=== PATIENT | female | born 1940 | race Caucasian/White ===

== ENCOUNTER → 2017-12-03 12:16 | Outpatient (CLI) | payer MEDICARE, SELFPAY ==
[2017-12-03 13:21] VITALS: PULSE 56; PULSE 62; PULSE 69; PULSE 72; PULSE 75; PULSE 79; O2SAT 94; O2SAT 95; O2SAT 96; O2SAT 97; O2SAT 98
--- NOTE | 2017-12-03 13:25 | CPS ---
Patient states she wears 4 lpm at home at night. Patient was 96% on room air to start the test. Patient took a very quick break during the 2nd minute of walking, she then stopped again at 3 minutes and 30 seconds until 5 minutes. When I told the patient she only had a minute left, she told me that she had more than that since she had been sitting. I reminded the patient that she should do the best she can in 6 minutes and start again from breaks as soon as she can because her time keeps running. She then insisted on walking more after her 6 minutes was over so she could get a good test she said. We walked an additional 100 ft after the 6 minutes which would total 395ft, patient's SpO2 still remained >95%.
--- NOTE | 2017-12-03 14:06 | PCM.PSN.6M ---
PSN 6 Minute Walk Test - 6 Minute Walk Test 6 Minute Walk Test: 6 Minute Walk Test PSN:6-Minute Walk Test Start: 12/03/17 13:21 Freq: Status: Active Protocol: RESP.6MINW Document 12/03/17 13:21 ELLIOT (Rec: 12/03/17 13:32 ELLIOT [id number]) 6 Minute Walk Test Date Performed 12/03/17 Time Performed 12:25 Height 4 ft 8 in Weight: 65.771 kg Weight in Pounds 145.[address]: Mumtaz Ravi Assistive device used: None Pre-test Oxygen Delivery Method Room Air Pulse Ox (%) 96 Pulse Rate (60-100 beats/min) 56 L Dyspnea Jose Scale (0-10) 3 Exertion Jose Scale (6-20) 6 1st minute Oxygen Delivery Method Room Air Pulse Ox (%) 94 Pulse Rate (60-100 beats/min) 75 2nd minute Oxygen Delivery Method Room Air Pulse Ox (%) 96 Pulse Rate (60-100 beats/min) 79 Number of Rests Taken 1 3rd minute Oxygen Delivery Method Room Air Pulse Ox (%) 95 Pulse Rate (60-100 beats/min) 79 Number of Rests Taken 1 4th minute Oxygen Delivery Method Room Air Pulse Ox (%) 97 Pulse Rate (60-100 beats/min) 72 Number of Rests Taken 1 5th minute Oxygen Delivery Method Room Air Pulse Ox (%) 98 Pulse Rate (60-100 beats/min) 69 Number of Rests Taken 1 6th minute Oxygen Delivery Method Room Air Pulse Ox (%) 95 Pulse Rate (60-100 beats/min) 72 Dyspnea Jose Scale (0-10) 6 Exertion Jose Scale (6-20) 16 Post-test Oxygen Delivery Method Room Air Pulse Ox (%) 98 Pulse Rate (60-100 beats/min) 62 Full Laps Walked 5 Partial Lap, Number of Tiles Walked 0 Total Distance Walked (ft) 295 12/03/17 13:25 Cardiopulmonary Services by Sanna Ramires Patient states she wears 4 lpm at home at night. Patient was 96% on room air to start the test. Patient took a very quick break during the 2nd minute of walking, she then stopped again at 3 minutes and 30 seconds until 5 minutes. When I told the patient she only had a minute left, she told me that she had more than that since she had been sitting. I reminded the patient that she should do the best she can in 6 minutes and start again from breaks as soon as she can because her time keeps running. She then insisted on walking more after her 6 minutes was over so she could get a good test she said. We walked an additional 100 ft after the 6 minutes which would total 395ft, patient's SpO2 still remained >95%. Initialized on 12/03/17 13:25 - END OF NOTE - Interpretation Interpretation: The patient was able to ambulate only 295 feet over the course of 6 minutes on room air with no assistive devices. Patient took a rest from the third minutes of the fifth minute, limiting distance traveled. No significant desaturation or tachycardia was noted during testing. These findings are consistent with a musculoskeletal limitation exercise tolerance. - Recommendations Recommendations: No supplemental oxygen is indicated at this time. However, sensitivity for hypoxemia is severely reduced given minimal distance traveled.
--- NOTE | 2017-12-03 14:24 | WT_ITS ---
PSN 6 Minute Walk Test - 6 Minute Walk Test 6 Minute Walk Test: 6 Minute Walk Test PSN:6-Minute Walk Test Start: 12/03/17 13: 21 Freq: Status: Active Protocol: RESP.6MINW Document 12/03/17 13:21 ELLIOT (Rec: 12/03/17 13:32 ELLIOT [id number]) 6 Minute Walk Test Date Performed 12/03/17 Time Performed 12:25 Height 4 ft 8 in Weight: 65.771 kg Weight in Pounds 145.[address]: Mumtaz Ravi Assistive device used: None Pre-test Oxygen Delivery Method Room Air Pulse Ox (%) 96 Pulse Rate (60-100 beats/min) 56 L Dyspnea Jose Scale (0-10) 3 Exertion Jose Scale (6-20) 6 1st minute Oxygen Delivery Method Room Air Pulse Ox (%) 94 Pulse Rate (60-100 beats/min) 75 2nd minute Oxygen Delivery Method Room Air Pulse Ox (%) 96 Pulse Rate (60-100 beats/min) 79 Number of Rests Taken 1 3rd minute Oxygen Delivery Method Room Air Pulse Ox (%) 95 Pulse Rate (60-100 beats/min) 79 Number of Rests Taken 1 4th minute Oxygen Delivery Method Room Air Pulse Ox (%) 97 Pulse Rate (60-100 beats/min) 72 Number of Rests Taken 1 5th minute Oxygen Delivery Method Room Air Pulse Ox (%) 98 Pulse Rate (60-100 beats/min) 69 Number of Rests Taken 1 6th minute Oxygen Delivery Method Room Air Pulse Ox (%) 95 Pulse Rate (60-100 beats/min) 72 Dyspnea Jose Scale (0-10) 6 Exertion Jose Scale (6-20) 16 Post-test Oxygen Delivery Method Room Air Pulse Ox (%) 98 Pulse Rate (60-100 beats/min) 62 Full Laps Walked 5 Partial Lap, Number of Tiles Walked 0 Total Distance Walked (ft) 295 12/03/17 13:25 Cardiopulmonary Services by Sanna Ramires Patient states she wears 4 lpm at home at night. Patient was 96% on room air to start the test. Patient took a very quick break during the 2nd minute of walking , she then stopped again at 3 minutes and 30 seconds until 5 minutes. When I told the patient she only had a minute left, she told me that she had more than that since she had been sitting. I reminded the patient that she should do the best she can in 6 minutes and start again from breaks as soon as she can because her time keeps running. She then insisted on walking more after her 6 minutes was over so she could get a good test she said. We walked an additional 100 ft after the 6 minutes which would total 395ft, patient's SpO2 still remained >95%. Initialized on 12/03/17 13:25 - END OF NOTE - Interpretation Interpretation: The patient was able to ambulate only 295 feet over the course of 6 minutes on room air with no assistive devices. Patient took a rest from the third minutes of the fifth minute, limiting distance traveled. No significant desaturation or tachycardia was noted during testing. These findings are consistent with a musculoskeletal limitation exercise tolerance. - Recommendations Recommendations: No supplemental oxygen is indicated at this time. However, sensitivity for hypoxemia is severely reduced given minimal distance traveled.
== END ==
PROVIDERS: Family Provider Family Medicine; PCP Family Medicine; Visit Provider Internal Medicine Critical Care Medicine
DX: J44.9 Chronic obstructive pulmonary disease, unspecified (principal)
CPT/HCPCS: 94618

== ENCOUNTER → 2018-05-24 15:26 | Outpatient (CLI) | payer MEDICARE, SELFPAY ==
--- NOTE | 2018-05-24 15:55 | RAD_ITS ---
STUDY: X-RAY CHEST REASON FOR EXAM: Female, 78 years old. Long-term use of Amiodarone TECHNIQUE: Frontal and lateral views of the chest. COMPARISON: 03/17/2017. FINDINGS: There is hyperinflation of the lungs consistent with chronic obstructive lung disease (COPD). No infiltrates or effusions. No definite pulmonary fibrosis but there are stable streaks of probable scarring across the midlung ayala bilaterally. There is no demonstrated pleural abnormality. There is moderate cardiac enlargement. Normal mediastinum and lydia. Normal visualized pulmonary arteries. There is atherosclerotic calcification of the aortic arch with tortuosity. There are diffuse degenerative changes of the visualized thoracic spine. There is degenerative osteoarthritis of the bilateral shoulders. There is no demonstrated abnormality of the visualized soft tissue structures of the upper abdomen. RAD/Chest PA and Lateral IMPRESSION: COPD, without definite acute chest disease or evidence for generalized fibrosis. Cardiomegaly. Electronically Signed: Honorio Santacruz MD at 16:43 EDT , Service support ,
[2018-05-24 18:17] LABS: AST(SGOT) 12 U/L (15-37); Alanine Aminotransfer ALT/SGPT 14 U/L (13-56); Albumin, Serum 3.6 g/dL (3.2-5.0); Alkaline Phosphatase 52 U/L (45-117); Bilirubin, Direct 0.08 mg/dL (0.00-0.30); Protein, Total 6.6 g/dL (6.4-8.2); Thyroid Stim Hormone (TSH) 0.02 uIU/mL (0.358-3.74)
== END ==
PROVIDERS: Family Provider Family Medicine; PCP Family Medicine; Referring Provider Internal Medicine Cardiovascular Disease; Visit Provider Internal Medicine Cardiovascular Disease
DX: E78.00 Pure hypercholesterolemia, unspecified (principal); Z79.01 Long term (current) use of anticoagulants
CPT/HCPCS: 36415; 71046; 80076; 84443

== ENCOUNTER → 2018-11-16 16:43 | Outpatient (CLI) | payer MEDICARE, SELFPAY ==
[2018-11-16 15:53] VITALS: BMI 28.2
[2018-11-16 17:21] LABS: Absolute Lymphocyte Count 1.17 X10^3/ul (0.83-4.51); Absolute Neutrophil Count 3.6 X10^3/uL (2.0-7.7); Basophil# 0.18 X10^3/uL; Basophil% 3.2 % (0-1); Eosinophil# 0.12 X10^3/uL; Eosinophils% 2.2 % (0-5); Hematocrit 28.3 % (37-47); Hemoglobin 7.6 g/dl (12.0-15.0); Lymphocyte # 1.17 X10^3/ul (4.0); Mean Corp Hgb Conc 26.9 g/gl (32-36); Mean Corpuscular Hgb 22.8 pg (27.0-32.0); Mean Corpuscular Volume 84.7 fL (81-99); Mean Platelet Vol. 9.9 fl (6.2-12.0); Monocyte# 0.55 X10^3/uL; Monocyte% 9.9 % (0-10); Neutrophil # 3.55 X10^3/uL (2.7-7.7); Neutrophil % 63.5 % (47-70); Platelet Count 394 K/mm3 (150-450); RBC Distribution Width CV 19.5 % (11.6-14.6); RBC Distribution Width SD 58.3 fl (35.1-43.9); Red Blood Count 3.34 M/mm3 (4.2-5.4); White Blood Count 5.6 K/mm3 (4.4-11.0)
[2018-11-16 17:22] LABS: Differential Indicated SCAN CRITERIA MET; POSITIVE COUNT NO; POSITIVE DIFFERENTIAL NO; POSITIVE MORPHOLOGY YES
[2018-11-16 17:50] LABS: Anion Gap 7 (5-15); BUN 24 mg/dL (7-18); BUN/Creat Ratio 15.4 RATIO (10-20); Calcium,Total 8.7 mg/dL (8.5-10.1); Chloride 106 mmol/L (98-107); Creatinine, Serum 1.56 mg/dL (0.55-1.02); EST Glomerular Filtration Rate 34 mL/min (>60); Est Glom Filt Rate - Afr Amer 41 mL/min (>60); Glucose 97 mg/dL (74-106); Potassium 3.7 mmol/L (3.5-5.1); Sodium Level 138 mmol/L (136-145)
[2018-11-16 17:56] LABS: BNP,B-Type NATRIURETIC PEPTIDE 1105.1 pg/mL (0-100)
[2018-11-16 19:54] LABS: Anisocytosis 2+; Differential Comment SCANNED; Hypochromasia 2+; Platelet Estimate ADEQUATE (ADEQ); Polychromasia RARE; Target Cells RARE
== END ==
PROVIDERS: Family Provider Family Medicine; PCP Family Medicine; Referring Provider Nurse Practitioner Family; Visit Provider Nurse Practitioner Family
DX: I48.0 Paroxysmal atrial fibrillation (principal); I10 Essential (primary) hypertension; R06.09 Other forms of dyspnea; E78.00 Pure hypercholesterolemia, unspecified
CPT/HCPCS: 36415; 80048; 83880; 85025

== ENCOUNTER 2018-11-17 11:16 | Inpatient (IN) | payer MEDICARE, SELFPAY ==
[2018-11-16 15:53] VITALS: BMI 28.2
[2018-11-17] VITALS (17 sets, daily range): BP systolic 120–201; BP diastolic 54–101; PULSE 44–99; RESP 16–20; TEMP 36.3–36.6; O2SAT 91–97; BMI 28.2; BMI 27.9; BMI 28.0
--- NOTE | 2018-11-17 11:24 | EKG12_ITS ---
Test Reason : ABN LABS Blood Pressure : / mmHG Vent. Rate : 054 BPM Atrial Rate : 054 BPM P-R Int : 200 ms QRS Dur : 080 ms QT Int : 474 ms P-R-T Axes : -03 029 044 degrees QTc Int : 449 ms Sinus bradycardia with sinus arrhythmia Otherwise normal ECG Confirmed by BELINDA XIE, PRIETO ([id number]), acquisition editor DENISE LEON ([id number]) on 11/21/2018 11:44:04 AM Referred By: Adiel Reyes Confirmed By:PRIETO TREVINO MD
--- NOTE | 2018-11-17 11:26 | ED.VIS.GEN ---
History of Present Illness Chief Complaint: Abn Labs Detail of Chief Complaint: Patient does not know specifically why sent to ER Informant: Patient Context: - - Probably gradual Quality: Review of yesterday's labs reveal hemoglobin 7.6. BUN/creatinine ratio is Location: Not applicable Current Severity: Mild Maximum Severity: Mild Worsened by: Patient has no symptoms other than her chronic back pain Relieved by: Nothing Associated Symptoms: No orthostatic symptoms, chest pain, dyspnea or SAMANO Narrative: Patient is an elderly woman who is not a good informant. She was instructed to come to the emergency room because of apparent abnormal labs and possibly low heart rate. She states she is on Soma, gabapentin and small dose of opiate analgesia for her chronic back pain. She states the medicine does not work. She stated I am on a crap load of medicine and do not know the name of them . Patient denies black or maroon stool. Patient denies vomiting. Patient denies dysuria, frequency, urgency or hematuria. Patient denies chest pain, dyspnea or dyspnea on exertion. 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 (7) Nonrheumatic aortic (valve) insufficiency Status: Chronic Past Medical History - Allergies and Home Meds Allergies/Adverse Reactions: Allergies ferrous sulfate Adverse Reaction (Severe, Verified 11/17/18 11:19) Diarrhea codeine Adverse Reaction (Verified 11/17/18 11:19) Other pregabalin [From Lyrica] Adverse Reaction (Verified 11/17/18 11:19) Other makes me deathly ill tramadol Adverse Reaction (Verified 11/17/18 11:19) Nausea Primary Care Physician: Shila Mckinnon DO [Primary Care Provider] - Prior records reviewed: Yes Surgical History: noncontributory, - - back surgery Lives: Alone Smoking Status: Former smoker Alcohol: None - Family History Maternal Family History: Family History (Last Reviewed 06/29/18 @ 12:35 by Jailyn Ramsay) Mother CVA (cerebral vascular accident) Atrial fibrillation Brother Atrial fibrillation History of PTCA Family History: Reports: No pertinent history Paternal Family History: Family History (Last Reviewed 06/29/18 @ 12:35 by Jailyn Ramsay) Mother CVA (cerebral vascular accident) Atrial fibrillation Brother Atrial fibrillation History of PTCA Family History: Reports: No pertinent history Review of Systems General: Denies: Chills, Fever, Sweats Eyes: Denies: Visual changes - bilaterally, Diplopia ENT: Denies: Bilateral ear pain, Rhinorrhea, Sore throat Cardiovascular: Denies: Chest pain, Palpitations, Heart racing Respiratory: Denies: Dyspnea, Cough, Dyspnea on exertion, Orthopnea Gastrointestinal: Denies: Abdominal pain, Nausea, Vomiting, Diarrhea, Melena, Hematochezia Genitourinary: Denies: Dysuria, Hematuria, Frequency Musculoskeletal: Reports: Back pain. Denies: Myalgias, Arthralgias, Extremity Pain Skin: Denies: Rash, Wounds Neurological: Denies: Headache, Weakness, Numbness Hematologic: Reports: Easy bruising Allergy: Denies: Uticaria Physical Exam Vital Signs/Narrative: Vital Signs Temp Pulse Resp BP Pulse Ox 11/17/18 11:16 98 F 52 L 16 127/80 H 93 Inital Vital Signs reviewed: Yes General: Well nourished, Well developed, No Acute Distress Head: Normocephalic, Atraumatic Eyes: Perrl, EOMI, Pale conjunctiva. Negative for: Scleral icterus ENT: Moist mucous membranes, No rhinorrhea Neck: Supple, Nontender Cardiovascular: No murmurs, Irregular Respiratory: No distress, CTA bilaterally, Chest nontender Abdomen: Soft, Nontender, Nondistended, Normal bowel sounds Back: Nontender, Normal Inspection Extremities: Nontender, No edema Skin: Normal color, No rash Neurological: Alert, Oriented x3, Cranial nerves II-XII grossly intact, Normal Strength, Normal Sensation Psychological: Normal affect, Normal Mood Diagnostic/Tx/Re-eval Laboratory Results 11/17/18 11/17/18 11:45 11:45 WBC 5.0 RBC 3.36 L Hgb 7.7 L Hct 28.3 L MCV 84.2 MCH 22.9 L MCHC 27.2 L RDW 19.3 H RDW Differential 57.9 H Plt Count 375 MPV 10.3 Sodium 140 Potassium 3.6 Chloride 107 Carbon Dioxide 25.0 Anion Gap 8 BUN 20 H Creatinine 1.47 H Estim Creat Clear Calc 29.38 Est GFR (MDRD) Af Amer 44 L Est GFR (MDRD) Non-Af 37 L BUN/Creatinine Ratio 13.6 Glucose 99 Calcium 8.7 There is no change in H&H or BUN/creatinine compared to yesterday. - EKG Initial EKG Interpretation: Sinus Bradycardia - Ventricular rate is 54. NH interval, Q voodoo, QT interval and axis are normal. There is evidence of sinus arrhythmia. - Medical Decision Making Will obtain EKG since patient is bradycardic apparently reason for visit to ER. Will repeat BMP and CBC to determine if there is a drop in hemoglobin as well as increase in BUN to creatinine ratio, which would indicate acute GI blood loss. Since patient is not orthostatic not dyspneic if stool was only occultly positive and she is asymptomatic outpatient follow-up would be appropriate as well as outpatient transfusion. Patient has microcytic anemia. Stool was brown. Hemoccult test is pending. Since patient is asymptomatic and there is no interval change in 24 hours she is safe to go home since she is asymptomatic to follow-up with her PCP. Patient was informed that her stool is positive for occult blood and reason for her anemia. She was informed that she would need a colonoscopy. She was asked if she had a preference what surgeon she would want to follow-up with. She informed me that she does not want a colonoscopy and she does not want to follow-up with a surgeon. In my professional medical opinion patient has the capacity to refuse and understands risks of not having a colonoscopy and reason why she needs a colonoscopy. ED Disposition - Plan for ED Patient: Disposition: Home or Assisted Living Diagnosis: Iron deficiency anemia due to chronic blood loss, Paroxysmal atrial flutter, COPD (chronic obstructive pulmonary disease), Chronic renal insufficiency, Hypertension, Hyperlipidemia Instructions: ED Anemia Iron Deficiency, Fecal Occult Blood Test Referrals: Shila Mckinnon DO [Primary Care Provider] - 3-5 Days Additional Instructions: You understand you need follow-up for the blood found in your stool. You understand that you need to have a colonoscopy. It is your choice not to have a colonoscopy.
[2018-11-17 11:56] LABS: Hematocrit 28.3 % (37-47); Hemoglobin 7.7 g/dl (12.0-15.0); Mean Corp Hgb Conc 27.2 g/gl (32-36); Mean Corpuscular Hgb 22.9 pg (27.0-32.0); Mean Corpuscular Volume 84.2 fL (81-99); Mean Platelet Vol. 10.3 fl (6.2-12.0); Platelet Count 375 K/mm3 (150-450); RBC Distribution Width CV 19.3 % (11.6-14.6); RBC Distribution Width SD 57.9 fl (35.1-43.9); Red Blood Count 3.36 M/mm3 (4.2-5.4); Scan Indicated on CBC? Y/N NO
[2018-11-17 12:09] LABS: Anion Gap 8 (5-15); BUN 20 mg/dL (7-18); BUN/Creat Ratio 13.6 RATIO (10-20); Calcium,Total 8.7 mg/dL (8.5-10.1); Chloride 107 mmol/L (98-107); Creatinine, Serum 1.47 mg/dL (0.55-1.02); EST Glomerular Filtration Rate 37 mL/min (>60); Est Glom Filt Rate - Afr Amer 44 mL/min (>60); Estimated Creatinine Clearance 29.38 ml/min; Glucose 99 mg/dL (74-106); Potassium 3.6 mmol/L (3.5-5.1); Sodium Level 140 mmol/L (136-145)
--- NOTE | 2018-11-17 13:48 | ED.RN ---
PT AWARE HEMOGLOBIN LOW. PT STRONGLY ENCOURAGED TO RETURN IF S/S INCREASE OR GET WORSE
--- NOTE | 2018-11-17 14:06 | ED.RN ---
PT UP TO BR. PT WITH INCREASED DIZZINESS AND LIGHTHEADED AFTER
--- NOTE | 2018-11-17 14:22 | ED.RN ---
PT STATES HAVING INTERMITTENT CP
--- NOTE | 2018-11-17 14:28 | ED.RN ---
dr rojas made aware of pt dizziness. also of pt bnp from yesterday at 1105.1. pt tearful in room. states i feel lousy. pt took home meds of amparo and soma with dr permission. montrell and water given
--- NOTE | 2018-11-17 15:03 | ED.DCSUM_ITS ---
- ER Visit Summary Date of Service: 11/17/18 Chief Complaint: [] History of Present Illness: The patient is a 78 F [] Physical Examination: [] Test Results: [] Emergency Department Course and Treatment: [] Treatment Plan: [] Disposition: [] Impression: [] This note was generated with [employer] dictation software. It may contain incorrect words, spelling, and punctuation that were not noted in review of the chart prior to signing ED Disposition - Plan for ED Patient: Disposition: Home or Assisted Living Diagnosis: Iron deficiency anemia due to chronic blood loss, Paroxysmal atrial flutter, COPD (chronic obstructive pulmonary disease), Chronic renal insufficiency, Hypertension, Hyperlipidemia Instructions: Fecal Occult Blood Test, ED Anemia Iron Deficiency Referrals: Shila Mckinnon DO [Primary Care Provider] - 3-5 Days Camacho Gipson MD [STAFF PHYSICIAN] - 3-5 Days Additional Instructions: You understand you need follow-up for the blood found in your stool. You understand that you need to have a colonoscopy. It is your choice not to have a colonoscopy.
--- NOTE | 2018-11-17 15:15 | ED.RN ---
PT REPORTED THAT SHE WAS NOT COMPLETELY HONEST WITH DR. GOLDSTEIN. PT REPORTED SHE IS VERY SCARED AT HOME THAT SHE WILL FALL WHEN AMBULATING DUE TO DIZZINESS. PT WAS TEARFUL AND CRYING AND REPORTED SHE HAS NOT EVEN TOLD HER DAUGHTER ABOUT HOW SHE FEELS AT HOME ALONE.
--- NOTE | 2018-11-17 15:24 | ED.RN ---
toribio from older adult social work specialist aware of pt concerns
--- NOTE | 2018-11-17 15:55 | CM.ED ---
Social Work Assessment Referral Date: 11/17/18 Date of Assessment: 11/17/18 Informant: NURSEFOREIGN Reason for Consult: D/C PLANNING, EMOTIONAL SUPPORT Information obtained from: PATIENT AND PATIENT'S GRANDSEAN HANNA Living Arrangements: PATIENT LIVES HOME ALONE IN A CONDO WITH RAMP. Employment/Financial: RETIRED. PATIENT DOES NOT REPORT ANY FINANCIAL CONCERNS. Supports: PATIENT HAS GOOD SUPPORT FROM FAMILY. Social/Family Stressors: PATIENT STATES HAS NOT WANTED TO TELL FAMILY HOW BAD SHE HAS BEEN FEELING. PATIENT REPORTS GETS DIZZY A LOT AND HAS NOT BEEN HONEST ABOUT IT. PATIENT CONCERNED WITH RETURNING HOME ALONE. Mental Health History: PATIENT ADMITS TO HX OF DEPRESSION D/T NOT FEELING WELL. Substance Abuse History: PATIENT DENIES ANY HX OF SUBSTANCE ABUSE. PATIENT REPORTS ONLY TAKES WHAT SHE IS PRESCRIBED. Interventions: SOCIAL SERVICE ASSESSMENT Assessment: PATIENT IS A 78 Y/O FEMALE WHO PRESENTS TO THE ED PER PCP D/T ABNORMAL LABS. PATIENT STATES LIVES HOME ALONE IN A CONDO WITH 1 STEP TO ENTER FROM FRONT AND RAMP IN THE GARAGE. PATIENT STATES DME IN THE HOME CONSISTS OF O2 (4L @ NIGHT) CANE, WALKER, AND WHEELCHAIR. PATIENT STATES FAMILY ASSISTS WITH TRANSPORTATION. DAUGHTER, JERONIMO BETTENCOURT IS HPOA. PATIENT REPORTS HAS HAD HOME HEALTH IN THE PAST THROUGH THE HOSPITAL. PATIENT STATES HAS NOT BEEN HONEST WITH THE WAY SHE HAS BEEN FEELING. PATIENT REPORTS IS DIZZY A LOT AND SOMETIMES HAS TO HANG ON TO FURNITURE OR WALL IN THE HOME WHEN WALKING. PATIENT FEARFUL OF RETURNING HOME ALONE D/T DIZZINESS. PATIENT ADMITS TO HX OF DEPRESSION D/T HEALTH. EMOTIONAL SUPPORT PROVIDED THROUGHOUT ASSESSMENT PT TEARFUL AT TIMES. DISCUSSED CASE WITH NURSING AND DR. GOLDSTEIN. ANTICIPATE ADMISSION. D/C PLAN UNKNOWN AT THIS TIME. PATIENT WISHES TO RETURN HOME WITH HOME HEALTH IF ABLE. PLAN: ADMIT
--- NOTE | 2018-11-17 16:01 | ED.RN ---
attempted to ambulate pt. pt becomes very dizz and lightheaded. pt starts to go down--grabs this rn by the clothes
--- NOTE | 2018-11-17 16:48 | PCM.HP.STD ---
<Rahul Peterson - Last Filed: 11/17/18 16:48> Problem List (1) GI bleed Status: Acute (2) Hyperthyroidism Status: Chronic (3) Paroxysmal atrial fibrillation Status: Chronic (4) Hyperlipidemia Status: Chronic Qualifiers: Hyperlipidemia type: pure hypercholesterolemia Qualified Code(s): E78.00 - Pure hypercholesterolemia, unspecified (5) COPD (chronic obstructive pulmonary disease) Status: Chronic Qualifiers: COPD type: unspecified COPD Qualified Code(s): J44.9 - Chronic obstructive pulmonary disease, unspecified (6) Hypertension Status: Chronic Qualifiers: Hypertension type: essential hypertension Qualified Code(s): I10 - Essential (primary) hypertension (7) Anemia Status: Chronic History of Present Illness Date of Admission: 11/17/18 Chief Complaint: dizziness The patient is a 78 year old F with a history of paroxysmal atrial fibrillation, bleeding stomach ulcers, hemorrhoids, CKD stage III, who presents to the emergency room from Dr. Campoverde's office. She was sent after routine blood lab work demonstrated hemoglobin of 7.6. She came to the emergency room was found to have a hemoglobin of 7.7, normal platelets, and initially stated that she did not have symptoms and was going to go home and have an outpatient endoscopy. However later she was dizzy and weak with ambulation and later admitted that she has been having dizziness for months and it has worsened over the past month. A Hemoccult stool was done and was positive for blood. General surgery was called who is agreed to see the patient. The patient admitted that occasionally her hemorrhoids do bleed. She has not noticed any black, tarry or dark stools recently. Her last colonoscopy was 30 years ago. [] Past Medical History Past Medical History (Chronic Problems): Chronic Problems (Last Reviewed 06/29/18 @ 12:35 by Jailyn Ramsay) Iron deficiency anemia due to chronic blood loss (Chronic) Hyperthyroidism (Chronic) Dyspnea on exertion (Chronic) Paroxysmal atrial fibrillation (Chronic) Nocturnal hypoxia (Chronic) [employer] current use of anticoagulant therapy (Chronic) Nonrheumatic tricuspid (valve) insufficiency (Chronic) Nonrheumatic aortic (valve) insufficiency (Chronic) Hyperlipidemia (Chronic) Chronic back pain (Chronic) COPD (chronic obstructive pulmonary disease) (Chronic) Hypertension (Chronic) Chest pain (Chronic) Anemia (Chronic) Chronic renal insufficiency (Chronic) Medical History: Medical History (Last Reviewed 06/29/18 @ 12:35 by Jailyn Ramsay) Paroxysmal atrial flutter (Acute) I48.92 Paroxysmal atrial fibrillation (Chronic) I48.0 Nocturnal hypoxia (Chronic) G47.34 [employer] current use of anticoagulant therapy (Chronic) Z79.01 Nonrheumatic tricuspid (valve) insufficiency (Chronic) I36.1 Nonrheumatic aortic (valve) insufficiency (Chronic) I35.1 Hyperlipidemia (Chronic) E78.5 COPD (chronic obstructive pulmonary disease) (Chronic) J44.9 Hypertension (Chronic) I10 Body mass index 34.0-34.9, adult Z68.34 CVA (cerebral vascular accident) I63.9 Dyspnea on exertion R06.09 Long-term use of high-risk medication Z79.899 Lung nodule R91.1 Nocturnal hypoxia G47.34 Paroxysmal atrial fibrillation I48.0 Stage 1 mild COPD by GOLD classification J44.9 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.201 Atrial fibrillation (Inactive) I48.91 Allergies ferrous sulfate Adverse Reaction (Severe, Verified 11/17/18 11:19) Diarrhea codeine Adverse Reaction (Verified 11/17/18 11:19) Other pregabalin [From Lyrica] Adverse Reaction (Verified 11/17/18 11:19) Other makes me deathly ill tramadol Adverse Reaction (Verified 11/17/18 11:19) Nausea Home Medications: Ambulatory Orders Medication Instructions Recorded Carisoprodol [Soma] 350 mg PO TID 03/17/17 Cholecalciferol (Vitamin D3) 5,000 unit PO DAILY 03/17/17 [Vitamin D3] Gabapentin [Neurontin] 600 mg PO TIDCM 03/17/17 Hydrocodone Bitart/Apap 5-325 1 - 2 tab PO Q4H PRN PRN 03/17/17 [[place] 5MG-325MG] Meclizine HCl 25 mg PO TID PRN PRN 03/17/17 Melatonin 5 mg PO QHS PRN PRN 03/17/17 Omeprazole [Prilosec] 20 mg PO DAILY 03/17/17 ipratropium-albuterol 0.5 mg-3 3 ml INHALATION Q8H 05/20/18 mg(2.5 mg base)/3 mL nebulization soln amlodipine 5 mg tablet 5 mg PO DAILY #30 tab 12/26/18 Albuterol IH (ProAir) [Proair Hfa] 2 puff INHALATION Q4H PRN PRN 11/17/18 Amiodarone HCl [Cordarone] 200 mg PO QHS 11/17/18 Aspirin E.C. [Ecotrin] 81 mg PO DAILY@0800 11/17/18 Pravastatin [Pravachol] 80 mg PO QHS 11/17/18 Promethazine HCl 25 mg PO PRN PRN 11/17/18 Rivaroxaban [Xarelto] 15 mg PO DAILY 11/17/18 Umeclidinium Brm/Vilanterol Tr 1 inh INHALATION Q24H 11/17/18 [Anoro Ellipta] Surgical History: Surgical History (Last Reviewed 06/29/18 @ 12:35 by Jailyn Ramsay) History of back surgery Z98.890 Surgical History: noncontributory, - - back surgery Lives: Alone Smoking Status: Former smoker Alcohol: None - *Family History Maternal Family History: Family History (Last Reviewed 06/29/18 @ 12:35 by Jailyn Ramsay) Mother CVA (cerebral vascular accident) Atrial fibrillation Brother Atrial fibrillation History of PTCA History Items: No pertinent history Paternal Family History: Family History (Last Reviewed 06/29/18 @ 12:35 by Jailyn Ramsay) Mother CVA (cerebral vascular accident) Atrial fibrillation Brother Atrial fibrillation History of PTCA History Items: Cancer - lung Review of Systems Constitutional: Reports: Weakness, Fatigue. Denies: Chills, Fever HEENT: Denies: Head Aches, Sinus Congestion, Sinus Drainage Cardiovascular: Reports: Light Headedness. Denies: Chest Pain, Edema, Palpitations Respiratory: Denies: Cough, Shortness of breath at rest, Sputum production Gastrointestinal: Denies: Abdominal Pain, Nausea, Vomiting Genitourinary: Denies: Dysuria Musculoskeletal: Denies: Joint Pain, Joint Tenderness Skin: Denies: Rash, Wounds Neurological: Denies: Numbness, Tingling, Focal weakness Psychiatric: Denies: Anxiety, Depression, Homicidal Ideations, Suicidal Ideations Hematologic/ Lymphatic: Denies: Easy Bruising, Easy Bleeding VTE Information - Inpt Only VTE Present on Admission: No VTE Mechan Device Prophylaxis: None VTE Pharm Prophylaxis ordered?: No Reason prophylaxis not ordered:: Medical Contraindication Patient Problems: Active and Suspected Problems (Last Reviewed 06/29/18 @ 12:35 by Jailyn Ramsay) GI bleed (Acute) Paroxysmal atrial flutter (Acute) - Physical Exam General: Alert, Oriented x3, Cooperative HEENT: Atraumatic, PERRLA, EOMI, Normocephalic Neck: Supple, No JVD, Negative Carotid Bruits Lungs: Clear to auscultation, Normal air movement Cardiovascular: Regular rate, No murmurs Abdomen: Bowel Sounds Present, Soft, Non Tender Extremities: No edema, Capillary Refill Less than 3 Seconds Skin: No rashes, No breakdown, - - pallor Musculoskeletal: No Tenderness to Palpation of Joints or Extremities Neurological: Cranial nerves II-XII grossly intact Psych/Mental Status: Normal Affect, Appropriate Vital Signs Temp Pulse Resp BP Pulse Ox 98 F 53 L 20 H 157/70 H 93 11/17/18 11:16 11/17/18 16:23 11/17/18 16:00 11/17/18 16:23 11/17/18 16:00 Oxygen Flow Rate (L/min) 2 Oxygen Delivery Method Nasal Cannula Weight: 126 lb Body Mass Index (BMI) 28.2 Microbiology Past 72 Hours 11/17/18 12:10 Stool Occult Blood (MAU) - Final Stool Occult Blood Positive Laboratory Tests Past 24 Hrs 11/17/18 11/17/18 11:45 11:45 WBC 5.0 RBC 3.36 L Hgb 7.7 L Hct 28.3 L MCV 84.2 MCH 22.9 L MCHC 27.2 L RDW 19.3 H RDW Differential 57.9 H Plt Count 375 MPV 10.3 Sodium 140 Potassium 3.6 Chloride 107 Carbon Dioxide 25.0 Anion Gap 8 BUN 20 H Creatinine 1.47 H Estim Creat Clear Calc 29.38 Est GFR (MDRD) Af Amer 44 L Est GFR (MDRD) Non-Af 37 L BUN/Creatinine Ratio 13.6 Glucose 99 Calcium 8.7 Assessment/Plan All Active Problems (Last Reviewed 06/29/18 @ 12:35 by Jailyn Ramsay) GI bleed (Acute) Paroxysmal atrial flutter (Acute) Renal failure (ARF), acute on chronic (Acute) Hypokalemia (Acute) 1. Blood loss anemia 2/2 GI bleed, chronic - hold xarelto, aspirin. + hemoccult. + Orthostatic vitals. T/C x 1 unit PRBC. Hx Bleeding ulcer. No bloody or black stools. Hx hemorrhoids that occasionally bleed. C/s Gen surgery. Add IV protonix. 2. Afib - rate controlled. hold anticoagulation 3. CVA - continue statin 4. Hx Ulcer - on PPI 5. COPD - no acute exacerbation - prn aerosols. 6. HTN - stable DVT ppx: SCDs DC planning: PTOT. lives alone. significant weakness This patient was seen by Rahul Peterson PA-C under the supervision of Doctor Brayden. <Dylan Owen F - Last Filed: 11/17/18 18:36> History of Present Illness The patient is a 78 year old F [] Past Medical History Medical History: Medical History (Last Reviewed 06/29/18 @ 12:35 by Jailyn Ramsay) Paroxysmal atrial flutter (Acute) I48.92 Paroxysmal atrial fibrillation (Chronic) I48.0 Nocturnal hypoxia (Chronic) G47.34 intermediate current use of anticoagulant therapy (Chronic) Z79.01 Nonrheumatic tricuspid (valve) insufficiency (Chronic) I36.1 Nonrheumatic aortic (valve) insufficiency (Chronic) I35.1 Hyperlipidemia (Chronic) E78.5 COPD (chronic obstructive pulmonary disease) (Chronic) J44.9 Hypertension (Chronic) I10 Body mass index 34.0-34.9, adult Z68.34 CVA (cerebral vascular accident) I63.9 Dyspnea on exertion R06.09 Long-term use of high-risk medication Z79.899 Lung nodule R91.1 Nocturnal hypoxia G47.34 Paroxysmal atrial fibrillation I48.0 Stage 1 mild COPD by GOLD classification J44.9 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.201 Atrial fibrillation (Inactive) I48.91 Allergies ferrous sulfate Adverse Reaction (Severe, Verified 11/17/18 11:19) Diarrhea codeine Adverse Reaction (Verified 11/17/18 11:19) Other pregabalin [From Lyrica] Adverse Reaction (Verified 11/17/18 11:19) Other makes me deathly ill tramadol Adverse Reaction (Verified 11/17/18 11:19) Nausea Surgical History: Surgical History (Last Reviewed 06/29/18 @ 12:35 by Jailyn Ramsay) History of back surgery Z98.890 - *Family History Maternal Family History: Family History (Last Reviewed 06/29/18 @ 12:35 by Jailyn Ramsay) Mother CVA (cerebral vascular accident) Atrial fibrillation Brother Atrial fibrillation History of PTCA Paternal Family History: Family History (Last Reviewed 06/29/18 @ 12:35 by Jailyn Ramsay) Mother CVA (cerebral vascular accident) Atrial fibrillation Brother Atrial fibrillation History of PTCA - Physical Exam Vital Signs Temp Pulse Resp BP Pulse Ox 98 F 53 L 20 H 157/70 H 93 11/17/18 11:16 11/17/18 16:23 11/17/18 16:00 11/17/18 16:23 11/17/18 16:00 Oxygen Flow Rate (L/min) 2 Oxygen Delivery Method Nasal Cannula Weight: 124 lb 5.451 oz Body Mass Index (BMI) 27.9 Microbiology Past 72 Hours 11/17/18 12:10 Stool Occult Blood (MAU) - Final Stool Occult Blood Positive Laboratory Tests Past 24 Hrs 11/17/18 11/17/18 11/17/18 11:45 11:45 17:25 WBC 5.0 RBC 3.36 L Hgb 7.7 L Hct 28.3 L MCV 84.2 MCH 22.9 L MCHC 27.2 L RDW 19.3 H RDW Differential 57.9 H Plt Count 375 MPV 10.3 Sodium 140 Potassium 3.6 Chloride 107 Carbon Dioxide 25.0 Anion Gap 8 BUN 20 H Creatinine 1.47 H Estim Creat Clear Calc 29.38 Est GFR (MDRD) Af Amer 44 L Est GFR (MDRD) Non-Af 37 L BUN/Creatinine Ratio 13.6 Glucose 99 Calcium 8.7 Blood Type Pending Antibody Screen Pending Crossmatch See Detail Code Visit Addendum: Dr. Owen I personally examined the patient and reviewed the chart. I agree with the above. 78-year-old female presenting with anemia. It appears that this is been going on for several months because she states that she did not tell her family about it. She was dizzy in the ER and unable to walk unassisted. She was sent in from her data entry coordinator's office where they had obtained labs demonstrating a hemoglobin of 7.7. She is on aspirin and Xarelto for her A. fib and a history of a CVA. Will hold both medications and will plan for an EGD and a colonoscopy tomorrow for evaluation of her bleeding. In the meantime we will place on Protonix twice daily and give her a 1 unit of PRBCs. Inpatient E&M: 28489 Init Hosp L3
--- NOTE | 2018-11-17 17:18 | PCM.CONS.GEN ---
Problem List (1) Iron deficiency anemia due to chronic blood loss Status: Chronic Reason for Consult Date of Consultation: 11/17/18 Reason for Consultation: Anemia and positive fecal occult blood test History of Present Illness: The patient is a 78 year old F who presented to the emergency room after being told by her PCP she was anemic. Patient does admit that she has been getting dizzy and was unable to ambulate in the emergency room per pain or gross blood in her stool. She denies black stools. She says she has a history of bleeding ulcers. She says her last colonoscopy was 30-40 years ago. She does take aspirin regularly. 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) Nonrheumatic tricuspid (valve) insufficiency (Chronic) Nonrheumatic aortic (valve) insufficiency (Chronic) Hyperlipidemia (Chronic) Chronic back pain (Chronic) COPD (chronic obstructive pulmonary disease) (Chronic) Hypertension (Chronic) Chest pain (Chronic) Anemia (Chronic) Chronic renal insufficiency (Chronic) Medical History: Medical History (Last Reviewed 06/29/18 @ 12:35 by Jailyn Ramsay) Paroxysmal atrial flutter (Acute) I48.92 Paroxysmal atrial fibrillation (Chronic) I48.0 Nocturnal hypoxia (Chronic) G47.34 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 (Chronic) Z79.01 Nonrheumatic tricuspid (valve) insufficiency (Chronic) I36.1 Nonrheumatic aortic (valve) insufficiency (Chronic) I35.1 Hyperlipidemia (Chronic) E78.5 COPD (chronic obstructive pulmonary disease) (Chronic) J44.9 Hypertension (Chronic) I10 Body mass index 34.0-34.9, adult Z68.34 CVA (cerebral vascular accident) I63.9 Dyspnea on exertion R06.09 Long-term use of high-risk medication Z79.899 Lung nodule R91.1 Nocturnal hypoxia G47.34 Paroxysmal atrial fibrillation I48.0 Stage 1 mild COPD by GOLD classification J44.9 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.201 Atrial fibrillation (Inactive) I48.91 Allergies ferrous sulfate Adverse Reaction (Severe, Verified 11/17/18 11:19) Diarrhea codeine Adverse Reaction (Verified 11/17/18 11:19) Other pregabalin [From Lyrica] Adverse Reaction (Verified 11/17/18 11:19) Other makes me deathly ill tramadol Adverse Reaction (Verified 11/17/18 11:19) Nausea Home Medications: Ambulatory Orders Medication Instructions Recorded Carisoprodol [Soma] 350 mg PO TID 03/17/17 Cholecalciferol (Vitamin D3) 5,000 unit PO DAILY 03/17/17 [Vitamin D3] Gabapentin [Neurontin] 600 mg PO TIDCM 03/17/17 Hydrocodone Bitart/Apap 5-325 1 - 2 tab PO Q4H PRN PRN 03/17/17 [[place] 5MG-325MG] Meclizine HCl 25 mg PO TID PRN PRN 03/17/17 Melatonin 5 mg PO QHS PRN PRN 03/17/17 Omeprazole [Prilosec] 20 mg PO DAILY 03/17/17 ipratropium-albuterol 0.5 mg-3 3 ml INHALATION Q8H 05/20/18 mg(2.5 mg base)/3 mL nebulization soln amlodipine 5 mg tablet 5 mg PO DAILY #30 tab 08/24/18 Albuterol IH (ProAir) [Proair Hfa] 2 puff INHALATION Q4H PRN PRN 11/17/18 Amiodarone HCl [Cordarone] 200 mg PO QHS 11/17/18 Aspirin E.C. [Ecotrin] 81 mg PO DAILY@0800 11/17/18 Pravastatin [Pravachol] 80 mg PO QHS 11/17/18 Promethazine HCl 25 mg PO PRN PRN 11/17/18 Rivaroxaban [Xarelto] 15 mg PO DAILY 11/17/18 Umeclidinium Brm/Vilanterol Tr 1 inh INHALATION Q24H 11/17/18 [Anoro Ellipta] Surgical History: Surgical History (Last Reviewed 06/29/18 @ 12:35 by Jailyn Ramsay) History of back surgery Z98.890 Surgical History: noncontributory, - - back surgery Lives: Alone Smoking Status: Former smoker Alcohol: None - *Family History Maternal Family History: Family History (Last Reviewed 06/29/18 @ 12:35 by Jailyn Ramsay) Mother CVA (cerebral vascular accident) Atrial fibrillation Brother Atrial fibrillation History of PTCA History Items: No pertinent history Paternal Family History: Family History (Last Reviewed 06/29/18 @ 12:35 by Jailyn Ramsay) Mother CVA (cerebral vascular accident) Atrial fibrillation Brother Atrial fibrillation History of PTCA History Items: Cancer - lung Review of Systems Constitutional: Reports: Weakness, Fatigue. Denies: Anorexia, Fever Cardiovascular: Denies: Chest Pain Respiratory: Denies: Cough, Shortness of Breath Gastrointestinal: Reports: Constipation. Denies: Abdominal Pain, Hematemesis, Hematochezia, Nausea, Melena, Vomiting Genitourinary: Denies: Dysuria Musculoskeletal: Denies: Joint Tenderness Skin: Denies: Jaundice Neurological: Reports: Balance problems Hematologic/ Lymphatic: Reports: Anemia Patient Problems: Active and Suspected Problems (Last Reviewed 06/29/18 @ 12:35 by Jailyn Ramsay) GI bleed (Acute) Paroxysmal atrial flutter (Acute) - Physical Exam General: Alert, Oriented x3, Cooperative, No apparent distress HEENT: Atraumatic, PERRLA, EOMI Oral: Moist Mucosa Neck: Supple Lungs: Normal air movement Cardiovascular: Regular rate, Regular Rhythm Abdomen: Soft, Non Tender, Non-Distended Extremities: No clubbing Musculoskeletal: No Muscle Wasting Neurological: Cranial nerves II-XII grossly intact Psych/Mental Status: Normal Affect, Appropriate Vital Signs Temp Pulse Resp BP Pulse Ox 98 F 53 L 20 H 157/70 H 93 11/17/18 11:16 11/17/18 16:23 11/17/18 16:00 11/17/18 16:23 11/17/18 16:00 Oxygen Flow Rate (L/min) 2 Oxygen Delivery Method Nasal Cannula Weight: 126 lb Body Mass Index (BMI) 28.2 Microbiology Past 72 Hours 11/17/18 12:10 Stool Occult Blood (MAU) - Final Stool Occult Blood Positive Laboratory Tests Past 24 Hrs 11/17/18 11/17/18 11:45 11:45 WBC 5.0 RBC 3.36 L Hgb 7.7 L Hct 28.3 L MCV 84.2 MCH 22.9 L MCHC 27.2 L RDW 19.3 H RDW Differential 57.9 H Plt Count 375 MPV 10.3 Sodium 140 Potassium 3.6 Chloride 107 Carbon Dioxide 25.0 Anion Gap 8 BUN 20 H Creatinine 1.47 H Estim Creat Clear Calc 29.38 Est GFR (MDRD) Af Amer 44 L Est GFR (MDRD) Non-Af 37 L BUN/Creatinine Ratio 13.6 Glucose 99 Calcium 8.7 Assessment/Plan All Active Problems (Last Reviewed 06/29/18 @ 12:35 by Jailyn Ramsay) GI bleed (Acute) Paroxysmal atrial flutter (Acute) Renal failure (ARF), acute on chronic (Acute) Hypokalemia (Acute) 78-year-old female with anemia and positive FOBT 1. Patient reports that she has a history of bleeding ulcers and she is on aspirin. Patient is on Prilosec at home. She is also on Xarelto. Xarelto is being held. She does not admit to any melena or hematochezia. She is also not had a scope in 30 years. I recommend EGD and colonoscopy. I will bowel prep the patient tonight and allow her to have clear liquids. N.p.o. after midnight. EGD and colonoscopy in the morning. 2. I explained endoscopy in detail to the patient. I explained the risks including but not limited to stroke or heart attack with anesthesia, perforation of the GI tract, bleeding, infection. I explained that any of these could necessitate further emergency surgery. The patient understands and all questions were answered sufficiently. The patient wishes to proceed with procedure. Camacho Gipson MD Pager: [facility] [address] [place] [address], [address] [place] [address] Office:
--- NOTE | 2018-11-17 17:23 | CON.PCM_ITS ---
Problem List (1) Iron deficiency anemia due to chronic blood loss Status: Chronic Reason for Consult Date of Consultation: 11/17/18 Reason for Consultation: Anemia and positive fecal occult blood test History of Present Illness: The patient is a 78 year old F who presented to the emergency room after being told by her PCP she was anemic. Patient does admit that she has been getting dizzy and was unable to ambulate in the emergency room per pain or gross blood in her stool. She denies black stools. She says she has a history of bleeding ulcers. She says her last colonoscopy was 30-40 years ago. She does take aspirin regularly. 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) Nonrheumatic tricuspid (valve) insufficiency (Chronic) Nonrheumatic aortic (valve) insufficiency (Chronic) Hyperlipidemia (Chronic) Chronic back pain (Chronic) COPD (chronic obstructive pulmonary disease) (Chronic) Hypertension (Chronic) Chest pain (Chronic) Anemia (Chronic) Chronic renal insufficiency (Chronic) Medical History: Medical History (Last Reviewed 06/29/18 @ 12:35 by Jailyn Ramsay) Paroxysmal atrial flutter (Acute) I48.92 Paroxysmal atrial fibrillation (Chronic) I48.0 Nocturnal hypoxia (Chronic) G47.34 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 current use of anticoagulant therapy (Chronic) Z79.01 Nonrheumatic tricuspid (valve) insufficiency (Chronic) I36.1 Nonrheumatic aortic (valve) insufficiency (Chronic) I35.1 Hyperlipidemia (Chronic) E78.5 COPD (chronic obstructive pulmonary disease) (Chronic) J44.9 Hypertension (Chronic) I10 Body mass index 34.0-34.9, adult Z68.34 CVA (cerebral vascular accident) I63.9 Dyspnea on exertion R06.09 Long-term use of high-risk medication Z79.899 Lung nodule R91.1 Nocturnal hypoxia G47.34 Paroxysmal atrial fibrillation I48.0 Stage 1 mild COPD by GOLD classification J44.9 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.201 Atrial fibrillation (Inactive) I48.91 Allergies ferrous sulfate Adverse Reaction (Severe, Verified 11/17/18 11:19) Diarrhea codeine Adverse Reaction (Verified 11/17/18 11:19) Other pregabalin [From Lyrica] Adverse Reaction (Verified 11/17/18 11:19) Other makes me deathly ill tramadol Adverse Reaction (Verified 11/17/18 11:19) Nausea Home Medications: Ambulatory Orders Medication Instructions Recorded Carisoprodol [Soma] 350 mg PO TID 03/17/17 Cholecalciferol (Vitamin D3) 5,000 unit PO DAILY 03/17/17 [Vitamin D3] Gabapentin [Neurontin] 600 mg PO TIDCM 03/17/17 Hydrocodone Bitart/Apap 5-325 1 - 2 tab PO Q4H PRN PRN 03/17/17 [[place] 5MG-325MG] Meclizine HCl 25 mg PO TID PRN PRN 03/17/17 Melatonin 5 mg PO QHS PRN PRN 03/17/17 Omeprazole [Prilosec] 20 mg PO DAILY 03/17/17 ipratropium-albuterol 0.5 mg-3 3 ml INHALATION Q8H 05/20/18 mg(2.5 mg base)/3 mL nebulization soln amlodipine 5 mg tablet 5 mg PO DAILY #30 tab 08/24/18 Albuterol IH (ProAir) [Proair Hfa] 2 puff INHALATION Q4H PRN PRN 11/17/18 Amiodarone HCl [Cordarone] 200 mg PO QHS 11/17/18 Aspirin E.C. [Ecotrin] 81 mg PO DAILY@0800 11/17/18 Pravastatin [Pravachol] 80 mg PO QHS 11/17/18 Promethazine HCl 25 mg PO PRN PRN 11/17/18 Rivaroxaban [Xarelto] 15 mg PO DAILY 11/17/18 Umeclidinium Brm/Vilanterol Tr 1 inh INHALATION Q24H 11/17/18 [Anoro Ellipta] Surgical History: Surgical History (Last Reviewed 06/29/18 @ 12:35 by Jailyn Ramsay) History of back surgery Z98.890 Surgical History: noncontributory, - - back surgery Lives: Alone Smoking Status: Former smoker Alcohol: None - *Family History Maternal Family History: Family History (Last Reviewed 06/29/18 @ 12:35 by Jailyn Ramsay) Mother CVA (cerebral vascular accident) Atrial fibrillation Brother Atrial fibrillation History of PTCA History Items: No pertinent history Paternal Family History: Family History (Last Reviewed 06/29/18 @ 12:35 by Jailyn Ramsay) Mother CVA (cerebral vascular accident) Atrial fibrillation Brother Atrial fibrillation History of PTCA History Items: Cancer - lung Review of Systems Constitutional: Reports: Weakness, Fatigue. Denies: Anorexia, Fever Cardiovascular: Denies: Chest Pain Respiratory: Denies: Cough, Shortness of Breath Gastrointestinal: Reports: Constipation. Denies: Abdominal Pain, Hematemesis, Hematochezia, Nausea, Melena, Vomiting Genitourinary: Denies: Dysuria Musculoskeletal: Denies: Joint Tenderness Skin: Denies: Jaundice Neurological: Reports: Balance problems Hematologic/ Lymphatic: Reports: Anemia Patient Problems: Active and Suspected Problems (Last Reviewed 06/29/18 @ 12:35 by Jailyn Ramsay) GI bleed (Acute) Paroxysmal atrial flutter (Acute) - Physical Exam General: Alert, Oriented x3, Cooperative, No apparent distress HEENT: Atraumatic, PERRLA, EOMI Oral: Moist Mucosa Neck: Supple Lungs: Normal air movement Cardiovascular: Regular rate, Regular Rhythm Abdomen: Soft, Non Tender, Non-Distended Extremities: No clubbing Musculoskeletal: No Muscle Wasting Neurological: Cranial nerves II-XII grossly intact Psych/Mental Status: Normal Affect, Appropriate Vital Signs Temp Pulse Resp BP Pulse Ox 98 F 53 L 20 H 157/70 H 93 11/17/18 11:16 11/17/18 16:23 11/17/18 16:00 11/17/18 16:23 11/17/18 16:00 Oxygen Flow Rate (L/min) 2 Oxygen Delivery Method Nasal Cannula Weight: 126 lb Body Mass Index (BMI) 28.2 Microbiology Past 72 Hours 11/17/18 12:10 Stool Occult Blood (MAU) - Final Stool Occult Blood Positive Laboratory Tests Past 24 Hrs 11/17/18 11/17/18 11:45 11:45 WBC 5.0 RBC 3.36 L Hgb 7.7 L Hct 28.3 L MCV 84.2 MCH 22.9 L MCHC 27.2 L RDW 19.3 H RDW Differential 57.9 H Plt Count 375 MPV 10.3 Sodium 140 Potassium 3.6 Chloride 107 Carbon Dioxide 25.0 Anion Gap 8 BUN 20 H Creatinine 1.47 H Estim Creat Clear Calc 29.38 Est GFR (MDRD) Af Amer 44 L Est GFR (MDRD) Non-Af 37 L BUN/Creatinine Ratio 13.6 Glucose 99 Calcium 8.7 Assessment/Plan All Active Problems (Last Reviewed 06/29/18 @ 12:35 by Jailyn Ramsay) GI bleed (Acute) Paroxysmal atrial flutter (Acute) Renal failure (ARF), acute on chronic (Acute) Hypokalemia (Acute) 78-year-old female with anemia and positive FOBT 1. Patient reports that she has a history of bleeding ulcers and she is on aspirin. Patient is on Prilosec at home. She is also on Xarelto. Xarelto is being held. She does not admit to any melena or hematochezia. She is also not had a scope in 30 years. I recommend EGD and colonoscopy. I will bowel prep the patient tonight and allow her to have clear liquids. N.p.o. after midnight. EGD and colonoscopy in the morning. 2. I explained endoscopy in detail to the patient. I explained the risks including but not limited to stroke or heart attack with anesthesia, perforation of the GI tract, bleeding, infection. I explained that any of these could necessitate further emergency surgery. The patient understands and all questions were answered sufficiently. The patient wishes to proceed with procedure. Camacho Gipson MD Pager: [facility] [address] [place] [address], [address] [place] [address] Office:
[2018-11-17] MEDS: Electrolyte Solution/Peg's 4000 ML PO (18:40)
[2018-11-17] MEDS: HYDROcodone Bitartrate/Apap 5/325 Tablet PO (21:07)
[2018-11-17] MEDS: Amiodarone 200 MG Tablet PO (21:14)
[2018-11-17] MEDS: Pantoprazole Sodium 40 MG Tablet PO (21:14)
[2018-11-17] MEDS: Pravastatin 80 MG Tablet PO (21:14)
[2018-11-18] VITALS (12 sets, daily range): BP systolic 146–191; BP diastolic 53–96; PULSE 50–67; RESP 16–18; TEMP 36.2–37.1; O2SAT 93–96; BMI 27.9
[2018-11-18] MEDS: HYDROcodone Bitartrate/Apap 5/325 Tablet PO ×3 (02:00→14:30)
[2018-11-18 06:33] LABS: Anion Gap 9 (5-15); BUN 14 mg/dL (7-18); BUN/Creat Ratio 12.7 RATIO (10-20); Calcium,Total 8.4 mg/dL (8.5-10.1); Chloride 107 mmol/L (98-107); EST Glomerular Filtration Rate 51 mL/min (>60); Est Glom Filt Rate - Afr Amer 62 mL/min (>60); Estimated Creatinine Clearance 38.74 ml/min; Glucose 80 mg/dL (74-106); Potassium 3.6 mmol/L (3.5-5.1); Sodium Level 141 mmol/L (136-145)
[2018-11-18 06:37] LABS: International Normalized Ratio 1.1; Prothrombin Time (Protime)PT. 13.5 SECONDS (11.7-14.9)
[2018-11-18 06:38] LABS: Absolute Lymphocyte Count 0.83 X10^3/ul (0.83-4.51); Absolute Neutrophil Count 6.4 X10^3/uL (2.0-7.7); Basophil# 0.14 X10^3/uL; Basophil% 1.7 % (0-1); Eosinophil# 0.09 X10^3/uL; Eosinophils% 1.1 % (0-5); Hematocrit 31.9 % (37-47); Hemoglobin 9.5 g/dl (12.0-15.0); Lymphocyte # 0.83 X10^3/ul (4.0); Mean Corp Hgb Conc 29.8 g/gl (32-36); Mean Corpuscular Volume 80.6 fL (81-99); Mean Platelet Vol. 10.1 fl (6.2-12.0); Monocyte# 0.87 X10^3/uL; Monocyte% 10.5 % (0-10); Neutrophil # 6.37 X10^3/uL (2.7-7.7); Neutrophil % 76.5 % (47-70); Platelet Count 352 K/mm3 (150-450); RBC Distribution Width CV 18.8 % (11.6-14.6); RBC Distribution Width SD 54.3 fl (35.1-43.9); Red Blood Count 3.96 M/mm3 (4.2-5.4); White Blood Count 8.3 K/mm3 (4.4-11.0)
[2018-11-18 06:39] LABS: POSITIVE COUNT NO; POSITIVE DIFFERENTIAL NO; POSITIVE MORPHOLOGY NO
[2018-11-18] MEDS: amLODIPine 5 MG Tablet PO (07:44)
--- NOTE | 2018-11-18 08:07 | NURSING ---
Called report to Shaye BARKER in [facility]
--- NOTE | 2018-11-18 08:55 | OP.ENDO_ITS ---
11/18/2018 Shila Hopper Do Re : Upper GI endoscopy procedure for Tiffany Castillo Dear Ward This procedure was performed on Sunday, November 18, 2018. My impressions and recommendations are as follows: Impressions : - Gastritis. Biopsied. - The examination was otherwise normal. Recommendations : - [facility]. - Resume previous diet. - Continue present medications. My findings are described in the full procedure note, which is enclosed. If I can be of further assistance, please feel free to contact me at Doctor phone number(s): , Work: . Sincerely, Camacho Gipson MD 11/18/2018 8:54:58 AM This report has been signed electronically.
--- NOTE | 2018-11-18 08:57 | OP.ENDO_ITS ---
11/18/2018 Shila Hopper Do Re : Colonoscopy procedure for Tiffany Castillo Dear Ward This procedure was performed on Sunday, November 18, 2018. My impressions and recommendations are as follows: Impressions : - Diverticulosis in the sigmoid colon and in the descending colon. - The examination was otherwise normal on direct and retroflexion views. - No specimens collected. Recommendations : - Discharge patient to home. - Resume previous diet. - Continue present medications. - Repeat colonoscopy is not recommended due to current age (66 years or older) for screening purposes. My findings are described in the full procedure note, which is enclosed. If I can be of further assistance, please feel free to contact me at Doctor phone number(s): , Work: . Sincerely, Camacho Gipson MD 11/18/2018 8:57:15 AM This report has been signed electronically.
--- NOTE | 2018-11-18 08:58 | PN_ITS ---
Progress Note Patient had mild gastritis of the stomach. No lesions or active or stigmata of bleeding. On colonoscopy patient did have some small diverticulosis. She had no active bleeding or lesions. No polyps. No stigmata of bleeding. Unable to find a GI cause of anemia. Patient can resume blood thinners tomorrow as I did biopsy her stomach. Okay to have normal diet. Camacho Gipson MD Pager: [facility] [address] [place] [address] [address] [place] [address] Office:
--- NOTE | 2018-11-18 09:30 | IMM_PTH ---
PATIENT: IMELDA LEWIS LOC: PCU U#:[id number] AGE/SX: 78/F ROOM: [facility] RE11/17/[address]: Dr. Pascale Bentley MD : 1940 BED: 1 DIS: 11/18/2018 SPEC #: [id number] RECD: 11/18/18 14:10 STATUS: ANTONIA REQ #: [id number] SAE: 11/18/18 09:[address]: Camacho Gipson DEPT: IMMUNOHISTOCHEMISTRY RECD BY: Marva Esparza ENTERED: 11/18/18 14:11 SP TYPE: IMMUNO OTHR DR: MD Dr. Shila Goldstein DO Dr. Nicholas F Kotsonis, MD Tissues: Stomach, NOS Procedures: H Pylori (initial) PHYSICIAN & INSTITUTION [place] [address] SPECIMEN INFORMATION: Tissue Source: Antral biopsy Clinical Info: Anemia, positive fecal occult blood Specimen Number: [id number] CPT code: 97007 METHODOLOGY: Deparaffinized sections of prefer/formalin-fixed tissue or PAP/DQ stained slides are incubated with monoclonal/polyclonal antibodies/oligonucleotide probes. Localization is made via biotin free immunoperoxidase method. Appropriate controls are performed and reacted as expected. Results on target cell population are indicated in the following table: RESULTS: ANTIBODY / CLONE RESULT H Pylori (polyclonal) negative These tests were developed and their performance characteristics determined by [facility]. They may not have been cleared or approved by the U.S. Food and Drug Administration. The FDA has determined that such clearance or approval is not necessary. INTERPRETATION: Antral biopsy: Negative for Helicobacter pylori organisms. SJ:anais 11/21/18
--- NOTE | 2018-11-18 09:30 | EGD_PTH ---
PATIENT: IMELDA LEWIS LOC: PCU U#:[id number] AGE/SX: 78/F ROOM: [facility] RE11/17/[address]: Dr. Pascale Bentley MD : 1940 BED: 1 DIS: 11/18/2018 SPEC #: [id number] RECD: 11/18/18 09:44 STATUS: ANTONIA REYajaira #: [id number] SAE: 11/18/18 09:[address]: Camacho Gipson DEPT: SURGICAL PATHOLOGY RECD BY: Miguel Santacruz ENTERED: 11/18/18 12:35 SP TYPE: EGD BIOPSY OTHR DR: MD Dr. Shila Goldstein DO Dr. Nicholas F Kotsonis, MD Tissues: Gastric mucous membrane Procedures: Surgery Specimen Level IV HEADER OPERATION: Colonoscopy, EGD ([facility] [place]) PRE-OP DIAGNOSIS: Anemia, positive fecal occult blood TISSUE SUBMITTED: Antral biopsy for H. pylori MICROSCOPIC DIAGNOSIS Antral biopsy: Mild gastritis. See microscopic description and comment. SJ:anais 11/21/18 COMMENT The results of immunohistochemistry for Helicobacter pylori will be reported separately ([id number]). MICROSCOPIC DESCRIPTION Slides are reviewed. The specimen shows fragments of gastric mucosa with chronic inflammatory cell infiltrates in the lamina propria consisting of lymphocytes and plasma cells, consistent with mild chronic gastritis. GROSS DESCRIPTION Received in fixative is one container labeled with the patient's name and designated antral biopsy. The specimen consists of two irregular fragments of light mcgill soft tissue that in aggregate measure 0.5 x 0.4 x 0.1 cm. The specimen is totally submitted in one cassette. / AM:anais 11/18/18 TC:5 CPT: 53951
[2018-11-18] MEDS: Pantoprazole Sodium 40 MG Tablet PO (09:56)
[2018-11-18] MEDS: Gabapentin 600 MG Tablet PO (11:11)
--- NOTE | 2018-11-18 11:58 | PCM.DC ---
- Discharge Diagnoses Current Active Problems: Current Active and Chronic Problems (Last Reviewed 06/29/18 @ 12:35 by Jailyn Ramsay) Iron deficiency anemia due to chronic blood loss (Chronic) Hyperthyroidism (Chronic) GI bleed (Acute) Paroxysmal atrial flutter (Acute) Hyperlipidemia (Chronic) COPD (chronic obstructive pulmonary disease) (Chronic) Hypertension (Chronic) Chronic renal insufficiency (Chronic) You will use the following diet at home:: Cardiac Your food should be the consistency of: Regular Your liquids should be the consistency of: Regular/Thin Discharge Activity: Return to Normal Activity Instructions: Fecal Occult Blood Test, ED Anemia Iron Deficiency Allergies/Adverse Reactions: Allergies ferrous sulfate Adverse Reaction (Severe, Verified 11/17/18 11:19) Diarrhea codeine Adverse Reaction (Verified 11/17/18 11:19) Other pregabalin [From Lyrica] Adverse Reaction (Verified 11/17/18 11:19) Other makes me deathly ill tramadol Adverse Reaction (Verified 11/17/18 11:19) Nausea Medications to take at Discharge Carisoprodol [Soma] 350 mg PO TID 03/17/17 Cholecalciferol (Vitamin D3) [Vitamin D3] 5,000 unit PO DAILY 03/17/17 Gabapentin [Neurontin] 600 mg PO TIDCM 03/17/17 Hydrocodone Bitart/Apap 5-325 [[place] 5/325] 1 - 2 tab PO Q4H PRN PRN 03/17/17 Meclizine HCl 25 mg PO TID PRN PRN 03/17/17 Melatonin 5 mg PO QHS PRN PRN 03/17/17 ipratropium-albuterol 0.5 mg-3 mg(2.5 mg base)/3 mL nebulization soln 3 ml INHALATION Q8H 05/20/18 amlodipine 5 mg tablet 5 mg PO DAILY #30 tab 08/24/18 Albuterol IH (ProAir) [Proair Hfa] 2 puff INHALATION Q4H PRN PRN 11/17/18 Amiodarone HCl [Cordarone] 200 mg PO QHS 11/17/18 Pravastatin [Pravachol] 80 mg PO QHS 11/17/18 Promethazine HCl 25 mg PO PRN PRN 11/17/18 Umeclidinium Brm/Vilanterol Tr [Anoro Ellipta 62.5-25 Mcg INH] 1 inh INHALATION Q24H 11/17/18 Pantoprazole Sodium [Protonix] 40 mg PO BID #60 tablet 11/18/18 The following prescriptions were given: Pantoprazole Sodium [Protonix] 40 mg PO BID #60 tablet Primary Care Physician: Camacho Gipson MD [STAFF PHYSICIAN] - 3-5 Days Shila Mckinnon DO [Primary Care Provider] - 3-5 Days Test Results: Test results from this visit will be discussed in further detail at your follow-up appointment, if applicable. Please Follow Up With: Adiel Reyes NP-C - Concerning Xarelto When: Wednesday or Wednesday of this coming week. Proposed Discharge Date: 11/18/18
--- NOTE | 2018-11-18 13:43 | CASEMGMT ---
Per therapy, pt is very unsteady/dizzy and requires assist with ambulating. Pt is aware of this and refuses all resources at this time(SNF, HHC, OP therapy). Pt states that her condo is small and she has chairs set up for when she gets dizzy with walking and she also uses them for assistance with walking. Pt states that she has 'had all those therapies and none of them work.' Pt insists on going home at this time. She does state that granddaughter(who is present in room for all) will stay with her tonight but she will not allow someone to stay with her all the time. Pt does state hx of vertigo and states that she is out of the meclizine and 'that usually helps.' Mariella GASPAR aware and states will order for pt at this time. Pt states is normally on 4 liters of oxygen at bedtime thru [facility]. Advised pt that she will need oxygen with ambulation once home, voices understanding and states that she also has a pulse ox at home to check her oxygen levels. Pt states that she does not have portable tanks at home and she believes that her order is for bedtime only. Call to [facility] and they state that pt's order is for 4liters continuous and pt should have etanks at home for portability. Pt/granddaughter updated on all at this time, voice understanding. Krista BARKER CM
--- NOTE | 2018-11-18 13:52 | PCM.DC.SUM ---
<Rahul Peterson - Last Filed: 11/18/18 13:52> Discharge Date and Diagnosis Date of Admission: 11/17/18 Date of Discharge: 11/18/18 - Primary Discharge Diagnosis Active and Suspected Problems (Last Reviewed 06/29/18 @ 12:35 by Jailyn Ramsay) Blood loss anemia 2/2 chronic GI bleed, suspect 2/2 gastritis dehydration PAfib HTN HLD COPD HTN - Secondary Discharge Diagnosis Chronic Problems (Last Reviewed 06/29/18 @ 12:35 by Jailyn Ramsay) Iron deficiency anemia due to chronic blood loss (Chronic) Hyperthyroidism (Chronic) Dyspnea on exertion (Chronic) Paroxysmal atrial fibrillation (Chronic) Nocturnal hypoxia (Chronic) [employer] current use of anticoagulant therapy (Chronic) Nonrheumatic tricuspid (valve) insufficiency (Chronic) Nonrheumatic aortic (valve) insufficiency (Chronic) Hyperlipidemia (Chronic) Chronic back pain (Chronic) COPD (chronic obstructive pulmonary disease) (Chronic) Hypertension (Chronic) Chest pain (Chronic) Anemia (Chronic) Chronic renal insufficiency (Chronic) Hospital Course and Treatment Consults: [facility] Surgery Operations: None Procedures: Colonoscopy, EGD Summary of Care Provided: Hospital course: The patient is a 78 year old F past medical history of paroxysmal atrial fibrillation, bleeding stomach ulcers, hemorrhage, CKD stage III, who presented to the ER from Dr. Campoverde's office as she complained of being dizzy and routine blood work revealed she had a hemoglobin of 7.6. In the emergency room she continued to be dizzy and a Hemoccult blood sample was taken and was positive. She had not noticed any recent dark or black stools, or blood in her stool. She was taking aspirin and Xarelto for atrial fibrillation and CAD. These were discontinued, general surgery was consulted for anemia secondary to GI bleeding, and she was admitted to the PCU. She was given IV Protonix, and was taken for an EGD and colonoscopy the following day. These demonstrated no active bleeding but did show diverticulosis and gastritis. She remained stable following the procedures. Her diet was advanced. She was transitioned to p.o. Protonix 40 twice daily. She is advised to hold her aspirin and Xarelto until she follows up with cardiology on Wednesday or Wednesday. I called Adiel Caba from the cardiology office who agreed to work her into the schedule, and advised holding these medications until follow-up as well. He noted that in the office she was in sinus rhythm, and she has been in sinus rhythm here. The patient did work with PT and OT and did have some ongoing dizziness, she does have a history of chronic vertigo and takes meclizine at home for this. She requested a refill on her meclizine which we are agreeable to. She did poorly however she refused any further ongoing PT and OT after discharge. She was discharged home in stable condition. Please follow-up with cardiology on Wednesday or Wednesday as above, follow-up with general surgery as directed, and follow-up with your PCP in 1-2 weeks. This patient was seen by Rahul Peterson PA-C under the supervision of Doctor Bentley. [] - Physical Exam General: Alert, Oriented x3, Cooperative HEENT: Atraumatic, PERRLA, EOMI, Normocephalic Neck: Supple, No JVD, Negative Carotid Bruits Lungs: Clear to auscultation, Normal air movement Cardiovascular: Regular rate, No murmurs Abdomen: Bowel Sounds Present, Soft, Non Tender Extremities: No edema, Capillary Refill Less than 3 Seconds Skin: No rashes, No breakdown Musculoskeletal: No Tenderness to Palpation of Joints or Extremities Neurological: Cranial nerves II-XII grossly intact Psych/Mental Status: Normal Affect, Appropriate, Alert and oriented to time, place, person, mood and affect Vital Signs Temp Pulse Resp BP Pulse Ox 98.6 F 66 18 162/71 H 93 11/18/18 09:41 11/18/18 10:57 11/18/18 09:41 11/18/18 10:00 11/18/18 09:41 Oxygen Flow Rate (L/min) 2 Oxygen Delivery Method Nasal Cannula Weight: 124 lb 5.451 oz Body Mass Index (BMI) 27.9 Intake and Output for Last 24 Hours 11/16/18 11/17/18 11/18/18 23:59 23:59 23:59 Intake Total 3765 / 3765 1320 / 1320 Balance 3765 / 3765 1320 / 1320 Microbiology Past 72 Hours 11/17/18 12:10 Stool Occult Blood (MAU) - Final Stool Occult Blood Positive Laboratory Tests Past 24 Hrs 11/17/18 11/18/18 11/18/18 17:25 05:40 05:40 WBC 8.3 RBC 3.96 L Hgb 9.5 L Hct 31.9 L MCV 80.6 L MCH 24.0 L MCHC 29.8 L RDW 18.8 H RDW Differential 54.3 H Plt Count 352 MPV 10.1 Immature Gran % (Auto) 0.200 Neut % (Auto) 76.5 H Lymph % (Auto) 10.0 L Cherry % (Auto) 10.5 H Eos % (Auto) 1.1 Baso % (Auto) 1.7 H Absolute Neuts (auto) 6.4 Absolute Lymphs (auto) 0.83 Total Counted Not Reportable PT INR Sodium 141 Potassium 3.6 Chloride 107 Carbon Dioxide 25.0 Anion Gap 9 BUN 14 Creatinine 1.10 H Estim Creat Clear Calc 38.74 Est GFR (MDRD) Af Amer 62 Est GFR (MDRD) Non-Af 51 L BUN/Creatinine Ratio 12.7 Glucose 80 Calcium 8.4 L Blood Type A POSITIVE Antibody Screen NEGATIVE Crossmatch See Detail 11/18/18 05:40 WBC RBC Hgb Hct MCV MCH MCHC RDW RDW Differential Plt Count MPV Immature Gran % (Auto) Neut % (Auto) Lymph % (Auto) Cherry % (Auto) Eos % (Auto) Baso % (Auto) Absolute Neuts (auto) Absolute Lymphs (auto) Total Counted PT 13.5 INR 1.1 Sodium Potassium Chloride Carbon Dioxide Anion Gap BUN Creatinine Estim Creat Clear Calc Est GFR (MDRD) Af Amer Est GFR (MDRD) Non-Af BUN/Creatinine Ratio Glucose Calcium Blood Type Antibody Screen Crossmatch Discharge Diet: Low fat/ Low Cholesterol, 2000 mg Sodium Diet Discharge Activity: Return to Normal Activity Home Medications: Medications to take at Discharge Carisoprodol [Soma] 350 mg PO TID 03/17/17 Cholecalciferol (Vitamin D3) [Vitamin D3] 5,000 unit PO DAILY 03/17/17 Gabapentin [Neurontin] 600 mg PO TIDCM 03/17/17 Hydrocodone Bitart/Apap 5-325 [[place] 5/325] 1 - 2 tab PO Q4H PRN PRN 03/17/17 Melatonin 5 mg PO QHS PRN PRN 03/17/17 ipratropium-albuterol 0.5 mg-3 mg(2.5 mg base)/3 mL nebulization soln 3 ml INHALATION Q8H 05/20/18 amlodipine 5 mg tablet 5 mg PO DAILY #30 tab 08/24/18 Albuterol IH (ProAir) [Proair Hfa] 2 puff INHALATION Q4H PRN PRN 11/17/18 Amiodarone HCl [Cordarone] 200 mg PO QHS 11/17/18 Pravastatin [Pravachol] 80 mg PO QHS 11/17/18 Promethazine HCl 25 mg PO PRN PRN 11/17/18 Umeclidinium Brm/Vilanterol Tr [Anoro Ellipta 62.5-25 Mcg INH] 1 inh INHALATION Q24H 11/17/18 Meclizine HCl 25 mg PO TID PRN PRN #21 tablet 11/18/18 Pantoprazole Sodium [Protonix] 40 mg PO BID #60 tablet 11/18/18 Following Prescrptions Were Given to Patient: Meclizine HCl 25 mg PO TID PRN PRN #21 tablet PRN Reason: Dizziness Pantoprazole Sodium [Protonix] 40 mg PO BID #60 tablet Primary Care Physician: Camacho Gipson MD [STAFF PHYSICIAN] - 3-5 Days Shila Mckinnon DO [Primary Care Provider] - 3-5 Days Please Follow Up With: Adiel Reyes, PAPERHANGER AND PAINTER-C When: Wednesday or Wednesday of this coming week. Patient Instructions: Fecal Occult Blood Test, ED Anemia Iron Deficiency Disposition: Home Minutes spent on discharge:: 35 Patient Condition:: Stable Medical Necessity - Tobacco Use Smoking Status: Former smoker Tobacco Use: Cigarettes Meaningful Use Info Meaningful Use Diagnoses (Choose all that apply): None applicable <[place] - Last Filed: 11/18/18 16:22> Discharge Date and Diagnosis - Secondary Discharge Diagnosis Chronic Problems (Last Reviewed 06/29/18 @ 12:35 by Jailyn Ramsay) Iron deficiency anemia due to chronic blood loss (Chronic) Hyperthyroidism (Chronic) Dyspnea on exertion (Chronic) Paroxysmal atrial fibrillation (Chronic) Nocturnal hypoxia (Chronic) long-term current use of anticoagulant therapy (Chronic) Nonrheumatic tricuspid (valve) insufficiency (Chronic) Nonrheumatic aortic (valve) insufficiency (Chronic) Hyperlipidemia (Chronic) Chronic back pain (Chronic) COPD (chronic obstructive pulmonary disease) (Chronic) Hypertension (Chronic) Chest pain (Chronic) Anemia (Chronic) Chronic renal insufficiency (Chronic) Hospital Course and Treatment Summary of Care Provided: This patient was seen in conjunction with WALTER Quinn. I have independently interviewed and examined the patient and reviewed pertinent historical, laboratory, and other data. Please refer to WALTER Quinn note for his patient's presentation, findings, and recommendations. I have reviewed and his note and concur with his documentation 81-year-old female with past medical history of paroxysmal atrial fibrillation, history of gastric ulcers, CKD stage III admitted with complaints of dizziness. Admitting hemoglobin 7.6. Patient stool for occult blood was positive. She was on aspirin and Xarelto for chronic atrial fibrillation and CAD. This was discontinued. Patient was managed on telemetry. She was given IV Protonix. She underwent EGD and colonoscopy that showed no active bleeding but diverticulosis and gastritis. Discussed the patient about stopping both aspirin and Xarelto. She expressed concern because of strong family history of stroke. She was asked to discuss with a primary care doctor about continuing Xarelto. Physical Exam: Gen: comfortable, on 2L oxygen, not pale, not jaundiced CVS:HS I +II, regular, no murmurs RESP: Diminished at lung bases GI: Full, soft, nontender, no ballotable organs EXT:No edema ASSESSMENT: 1. Acute GI bleed 2. Acute blood loss anemia 3. Chronic atrial fibrillation 4. CVA 5. History of gastric ulcers 6. COPD, not in acute exacerbation 7. Hypertension - Physical Exam Vital Signs Temp Pulse Resp BP Pulse Ox 97.8 F 67 18 151/68 H 94 11/18/18 14:30 11/18/18 14:30 11/18/18 14:30 11/18/18 14:30 11/18/18 14:30 Oxygen Flow Rate (L/min) 2 Oxygen Delivery Method Nasal Cannula Weight: 56.4 kg Body Mass Index (BMI) 27.9 Intake and Output for Last 24 Hours 11/16/18 11/17/18 11/18/18 23:59 23:59 23:59 Intake Total 3765 / 3765 1320 / 1320 Balance 3765 / 3765 1320 / 1320 Microbiology Past 72 Hours 11/17/18 12:10 Stool Occult Blood (MAU) - Final Stool Occult Blood Positive Laboratory Tests Past 24 Hrs 11/17/18 11/18/18 11/18/18 17:25 05:40 05:40 WBC 8.3 RBC 3.96 L Hgb 9.5 L Hct 31.9 L MCV 80.6 L MCH 24.0 L MCHC 29.8 L RDW 18.8 H RDW Differential 54.3 H Plt Count 352 MPV 10.1 Immature Gran % (Auto) 0.200 Neut % (Auto) 76.5 H Lymph % (Auto) 10.0 L Cherry % (Auto) 10.5 H Eos % (Auto) 1.1 Baso % (Auto) 1.7 H Absolute Neuts (auto) 6.4 Absolute Lymphs (auto) 0.83 Total Counted Not Reportable PT INR Sodium 141 Potassium 3.6 Chloride 107 Carbon Dioxide 25.0 Anion Gap 9 BUN 14 Creatinine 1.10 H Estim Creat Clear Calc 38.74 Est GFR (MDRD) Af Amer 62 Est GFR (MDRD) Non-Af 51 L BUN/Creatinine Ratio 12.7 Glucose 80 Calcium 8.4 L Blood Type A POSITIVE Antibody Screen NEGATIVE Crossmatch See Detail 11/18/18 05:40 WBC RBC Hgb Hct MCV MCH MCHC RDW RDW Differential Plt Count MPV Immature Gran % (Auto) Neut % (Auto) Lymph % (Auto) Cherry % (Auto) Eos % (Auto) Baso % (Auto) Absolute Neuts (auto) Absolute Lymphs (auto) Total Counted PT 13.5 INR 1.1 Sodium Potassium Chloride Carbon Dioxide Anion Gap BUN Creatinine Estim Creat Clear Calc Est GFR (MDRD) Af Amer Est GFR (MDRD) Non-Af BUN/Creatinine Ratio Glucose Calcium Blood Type Antibody Screen Crossmatch Code Visit Inpatient E&M: [id number] Disch Hosp
--- NOTE | 2018-11-21 14:56 | CASEMGMT ---
RN CM Discharge F/U Phone Call LACE: 9 Strata: 3 Discharge date: 11/18/18 Call date: 11/21/18 Call time: 1456 Attempted to reach pt without success at this time, message left with pt to call this RN CM back, if/when able. SStaten RN CM Admission dx: GI Bleed
== END 2018-11-18 14:43 | disposition home or self-care (01) | DRG 379 ==
LOC: ED 13:00 → PCU 17:26
PROVIDERS: Anesthesiology; Surgery; Admitting Provider Family Medicine; Emergency Provider Emergency Medicine; Family Provider Family Medicine; PCP Family Medicine; Visit Provider Internal Medicine
PROC: 0DJD8ZZ Inspection of Lower Intestinal Tract, Via Natural or Artificial Opening Endoscopic (ICD-10-PCS; CPT 45378; principal; 2018-11-18 09:25)
DX: K29.71 Gastritis, unspecified, with bleeding (principal); D50.0 Iron deficiency anemia secondary to blood loss (chronic); J44.9 Chronic obstructive pulmonary disease, unspecified; K57.30 Diverticulosis of large intestine without perforation or abscess without bleeding; E86.0 Dehydration; E78.5 Hyperlipidemia, unspecified; I48.0 Paroxysmal atrial fibrillation; G89.29 Other chronic pain; M54.9 Dorsalgia, unspecified; I12.9 Hypertensive chronic kidney disease with stage 1 through stage 4 chronic kidney disease, or unspecified chronic kidney disease; N18.3 Chronic kidney disease, stage 3 (moderate); I25.10 Atherosclerotic heart disease of native coronary artery without angina pectoris; K64.9 Unspecified hemorrhoids; Z87.891 Personal history of nicotine dependence; Z79.82 Long term (current) use of aspirin; Z86.73 Personal history of transient ischemic attack (TIA), and cerebral infarction without residual deficits; Z79.01 Long term (current) use of anticoagulants; Z87.11 Personal history of peptic ulcer disease
CPT/HCPCS: 36415; 80048; 82274; 83880; 85025; 85027; 85610; 86850; 86900; 86920; 86922; 88305; 88342; 93005; 97162; 97165; 97802; 99284; J7040; P9016; A4216

== ENCOUNTER → 2019-01-30 | Outpatient (CLI) | payer MEDICARE, SELFPAY ==
[2018-12-21 13:48] VITALS: BMI 27.9
[2019-01-30 13:06] LABS: AST(SGOT) 12 U/L (15-37); Alanine Aminotransfer ALT/SGPT 13 U/L (13-56); Albumin, Serum 3.3 g/dL (3.2-5.0); Alkaline Phosphatase 85 U/L (45-117); Bilirubin, Direct 0.09 mg/dL (0.00-0.30); Cholesterol 153 mg/dL (200); Globulin 3.1 g/dL (2.2-4.2); High Density Lipoprotein 66 mg/dL; Protein, Total 6.4 g/dL (6.4-8.2); Triglycerides 91 mg/dL; Very Low Density Lipoprotein 18 mg/dL (5-40)
[2019-01-30 13:11] LABS: Free T3 2.2 pg/mL (2.18-3.98); T4 Free Direct 1.24 ng/dL (0.76-1.46); Thyroid Stim Hormone (TSH) 0.02 uIU/mL (0.358-3.74)
== END | disposition home or self-care (01) ==
LOC: LAB 11:00
PROVIDERS: Nurse Practitioner Family; Family Provider Family Medicine; PCP Family Medicine; Referring Provider Internal Medicine Endocrinology, Diabetes & Metabolism; Visit Provider Internal Medicine Endocrinology, Diabetes & Metabolism
DX: E05.90 Thyrotoxicosis, unspecified without thyrotoxic crisis or storm (principal); E78.00 Pure hypercholesterolemia, unspecified; Z79.899 Other long term (current) drug therapy
CPT/HCPCS: 36415; 80061; 80076; 84439; 84443; 84481

== ENCOUNTER → 2019-02-20 11:57 | Outpatient (CLI) | payer MEDICARE, SELFPAY ==
[2018-12-21 13:48] VITALS: BMI 27.9
[2019-02-20 12:39] VITALS: PULSE 45; PULSE 54; PULSE 60; PULSE 66; PULSE 69; PULSE 71; O2SAT 95; O2SAT 96; O2SAT 97
--- NOTE | 2019-02-20 12:44 | CPS ---
Patient walked for 6 minutes with one short break during the 4th minute on room air. Patient walked without any devices because she did not know she could bring her walker, so she walked holding on to her granddaughter's arm. She stated she felt very unstable walking and she felt her equilibrium was off especially if someone walked passed her.
--- NOTE | 2019-02-20 16:13 | PCM.PSN.6M ---
PSN 6 Minute Walk Test - 6 Minute Walk Test 6 Minute Walk Test: 6 Minute Walk Test PSN:6-Minute Walk Test Start: 02/20/19 12:39 Freq: Status: Active Protocol: [id number] Document 02/20/19 12:39 ELLIOT (Rec: 02/20/19 12:47 ELLIOT [id number]) 6 Minute Walk Test Date Performed 02/20/19 Time Performed 12:30 Height 4 ft 8 in Weight: 58.06 kg Weight in Pounds 128.[address]: Emy Cabrera Assistive device used: None Pre-test Oxygen Delivery Method Room Air Pulse Ox (%) 96 Pulse Rate (60-100 beats/min) 45 L Dyspnea Jose Scale (0-10) 0.5 Exertion Jose Scale (6-20) 6 1st minute Oxygen Delivery Method Room Air Pulse Ox (%) 95 Pulse Rate (60-100 beats/min) 60 2nd minute Oxygen Delivery Method Room Air Pulse Ox (%) 97 Pulse Rate (60-100 beats/min) 71 3rd minute Oxygen Delivery Method Room Air Pulse Ox (%) 96 Pulse Rate (60-100 beats/min) 71 4th minute Oxygen Delivery Method Room Air Pulse Ox (%) 95 Pulse Rate (60-100 beats/min) 71 Number of Rests Taken 1 5th minute Oxygen Delivery Method Room Air Pulse Ox (%) 95 Pulse Rate (60-100 beats/min) 66 6th minute Oxygen Delivery Method Room Air Pulse Ox (%) 96 Pulse Rate (60-100 beats/min) 69 Dyspnea Jose Scale (0-10) 5 Exertion Jose Scale (6-20) 14 Post-test Oxygen Delivery Method Room Air Pulse Ox (%) 97 Pulse Rate (60-100 beats/min) 54 L Full Laps Walked 7 Partial Lap, Number of Tiles Walked 20 Total Distance Walked (ft) 433 02/20/19 12:44 Cardiopulmonary Services by Sanna Ramires Patient walked for 6 minutes with one short break during the 4th minute on room air. Patient walked without any devices because she did not know she could bring her walker, so she walked holding on to her granddaughter's arm. She stated she felt very unstable walking and she felt her equilibrium was off especially if someone walked passed her. Initialized on 02/20/19 12:44 - END OF NOTE - Interpretation Interpretation: The patient was able to ambulate only 433 feet over the course of 6 minutes on room air with the assistance of her granddaughters arm and one break. Patient reportedly had significant difficulty with her equilibrium. No significant desaturation or tachycardia was appreciated. These findings are consistent with a musculoskeletal limitation exercise tolerance. - Recommendations Recommendations: No supplemental oxygen is indicated by this testing, but sensitivity is reduced given minimal distance traveled.
== END ==
PROVIDERS: Family Provider Family Medicine; PCP Family Medicine; Referring Provider Nurse Practitioner Acute Care; Visit Provider Nurse Practitioner Acute Care
DX: J44.9 Chronic obstructive pulmonary disease, unspecified (principal)
CPT/HCPCS: 94618

== ENCOUNTER → 2019-03-09 15:20 | Outpatient (CLI) | payer MEDICARE, SELFPAY ==
[2019-03-09 13:59] VITALS: BMI 29.1
[2019-03-09 16:34] LABS: Hematocrit 31.9 % (37-47); Hemoglobin 9.4 g/dl (12.0-15.0); Mean Corp Hgb Conc 29.5 g/gl (32-36); Mean Corpuscular Hgb 27.3 pg (27.0-32.0); Mean Corpuscular Volume 92.7 fL (81-99); Mean Platelet Vol. 11.2 fl (6.2-12.0); Platelet Count 374 K/mm3 (150-450); RBC Distribution Width CV 17.1 % (11.6-14.6); RBC Distribution Width SD 57.8 fl (35.1-43.9); Red Blood Count 3.44 M/mm3 (4.2-5.4); White Blood Count 5.2 K/mm3 (4.4-11.0)
[2019-03-09 16:45] LABS: Scan Indicated on CBC? Y/N NO
== END ==
PROVIDERS: Family Provider Family Medicine; PCP Family Medicine; Referring Provider Internal Medicine Critical Care Medicine; Visit Provider Internal Medicine Critical Care Medicine
DX: J44.9 Chronic obstructive pulmonary disease, unspecified (principal)
CPT/HCPCS: 36415; 85027

== ENCOUNTER 2019-03-09 16:55 | Inpatient (IN) | payer MEDICARE, SELFPAY ==
[2019-03-09] VITALS (9 sets, daily range): BP systolic 124–191; BP diastolic 57–72; PULSE 42–59; RESP 14–22; TEMP 36.5–36.9; O2SAT 94–98; BMI 29.1; BMI 30.7
--- NOTE | 2019-03-09 17:12 | RAD_ITS ---
HISTORY:DYSPNEA, BRADYCARDIA DYSPNEA, BRADYCARDIA EXAM: XR Chest 1 View: COMPARISON: May 24, 2018 FINDINGS: # of images incl. paperwork: 1 LINES/DEVICES: None. LUNGS: Atelectasis/scarring seen within the midlung similar to prior study.. No consolidation, edema or effusion. Emphysematous changes are again noted predominantly in the upper lobes. No pneumothorax. MEDIASTINUM AND CARDIOVASCULAR STRUCTURES: Cardiomegaly similar to prior study the thoracic aorta is tortuous similar to prior study BONES AND SOFT TISSUES: Left convexity scoliosis of the thoracic spine similar to prior study RAD/Chest 1 View (Portable) IMPRESSION: Stable chest at 1737 Reported and signed by: Elma Garcia DO Electronically Signed: Elma Garcia DO at 17:35 EDT Tel , Service support ,
--- NOTE | 2019-03-09 17:13 | EKG12_ITS ---
Test Reason : GEN ILLNESS Blood Pressure : / mmHG Vent. Rate : 039 BPM Atrial Rate : 031 BPM P-R Int : 000 ms QRS Dur : 080 ms QT Int : 520 ms P-R-T Axes : 000 047 071 degrees QTc Int : 418 ms Sinus Tyron with junctional rhythm Nonspecific ST and T wave abnormality Abnormal ECG Confirmed by BELINDA XIE, PRIETO ([id number]), acquisition editor DANAY LYN ([id number]) on 03/10/2019 12:19:05 PM Referred By: Shaq Fitzpatrick Confirmed By:PRIETO TREVINO MD
[2019-03-09] MEDS: 0.9% Normal Saline 1,000 ML 150 ML IV (17:26)
[2019-03-09 17:51] LABS: Anion Gap 6 (5-15); BUN 26 mg/dL (7-18); BUN/Creat Ratio 13.2 RATIO (10-20); Calcium,Total 8.9 mg/dL (8.5-10.1); Chloride 106 mmol/L (98-107); Creatinine, Serum 1.97 mg/dL (0.55-1.02); EST Glomerular Filtration Rate 26 mL/min (>60); Est Glom Filt Rate - Afr Amer 32 mL/min (>60); Estimated Creatinine Clearance 22.62 ml/min; Glucose 91 mg/dL (74-106); Magnesium 2.4 mg/dL (1.6-2.6); Potassium 4.6 mmol/L (3.5-5.1); Sodium Level 139 mmol/L (136-145)
[2019-03-09 17:52] LABS: Absolute Lymphocyte Count 1.64 X10^3/ul (0.83-4.51); Absolute Neutrophil Count 3.9 X10^3/uL (2.0-7.7); Basophil# 0.24 X10^3/uL; Basophil% 3.7 % (0-1); Eosinophil# 0.07 X10^3/uL; Eosinophils% 1.1 % (0-5); Hematocrit 31.4 % (37-47); Hemoglobin 9.3 g/dl (12.0-15.0); Lymphocyte # 1.64 X10^3/ul (4.0); Lymphocyte % 25.3 % (19-41); Mean Corp Hgb Conc 29.6 g/gl (32-36); Mean Corpuscular Hgb 27.2 pg (27.0-32.0); Mean Corpuscular Volume 91.8 fL (81-99); Mean Platelet Vol. 10.9 fl (6.2-12.0); Monocyte# 0.67 X10^3/uL; Monocyte% 10.3 % (0-10); Neutrophil # 3.85 X10^3/uL (2.7-7.7); Neutrophil % 59.4 % (47-70); Platelet Count 378 K/mm3 (150-450); RBC Distribution Width CV 17.1 % (11.6-14.6); RBC Distribution Width SD 57.2 fl (35.1-43.9); Red Blood Count 3.42 M/mm3 (4.2-5.4); White Blood Count 6.5 K/mm3 (4.4-11.0)
--- NOTE | 2019-03-09 18:00 | ED.DCSUM_ITS ---
- ER Visit Summary Date of Service: 03/09/19 Chief Complaint: [Bradycardia] History of Present Illness: The patient is a 78 F [ presents the emergency department Dr. Blade Campoverde's office with concern for bradycardia. Patient has a history of paroxysmal atrial fibrillation and is currently on amiodarone and rivaroxaban. Patient denies any chest pain. She does describe some exertional dyspnea at times. Patient has history of hypertension, high cholesterol, COPD, history of GI bleed, hyper thyroidism, and hypokalemia. She denies recent travel or surgery. In the stereoptic projection topographer's office today patient was noted to have intermittent episodes of junctional bradycardia.] Physical Examination: [HEENT-PERRLA, EOMI. Cranial nerves II through XII grossly intact. TMs clear. Mucous membranes moist. No adenopathy. Cardiovascular-irregularly irregular and bradycardic Lungs-clear to auscultation, chest wall stable without crepitus or subcu emphysema Abdomen-normoactive bowel sounds, soft, nontender, no rebound or rigidity, no peritoneal signs. Extremities-intact ?4, normal range of motion, normal pulses, atraumatic] Test Results: [EKG obtained showed atrial fibrillation with a ventricular rate of 39 bpm patient was noted to have nonspecific ST changes. CBC with it is pending. Chemistries were unremarkable. Troponin is less than 0.15. Chest x- ray showed nothing acute.] Emergency Department Course and Treatment: [Patient has no Established was given normal saline.] Case was discussed with stereoptic projection topographer who wanted to hold patient's amiodarone and admit for further evaluation including for necessity of pacemaker potentially. Treatment Plan: [Admit] Disposition: [Admit] Impression: [Symptomatic bradycardia] This note was generated with [employer] dictation software. It may contain incorrect words, spelling, and punctuation that were not noted in review of the chart prior to signing ED Disposition - Plan for ED Patient: Referrals: Shila Mckinnon DO [Primary Care Provider] -
[2019-03-09 18:01] LABS: POSITIVE COUNT NO; POSITIVE DIFFERENTIAL NO; POSITIVE MORPHOLOGY NO
--- NOTE | 2019-03-09 18:46 | PCM.HP.STD ---
Problem List (1) Stage III chronic kidney disease Status: Chronic (2) Iron deficiency anemia due to chronic blood loss Status: Chronic (3) Hyperthyroidism Status: Chronic (4) Chronic respiratory failure with hypoxia Status: Chronic (5) Paroxysmal atrial fibrillation Status: Chronic (6) Hyperlipidemia Status: Chronic Qualifiers: Hyperlipidemia type: pure hypercholesterolemia Qualified Code(s): E78.00 - Pure hypercholesterolemia, unspecified (7) COPD (chronic obstructive pulmonary disease) Status: Chronic Qualifiers: COPD type: unspecified COPD Qualified Code(s): J44.9 - Chronic obstructive pulmonary disease, unspecified (8) Hypertension Status: Chronic Qualifiers: Hypertension type: essential hypertension Qualified Code(s): I10 - Essential (primary) hypertension History of Present Illness Date of Admission: 03/09/19 Chief Complaint: Bradycardia. The patient is a 78 year old F with past medical history as mentioned above was sent to the emergency department by Dr. Campoverde from his office because of symptomatic bradycardia. The patient went to see Dr. Ravi, the family life educator, for follow-up visit, found to be bradycardic with heart rate being in the 30s to 40s and she was sent to her regulator inspector, Dr. Campoverde. Dr. Campoverde saw the patient and recommended to go to the ER for admission for evaluation for possible pacemaker implantation. The patient is a poor informant but she was able to provide some information. She initially has been having intermittent episodes of dizziness and lightheadedness that lasts for few minutes and resolve spontaneously, associated with mild exertional dyspnea on times and without aggravating or relieving factors. At the cardiology office, she noted to be having intermittent episodes of junctional bradycardia with heart rate down to 30s. She has a history of atrial fibrillation, has been on amiodarone for rate control and on Xarelto for anticoagulation. She has history of hypertension and according to the patient, her blood pressure usually high and she has been on Norvasc and Lasix. She has a history of COPD with chronic hypoxic respiratory failure, has been on oxygen at 4 L at home mainly at night. In the emergency department, patient was bradycardic, heart rate has been in the 40s, blood pressure was elevated, pulse ox was 98% on 4 L. Routine blood work revealed hemoglobin of 9.3 g/dL, BUN of 26 and creatinine of 1.97. Her EKG revealed atrial fibrillation with slow ventricular response, heart rate was in the 40s. Troponin is negative. Chest x-ray showed no acute findings, revealed emphysematous changes which are chronic. She is being admitted for symptomatic bradycardia for evaluation for implantation of permanent pacemaker. 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) Nonrheumatic tricuspid (valve) insufficiency (Chronic) Nonrheumatic aortic (valve) insufficiency (Chronic) Hyperlipidemia (Chronic) COPD (chronic obstructive pulmonary disease) (Chronic) Hypertension (Chronic) Medical History: Medical History (Last Updated 03/09/19 @ 18:44 by Shaq Fitzpatrick MD) Paroxysmal atrial fibrillation (Chronic) I48.0 [facility] current use of anticoagulant therapy (Chronic) Z79.01 Nonrheumatic tricuspid (valve) insufficiency (Chronic) I36.1 Nonrheumatic aortic (valve) insufficiency (Chronic) I35.1 Hyperlipidemia (Chronic) E78.5 Hypertension (Chronic) I10 Body mass index 34.0-34.9, adult Z68.34 CVA (cerebral vascular accident) I63.9 Long-term use of high-risk medication Z79.899 Lung nodule R91.1 Stage 1 mild COPD by GOLD classification J44.9 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.201 Allergies ferrous sulfate Adverse Reaction (Severe, Verified 03/09/19 16:57) Diarrhea codeine Adverse Reaction (Verified 03/09/19 16:57) Other pregabalin [From Lyrica] Adverse Reaction (Verified 03/09/19 16:57) Other makes me deathly ill tramadol Adverse Reaction (Verified 03/09/19 16:57) Nausea Home Medications: Ambulatory Orders Medication Instructions Recorded Carisoprodol [Soma] 350 mg PO TID 03/17/17 Cholecalciferol (Vitamin D3) 5,000 unit PO DAILY 03/17/17 [Vitamin D3] Gabapentin [Neurontin] 600 mg PO TIDCM 03/17/17 Hydrocodone Bitart/Apap 5-325 1 - 2 tab PO Q4H PRN PRN 03/17/17 [[place] 5/325] Melatonin 10 - 15 mg PO QHS PRN PRN 03/17/17 amlodipine 5 mg tablet 5 mg PO DAILY #30 tab 08/24/18 Albuterol IH (ProAir) [Proair Hfa] 2 puff INHALATION Q4H PRN PRN 11/17/18 Pravastatin [Pravachol] 80 mg PO QHS 11/17/18 Promethazine HCl 25 mg PO PRN PRN 11/17/18 Meclizine HCl 25 mg PO TID PRN PRN #21 tab 11/18/18 Pantoprazole Sodium [Protonix] 40 mg PO BID #60 tab 11/18/18 furosemide 40 mg tablet 40 mg PO DAILY PRN #30 tab 11/23/18 rivaroxaban 15 mg tablet 15 mg PO QPM #90 tab 11/23/18 amiodarone 200 mg tablet 200 mg PO QHS tab 12/07/18 ipratropium-albuterol 0.5 mg-3 3 ml INHALATION Q8H #180 ml 12/21/18 mg(2.5 mg base)/3 mL nebulization soln Aspirin [Low Dose Aspirin EC] 81 mg PO DAILY 03/09/19 Tiotropium [place] [Spiriva] 18 mcg IH DAILY 03/09/19 methimazole 5 mg tablet 5 mg PO DAILY #30 tab 03/09/19 potassium chloride ER 20 mEq 20 meq PO DAILY #30 tab 03/09/19 tablet,extended release Surgical History: Surgical History (Last Reviewed 03/09/19 @ 14:04 by Patito Encinas) History of back surgery Z98.890 Surgical History: - - back surgery Psychiatric History: No pertinent psych hx 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 Lives: With Family Smoking Status: Former smoker Alcohol: None Drugs: None - *Family History Maternal Family History: Family History (Last Reviewed 03/09/19 @ 14:04 by Patito Encinas) Mother CVA (cerebral vascular accident) Atrial fibrillation Brother Atrial fibrillation History of PTCA Paternal Family History: Family History (Last Reviewed 03/09/19 @ 14:04 by Patito Encinas) Mother CVA (cerebral vascular accident) Atrial fibrillation Brother Atrial fibrillation History of PTCA History Items: Cancer - lung Review of Systems Constitutional: Denies: Anorexia, Chills, Fever, Weakness Eyes: Denies: Blurred vision, Double vision, Drainage, Redness HEENT: Denies: Difficulty Hearing, Ear Pain, Eye Pain, Nasal Congestion, Sore Throat Cardiovascular: Reports: Light Headedness. Denies: Chest Pain, Chest Pressure, Edema, Heaviness, Palpitations, Syncope Respiratory: Reports: Shortness of Breath, Shortness of breath upon exertion. Denies: Cough, Pleuritic Pain, Sputum production, Wheezing Gastrointestinal: Denies: Abdominal Pain, Constipation, Diarrhea, Nausea, Vomiting Genitourinary: Denies: Dysuria, Frequency, Hematuria Musculoskeletal: Denies: Arm Pain, Back Pain, Foot Pain Skin: Denies: Dryness, Rash Neurological: Denies: Balance problems, Double vision, Change in Speech, Slurred speech, Confusion, Focal weakness, Headaches, Incoordination Psychiatric: Denies: Anxiety, Depression Endocrine: Denies: Change in Body Habitus, Polydipsia, Polyuria VTE Information - Inpt Only VTE Present on Admission: No VTE Mechan Device Prophylaxis: None VTE Pharm Prophylaxis ordered?: No - Physical Exam General: Alert, Oriented x3, Cooperative, - - Mildly short of breath. HEENT: Atraumatic, PERRLA, EOMI, Normocephalic Oral: Moist Mucosa, No Gingival or Mucosal Lesions/ Ulcerations Neck: Supple, No JVD, Negative Carotid Bruits, Trachea Midline, Thyroid Normal Size and Texture Lungs: Clear to auscultation, Normal air movement, No rhonchi, No wheeze, No rales, Diminished Cardiovascular: Normal S1, Normal S2, PMI Normal, Bradycardic, Irregular Rate Abdomen: Bowel Sounds Present, Soft, Non Tender, Non-Distended, No Hepato-splenomegaly Extremities: No clubbing, No cyanosis, No edema Skin: No rashes, No breakdown Lymphatic: No Cervical, Supraclavicular, or Inguinal Adenopathy Neurological: Cranial nerves II-XII grossly intact, Motor Exam 5/5 strength throughout Psych/Mental Status: Normal Affect, Appropriate, Alert and oriented to time, place, person, mood and affect Vital Signs Temp Pulse Resp BP Pulse Ox 97.7 F L 59 L 14 191/57 H 97 03/09/19 16:58 03/09/19 18:23 03/09/19 18:23 03/09/19 18:23 03/09/19 18:23 Oxygen Flow Rate (L/min) 4 Oxygen Delivery Method Nasal Cannula Weight: 130 lb Body Mass Index (BMI) 29.1 Laboratory Tests Past 24 Hrs 03/09/19 03/09/19 17:24 17:24 WBC 6.5 RBC 3.42 L Hgb 9.3 L Hct 31.4 L MCV 91.8 MCH 27.2 MCHC 29.6 L RDW 17.1 H RDW Differential 57.2 H Plt Count 378 MPV 10.9 Immature Gran % (Auto) 0.200 Neut % (Auto) 59.4 Lymph % (Auto) 25.3 Esmeralda % (Auto) 10.3 H Eos % (Auto) 1.1 Baso % (Auto) 3.7 H Absolute Neuts (auto) 3.9 Absolute Lymphs (auto) 1.64 Total Counted Not Reportable Sodium 139 Potassium 4.6 Chloride 106 Carbon Dioxide 27.0 Anion Gap 6 BUN 26 H Creatinine 1.97 H Estim Creat Clear Calc 22.62 Est GFR (MDRD) Af Amer 32 L Est GFR (MDRD) Non-Af 26 L BUN/Creatinine Ratio 13.2 Glucose 91 Calcium 8.9 Magnesium 2.4 Troponin I < 0.015 Clinical Impression(s) from Imaging Studies Chest X-Ray 03/09/19 17:12 IMPRESSION: Stable chest at 1737 Reported and signed by: Elma Garcia DO Electronically Signed: Elma Garcia DO at 17:35 EDT Tel , Service support , Assessment/Plan This is a 78 years old female patient presented to the emergency room from Dr. Campoverde's office for symptomatic bradycardia and she is being admitted for evaluation. #1 symptomatic bradycardia: Junctional bradycardia, heart rate has been down to 30s with symptoms of dizziness and lightheadedness. At this time, heart rate has been around 50s, blood pressure elevated. EKG revealed A. fib with slow ventricular response, no acute ischemic changes. Troponin is negative. Serum potassium and magnesium were normal. She has a history of hyperthyroidism, has been on methimazole and TSH was 0.02 on January 30, 2019. Plan: Admit to PCU, complete bedrest, cardiac monitoring, gentle IV fluids for hydration, discontinue amiodarone, cardiology consult, repeat CBC and BMP tomorrow morning, PT OT evaluation and treatment. #2 chronic atrial fibrillation: Now, she is an A. fib with slow ventricular response. Plan as above, discontinue amiodarone, hold Xarelto for now because patient may go for pacemaker implantation. #3 COPD/chronic respiratory failure: On home oxygen at 4 L mainly at night. Chest x-ray reviewed, no acute findings. Plan for DuoNeb every 6 hours, albuterol as needed, oxygen by nasal cannula to keep O2 saturation more than 92%. #4 stage III chronic kidney disease: Baseline creatinine has been around 1.4 to 1.7 mg/dL. Admission creatinine is 1.97, minimally above baseline. Plan for gentle IV fluids for hydration, input output chart, repeat BMP tomorrow morning. #5 chronic anemia: Iron deficiency anemia, baseline level has been around 8 to 11 g/dL. Admission hemoglobin is 9.3, stable at baseline. #6 hyperthyroidism: Continue methimazole. TSH was 0.02 on January 30, 2019. #7 hypertension: Blood pressure elevated. Continue Norvasc, start IV hydralazine PRN. #8 hyperlipidemia: Continue statins. #9 DVT prophylaxis: SCDs, hold Xarelto as patient may go for pacemaker implantation. This note was generated with [employer] dictation software. It may contain incorrect words, spelling, and punctuation that were not noted in checking the note before signing. Code Visit Inpatient E&M: 46733 Init Hosp L3
--- NOTE | 2019-03-09 19:15 | CON.PCM_ITS ---
Problem List (1) Bradycardia Status: Acute (2) Paroxysmal atrial fibrillation Status: Chronic (3) Valvular heart disease Status: Chronic (4) Hyperlipidemia Status: Chronic Qualifiers: Hyperlipidemia type: pure hypercholesterolemia Qualified Code(s): E78.00 - Pure hypercholesterolemia, unspecified (5) Hypertension Status: Chronic Qualifiers: Hypertension type: essential hypertension Qualified Code(s): I10 - Essential (primary) hypertension (6) Hyperthyroidism Status: Chronic (7) COPD (chronic obstructive pulmonary disease) Status: Chronic Qualifiers: COPD type: unspecified COPD Qualified Code(s): J44.9 - Chronic obstructive pulmonary disease, unspecified (8) Stage III chronic kidney disease Status: Chronic Reason for Consult Date of Consultation: 03/09/19 History of Present Illness: The patient is a 78 year old white female with a past medical history of paroxysmal atrial fibrillation, hyperlipidemia, hypertension, hyperthyroidism, COPD, and chronic renal insufficiency who presented to the outpatient setting today based on concerns of dizziness/lightheadedness and progressive shortness of breath/dyspnea with concerns of underlying bradycardia. She stated she had been monitoring her heart rate at home via her home O2 saturation monitor. She noted that her heart rate was between 30 and 40 bpm. She was evaluated by her pulmonology team today. They noted concerns of underlying bradycardia. She was referred to the office for further evaluation with ECG. Based on ECG she had marked sinus bradycardia with episodes of junctional bradycardia with nonconducted PACs. She had denied ongoing chest discomfort. She complained of worsening shortness of breath and dyspnea. She has denied any obvious palpitations or rapid rates. She has been dizzy and lightheaded but has denied near syncope and syncope. Based upon her underlying symptoms and her cardiovascular concerns it was recommended patient be evaluated in the emergency department for further acute changes and considered for further inpatient evaluation and care. In the interim is recommended she place her amiodarone therapy on hold. On further evaluation. This included laboratory studies with a troponin I level which was negative. Her office-based ECG did not appear to demonstrate any other acute changes. Her radiologic studies/chest x-ray did not appear to demonstrate any acute changes. [] Past Medical History Allergies/Adverse Reactions: Allergies ferrous sulfate Adverse Reaction (Severe, Verified 03/09/19 16:57) Diarrhea codeine Adverse Reaction (Verified 03/09/19 16:57) Other pregabalin [From Lyrica] Adverse Reaction (Verified 03/09/19 16:57) Other makes me deathly ill tramadol Adverse Reaction (Verified 03/09/19 16:57) Nausea Home Medications: Ambulatory Orders Medication Instructions Recorded Carisoprodol [Soma] 350 mg PO TID 03/17/17 Cholecalciferol (Vitamin D3) 5,000 unit PO DAILY 03/17/17 [Vitamin D3] Gabapentin [Neurontin] 600 mg PO TIDCM 03/17/17 Hydrocodone Bitart/Apap 5-325 1 - 2 tab PO Q4H PRN PRN 03/17/17 [[place] 5/325] Melatonin 10 - 15 mg PO QHS PRN PRN 03/17/17 amlodipine 5 mg tablet 5 mg PO DAILY #30 tab 08/24/18 Albuterol IH (ProAir) [Proair Hfa] 2 puff INHALATION Q4H PRN PRN 11/17/18 Pravastatin [Pravachol] 80 mg PO QHS 11/17/18 Promethazine HCl 25 mg PO PRN PRN 11/17/18 Meclizine HCl 25 mg PO TID PRN PRN #21 tab 11/18/18 Pantoprazole Sodium [Protonix] 40 mg PO BID #60 tab 11/18/18 furosemide 40 mg tablet 40 mg PO DAILY PRN #30 tab 11/23/18 rivaroxaban 15 mg tablet 15 mg PO QPM #90 tab 11/23/18 amiodarone 200 mg tablet 200 mg PO QHS tab 12/07/18 ipratropium-albuterol 0.5 mg-3 3 ml INHALATION Q8H #180 ml 12/21/18 mg(2.5 mg base)/3 mL nebulization soln Aspirin [Low Dose Aspirin EC] 81 mg PO DAILY 03/09/19 Tiotropium [place] [Spiriva] 18 mcg IH DAILY 03/09/19 methimazole 5 mg tablet 5 mg PO DAILY #30 tab 03/09/19 potassium chloride ER 20 mEq 20 meq PO DAILY #30 tab 03/09/19 tablet,extended release Past Medical History (Chronic Problems): Chronic Problems (Last Updated 03/09/19 @ 18:44 by Shaq Fitzpatrick MD) Valvular heart disease (Chronic) Stage III chronic kidney disease (Chronic) Chronic back pain (Chronic) Anemia (Chronic) Iron deficiency anemia due to chronic blood loss (Chronic) Hyperthyroidism (Chronic) Chronic respiratory failure with hypoxia (Chronic) Paroxysmal atrial fibrillation (Chronic) 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 (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) Nonrheumatic tricuspid (valve) insufficiency (Chronic) Nonrheumatic aortic (valve) insufficiency (Chronic) Hyperlipidemia (Chronic) COPD (chronic obstructive pulmonary disease) (Chronic) Hypertension (Chronic) Surgical History: - - back surgery Psychiatric History: No pertinent psych hx 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 - *Family History Maternal Family History: Family History (Last Reviewed 03/09/19 @ 14:04 by Patito Encinas) Mother CVA (cerebral vascular accident) Atrial fibrillation Brother Atrial fibrillation History of PTCA History Items: No pertinent history Paternal Family History: Family History (Last Reviewed 03/09/19 @ 14:04 by Patito Encinas) Mother CVA (cerebral vascular accident) Atrial fibrillation Brother Atrial fibrillation History of PTCA History Items: Cancer - lung Lives: With Family Smoking Status: Former smoker Alcohol: None Drugs: None Review of Systems - Review of Systems General: Denies: Fever, Night Sweats, Fatigue Cardiovascular: Reports: Shortness of Breath, Lightheadedness, Dizziness. Denies: Chest Discomfort, Orthopnea, PND, Peripheral Edema, Palpitations, Near Syncope, Syncope Respiratory: Reports: Shortness of Breath. Denies: Cough, Sputum Production, Hemoptysis Gastrointestinal: Denies: Hematemesis, Hematochezia, Melena Genitourinary: Denies: Dysuria, Hematuria Skin: Denies: Rash Subjectve: Is a 78-year-old white female who appears to be resting comfortably at the moment no acute distress. Objective: Vital Signs Temp Pulse Resp BP Pulse Ox 97.8 F 56 L 22 H 163/72 H 94 03/09/19 19:03 03/09/19 19:03 03/09/19 19:03 03/09/19 19:03 03/09/19 19:03 Oxygen Flow Rate (L/min) 4 Oxygen Delivery Method Nasal Cannula Weight: 130 lb Body Mass Index (BMI) 29.1 General: Awake, Alert, Oriented x 3, Cooperative, No Acute Distress HEENT: Atraumatic, Normocephalic, PERRL, EOMI, Sclera Non Icteric Oral: Moist Mucosa Neck: Supple, Good ROM, No JVD Lungs: - - Diminished breath sounds Cardiovascular: Regular Rhythm, Normal S1, Normal S2 Vascular: No Carotid Bruits Abdomen: Bowel Sounds Present, Soft, Non Tender Extremities: No Cyanosis, No Clubbing, Trace RLE Edema, Trace LLE Edema Neurological: No Focal Motor or Sensory Deficit Psych/Mental Status: Appropriate 03/09/19 17:24: WBC 6.5, RBC 3.42 L, Hgb 9.3 L, Hct 31.4 L, MCV 91.8, MCH 27.2, MCHC 29.6 L, RDW 17.1 H, RDW Differential 57.2 H, Plt Count 378, MPV 10.9, Immature Gran % (Auto) 0.200, Neut % (Auto) 59.4, Lymph % (Auto) 25.3, [place] % (Auto) 10.3 H, Eos % (Auto) 1.1, Baso % (Auto) 3.7 H, Absolute Neuts (auto) 3.9, Total Counted Not Reportable 03/09/19 17:24: Sodium 139, Potassium 4.6, Chloride 106, Carbon Dioxide 27.0, Anion Gap 6, BUN 26 H, Creatinine 1.97 H, Est GFR (MDRD) Af Amer 32 L, Est GFR (MDRD) Non-Af 26 L, BUN/Creatinine Ratio 13.2, Glucose 91, Calcium 8.9, Magnesium 2.4, Troponin I < 0.015 Rhythm: As noted above EKG: As noted above ECHO: 12-20-15 Left ventricle reported as normal with LVEF 60% Mild to moderate TR Mild AI Estimated RV systolic pressure reported at 44 mmHg Cardiac Cath: 01-03-16 Final impression: 1. Mild elevation of the left ventricular end-diastolic pressure compatible decreased diastolic compliance 2. Secondary pulmonary hypertension-mild 3. Oxygen saturations: No obvious evidence of intracardiac shunting phenomena 4. Left ventricle: A. Normal left ventricular size, wall motion, and systolic function B. Estimated LVEF is 60% 5. Left main coronary artery: A. Angiographically normal 6. Left anterior descending coronary artery: A. Proximal mild calcification B. Proximal minimal luminal irregularities C. Mid 25% tubular stenosis 7. Left circumflex coronary artery: A. Proximal minimal luminal irregularities 8. Right coronary artery: A. Large dominant vessel B. Proximal mild calcification and minimal luminal irregularities Assessment/Plan 1. Bradycardia The patient has demonstrated evidence of marked sinus bradycardia and the appearance of an underlying junctional rhythm. There is concerned that this is associated with her symptoms of dizziness/lightheadedness as well as potentially exacerbating her underlying pulmonary disease process with shortness of breat h/dyspnea. At the moment she does not appear to have evidence of acute coronary syndrome. She will continue to be monitored with cardiac enzymes and ECG follow-up. It would not be unreasonable to reassess her left ventricular wall motion systolic function as well as her valvular heart disease with a follow-up transthoracic echocardiogram. Her rate limiting therapy/antiarrhythmic therapy will be placed on hold. Her anticoagulant therapy will be placed on hold. She will be considered depending upon her clinical course and subsequent findings for further evaluation with permanent pacemaker implant. 2. Paroxysmal atrial fibrillation She has had a history of paroxysmal afibrillation. She has been on rate limiting therapy/antiarrhythmic therapy and anticoagulant therapy. At the moment her medications are being placed on hold based upon the concern of her underlying bradycardia dysrhythmias and the small need for upcoming permanent pacemaker placement. 3. Valvular heart disease She does have an element of underlying valvular heart disease as previously noted. This can be reassessed with echo cardiographic studies as deemed appropriate. 4. Hyperlipidemia She will continue medical management as deemed appropriate. 5. Hypertension Her blood pressure will be followed. Her medicines can be adjusted as deemed appropriate. 6. Hyperthyroidism She has been undergoing evaluation care for hyperthyroidism. There is concern as to whether or not her amiodarone is contributing to this. If her amiodarone is placed on indefinite hold her thyroid functions will have to be followed and her medications may need to be adjusted. If she returns to amiodarone therapy at some point in time to help manage her atrial dysrhythmia then again her thyroid functions will have to be followed and her medications adjusted appropriately. 7. COPD She does have a history of underlying COPD. She will continue be followed by internal medicine and pulmonology. 8. Renal insufficiency Her creatinine level somewhat elevated. Is unclear as to whether this is related to diminished intake and decreased intravascular volume versus any type of association with her bradycardia dysrhythmia and diminished perfusion, etc. At the present time she is receiving IV fluids. Her renal function will be followed.
--- NOTE | 2019-03-09 19:29 | ECHOD_ITS ---
Reason For Study: ARRHYTHMIA Procedure This was a 2D Doppler, Color Flow transthoracic echocardiogram. Exam performed portable in patient room. Left Ventricle Normal LV size. Left ventricular systolic function is normal. The estimated ejection fraction is 65 %. No regional wall motion abnormalities noted. Right Ventricle Normal RV size. Normal systolic function. Atria The left atrium is moderately enlarged. The right atrium is moderately enlarged. No doppler evidence for ASD. Mitral Valve There is mild to moderate mitral annular calcification. Normal mitral valve. Mild (1+) mitral valve insufficiency. Tricuspid Valve Normal tricuspid valve. Mild to moderate (1-2+) tricuspid valve insufficiency. Right ventricular systolic pressure estimated to be 54 mmHg. Aortic Valve Trisinus/trileaflet aortic valve. Mild focal aortic valve calcification. Trivial aortic valve insufficiency. Pulmonic Valve The pulmonic valve is not well visualized. Trivial pulmonic valve insufficiency. Great Vessels Normal sized aortic root. Calcified aortic root. Pericardium/Pleural No pericardial effusion. MMode/2D Measurements & Calculations LVIDd: 4.9 cm IVSd: 1.0 cm Ao root diam: 3.5 cm LVIDs: 2.9 cm LVPWd: 1.2 cm RVDd: 4.0 cm FS: 40.4 % LAV(MOD-bp): 79.9 ml LVAd ap4: 30.0 cm2 SV(MOD-sp4): 62.0 ml LAV(MOD-bp) Indexed: 52.9 ml/m2 EDV(MOD-sp4): 92.6 ml LAV(MOD-sp2): 87.4 ml EDV(sp4-el): 94.1 ml LAV(MOD-sp4): 76.1 ml LVAs ap4: 14.8 cm2 ESV(MOD-sp4): 30.5 ml ESV(sp4-el): 29.8 ml EF(MOD-sp4): 67.0 % EF(sp4-el): 68.3 % SV(sp4-el): 64.3 ml LA A4 area: 23.5 cm2 LA dimension(2D): 3.8 cm RA A4 area: 29.0 cm2 Time Measurements MV dec time: 0.17 sec Doppler Measurements & Calculations MV E max huey: 113.3 cm/sec Lat Peak E' Huey: 8.5 cm/sec Med Peak E' Huey: 7.3 cm/sec MV A max huey: 65.9 cm/sec E/E' lat: 13.4 E/E' med: 15.5 MV E/A: 1.7 Ao V2 max: 165.1 cm/sec AI max huey: 472.2 cm/sec LV V1 max: 145.3 cm/sec Ao max P.9 mmHg AI max P.2 mmHg LV V1 max P.4 mmHg AI dec slope: 255.3 cm/sec2 AI P1/2t: 541.8 msec TR max huey: 357.4 cm/sec TR max P.2 mmHg Interpretation Summary Left ventricular systolic function is normal. The estimated ejection fraction is 65 %. The left atrium is moderately enlarged. The right atrium is moderately enlarged. There is mild to moderate mitral annular calcification. Mild (1+) mitral valve insufficiency. Mild to moderate (1-2+) tricuspid valve insufficiency. Mild focal aortic valve calcification. Trivial aortic valve insufficiency. Trivial pulmonic valve insufficiency. Calcified aortic root. Right ventricular systolic pressure estimated to be 54 mmHg. Transmitral diastolic flow velocities suggest diastolic dysfunction (pseudonormal pattern). Ordering Physician: Blade Campoverde Referring Physician: MIMI ESTRELLA Performed By: Myra Charles, RDCS, RVT
[2019-03-09 20:14] LABS: Magnesium 2.4 mg/dL (1.6-2.6)
[2019-03-09] MEDS: HYDROcodone Bitartrate/Apap 5/325 Tablet PO (20:54)
[2019-03-09] MEDS: 0.9% Normal Saline 1,000 ML 75 ML IV (20:55)
[2019-03-09] MEDS: 0.9% NaCl Peripheral Flush Adult/Peds IV (20:55)
[2019-03-09] MEDS: Pantoprazole Sodium 40 MG Tablet PO (22:19)
[2019-03-09] MEDS: Pravastatin 80 MG Tablet PO (22:19)
[2019-03-10] VITALS (15 sets, daily range): BP systolic 113–168; BP diastolic 51–63; PULSE 36–64; RESP 15–21; TEMP 36.7–36.9; O2SAT 91–97
[2019-03-10] MEDS: Ipratropium/Albuterol Sulfate 3 ML AMPUL.NEB INHALATION ×4 (01:17→19:13)
[2019-03-10] MEDS: HYDROcodone Bitartrate/Apap 5/325 Tablet PO ×4 (01:19→19:55)
--- NOTE | 2019-03-10 05:55 | EKG12_ITS ---
Test Reason : AM EKG Blood Pressure : / mmHG Vent. Rate : 043 BPM Atrial Rate : 044 BPM P-R Int : 000 ms QRS Dur : 082 ms QT Int : 532 ms P-R-T Axes : 000 044 075 degrees QTc Int : 449 ms Junctional bradycardia with retrograde conduction Nonspecific T wave abnormality Abnormal ECG Confirmed by ALYSSIA XIE, STORM ([id number]), technical writer and editor DANAY LYN ([id number]) on 03/16/2019 10:26:48 AM Referred By: Shaq Fitzpatrick Confirmed By:STORM CADE MD
[2019-03-10 07:56] LABS: Absolute Lymphocyte Count 1.61 X10^3/ul (0.83-4.51); Basophil# 0.21 X10^3/uL; Basophil% 3.2 % (0-1); Eosinophil# 0.14 X10^3/uL; Eosinophils% 2.1 % (0-5); Hematocrit 27.7 % (37-47); Hemoglobin 8.2 g/dl (12.0-15.0); Lymphocyte # 1.61 X10^3/ul (4.0); Lymphocyte % 24.7 % (19-41); Mean Corp Hgb Conc 29.6 g/gl (32-36); Mean Corpuscular Hgb 27.3 pg (27.0-32.0); Mean Corpuscular Volume 92.3 fL (81-99); Mean Platelet Vol. 11.4 fl (6.2-12.0); Monocyte# 0.59 X10^3/uL; Neutrophil # 3.98 X10^3/uL (2.7-7.7); Platelet Count 318 K/mm3 (150-450); RBC Distribution Width CV 17.1 % (11.6-14.6); White Blood Count 6.5 K/mm3 (4.4-11.0)
[2019-03-10 07:57] LABS: POSITIVE COUNT NO; POSITIVE DIFFERENTIAL NO; POSITIVE MORPHOLOGY NO
[2019-03-10 08:02] LABS: Anion Gap 7 (5-15); BUN 24 mg/dL (7-18); Calcium,Total 8.3 mg/dL (8.5-10.1); Chloride 112 mmol/L (98-107); EST Glomerular Filtration Rate 36 mL/min (>60); Est Glom Filt Rate - Afr Amer 43 mL/min (>60); Estimated Creatinine Clearance 31.33 ml/min; Glucose 81 mg/dL (74-106); Potassium 4.2 mmol/L (3.5-5.1); Sodium Level 145 mmol/L (136-145)
--- NOTE | 2019-03-10 08:26 | PCM.PN.CARD ---
Subjectve: The patient is awake and alert. She denies ongoing chest discomfort. She has chronic shortness of breath and dyspnea. She states that since she has been here she is still felt intermittent episodes where she becomes more dizzy and/or lightheaded feeling and feels as if something is taking my breath away . These episodes of been transient. She has been wearing her O2 nasal cannula. Objective: Vital Signs Temp Pulse Resp BP Pulse Ox 98.5 F 61 21 H 127/62 H 94 03/10/19 05:00 03/10/19 07:37 03/10/19 07:10 03/10/19 05:00 03/10/19 05:00 Oxygen Flow Rate (L/min) 5 Oxygen Delivery Method Nasal Cannula Weight: 137 lb 2.04 oz Body Mass Index (BMI) 30.7 Intake and Output for Last 24 Hours 03/08/19 03/09/19 03/10/19 23:59 23:59 23:59 Intake Total 551 / 551 380 / 380 Balance 551 / 551 380 / 380 General: Awake, Alert, Oriented x 3, Cooperative, No Acute Distress HEENT: Atraumatic, Normocephalic, PERRL, EOMI, Sclera Non Icteric Oral: Moist Mucosa Neck: Supple, Good ROM, No JVD Lungs: - - Diminished breath sounds; no obvious rales or rhonchi Cardiovascular: Regular Rhythm, Normal S1, Normal S2 Abdomen: Bowel Sounds Present, Soft, Non Tender Extremities: Trace RLE Edema, Trace LLE Edema Neurological: No Focal Motor or Sensory Deficit Psych/Mental Status: Appropriate 03/09/19 17:24: WBC 6.5, RBC 3.42 L, Hgb 9.3 L, Hct 31.4 L, MCV 91.8, MCH 27.2, MCHC 29.6 L, RDW 17.1 H, RDW Differential 57.2 H, Plt Count 378, MPV 10.9, Immature Gran % (Auto) 0.200, Neut % (Auto) 59.4, Lymph % (Auto) 25.3, [place] % (Auto) 10.3 H, Eos % (Auto) 1.1, Baso % (Auto) 3.7 H, Absolute Neuts (auto) 3.9, Total Counted Not Reportable 03/09/19 17:24: Sodium 139, Potassium 4.6, Chloride 106, Carbon Dioxide 27.0, Anion Gap 6, BUN 26 H, Creatinine 1.97 H, Est GFR (MDRD) Af Amer 32 L, Est GFR (MDRD) Non-Af 26 L, BUN/Creatinine Ratio 13.2, Glucose 91, Calcium 8.9, Magnesium 2.4, Troponin I < 0.015 03/09/19 17:30: Magnesium 2.4 03/10/19 06:00: WBC 6.5, RBC 3.00 L, Hgb 8.2 L, Hct 27.7 L, MCV 92.3, MCH 27.3, MCHC 29.6 L, RDW 17.1 H, RDW Differential 57.0 H, Plt Count 318, MPV 11.4, Immature Gran % (Auto) 0.000, Neut % (Auto) 61.0, Lymph % (Auto) 24.7, [place] % (Auto) 9.0, Eos % (Auto) 2.1, Baso % (Auto) 3.2 H, Absolute Neuts (auto) 4.0, Total Counted Not Reportable 03/10/19 06:00: Sodium 145, Potassium 4.2, Chloride 112 H, Carbon Dioxide 26.0, Anion Gap 7, BUN 24 H, Creatinine 1.50 H, Est GFR (MDRD) Af Amer 43 L, Est GFR (MDRD) Non-Af 36 L, BUN/Creatinine Ratio 16.0, Glucose 81, Calcium 8.3 L Rhythm: Sinus bradycardia/marked sinus bradycardia/transient junctional rhythm/sinus pauses greater than 3 seconds in duration Medical Necessity - Tobacco Use Smoking Status: Former smoker Assessment/Plan 1. Bradycardia The patient has demonstrated evidence of marked sinus bradycardia and the appearance of an underlying junctional rhythm. There is concerned that this is associated with her symptoms of dizziness/lightheadedness as well as potentially exacerbating her underlying pulmonary disease process with shortness of breath/dyspnea. At the moment she does not appear to have evidence of acute coronary syndrome. Her rate limiting therapy/antiarrhythmic therapy will be placed on hold. Her anticoagulant therapy will be placed on hold. States her last dose of anticoagulant was on 03-08-19. She will be considered depending upon her clinical course and subsequent findings for further evaluation with permanent pacemaker implant. 2. Paroxysmal atrial fibrillation She has had a history of paroxysmal afibrillation. She has been on rate limiting therapy/antiarrhythmic therapy and anticoagulant therapy. At the moment her medications are being placed on hold based upon the concern of her underlying bradycardia dysrhythmias and the small need for upcoming permanent pacemaker placement. 3. Valvular heart disease She does have an element of underlying valvular heart disease as previously noted. This can be reassessed with echo cardiographic studies as deemed appropriate. 4. Hyperlipidemia She will continue medical management as deemed appropriate. 5. Hypertension Her blood pressure will be followed. Her medicines can be adjusted as deemed appropriate. 6. Hyperthyroidism She has been undergoing evaluation care for hyperthyroidism. There is concern as to whether or not her amiodarone is contributing to this. If her amiodarone is placed on indefinite hold her thyroid functions will have to be followed and her medications may need to be adjusted. If she returns to amiodarone therapy at some point in time to help manage her atrial dysrhythmia then again her thyroid functions will have to be followed and her medications adjusted appropriately. 7. COPD She does have a history of underlying COPD. She will continue be followed by internal medicine and pulmonology. 8. Renal insufficiency Her creatinine level somewhat elevated. She has received IV fluids. Her creatinine level has improved. This note was generated using a voice recognition system and there may be incorrect words, spelling or punctuation that were not noted when reviewing the office note prior to saving.
[2019-03-10] MEDS: 0.9% Normal Saline 1,000 ML 75 ML IV ×2 (09:21→21:25)
[2019-03-10] MEDS: Aspirin E.C. 81 MG Tablet PO (09:22)
[2019-03-10] MEDS: Gabapentin 600 MG Tablet PO ×3 (09:23→18:37)
[2019-03-10] MEDS: amLODIPine 5 MG Tablet PO (09:23)
[2019-03-10] MEDS: METHIMAZOLE 5 MG TABLET PO (09:23)
[2019-03-10] MEDS: Pantoprazole Sodium 40 MG Tablet PO ×2 (09:23→21:32)
--- NOTE | 2019-03-10 10:32 | CASEMGMT ---
MJ CEVALLOS assessment: Face to Face with patient for initial transition planning/care coordination assessment. MJ CEVALLOS introduced self and role at [facility], pt voices understanding and consents to assessment at this time. Pt is sitting up in bed in no distress at this time. Pt is A/Ox4 at this time and answers all questions appropriately at this time. Pt's granddaughters at bedside during assessment. Care providers, pharmacy, and demographics verified/updated at this time. PCP: Pratibha Specialists: Nirali, cardio; ramya Ravi; caitlin Do Preferred Pharmacy: [facility] Insurance: [employer] Prescription Benefit: [employer] Living Will/HPOA: Pt has LW/HPOA and they are on file at [facility] at this time. Pt's daughter, Myra Rios, is HPOA. LNOK: Myra Rios, daughter; Ophelia Rios, granddaughter Living Arrangements: Pt lives alone in [address] [place] [address] with no stairs and states no concerns at home at this time. Pt states that family is in and out all the time and granddaughter assists her with showering. Pt's granddaughter states that she will be staying with pt until she is not needed. Transportation: Pt states family drives and states no transportation concerns at this time. DME/HHC: Pt has the following DME: cane, walker, w/c, grab bars, shower chair, and home oxygen 4 liters at bedtime thru [employer]. Pt/family state no need for any further DME at this time. Pt has had HHC set up in the past but family is unsure of which company and states that it was about 1 yr ago or more. Family states no hx of SNF in the past. Pt/family state no concerns with going home at time of discharge. Pt is retired. Pt states quit smoking 4 years ago and does not drink ETOH. Pt/family state no further questions/concerns/needs at this time. CM to follow for any further discharge planning/needs. Advised pt/family to ask for CM if any further questions/concerns/needs arise, voices understanding. Pt Goal: Home Plan: Home w/ family support s/p pacer placement 03/13 S[place] MJ CEVALLOS
--- NOTE | 2019-03-10 11:52 | CHAPLAIN ---
Type of Pastoral Visit _x__ Initial Visit ___ Follow-up Visit ___ On-call Visit ___ General Patient Visit ___ Spiritual Assessment ___ Family Conference ___ Bereavement ___ Rapid Response ___ Code Blue ___ Other (describe below) Pastoral Care Referral From _x__ Patient ___ Family ___ Nurse ___ Physician ___ Home Care Aide ___ Preliminary School Psychologist ___ Other (describe below) Sacrament/Intervention _x__ Active listening ___ Anointing ___ Denominational ___ Bereavement ___ Communion _x__ Gerri exploration ___ _x__ Life review _x__ Prayer ___ Reconciliation ___ Sacrament of Sick _x__ Supportive presence ___ Wedding ___ Other (describe below) Pastoral Comments very talkative; some anxieties about being in hospital and procedures to be done; requests spiritual support and prayer
--- NOTE | 2019-03-10 12:48 | PN_ITS ---
<Rahul Peterson - Last Filed: 03/10/19 12:48> Patient Problems: Active and Suspected Problems (Last Updated 03/09/19 @ 18:44 by Shaq Fitzpatrick MD) Bradycardia (Acute) Subjective: Agreeable to PM Wednesday. No dizziness/LH. No CP/SOB. No Palp. - Physical Exam General: Alert, Oriented x3, Cooperative HEENT: Atraumatic, PERRLA, EOMI, Normocephalic Neck: Supple, No JVD, Negative Carotid Bruits Lungs: Clear to auscultation, Normal air movement Cardiovascular: Regular rate, No murmurs Abdomen: Bowel Sounds Present, Soft, Non Tender Extremities: No edema, Capillary Refill Less than 3 Seconds Skin: No rashes, No breakdown Musculoskeletal: No Tenderness to Palpation of Joints or Extremities Neurological: Cranial nerves II-XII grossly intact Psych/Mental Status: Normal Affect, Appropriate, Alert and oriented to time, place, person, mood and affect Vital Signs Temp Pulse Resp BP Pulse Ox 98.5 F 52 L 18 163/61 H 97 03/10/19 09:03 03/10/19 11:35 03/10/19 09:03 03/10/19 09:03 03/10/19 09:03 Oxygen Flow Rate (L/min) 3 Oxygen Delivery Method Nasal Cannula Weight: 137 lb 2.04 oz Body Mass Index (BMI) 30.7 Intake and Output for Last 24 Hours 03/08/19 03/09/19 03/10/19 23:59 23:59 23:59 Intake Total 551 / 551 380 / 380 Balance 551 / 551 380 / 380 Laboratory Tests Past 24 Hrs 03/09/19 03/09/19 03/09/19 17:24 17:24 17:30 WBC 6.5 RBC 3.42 L Hgb 9.3 L Hct 31.4 L MCV 91.8 MCH 27.2 MCHC 29.6 L RDW 17.1 H RDW Differential 57.2 H Plt Count 378 MPV 10.9 Immature Gran % (Auto) 0.200 Neut % (Auto) 59.4 Lymph % (Auto) 25.3 [place] % (Auto) 10.3 H Eos % (Auto) 1.1 Baso % (Auto) 3.7 H Absolute Neuts (auto) 3.9 Absolute Lymphs (auto) 1.64 Total Counted Not Reportable Sodium 139 Potassium 4.6 Chloride 106 Carbon Dioxide 27.0 Anion Gap 6 BUN 26 H Creatinine 1.97 H Estim Creat Clear Calc 22.62 Est GFR (MDRD) Af Amer 32 L Est GFR (MDRD) Non-Af 26 L BUN/Creatinine Ratio 13.2 Glucose 91 Calcium 8.9 Magnesium 2.4 2.4 Troponin I < 0.015 03/10/19 03/10/19 06:00 06:00 WBC 6.5 RBC 3.00 L Hgb 8.2 L Hct 27.7 L MCV 92.3 MCH 27.3 MCHC 29.6 L RDW 17.1 H RDW Differential 57.0 H Plt Count 318 MPV 11.4 Immature Gran % (Auto) 0.000 Neut % (Auto) 61.0 Lymph % (Auto) 24.7 [place] % (Auto) 9.0 Eos % (Auto) 2.1 Baso % (Auto) 3.2 H Absolute Neuts (auto) 4.0 Absolute Lymphs (auto) 1.61 Total Counted Not Reportable Sodium 145 Potassium 4.2 Chloride 112 H Carbon Dioxide 26.0 Anion Gap 7 BUN 24 H Creatinine 1.50 H Estim Creat Clear Calc 31.33 Est GFR (MDRD) Af Amer 43 L Est GFR (MDRD) Non-Af 36 L BUN/Creatinine Ratio 16.0 Glucose 81 Calcium 8.3 L Magnesium Troponin I Medical Necessity - Tobacco Use Smoking Status: Former smoker Assessment/Plan All Active Problems (Last Updated 03/09/19 @ 18:44 by Shaq Fitzpatrick MD) Bradycardia (Acute) 1. Symptomatic Bradycardia 2/2 prescribed medications - held amio. Now normal rate. asympomatic now. PM placement on Wednesday per Dr. Campoverde. 2. Chronic Afib - xarelto held. Note - xarelto previously held for GI bleed. 3. CKDIII - improved. 4. COPD with chronic hypoxic resp failure-on 4lpm O2 at home qhs. No acute exacerbation. continue prn albuterol, duoneb scheduled. 5. Hyperthyroidism - methimazole 6. Iron def anemia - prior GI bleed. Appears to be near baseline. Continue protonix. 7. Htn - stable 8. HLD - statin DVT ppx: SCDs This patient was seen by Rahul Peterson PA-C under the supervision of Dr. Chopra. <Usman Chopra - Last Filed: 03/10/19 13:27> - Physical Exam General: Alert, Cooperative HEENT: Atraumatic, Normocephalic Lungs: Clear to auscultation, Normal air movement, No rhonchi, No wheeze Cardiovascular: Regular rate, Regular Rhythm, Normal S1, Normal S2, No murmurs Abdomen: Bowel Sounds Present, Soft, Non Tender, Non-Distended Extremities: No edema, No Calf Tenderness Skin: No rashes, No breakdown Psych/Mental Status: Normal Affect, Appropriate Vital Signs Temp Pulse Resp BP Pulse Ox 36.9 C 52 L 18 163/61 H 97 03/10/19 09:03 03/10/19 11:35 03/10/19 09:03 03/10/19 09:03 03/10/19 09:03 Oxygen Flow Rate (L/min) 3 Oxygen Delivery Method Nasal Cannula Weight: 62.2 kg Body Mass Index (BMI) 30.7 Intake and Output for Last 24 Hours 03/08/19 03/09/19 03/10/19 23:59 23:59 23:59 Intake Total 551 / 551 380 / 380 Balance 551 / 551 380 / 380 Laboratory Tests Past 24 Hrs 03/09/19 03/09/19 03/09/19 17:24 17:24 17:30 WBC 6.5 RBC 3.42 L Hgb 9.3 L Hct 31.4 L MCV 91.8 MCH 27.2 MCHC 29.6 L RDW 17.1 H RDW Differential 57.2 H Plt Count 378 MPV 10.9 Immature Gran % (Auto) 0.200 Neut % (Auto) 59.4 Lymph % (Auto) 25.3 [place] % (Auto) 10.3 H Eos % (Auto) 1.1 Baso % (Auto) 3.7 H Absolute Neuts (auto) 3.9 Absolute Lymphs (auto) 1.64 Total Counted Not Reportable Sodium 139 Potassium 4.6 Chloride 106 Carbon Dioxide 27.0 Anion Gap 6 BUN 26 H Creatinine 1.97 H Estim Creat Clear Calc 22.62 Est GFR (MDRD) Af Amer 32 L Est GFR (MDRD) Non-Af 26 L BUN/Creatinine Ratio 13.2 Glucose 91 Calcium 8.9 Magnesium 2.4 2.4 Troponin I < 0.015 03/10/19 03/10/19 06:00 06:00 WBC 6.5 RBC 3.00 L Hgb 8.2 L Hct 27.7 L MCV 92.3 MCH 27.3 MCHC 29.6 L RDW 17.1 H RDW Differential 57.0 H Plt Count 318 MPV 11.4 Immature Gran % (Auto) 0.000 Neut % (Auto) 61.0 Lymph % (Auto) 24.7 [place] % (Auto) 9.0 Eos % (Auto) 2.1 Baso % (Auto) 3.2 H Absolute Neuts (auto) 4.0 Absolute Lymphs (auto) 1.61 Total Counted Not Reportable Sodium 145 Potassium 4.2 Chloride 112 H Carbon Dioxide 26.0 Anion Gap 7 BUN 24 H Creatinine 1.50 H Estim Creat Clear Calc 31.33 Est GFR (MDRD) Af Amer 43 L Est GFR (MDRD) Non-Af 36 L BUN/Creatinine Ratio 16.0 Glucose 81 Calcium 8.3 L Magnesium Troponin I Assessment/Plan Patient seen and examined independently. Data reviewed. I agree with the above note by the physician senior assistant manager. 1. Bradycardia, symptomatic. * Improved after amiodarone held * Plan for permanent pacemaker on 715 Code Visit Inpatient E&M: 50309 Subs Hosp L2
[2019-03-10] MEDS: CARISOPRODOL 350 MG TABLET PO ×2 (13:46→21:33)
[2019-03-10] MEDS: Pravastatin 80 MG Tablet PO (21:32)
[2019-03-11] VITALS (15 sets, daily range): BP systolic 137–187; BP diastolic 52–76; PULSE 50–62; RESP 16–18; TEMP 36.5–36.9; O2SAT 91–94
[2019-03-11] MEDS: Ipratropium/Albuterol Sulfate 3 ML AMPUL.NEB INHALATION ×4 (00:33→18:55)
[2019-03-11] MEDS: HYDROcodone Bitartrate/Apap 5/325 Tablet PO ×4 (03:17→20:11)
[2019-03-11] MEDS: CARISOPRODOL 350 MG TABLET PO ×3 (05:05→22:31)
[2019-03-11] MEDS: Gabapentin 600 MG Tablet PO ×3 (07:41→17:21)
[2019-03-11] MEDS: Aspirin E.C. 81 MG Tablet PO (07:41)
--- NOTE | 2019-03-11 09:03 | PCM.PN.CARD ---
Subjectve: Patient seen and evaluated. Appears to be stable this morning. Objective: Vital Signs Temp Pulse Resp BP Pulse Ox 97.9 F 60 16 170/52 H 92 03/11/19 03:00 03/11/19 06:54 03/11/19 06:48 03/11/19 03:00 03/11/19 06:48 Oxygen Flow Rate (L/min) 3 Oxygen Delivery Method Nasal Cannula Weight: 137 lb 2.04 oz Body Mass Index (BMI) 30.7 Intake and Output for Last 24 Hours 03/09/19 03/10/19 03/11/19 23:59 23:59 23:59 Intake Total 551 / 551 2083 / 2674 955 / 955 Balance 551 / 551 3 / 2674 955 / 955 General: Awake, Alert, Oriented x 3 HEENT: PERRL, EOMI, Sclera Non Icteric Neck: Supple, Good ROM, No Lymph Node Enlargement Lungs: Clear to auscultation Cardiovascular: Regular Rhythm, Normal S1, Normal S2, No Murmurs, No Rubs, No Gallops Vascular: No Carotid Bruits, Normal Femoral Pulses, Normal Radial Pulses, Normal Dorsalis Pedal Pulse, Normal Posterior Tibial Pulses Abdomen: Bowel Sounds Present, Soft, Non Tender, No HSM, No Organomegaly Extremities: No Cyanosis, No Clubbing, No edema Musculoskeletal: No Erythema Skin: No Rashes Neurological: No Focal Motor or Sensory Deficit Psych/Mental Status: Appropriate Rhythm: EKG: ECHO: Stress Test: Cardiac Cath: PCI: CT Surgery: Holter monitor: EPS: PPM: CXR: Chest CT Scan: Medical Necessity - Tobacco Use Smoking Status: Former smoker Assessment/Plan 1. Bradycardia The patient has demonstrated evidence of marked sinus bradycardia and the appearance of an underlying junctional rhythm. There is concerned that this is associated with her symptoms of dizziness/lightheadedness as well as potentially exacerbating her underlying pulmonary disease process with shortness of breath/dyspnea. She will be considered depending upon her clinical course and subsequent findings for further evaluation with permanent pacemaker implant. The above will be planned for Wednesday. Risk benefits alternatives have been explained to her she understands and agrees to proceed. 2. Paroxysmal atrial fibrillation She has had a history of paroxysmal afibrillation.She has been on rate limiting therapy/antiarrhythmic therapy and anticoagulant therapy. At the moment her medications are being placed on hold based upon the concern of her underlying bradycardia dysrhythmias and the small need for upcoming permanent pacemaker placement. 3. Valvular heart disease She does have an element of underlying valvular heart disease as previously noted. This can be reassessed with echo cardiographic studies as deemed appropriate. 4. Hyperlipidemia She will continue medical management as deemed appropriate. 5. Hypertension Her blood pressure will be followed. Her medicines can be adjusted as deemed appropriate. 6. Hyperthyroidism She has been undergoing evaluation care for hyperthyroidism. There is concern as to whether or not her amiodarone is contributing to this. If her amiodarone is placed on indefinite hold her thyroid functions will have to be followed and her medications may need to be adjusted. If she returns to amiodarone therapy at some point in time to help manage her atrial dysrhythmia then again her thyroid functions will have to be followed and her medications adjusted appropriately. 7. COPD She does have a history of underlying COPD. She will continue be followed by internal medicine and pulmonology. 8. Renal insufficiency Her creatinine level somewhat elevated. She has received IV fluids. Her creatinine level has improved. This note was generated using a voice recognition system and there may be incorrect words, spelling or punctuation that were not noted when reviewing the office note prior to saving.
[2019-03-11] MEDS: Acetaminophen 325 MG Tablet 650 MG PO (09:11)
[2019-03-11] MEDS: amLODIPine 5 MG Tablet PO (09:12)
[2019-03-11] MEDS: Pantoprazole Sodium 40 MG Tablet PO ×2 (09:12→22:31)
[2019-03-11] MEDS: 0.9% Normal Saline 1,000 ML 75 ML IV ×2 (10:16→22:33)
[2019-03-11] MEDS: METHIMAZOLE 5 MG TABLET PO (10:16)
--- NOTE | 2019-03-11 12:33 | PCM.PROGNOTE ---
<Rahul Peterson - Last Filed: 03/11/19 12:33> Patient Problems: Active and Suspected Problems (Last Updated 03/09/19 @ 18:44 by Shaq Fitzpatrick MD) Bradycardia (Acute) Subjective: No acute issues overnight. Resting comfortably in bed no acute distress. No chest pain, shortness of breath, dizziness, lightheadedness, palpitations. Patient is agreeable to pacemaker placement on Wednesday. - Physical Exam General: Alert, Oriented x3, Cooperative HEENT: Atraumatic, PERRLA, EOMI, Normocephalic Neck: Supple, No JVD, Negative Carotid Bruits Lungs: Clear to auscultation, Normal air movement Cardiovascular: No murmurs, Irregular Rate Abdomen: Bowel Sounds Present, Soft, Non Tender Extremities: No edema, Capillary Refill Less than 3 Seconds Skin: No rashes, No breakdown Musculoskeletal: No Tenderness to Palpation of Joints or Extremities Neurological: Cranial nerves II-XII grossly intact Psych/Mental Status: Normal Affect, Appropriate, Alert and oriented to time, place, person, mood and affect Vital Signs Temp Pulse Resp BP Pulse Ox 97.7 F L 50 L 16 156/57 H 93 03/11/19 09:00 03/11/19 11:12 03/11/19 09:00 03/11/19 09:00 03/11/19 09:00 Oxygen Flow Rate (L/min) 3 Oxygen Delivery Method Nasal Cannula Weight: 137 lb 2.04 oz Body Mass Index (BMI) 30.7 Intake and Output for Last 24 Hours 03/09/19 03/10/19 03/11/19 23:59 23:59 23:59 Intake Total 551 / 551 2082 Balance 551 / 551 2082 Medical Necessity - Tobacco Use Smoking Status: Former smoker Assessment/Plan All Active Problems (Last Updated 03/09/19 @ 18:44 by Shaq Fitzpatrick MD) Bradycardia (Acute) 1. Symptomatic Bradycardia 2/2 prescribed medications - held amio. Now normal rate. asympomatic now. PM placement on Wednesday per cardiology 2. Chronic Afib - xarelto held. Note - xarelto previously held for GI bleed. 3. CKDIII - improved. 4. COPD with chronic hypoxic resp failure-on 4lpm O2 at home qhs. No acute exacerbation. continue prn albuterol, duoneb scheduled. 5. Hyperthyroidism - methimazole 6. Iron def anemia - prior GI bleed. Appears to be near baseline. Continue protonix. 7. Htn - stable 8. HLD - statin DVT ppx: SCDs This patient was seen by Rahul Peterson PA-C under the supervision of Dr. Chopra. <Usman Chopra - Last Filed: 03/11/19 14:04> Subjective: Feels well. Anxious about PPM for 03/13. - Physical Exam General: Alert, Cooperative HEENT: Atraumatic, Normocephalic Neck: No Nodes, Thyroid Normal Size and Texture Lungs: Clear to auscultation, Normal air movement, No rhonchi, No wheeze Cardiovascular: No murmurs, Irregular Rate Abdomen: Bowel Sounds Present, Soft, Non Tender, Non-Distended Extremities: No edema, No Calf Tenderness Skin: No rashes, No breakdown Psych/Mental Status: Normal Affect, Appropriate Vital Signs Temp Pulse Resp BP Pulse Ox 36.5 C L 59 L 16 156/57 H 93 03/11/19 09:00 03/11/19 13:12 03/11/19 13:12 03/11/19 09:00 03/11/19 09:00 Oxygen Flow Rate (L/min) 3 Oxygen Delivery Method Nasal Cannula Weight: 62.2 kg Body Mass Index (BMI) 30.7 Intake and Output for Last 24 Hours 03/09/19 03/10/19 03/11/19 23:59 23:59 23:59 Intake Total 551 / 551 2082 Balance 551 / 551 2082 Assessment/Plan Patient seen and examined independently. Data reviewed. I agree with the above note by the physician clinical laboratory assistant. 1. Symptom medic bradycardia Improved Continue to hold amiodarone Plan for permanent pacemaker on the Discussed with patient about the pacemaker and of the procedure did explain some the risks associated with it 2. A. fib, chronic: Stable Code Visit Inpatient E&M: 17772 Subs Hosp L2
[2019-03-11] MEDS: Pravastatin 80 MG Tablet PO (22:31)
[2019-03-12] VITALS (12 sets, daily range): BP systolic 148–175; BP diastolic 63–85; PULSE 51–66; RESP 16–20; TEMP 36.7–37.1; O2SAT 90–92
[2019-03-12] MEDS: HYDROcodone Bitartrate/Apap 5/325 Tablet PO ×5 (00:57→21:14)
[2019-03-12] MEDS: CARISOPRODOL 350 MG TABLET PO ×3 (05:15→21:14)
[2019-03-12] MEDS: Ipratropium/Albuterol Sulfate 3 ML AMPUL.NEB INHALATION ×3 (07:00→19:43)
--- NOTE | 2019-03-12 08:28 | PN.CARD_ITS ---
Subjectve: Patient seen and evaluated. Appears to be doing better. Heart rate improved. Objective: Vital Signs Temp Pulse Resp BP Pulse Ox 98.5 F 60 16 163/70 H 90 03/12/19 03:40 03/12/19 07:17 03/12/19 07:00 03/12/19 03:40 03/12/19 07:00 Oxygen Flow Rate (L/min) 3 Oxygen Delivery Method Nasal Cannula Weight: 137 lb 2.04 oz Body Mass Index (BMI) 30.7 Intake and Output for Last 24 Hours 03/10/19 03/11/19 03/12/19 23:59 23:59 23:59 Intake Total 2082 / 2673 3474 / 3474 565 / 565 Balance 2082 3474 / 3474 565 / 565 General: Awake, Alert, Oriented x 3 HEENT: PERRL, EOMI, Sclera Non Icteric Neck: Supple, Good ROM, No Lymph Node Enlargement Lungs: Clear to auscultation Cardiovascular: Regular Rhythm, Normal S1, Normal S2, No Murmurs, No Rubs, No Gallops Vascular: No Carotid Bruits, Normal Femoral Pulses, Normal Radial Pulses, Normal Dorsalis Pedal Pulse, Normal Posterior Tibial Pulses Abdomen: Bowel Sounds Present, Soft, Non Tender, No HSM, No Organomegaly Extremities: No Cyanosis, No Clubbing, No edema Musculoskeletal: No Erythema Lymphatic: No Lymph Node Enlargement Neurological: No Focal Motor or Sensory Deficit Psych/Mental Status: Appropriate Rhythm: EKG: ECHO: Stress Test: Cardiac Cath: PCI: CT Surgery: Holter monitor: EPS: PPM: CXR: Chest CT Scan: Medical Necessity - Tobacco Use Smoking Status: Former smoker Assessment/Plan 1. Bradycardia The patient has demonstrated evidence of marked sinus bradycardia and the appe arance of an underlying junctional rhythm. There is concerned that this is associated with her symptoms of dizziness/lightheadedness as well as potentially exacerbating her underlying pulmonary disease process with shortness of breath/dyspnea. She will be considered depending upon her clinical course and subsequent findings for further evaluation with permanent pacemaker implant. The above will be planned for Wednesday. Risk benefits alternatives have been explained to her she understands and agrees to proceed. 2. Paroxysmal atrial fibrillation She has had a history of paroxysmal afibrillation.She has been on rate limiting therapy/antiarrhythmic therapy and anticoagulant therapy. At the moment her medications are being placed on hold based upon the concern of her underlying bradycardia dysrhythmias and thel need for upcoming permanent pacemaker placement. 3. Valvular heart disease She does have an element of underlying valvular heart disease as previously noted. This can be reassessed with echo cardiographic studies as deemed appropriate. 4. Hyperlipidemia She will continue medical management as deemed appropriate. 5. Hypertension Her blood pressure will be followed. Her medicines can be adjusted as deemed appropriate. 6. Hyperthyroidism She has been undergoing evaluation care for hyperthyroidism. There is concern as to whether or not her amiodarone is contributing to this. If her amiodarone is placed on indefinite hold her thyroid functions will have to be followed and her medications may need to be adjusted. If she returns to amiodarone therapy at some point in time to help manage her atrial dysrhythmia then again her thyroid functions will have to be followed and her medications adjusted appropriately. 7. COPD She does have a history of underlying COPD. She will continue be followed by internal medicine and pulmonology. 8. Renal insufficiency Her creatinine level somewhat elevated. She has received IV fluids. Her creatinine level has improved. This note was generated using a voice recognition system and there may be incorrect words, spelling or punctuation that were not noted when reviewing the office note prior to saving.
[2019-03-12] MEDS: amLODIPine 5 MG Tablet PO (08:52)
[2019-03-12] MEDS: Gabapentin 600 MG Tablet PO ×3 (08:52→17:11)
[2019-03-12] MEDS: METHIMAZOLE 5 MG TABLET PO (08:52)
[2019-03-12] MEDS: Pantoprazole Sodium 40 MG Tablet PO ×2 (08:52→21:14)
[2019-03-12] MEDS: Aspirin E.C. 81 MG Tablet PO (08:52)
--- NOTE | 2019-03-12 11:53 | PN_ITS ---
<Rahul Peterson - Last Filed: 03/12/19 11:53> Patient Problems: Active and Suspected Problems (Last Updated 03/09/19 @ 18:44 by Shaq Ftizpatrick MD) Bradycardia (Acute) Subjective: Breathing improved. Still SOB with exertion. On home oxygen level, no increased demand. No CP. No Palp. No LH/Dizziness. Rate has been stable. Agreeable to cath tomorrow. Refused therapy yesterday however participated and did well today. Has walker. Plans to return to own home at [place]. - Physical Exam General: Alert, Oriented x3, Cooperative HEENT: Atraumatic, PERRLA, EOMI, Normocephalic Neck: Supple, No JVD, Negative Carotid Bruits Lungs: Clear to auscultation, Normal air movement Cardiovascular: No murmurs, Irregular Rate Abdomen: Bowel Sounds Present, Soft, Non Tender Extremities: No edema, Capillary Refill Less than 3 Seconds Skin: No rashes, No breakdown Musculoskeletal: No Tenderness to Palpation of Joints or Extremities Neurological: Cranial nerves II-XII grossly intact Psych/Mental Status: Normal Affect, Appropriate Vital Signs Temp Pulse Resp BP Pulse Ox 98.0 F 60 18 148/85 H 92 03/12/19 08:57 03/12/19 11:18 03/12/19 08:57 03/12/19 08:57 03/12/19 08:57 Oxygen Flow Rate (L/min) 3 Oxygen Delivery Method Nasal Cannula Weight: 137 lb 2.04 oz Body Mass Index (BMI) 30.7 Intake and Output for Last 24 Hours 03/10/19 03/11/19 03/12/19 23:59 23:59 23:59 Intake Total 3 / 2674 3474 / 3474 1405 / 1405 Balance 3 / 2674 3474 / 3474 1405 / 1405 Medical Necessity - Tobacco Use Smoking Status: Former smoker Assessment/Plan All Active Problems (Last Updated 03/09/19 @ 18:44 by Shaq Fitzpatrick MD) Bradycardia (Acute) 1. Symptomatic Bradycardia 2/2 prescribed medications - held amio. Now normal rate. asympomatic now. PM placement on Wednesday per cardiology 2. Chronic Afib - xarelto held. Note - xarelto previously held for GI bleed. Ch bebe H/H in AM 3. CKDIII - Check BMP in AM. 4. COPD with chronic hypoxic resp failure-on 4lpm O2 at home qhs. No acute exacerbation. continue prn albuterol, duoneb scheduled. 5. Hyperthyroidism - methimazole 6. Iron def anemia - prior GI bleed. Appears to be near baseline. Continue protonix. 7. Htn - stable 8. HLD - statin DVT ppx: SCDs DC planning: after pacemaker placement patient was informed by cardiology she would stay overnight for monitoring. Pt may need HHC at dc. This patient was seen by Rahul Peterson PA-C under the supervision of Dr. Chopra. <Usman Chopra - Last Filed: 03/12/19 12:12> Subjective: No new complaints. - Physical Exam General: Alert, Cooperative HEENT: Atraumatic, Normocephalic Neck: No Nodes, Thyroid Normal Size and Texture Lungs: Clear to auscultation, Normal air movement, No rhonchi, No wheeze Cardiovascular: No murmurs, Irregular Rate Abdomen: Bowel Sounds Present, Soft, Non Tender, Non-Distended Extremities: No edema, No Calf Tenderness Skin: No rashes, No breakdown Psych/Mental Status: Normal Affect, Appropriate Vital Signs Temp Pulse Resp BP Pulse Ox 36.7 C 60 18 148/85 H 92 03/12/19 08:57 03/12/19 11:18 03/12/19 08:57 03/12/19 08:57 03/12/19 08:57 Oxygen Flow Rate (L/min) 3 Oxygen Delivery Method Nasal Cannula Weight: 62.2 kg Body Mass Index (BMI) 30.7 Intake and Output for Last 24 Hours 03/10/19 03/11/19 03/12/19 23:59 23:59 23:59 Intake Total 3 / 2674 3474 / 3474 1405 / 1405 Balance 3 / 2674 3474 / 3474 1405 / 1405 Assessment/Plan Patient seen and examined independently. Data reviewed. I agree with the above note by the physician first assistant. 1. Symptom medic bradycardia * Improved * Continue to hold amiodarone * Plan for permanent pacemaker on the * Discussed with patient about the pacemaker and of the procedure did explain so me the risks associated with it 2. A. fib, chronic: * Stable * resume rivaroxaban after PPM placement. 3. Disposition: anticipate DC home 03/14, barring any setbacks. Code Visit Inpatient E&M: 66014 Subs Hosp L2
[2019-03-12 16:35] LABS: M R Staph aureus DNA By PCR Negative (Negative); Probe Check PASS; Specimen Processing Control PASS
[2019-03-12] MEDS: Pravastatin 80 MG Tablet PO (21:14)
[2019-03-13] VITALS (22 sets, daily range): BP systolic 135–171; BP diastolic 61–97; PULSE 60–70; RESP 16–20; TEMP 36.4–37; O2SAT 91–95
[2019-03-13] MEDS: HYDROcodone Bitartrate/Apap 5/325 Tablet PO ×4 (02:00→20:54)
[2019-03-13] MEDS: CARISOPRODOL 350 MG TABLET PO ×3 (05:32→20:58)
[2019-03-13 06:29] LABS: Hematocrit 28.5 % (37-47); Hemoglobin 8.4 g/dl (12.0-15.0)
[2019-03-13] MEDS: Ipratropium/Albuterol Sulfate 3 ML AMPUL.NEB INHALATION (06:36)
[2019-03-13 06:55] LABS: Anion Gap 8 (5-15); BUN 21 mg/dL (7-18); BUN/Creat Ratio 18.6 RATIO (10-20); Calcium,Total 8.8 mg/dL (8.5-10.1); Chloride 108 mmol/L (98-107); Creatinine, Serum 1.13 mg/dL (0.55-1.02); EST Glomerular Filtration Rate 50 mL/min (>60); Est Glom Filt Rate - Afr Amer 60 mL/min (>60); Estimated Creatinine Clearance 41.59 ml/min; Glucose 97 mg/dL (74-106); Potassium 3.6 mmol/L (3.5-5.1); Sodium Level 141 mmol/L (136-145)
--- NOTE | 2019-03-13 08:07 | PCM.PN.CARD ---
Subjectve: The patient is awake and alert. She denies any acute chest discomfort. She is chronically short of breath and dyspneic. She continues to wear O2 nasal cannula. She is pending permanent pacemaker placement this day. Objective: Vital Signs Temp Pulse Resp BP Pulse Ox 98.3 F 65 20 H 163/94 H 91 03/13/19 02:55 03/13/19 07:18 03/13/19 07:10 03/13/19 02:55 03/13/19 07:09 Oxygen Flow Rate (L/min) 3 Oxygen Delivery Method Nasal Cannula Weight: 137 lb 2.04 oz Body Mass Index (BMI) 30.7 Intake and Output for Last 24 Hours 03/11/19 03/12/19 03/13/19 23:59 23:59 23:59 Intake Total 3474 / 3474 2505 / 2505 600 / 600 Balance 3474 / 3474 2505 / 2505 600 / 600 General: Awake, Alert, Oriented x 3, Cooperative, No Acute Distress HEENT: Atraumatic, Normocephalic, PERRL, EOMI, Sclera Non Icteric Oral: Moist Mucosa Neck: Supple, Good ROM, No JVD Lungs: - - Diminished breath sounds without obvious rales or rhonchi Cardiovascular: Regular Rhythm, Normal S1, Normal S2 Abdomen: Bowel Sounds Present, Soft, Non Tender Extremities: No Cyanosis, No Clubbing, No edema Neurological: No Focal Motor or Sensory Deficit Psych/Mental Status: Appropriate 03/13/19 06:00: Hgb 8.4 L, Hct 28.5 L 03/13/19 06:00: Sodium 141, Potassium 3.6, Chloride 108 H, Carbon Dioxide 25.0, Anion Gap 8, BUN 21 H, Creatinine 1.13 H, Est GFR (MDRD) Af Amer 60, Est GFR (MDRD) Non-Af 50 L, BUN/Creatinine Ratio 18.6, Glucose 97, Calcium 8.8 Rhythm: Sinus rhythm Medical Necessity - Tobacco Use Smoking Status: Former smoker Assessment/Plan 1. Bradycardia She is pending permanent pacemaker placement today. 2. Paroxysmal atrial fibrillation She has had a history of paroxysmal afibrillation. She has been on rate limiting therapy/antiarrhythmic therapy and anticoagulant therapy. At the moment her medications are being placed on hold based upon the concern of her underlying bradycardia. She is pending permanent pacemaker today. 3. Valvular heart disease She does have an element of underlying valvular heart disease as previously noted. This can be reassessed with echo cardiographic studies as deemed appropriate. 4. Hyperlipidemia She will continue medical management as deemed appropriate. 5. Hypertension Her blood pressure will be followed. Her medicines can be adjusted as deemed appropriate. 6. Hyperthyroidism She has been undergoing evaluation care for hyperthyroidism. There is concern as to whether or not her amiodarone is contributing to this. If her amiodarone is placed on indefinite hold her thyroid functions will have to be followed and her medications may need to be adjusted. If she returns to amiodarone therapy at some point in time to help manage her atrial dysrhythmia then again her thyroid functions will have to be followed and her medications adjusted appropriately. 7. COPD She does have a history of underlying COPD. She will continue be followed by internal medicine and pulmonology. 8. Renal insufficiency Her creatinine level somewhat elevated. She has received IV fluids. Her creatinine level has improved. This note was generated using a voice recognition system and there may be incorrect words, spelling or punctuation that were not noted when reviewing the office note prior to saving.
[2019-03-13] MEDS: amLODIPine 10 MG Tablet PO (10:33)
[2019-03-13] MEDS: 0.9% Normal Saline 1,000 ML 15 ML IV (10:38)
[2019-03-13] MEDS: 0.9% NaCl Peripheral Flush Adult/Peds IV ×2 (10:38→13:13)
--- NOTE | 2019-03-13 12:51 | PCM.PROGNOTE ---
<Rahul Peterson - Last Filed: 03/13/19 12:51> Patient Problems: Active and Suspected Problems (Last Updated 03/09/19 @ 18:44 by Shaq Fitzpatrick MD) Bradycardia (Acute) Subjective: No issues this AM. No CP, SOB, palp. No dizziness/LH. Awaiting pacer. Planning for DC home tomorrow. - Physical Exam General: Alert, Oriented x3, Cooperative HEENT: Atraumatic, PERRLA, EOMI, Normocephalic Neck: Supple, No JVD, Negative Carotid Bruits Lungs: Clear to auscultation, Normal air movement Cardiovascular: Regular rate, No murmurs Abdomen: Bowel Sounds Present, Soft, Non Tender Extremities: No edema, Capillary Refill Less than 3 Seconds Skin: No rashes, No breakdown Musculoskeletal: No Tenderness to Palpation of Joints or Extremities Neurological: Cranial nerves II-XII grossly intact Psych/Mental Status: Normal Affect, Appropriate, Alert and oriented to time, place, person, mood and affect Vital Signs Temp Pulse Resp BP Pulse Ox 97.6 F L 67 18 171/85 H 92 03/13/19 10:24 03/13/19 11:38 03/13/19 10:24 03/13/19 10:24 03/13/19 10:38 Oxygen Flow Rate (L/min) 3 Oxygen Delivery Method Nasal Cannula Weight: 137 lb 2.04 oz Body Mass Index (BMI) 30.7 Intake and Output for Last 24 Hours 03/11/19 03/12/19 03/13/19 23:59 23:59 23:59 Intake Total 3474 / 3474 2505 / 2505 890 / 890 Balance 3474 / 3474 2505 / 2505 890 / 890 Laboratory Tests Past 24 Hrs 03/12/19 03/13/19 03/13/19 14:15 06:00 06:00 Hgb 8.4 L Hct 28.5 L Sodium 141 Potassium 3.6 Chloride 108 H Carbon Dioxide 25.0 Anion Gap 8 BUN 21 H Creatinine 1.13 H Estim Creat Clear Calc 41.59 Est GFR (MDRD) Af Amer 60 Est GFR (MDRD) Non-Af 50 L BUN/Creatinine Ratio 18.6 Glucose 97 Calcium 8.8 MRSA (PCR) Negative Medical Necessity - Tobacco Use Smoking Status: Former smoker Assessment/Plan All Active Problems (Last Updated 03/09/19 @ 18:44 by Shaq Fitzpatrick MD) Bradycardia (Acute) 1. Symptomatic Bradycardia 2/2 prescribed medications - held amio. Now normal rate. asympomatic now. PM placement Today per cardiology. 2. Chronic Afib - xarelto held. Note - xarelto previously held for GI bleed. Check H/H in AM 3. ROCIO on CKDIII - greatly improved. Based on renal numbers during stay she appears to have had ROCIO on admission which is now resolved. 4. COPD with chronic hypoxic resp failure-on 4lpm O2 at home qhs. No acute exacerbation. continue prn albuterol, duoneb scheduled. 5. Hyperthyroidism - methimazole 6. Iron def anemia - prior GI bleed. Appears to be near baseline. Continue protonix. This is stable. 7. Htn - stable 8. HLD - statin DVT ppx: SCDs DC planning: after pacemaker placement patient was informed by cardiology she would stay overnight for monitoring. Pt may need HHC at dc. This patient was seen by Rahul Peterson PA-C under the supervision of Dr. Owen <Dylan Owen - Last Filed: 03/13/19 15:22> - Physical Exam Vital Signs Temp Pulse Resp BP Pulse Ox 97.6 F L 67 18 158/97 H 92 03/13/19 10:24 03/13/19 11:38 03/13/19 10:24 03/13/19 13:27 03/13/19 10:38 Oxygen Flow Rate (L/min) 3 Oxygen Delivery Method Nasal Cannula Weight: 137 lb 2.04 oz Body Mass Index (BMI) 30.7 Intake and Output for Last 24 Hours 03/11/19 03/12/19 03/13/19 23:59 23:59 23:59 Intake Total 3474 / 3474 2505 / 2505 890 / 890 Balance 3474 / 3474 2505 / 2505 890 / 890 Laboratory Tests Past 24 Hrs 03/12/19 03/13/19 03/13/19 14:15 06:00 06:00 Hgb 8.4 L Hct 28.5 L Sodium 141 Potassium 3.6 Chloride 108 H Carbon Dioxide 25.0 Anion Gap 8 BUN 21 H Creatinine 1.13 H Estim Creat Clear Calc 41.59 Est GFR (MDRD) Af Amer 60 Est GFR (MDRD) Non-Af 50 L BUN/Creatinine Ratio 18.6 Glucose 97 Calcium 8.8 MRSA (PCR) Negative Code Visit Addendum: Dr. Owen I personally examined the patient and reviewed the chart. I agree with the above. 78-year-old female who presented with symptomatic bradycardia. She has a history of paroxysmal A. fib and was on medication to control her rate however this made her bradycardic and therefore these medications were held and a pacemaker is going to be placed today. If she tolerates this procedure well and has no issues overnight we will plan for discharge in the morning. She cardiology recommendations and input. Of note she does have hyperthyroidism and is on methimazole, she will need to follow-up with her motor vehicle emissions inspector as an outpatient. Inpatient E&M: 34494 Subs Hosp L2
--- NOTE | 2019-03-13 13:31 | NURSING ---
Report called to Patricia in [employer].
--- NOTE | 2019-03-13 15:17 | CL.IE_ITS ---
Patient: IMELDA LEWIS Study Date: 03/13/2019 Performing: Kareem Mota MD : 1940 Age: 78 Gender: female PROCEDURES PERFORMED [id number] PACER INSERT+DUAL LEADS INDICATIONS Atrial fibrillation and complete heart block PROCEDURE DETAILS The patient was brought to the Catheterization Lab in the postabsorptive nonsedated state. Infor med consent was obtained prior to the procedure. Local anesthetic was given subcutaneously to the le ft subclavian region with Lidocaine 2%. Incision was made to the left subclavicular area. Access was achieved and a guidewire was advanced into the left subclavian vein. PPM ventricular lead was inserte d / positioned to right ventricular septal wall. PPM atrial lead was inserted / positioned to the rig ht atrial appendage. The Atrial lead sutured in place with 2-0 Silk. The Ventricular PM lead sutured in place with 2-0 Silk. Device pocket was irrigated with antibiotic. PPM generator was attached to th e lead(s) and inserted into the pocket. Subcutaneous closure was completed with 3-0 Vicryl. Skin clos ure was completed with 4-0 Vicryl. Instrument, sponge, and needle counts were noted to be normal. The patient tolerated the procedure well. Estimated Blood Loss: < 10 mls IMPLANTED / EX-PLANTED DEVICES IMPLANTED DEVICE(S): PPM Atrial lead - Shake Loader: [employer], Model # Ingevity MRI 7740 , Serial # [id number] PPM Ventricular lead - Shake Loader: [employer], Model # Ingevity MRI 7741 , Serial # [id number] PPM Generator - Shake Loader: [employer], Model # Essentio MRI DR Pacemaker L111 , Serial # [id number] DEVICE PARAMETERS ATRIAL LEAD PARAMETERS: P wave- 2.6 (mV) Current- 1.3 (mA) threshold- 0.7 (V) impedence- 552 (OHMS) VENTRICULAR LEAD PARAMETERS: R wave- 25.0 (mV) Current- 1.3 (mA) threshold- 1.0 (V) impedence- 814 (OHMS) DEVICE PARAMETERS: Mode- DDDR Lower rate- 60 Upper rate- 130 CONCLUSIONS / RECOMMENDATIONS Device Conclusions: Successful implantation of a dual chamber pacemaker Device Recommendations: Follow up with Primary Care Physician PROCEDURE MEDICATIONS Versed 1 mg IV Fentanyl 25 mcg IV Fentanyl 25 mcg IV Versed 1 mg IV Fentanyl 25 mcg IV Oxygen: 2 L/min via nasal cannula Oxygen: 5 L/min via nasal cannula Antibiotic given in appropriate timeframe. Ancef 2 Gm IV @ 03/13/2019 14:04:21 Signed By Kareem Mota MD On 03/13/2019 15:16:45 Kareem Mota MD
[2019-03-13] MEDS: Pantoprazole Sodium 40 MG Tablet PO ×2 (16:55→20:54)
[2019-03-13] MEDS: Gabapentin 600 MG Tablet PO (16:58)
[2019-03-13] MEDS: METHIMAZOLE 5 MG TABLET PO (18:46)
[2019-03-13] MEDS: Pravastatin 80 MG Tablet PO (20:54)
[2019-03-14] VITALS (9 sets, daily range): BP systolic 149–163; BP diastolic 61–74; PULSE 60–64; RESP 17–20; TEMP 36.3–36.9; O2SAT 92–94
[2019-03-14] MEDS: HYDROcodone Bitartrate/Apap 5/325 Tablet PO ×4 (03:00→15:51)
[2019-03-14] MEDS: CARISOPRODOL 350 MG TABLET PO ×2 (05:40→15:51)
--- NOTE | 2019-03-14 05:55 | RAD_ITS ---
STUDY: X-RAY CHEST REASON FOR EXAM: Female, 78 years old. Status post pacemaker insertion. Rule out pneumothorax. TECHNIQUE: Single AP portable view of the chest. COMPARISON: 03/09/2019. FINDINGS: There is a left subclavian atrioventricular pacemaker. There is no demonstration of pneumothorax. There is mild atelectasis in the lower lung ayala. There are no confluent pulmonary tract. There is no demonstrated pleural abnormality. The heart is enlarged. Normal mediastinum and lydia. Normal visualized pulmonary arteries. There is atherosclerotic calcification of the aortic arch with tortuosity. There are diffuse degenerative changes of the visualized thoracic spine. There is degenerative osteoarthritis of the bilateral shoulders. There is no demonstrated abnormality of the visualized soft tissue structures of the upper abdomen. RAD/Chest PA and Lateral IMPRESSION: Status post AV pacemaker insertion. No associated pneumothorax. Cardiomegaly. No evidence for acute cardiopulmonary pathology. Electronically Signed: Kasi Gaona MD at 6:56 EDT , Service support ,
--- NOTE | 2019-03-14 08:37 | DCINST_ITS ---
Discharge Diet: No Restrictions Discharge Activity: May Not Drive Call your doctor if your incision/area has: Continuous Slow Oozing, Sudden Increased Bleeding, Increased Pain/ Swelling, Increased Redness, Foul Smelling Discharge, Swelling at the incision site Call your doctor if you observe: Fever of 101 or Higher, Shortness of breath, Dizziness, Fainting spells, Swelling in the ankles, Chest pain, Prolonged hiccoughing, Increased palpitations (irregular heartbeat) Suture Line Care: Avoid Pulling/Pushing, Avoid Pinching/Bending Cleanse incision/area with: Do not get Incision Wet, Keep Dressing Clean & Dry Additional Dressing/Incision Instructions:: When dressing is removed, wash and dry incision. Keep covered with a light bandage if it is rubbing against your clothing. Do not cover the incision with an airtight bandage. Change the bandage daily. Do not remove steri strips. The strips will fall off on their own. Additional Instructions: Signs and Symptoms to Report to Your Doctor at Once - call your doctor's office or Doctor's Registry ([phone]) Call 911 or go to the nearest Emergency Department if you feel you need urgent care. *Infection (fever, increased redness or swelling at the incision site, drainage from the incision increased pain at the pacemaker site) *Shortness of breath *Dizziness *Fainting spells *Swelling in the ankles *Chest pain *Prolonged hiccoughing *Increased palpitaitons (irregular heartbeat) Medications: Take your pain medication as directed. Refer to your discharge instruction sheet for a list of medications you are to take. Allergies/Adverse Reactions: Allergies ferrous sulfate Adverse Reaction (Severe, Verified 03/09/19 16:57) Diarrhea codeine Adverse Reaction (Verified 03/09/19 19:29) makes me sick pregabalin [From Lyrica] Adverse Reaction (Verified 03/09/19 19:29) makes me deathly ill makes me deathly ill tramadol Adverse Reaction (Verified 03/09/19 19:29) Nausea and dizziness Medications to take at Discharge Carisoprodol [Soma] 350 mg PO TID 03/17/17 Cholecalciferol (Vitamin D3) [Vitamin D3] 5,000 unit PO DAILY 03/17/17 Gabapentin [Neurontin] 600 mg PO TIDCM 03/17/17 Hydrocodone Bitart/Apap 5-325 [[place] 5/325] 1 - 2 tab PO Q4H PRN PRN 03/17/17 Melatonin 10 - 15 mg PO QHS PRN PRN 03/17/17 amlodipine 5 mg tablet 5 mg PO DAILY #30 tab 08/24/18 Albuterol IH (ProAir) [Proair Hfa] 2 puff INHALATION Q4H PRN PRN 11/17/18 Pravastatin [Pravachol] 80 mg PO QHS 11/17/18 Promethazine HCl 25 mg PO PRN PRN 11/17/18 Meclizine HCl 25 mg PO TID PRN PRN #21 tab 11/18/18 Pantoprazole Sodium [Protonix] 40 mg PO BID #60 tab 11/18/18 furosemide 40 mg tablet 40 mg PO DAILY PRN #30 tab 11/23/18 amiodarone 200 mg tablet 200 mg PO QHS tab 12/07/18 ipratropium-albuterol 0.5 mg-3 mg(2.5 mg base)/3 mL nebulization soln 3 ml INHALATION Q8H #180 ml 12/21/18 Aspirin [Low Dose Aspirin EC] 81 mg PO DAILY 03/09/19 Tiotropium [place] [Spiriva] 18 mcg IH DAILY 03/09/19 methimazole 5 mg tablet 5 mg PO DAILY #30 tab 03/09/19 potassium chloride ER 20 mEq tablet,extended release 20 meq PO DAILY #30 tab 03/09/19 Primary Care Physician: Shila Mckinnon DO [Primary Care Provider] - Test Results: Test results from this visit will be discussed in further detail at your follow- up appointment, if applicable. When: PACER CLINIC SEE CARD FOR APPT Proposed Discharge Date: 03/14/19
[2019-03-14] MEDS: Aspirin E.C. 81 MG Tablet PO (08:47)
[2019-03-14] MEDS: Gabapentin 600 MG Tablet PO ×2 (08:47→11:45)
[2019-03-14] MEDS: METHIMAZOLE 5 MG TABLET PO (08:48)
[2019-03-14] MEDS: Amiodarone 200 MG Tablet 100 MG PO (08:48)
[2019-03-14] MEDS: Pantoprazole Sodium 40 MG Tablet PO (08:48)
[2019-03-14] MEDS: amLODIPine 10 MG Tablet PO (08:48)
--- NOTE | 2019-03-14 09:31 | PCM.PN.CARD ---
Subjectve: The patient is awake and alert and without acute complaint. Objective: Vital Signs Temp Pulse Resp BP Pulse Ox 98.5 F 63 17 149/69 H 92 03/14/19 08:18 03/14/19 08:18 03/14/19 08:18 03/14/19 08:18 03/14/19 08:40 Oxygen Flow Rate (L/min) 3 Oxygen Delivery Method Nasal Cannula Weight: 137 lb 2.04 oz Body Mass Index (BMI) 30.7 Intake and Output for Last 24 Hours 03/12/19 03/13/19 03/14/19 23:59 23:59 23:59 Intake Total 2505 / 2505 2049.1 / 2049.1 185.1 / 185.1 Output Total 225 / 225 Balance 2505 / 2505 2049.1 / 2048.1 -39.9 / -39.9 General: Awake, Alert, Oriented x 3, Cooperative, No Acute Distress HEENT: Atraumatic, Normocephalic, PERRL, EOMI, Sclera Non Icteric Neck: Supple, No JVD Chest Wall: Left Pectoral Incision - Surgical dressing clean and dry Lungs: Clear to auscultation Cardiovascular: Regular Rhythm, Normal S1, Normal S2 Abdomen: Bowel Sounds Present, Soft, Non Tender Extremities: No edema Neurological: No Focal Motor or Sensory Deficit Psych/Mental Status: Appropriate Rhythm: sinus rhythm CXR: Please see official report Medical Necessity - Tobacco Use Smoking Status: Former smoker Assessment/Plan 1. Bradycardia The patient is s/p PPM placement without obvious adverse event. 2. Paroxysmal atrial fibrillation She has had a history of paroxysmal afibrillation. She has been on rate limiting therapy/antiarrhythmic therapy and anticoagulant therapy. She is going to restart amiodarone therapy at 100 mg po qday. She will hold on anticoagulant therapy pending PPM office follow up visit. 3. Valvular heart disease She does have an element of underlying valvular heart disease as previously noted. She will continue with outpatient follow up. 4. Hyperlipidemia She will continue medical management as deemed appropriate. 5. Hypertension Her blood pressure will be followed. Her amlodipine dose has been increased. 6. Hyperthyroidism She has been undergoing evaluation care for hyperthyroidism. She will need continue endocrinology follow up. 7. COPD She does have a history of underlying COPD. She will continue be followed by internal medicine and pulmonology. 8. Renal insufficiency Her creatinine level somewhat elevated. She has received IV fluids. Her creatinine level has improved. Overall, she appears stable at this time. The cardiovascular plan is for release home with continued outpatient follow up. This note was generated using a voice recognition system and there may be incorrect words, spelling or punctuation that were not noted when reviewing the office note prior to saving.
--- NOTE | 2019-03-14 11:46 | DCINST_ITS ---
- Discharge Diagnoses Current Active Problems: Current Active and Chronic Problems (Last Updated 03/14/19 @ 09:04 by Fabiola Neff) Sick sinus syndrome (Chronic) Presence of permanent cardiac pacemaker (Acute 03/13/19) Bradycardia (Acute) Valvular heart disease (Chronic) You will use the following diet at home:: Cardiac Your food should be the consistency of: Regular Your liquids should be the consistency of: Regular/Thin Discharge Activity: May Not Drive Call your doctor if your incision/area has: Continuous Slow Oozing, Sudden Increased Bleeding, Increased Pain/ Swelling, Increased Redness, Foul Smelling Discharge, Swelling at the incision site Call your doctor if you observe: Fever of 101 or Higher, Shortness of breath, Dizziness, Fainting spells, Swelling in the ankles, Chest pain, Prolonged hiccoughing, Increased palpitations (irregular heartbeat) Suture Line Care: Avoid Pulling/Pushing, Avoid Pinching/Bending Cleanse incision/area with: Do not get Incision Wet, Keep Dressing Clean & Dry Additional Dressing/Incision Instructions:: When dressing is removed, wash and dry incision. Keep covered with a light bandage if it is rubbing against your clothing. Do not cover the incision with an airtight bandage. Change the bandage daily. Do not remove steri strips. The strips will fall off on their own. Allergies/Adverse Reactions: Allergies ferrous sulfate Adverse Reaction (Severe, Verified 03/09/19 16:57) Diarrhea codeine Adverse Reaction (Verified 03/09/19 19:29) makes me sick pregabalin [From Lyrica] Adverse Reaction (Verified 03/09/19 19:29) makes me deathly ill makes me deathly ill tramadol Adverse Reaction (Verified 03/09/19 19:29) Nausea and dizziness Medications to take at Discharge Carisoprodol [Soma] 350 mg PO TID 03/17/17 Cholecalciferol (Vitamin D3) [Vitamin D3] 5,000 unit PO DAILY 03/17/17 Gabapentin [Neurontin] 600 mg PO TIDCM 03/17/17 Hydrocodone Bitart/Apap 5-325 [[place] 5/325] 1 - 2 tab PO Q4H PRN PRN 03/17/17 Melatonin 10 - 15 mg PO QHS PRN PRN 03/17/17 amlodipine 5 mg tablet 5 mg PO DAILY #30 tab 08/24/18 Albuterol IH (ProAir) [Proair Hfa] 2 puff INHALATION Q4H PRN PRN 11/17/18 Pravastatin [Pravachol] 80 mg PO QHS 11/17/18 Promethazine HCl 25 mg PO PRN PRN 11/17/18 Meclizine HCl 25 mg PO TID PRN PRN #21 tab 11/18/18 Pantoprazole Sodium [Protonix] 40 mg PO BID #60 tab 11/18/18 furosemide 40 mg tablet 40 mg PO DAILY PRN #30 tab 11/23/18 ipratropium-albuterol 0.5 mg-3 mg(2.5 mg base)/3 mL nebulization soln 3 ml INHALATION Q8H #180 ml 12/21/18 Aspirin [Low Dose Aspirin EC] 81 mg PO DAILY 03/09/19 Tiotropium [place] [Spiriva] 18 mcg IH DAILY 03/09/19 methimazole 5 mg tablet 5 mg PO DAILY #30 tab 03/09/19 potassium chloride ER 20 mEq tablet,extended release 20 meq PO DAILY #30 tab 03/09/19 Amiodarone HCl [Cordarone] 100 mg PO DAILY #15 tab 03/14/19 Hydrocodone Bitart/Apap 5-325 [[place] 5/325] 1 tab PO Q4H PRN PRN 2 Days #12 tab 03/14/19 The following prescriptions were given: Amiodarone HCl [Cordarone] 100 mg PO DAILY #15 tab Prescription Printed Hydrocodone Bitart/Apap 5-325 [[place] 5/325] 1 tab PO Q4H PRN PRN 2 Days #12 tab PRN Reason: Pain Prescription Printed Primary Care Physician: Shila Mckinnon DO [Primary Care Provider] - Please follow up with your Primary Care Physician in: 1-2 weeks Test Results: Test results from this visit will be discussed in further detail at your follow- up appointment, if applicable. Please Follow Up With: Blade Campoverde MD When: PACER CLINIC SEE CARD FOR APPT Proposed Discharge Date: 03/14/19
--- NOTE | 2019-03-14 12:49 | CASEMGMT ---
This RN CM to room to discuss discharge plan with pt/family at this time. Per granddaughters, they will be staying with/taking care of pt at discharge and state no further concerns/needs at this time. SStjennifer RN CM
--- NOTE | 2019-03-14 14:48 | PCM.DC.SUM ---
<Rahul Peterson - Last Filed: 03/14/19 14:48> Discharge Date and Diagnosis - Problem List Patient Problems: Active and Suspected Problems (Last Updated 03/14/19 @ 09:04 by Fabiola Neff) Presence of permanent cardiac pacemaker (Acute 03/13/19) Bradycardia (Acute) Date of Admission: 03/09/19 Date of Discharge: 03/14/19 - Primary Discharge Diagnosis Active and Suspected Problems (Last Updated 03/14/19 @ 09:04 by Fabiola Neff) Symptomatic bradycardia, now with pacemaker placed this admission Chronic atrial fibrillation Acute kidney injury on CKD stage III COPD with chronic hypoxic respiratory failure, no acute exacerbation Hyperthyroidism Iron deficiency anemia Hypertension, hyperlipidemia - Secondary Discharge Diagnosis Chronic Problems (Last Updated 03/14/19 @ 09:04 by Fabiola Neff) Sick sinus syndrome (Chronic) Valvular heart disease (Chronic) Stage III chronic kidney disease (Chronic) Chronic back pain (Chronic) Anemia (Chronic) Iron deficiency anemia due to chronic blood loss (Chronic) Hyperthyroidism (Chronic) Chronic respiratory failure with hypoxia (Chronic) Paroxysmal atrial fibrillation (Chronic) group home current use of anticoagulant therapy (Chronic) Nonrheumatic tricuspid (valve) insufficiency (Chronic) Nonrheumatic aortic (valve) insufficiency (Chronic) Hyperlipidemia (Chronic) COPD (chronic obstructive pulmonary disease) (Chronic) Hypertension (Chronic) Hospital Course and Treatment Imaging Results: 03/14/19 05:55 Chest PA and Lateral [RAD] AM (NON MEDS) [facility] Procedures: 2-D Echocardiogram, - - Pacemaker implantation Summary of Care Provided: Hospital course: The patient is a 78 year old F with past medical history as above who presented to the emergency room from the 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 She had been having intermittent episodes of dizziness and lightheadedness as well, and had junctional bradycardia on EKG in the cardiology office. She had been on amiodarone and Xarelto for underlying chronic atrial fibrillation. She is admitted to the PCU and placed on telemetry. Her amiodarone was discontinued and she was taken off Xarelto in preparation for pacemaker implantation. Off of amiodarone her heart rate normalized and remained stable throughout her stay here. Her other chronic medical issues remained stable. On [place] she was taken for a pacemaker implantation which was successful. She was kept on the monitor overnight and had no further issues. The patient was discharged in stable condition to home. She will follow-up with her roof bolting coal miner as directed, she will also need to follow-up with her PCP in 1 to 2 weeks. She was placed back on amiodarone. She will need to hold Xarelto until otherwise directed by her roof bolting coal miner to resume it. This patient was seen by Rahul Peterson PA-C under the supervision of Doctor Brayden. [] Patient Problems: Active and Suspected Problems (Last Updated 03/14/19 @ 09:04 by Fabiola Neff) Presence of permanent cardiac pacemaker (Acute 03/13/19) Bradycardia (Acute) - Physical Exam General: Alert, Oriented x3, Cooperative HEENT: Atraumatic, PERRLA, EOMI, Normocephalic Neck: Supple, No JVD, Negative Carotid Bruits Lungs: Clear to auscultation, Normal air movement Cardiovascular: Regular rate, No murmurs Abdomen: Bowel Sounds Present, Soft, Non Tender Extremities: No edema, Capillary Refill Less than 3 Seconds Skin: No rashes, No breakdown Musculoskeletal: No Tenderness to Palpation of Joints or Extremities Neurological: Cranial nerves II-XII grossly intact Psych/Mental Status: Normal Affect, Appropriate, Alert and oriented to time, place, person, mood and affect Vital Signs Temp Pulse Resp BP Pulse Ox 98.5 F 60 17 149/69 H 92 03/14/19 08:18 03/14/19 11:15 03/14/19 08:18 03/14/19 08:18 03/14/19 08:40 Oxygen Flow Rate (L/min) 3 Oxygen Delivery Method Nasal Cannula Weight: 137 lb 2.04 oz Body Mass Index (BMI) 30.7 Intake and Output for Last 24 Hours 03/12/19 03/13/19 03/14/19 23:59 23:59 23:59 Intake Total 2505 / 2505 2049.1 / 2049.1 746.9 / 746.9 Output Total 225 / 225 Balance 2505 / 2505 2049.1 / 2048.1 521.9 / 521.9 Discharge Diet: Low fat/ Low Cholesterol, 2000 mg Sodium Diet Discharge Activity: May Not Drive Call your doctor if your incision/area has: Continuous Slow Oozing, Sudden Increased Bleeding, Increased Pain/ Swelling, Increased Redness, Foul Smelling Discharge, Swelling at the incision site Call your doctor if you observe: Fever of 101 or Higher, Shortness of breath, Dizziness, Fainting spells, Swelling in the ankles, Chest pain, Prolonged hiccoughing, Increased palpitations (irregular heartbeat) Suture Line Care: Avoid Pulling/Pushing, Avoid Pinching/Bending Cleanse incision/area with: Do not get Incision Wet, Keep Dressing Clean & Dry Additional Dressing/Incision Instructions:: When dressing is removed, wash and dry incision. Keep covered with a light bandage if it is rubbing against your clothing. Do not cover the incision with an airtight bandage. Change the bandage daily. Do not remove steri strips. The strips will fall off on their own. Home Medications: Medications to take at Discharge Carisoprodol [Soma] 350 mg PO TID 03/17/17 Cholecalciferol (Vitamin D3) [Vitamin D3] 5,000 unit PO DAILY 03/17/17 Gabapentin [Neurontin] 600 mg PO TIDCM 03/17/17 Hydrocodone Bitart/Apap 5-325 [[place] 5/325] 1 - 2 tab PO Q4H PRN PRN 03/17/17 Melatonin 10 - 15 mg PO QHS PRN PRN 03/17/17 amlodipine 5 mg tablet 5 mg PO DAILY #30 tab 08/24/18 Albuterol IH (ProAir) [Proair Hfa] 2 puff INHALATION Q4H PRN PRN 11/17/18 Pravastatin [Pravachol] 80 mg PO QHS 11/17/18 Promethazine HCl 25 mg PO PRN PRN 11/17/18 Meclizine HCl 25 mg PO TID PRN PRN #21 tab 11/18/18 Pantoprazole Sodium [Protonix] 40 mg PO BID #60 tab 11/18/18 furosemide 40 mg tablet 40 mg PO DAILY PRN #30 tab 11/23/18 ipratropium-albuterol 0.5 mg-3 mg(2.5 mg base)/3 mL nebulization soln 3 ml INHALATION Q8H #180 ml 12/21/18 Aspirin [Low Dose Aspirin EC] 81 mg PO DAILY 03/09/19 Tiotropium [place] [Spiriva] 18 mcg IH DAILY 03/09/19 methimazole 5 mg tablet 5 mg PO DAILY #30 tab 03/09/19 potassium chloride ER 20 mEq tablet,extended release 20 meq PO DAILY #30 tab 03/09/19 Amiodarone HCl [Cordarone] 100 mg PO DAILY #15 tab 03/14/19 Hydrocodone Bitart/Apap 5-325 [[place] 5/325] 1 tab PO Q4H PRN PRN 2 Days #12 tab 03/14/19 Following Prescrptions Were Given to Patient: Amiodarone HCl [Cordarone] 100 mg PO DAILY #15 tab Prescription Printed Hydrocodone Bitart/Apap 5-325 [[place] 5/325] 1 tab PO Q4H PRN PRN 2 Days #12 tab PRN Reason: Pain Prescription Printed Primary Care Physician: Shila Mckinnon DO [Primary Care Provider] - Please follow up with your Primary Care Physician in: 1-2 weeks Please Follow Up With: Blade Campoverde MD When: PACER CLINIC SEE CARD FOR APPT Please Follow Up With: Shila Mckinnon DO Additional Instructions: Signs and Symptoms to Report to Your Doctor at Once - call your doctor's office or Doctor's Registry ([phone]) Call 911 or go to the nearest Emergency Department if you feel you need urgent care. *Infection (fever, increased redness or swelling at the incision site, drainage from the incision increased pain at the pacemaker site) *Shortness of breath *Dizziness *Fainting spells *Swelling in the ankles *Chest pain *Prolonged hiccoughing *Increased palpitaitons (irregular heartbeat) Medications: Take your pain medication as directed. Refer to your discharge instruction sheet for a list of medications you are to take. Disposition: Home Minutes spent on discharge:: 35 Patient Condition:: Stable Medical Necessity - Tobacco Use Smoking Status: Former smoker Meaningful Use Info Meaningful Use Diagnoses (Choose all that apply): None applicable <Dylan Owen - Last Filed: 03/14/19 15:52> Discharge Date and Diagnosis - Primary Discharge Diagnosis Active and Suspected Problems (Last Updated 03/14/19 @ 09:04 by Fabiola Neff) Presence of permanent cardiac pacemaker (Acute 03/13/19) Bradycardia (Acute) - Secondary Discharge Diagnosis Chronic Problems (Last Updated 03/14/19 @ 09:04 by Fabiola Neff) Sick sinus syndrome (Chronic) Valvular heart disease (Chronic) Stage III chronic kidney disease (Chronic) Chronic back pain (Chronic) Anemia (Chronic) Iron deficiency anemia due to chronic blood loss (Chronic) Hyperthyroidism (Chronic) Chronic respiratory failure with hypoxia (Chronic) Paroxysmal atrial fibrillation (Chronic) group home current use of anticoagulant therapy (Chronic) Nonrheumatic tricuspid (valve) insufficiency (Chronic) Nonrheumatic aortic (valve) insufficiency (Chronic) Hyperlipidemia (Chronic) COPD (chronic obstructive pulmonary disease) (Chronic) Hypertension (Chronic) Hospital Course and Treatment Summary of Care Provided: The patient is a 78 year old F [] - Physical Exam Vital Signs Temp Pulse Resp BP Pulse Ox 98.1 F 64 17 163/61 H 93 03/14/19 14:15 03/14/19 14:15 03/14/19 14:15 03/14/19 14:15 03/14/19 14:15 Oxygen Flow Rate (L/min) 3 Oxygen Delivery Method Nasal Cannula Weight: 137 lb 2.04 oz Body Mass Index (BMI) 30.7 Intake and Output for Last 24 Hours 03/12/19 03/13/19 03/14/19 23:59 23:59 23:59 Intake Total 2505 / 2505 2049.1 / 2049.1 746.9 / 746.9 Output Total 225 / 225 Balance 2505 / 2505 2049.1 / 2049.1 521.9 / 521.9 Code Visit Addendum: Dr. Owen I personally examined the patient and reviewed the chart. I agree with the above. 78-year-old female patient was symptomatically to cardia. She has a history of paroxysmal A. fib and was on medication to control her rate, however this made her bradycardic and therefore these medications were held and a pacemaker was placed. She was restarted by cardiology on her amiodarone at half the dose. She will need to follow-up in the cardiology office for removal of the dressing and at that point she can restart her anticoagulation per their direction. Inpatient E&M: [id number] [facility]
--- NOTE | 2019-03-14 15:52 | NURSING ---
Patient's home medication of Soma sent home with patient.
--- NOTE | 2019-03-14 18:19 | NURSING ---
RN called and spoke with Myra, patient's daughter. Informed her that patient's pacemaker information was left at the hospital and would need to be picked up. Per patient's daughter, family member will pick information up in the morning around 10am. Patient's daughter informed that information will be left at the nurses station on PCU for pickup. Daughter voiced understanding of same.
--- NOTE | 2019-03-15 16:03 | CASEMGMT ---
MJ CEVALLOS DC PHONE CALL DC DATE: 03/14/19 DC Disposition: Home Diagnosis on Discharge: Bradycardia with Pacemaker placement LACE/STRATA: 10/12 Intro role of CM to patient's daughter, Myra via phone. daughter states pt is doing well and has someone staying with her 22/03. Family assists with transportation and will make and help pt attend f/u appointments. Prescriptions were picked up, no questions at this time. No care improvement suggestions were given. Edgard SANDERSONN RN ACM
== END 2019-03-14 16:24 | disposition home or self-care (01) | DRG 243 ==
LOC: ED 17:38 → PCU 20:30
PROVIDERS: Internal Medicine Cardiovascular Disease; Physician Assistant; Admitting Provider Hospitalist; Emergency Provider Emergency Medicine; Family Provider Family Medicine; PCP Family Medicine; Referring Provider Hospitalist; Visit Provider Family Medicine
DX: R00.1 Bradycardia, unspecified (principal); J96.11 Chronic respiratory failure with hypoxia; N17.9 Acute kidney failure, unspecified; Z99.81 Dependence on supplemental oxygen; J44.9 Chronic obstructive pulmonary disease, unspecified; Z87.891 Personal history of nicotine dependence; N18.3 Chronic kidney disease, stage 3 (moderate); E05.90 Thyrotoxicosis, unspecified without thyrotoxic crisis or storm; E78.5 Hyperlipidemia, unspecified; I12.9 Hypertensive chronic kidney disease with stage 1 through stage 4 chronic kidney disease, or unspecified chronic kidney disease; Z79.01 Long term (current) use of anticoagulants; I48.2 Chronic atrial fibrillation; D50.9 Iron deficiency anemia, unspecified; G89.29 Other chronic pain; M54.9 Dorsalgia, unspecified
CPT/HCPCS: 33208; 36415; 71045; 71046; 80048; 83735; 84484; 85014; 85018; 85025; 85027; 87641; 93005; 93306; 94640; 97162; 97165; 97535; 99152; 99153; 99285; J7030; J7050; A4216; C1894

== ENCOUNTER → 2019-05-17 11:25 | Outpatient (CLI) | payer MEDICARE, SELFPAY ==
[2019-05-17 11:25] VITALS: BMI 29.5
[2019-05-17 12:39] LABS: Absolute Lymphocyte Count 0.92 X10^3/uL (0.83-4.51); Absolute Neutrophil Count 3.5 X10^3/uL (2.0-7.7); Basophil# 0.15 X10^3/uL; Basophil% 2.9 % (0-1); Eosinophil# 0.14 X10^3/uL; Eosinophils% 2.7 % (0-5); Hemoglobin 8.7 g/dL (12.0-15.0); Lymphocyte # 0.92 X10^3/ul (4.0); Lymphocyte % 17.8 % (19-41); Mean Corp Hgb Conc 28.1 g/dL (32-36); Mean Corpuscular Hgb 25.7 pg (27.0-32.0); Mean Corpuscular Volume 91.7 fL (81-99); Mean Platelet Vol. 10.7 fl (6.2-12.0); Monocyte# 0.43 X10^3/uL; Monocyte% 8.3 % (0-10); NRBC Flagged by Analyzer 0 % (0-5); Neutrophil % 67.9 % (47-70); Platelet Count 325 K/mm3 (150-450); RBC Distribution Width CV 16.9 % (11.6-14.6); RBC Distribution Width SD 56.6 fl (35.1-43.9); Red Blood Count 3.38 M/mm3 (4.2-5.4); White Blood Count 5.2 K/mm3 (4.4-11.0)
[2019-05-17 13:06] LABS: BUN 18 mg/dL (7-18); Creatinine, Serum 1.31 mg/dL (0.55-1.02); Glucose 84 mg/dL (74-106)
[2019-05-17 13:07] LABS: Anion Gap 7 (5-15); BUN/Creat Ratio 13.7 RATIO (10-20); Calcium,Total 8.4 mg/dL (8.5-10.1); Chloride 109 mmol/L (98-107); EST Glomerular Filtration Rate 42 mL/min (>60); Est Glom Filt Rate - Afr Amer 51 mL/min (>60); Potassium 4.3 mmol/L (3.5-5.1); Sodium Level 143 mmol/L (136-145)
[2019-05-17 13:11] LABS: BNP,B-Type NATRIURETIC PEPTIDE 909.1 pg/mL (0-100)
== END ==
PROVIDERS: Family Provider Family Medicine; PCP Family Medicine; Referring Provider Internal Medicine Cardiovascular Disease; Visit Provider Internal Medicine Cardiovascular Disease
DX: I48.0 Paroxysmal atrial fibrillation (principal); D50.0 Iron deficiency anemia secondary to blood loss (chronic); D64.9 Anemia, unspecified
CPT/HCPCS: 36415; 80048; 83880; 85025

== ENCOUNTER 2019-09-26 09:58 | Inpatient (IN) | payer MEDICARE, SELFPAY ==
[2019-07-10 13:01] VITALS: BMI 29.5
[2019-09-26] VITALS (22 sets, daily range): BP systolic 94–146; BP diastolic 54–75; PULSE 59–75; RESP 16–24; TEMP 36.6–38.1; O2SAT 91–98; BMI 34.2; BMI 32.2
--- NOTE | 2019-09-26 10:19 | RAD_ITS ---
STUDY: X-RAY CHEST REASON FOR EXAM: Female, 79 years old. DYSPNEA, SOB, H/O COPD TECHNIQUE: Single AP portable view of the chest. COMPARISON: Comparison is made with prior study dated March 14, 2019. FINDINGS: EKG electrodes are seen. There now is evidence of infiltration in the right lower lobe with a small right pleural effusion. Normal size heart. A left-sided dual-chamber pacemaker is seen. Normal mediastinum and lydia. Normal visualized pulmonary arteries. There is atherosclerotic calcification of the aortic arch with tortuosity. There are diffuse degenerative changes of the visualized thoracic spine. Levoscoliosis. There is degenerative osteoarthritis of the bilateral shoulders. There is no demonstrated abnormality of the visualized soft tissue structures of the upper abdomen. RAD/Chest 1 View (Portable) IMPRESSION: Right lower lobe infiltrate with a small right pleural effusion. Electronically Signed: Jessee Farmer, at 10:50 EST , Service support ,
--- NOTE | 2019-09-26 10:20 | EKG12_ITS ---
Test Reason : SOB Blood Pressure : / mmHG Vent. Rate : 061 BPM Atrial Rate : 061 BPM P-R Int : 170 ms QRS Dur : 084 ms QT Int : 436 ms P-R-T Axes : 033 039 047 degrees QTc Int : 438 ms Suspect unspecified pacemaker failure Normal sinus rhythm Nonspecific ST and T wave abnormality Abnormal ECG Confirmed by JORDAN CASTRO ([id number]), newspaper managing editor DANAY LYN ([id number]) on 09/28/2019 10:21:13 AM Referred By: Confirmed By:JORDAN CASTRO
--- NOTE | 2019-09-26 10:22 | ED.DCSUM_ITS ---
- ER Visit Summary Date of Service: 09/26/19 Chief Complaint: Shortness of breath and falls History of Present Illness: The patient is a 79 F who COPD on room who, also A. fib, renal insufficiency and hypertension. Patient states she is been more short of breath last couple days. Last 12 hours she has had 3 falls at home. Complaining of right shoulder pain. Also thinks she may have hit her head and she is on the blood thinner Xarelto for her A. fib. Denies any nausea or vomiting. No chest pain. Physical Examination: Elderly female no acute distress vital signs are stable afebrile. H EENT exam unremarkable atraumatic pupils round react light. No signs of trauma to her face or scalp. No hematoma. C-spine nontender. Trachea midline. Lungs coarse breath sounds. Prolonged expiratory phase. Decreased air movement. Expiratory wheezing throughout. Heart regular rhythm no murmur. Abdomen soft nontender normal bowel sounds no peritoneal signs. Extremities both lower extremities are nontender. Hips, ankle and knees are nontender. Dorsi plantarflexion intact. Left upper extremity nontender. Right upper extremity tenderness along the mid humerus and right shoulder. There is no gross bony deformity. Right elbow, forearm, wrist and hand are nontender neurov ascular intact. 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 Equal and symmetrical dorsi and plantar flexion. Back is nontender. Neurologically she is awake and alert with no focal motor deficits. She is hard of hearing. Test Results: Chest x-ray shows what appears to be right lower lobe pneumonia with effusion. 3 views. Right humerus x-ray 2 views no acute abnormality. No fracture. All read by myself and the radiologist. CT brain no acute injury read by the radiologist reviewed by me. EKG is normal sinus rhythm rate of 61 no acute signs of ischemia. CBC showed an elevated white count of 15.9. Hemoglobin is 7.2 previously about 8-1/2. No bands. Chemistry showed gap of 6. BUN of 13 creatinine 1.2. Troponin normal. Lactic acid pending. Blood cultures pending. Emergency Department Course and Treatment: Patient fell and complained of headache on a blood thinner. We will CAT scan her head. She is also complaini ng of right shoulder and arm pain will obtain x-rays. She also be worked up for shortness of breath. She will also be given aerosols both DuoNeb and albuterol and IV Solu-Medrol for COPD flare. Treatment Plan: Patient is improving with aerosols and steroids. Will be started on both IV Rocephin and IV Zithromax for community-acquired pneumonia. She will be admitted to the hospital. We tried to walk her she becomes hypoxic and very weak. I have already spoken to the hospitalist. Disposition: admission Impression: Acute falls x2 Acute right shoulder contusion Acute right lower lobe pneumonia with small effusion. Acute on chronic anemia Acute dyspnea secondary to exacerbation COPD History of A. fib flutter anticoagulated on Xarelto This note was generated with [employer] dictation software. It may contain incorrect words, spelling, and punctuation that were not noted in review of the chart prior to signing ED Disposition - Plan for ED Patient: Referrals: Shila Mckinnon DO [Primary Care Provider] -
--- NOTE | 2019-09-26 10:26 | RAD_ITS ---
STUDY: X-RAY - RIGHT SHOULDER REASON FOR EXAM: Female, 79 years old. Fall, right shoulder pain TECHNIQUE: 2 view(s) of the shoulder. COMPARISON: None. FINDINGS: There is severe degenerative arthrosis of the glenohumeral articulation. There is hypertrophic osteoarthrosis of the acromioclavicular joint with inferior osseous spur formation. Normal acromion. Normal humeral head and visualized proximal humerus. The soft tissue structures are unremarkable. Right lower lobe infiltrate with small right effusion. RAD/Shoulder min 2 Views IMPRESSION: Degenerative changes of the acromioclavicular joint as well as the glenohumeral joint. Electronically Signed: Jessee Farmer, at 11:58 EST , Service support ,
--- NOTE | 2019-09-26 10:26 | CT_ITS ---
STUDY: CT BRAIN WITHOUT CONTRAST REASON FOR EXAM: Female, 79 years old. FREQUENT FALLS, ON BLOOD THINNERS RADIATION DOSAGE (If Supplied By Facility): CTDIvol = ( 44.99 ) mGy, DLP = ( 728.62 ) mGycm TECHNIQUE: Transaxial CT imaging of the brain was performed without administration of intravenous contrast material. Individualized dose optimization techniques were used for this CT. COMPARISON: No relevant priors. FINDINGS: Normal soft tissue structures. Normal calvarium. There is mild cerebral atrophy with widening of the extra-axial spaces and ventricular dilatation. Normal white matter tracts of the cerebral hemispheres. Normal basal ganglia and thalami. Normal brainstem. Normal cerebellum. There is no intracranial hemorrhage. There are no findings of an acute ischemic infarction. Atherosclerotic calcification of the cavernous portions of the internal carotid arteries bilaterally. Normal visualized paranasal sinuses. CT/Brain/Head without Contrast IMPRESSION: Chronic involutional changes of the brain. Electronically Signed: Jessee Farmer, at 11:56 EST , Service support ,
[2019-09-26 10:38] LABS: Absolute Lymphocyte Count 0.59 X10^3/uL (0.83-4.51); Basophil# 0.14 X10^3/uL; Basophil% 0.9 % (0-1); Eosinophil# 0.03 X10^3/uL; Eosinophils% 0.2 % (0-5); Hematocrit 25.8 % (37-47); Hemoglobin 7.2 g/dL (12.0-15.0); Lymphocyte # 0.59 X10^3/ul (4.0); Lymphocyte % 3.7 % (19-41); Mean Corp Hgb Conc 27.9 g/dL (32-36); Mean Corpuscular Hgb 26.8 pg (27.0-32.0); Mean Corpuscular Volume 95.9 fL (81-99); Mean Platelet Vol. 10.5 fl (6.2-12.0); Monocyte# 1.07 X10^3/uL; Monocyte% 6.7 % (0-10); NRBC Flagged by Analyzer 0.3 % (0-5); Neutrophil # 13.95 X10^3/uL (2.7-7.7); Neutrophil % 87.9 % (47-70); POSITIVE DIFFERENTIAL YES; Platelet Count 502 K/mm3 (150-450); RBC Distribution Width CV 17.2 % (11.6-14.6); RBC Distribution Width SD 60.8 fl (35.1-43.9); Red Blood Count 2.69 M/mm3 (4.2-5.4); White Blood Count 15.9 K/mm3 (4.4-11.0)
[2019-09-26 10:39] LABS: Differential Indicated SCAN CRITERIA MET
[2019-09-26] MEDS: MethylPREDNISolone 125 MG/2 ML Vial IV (10:40)
[2019-09-26] MEDS: Ipratropium/Albuterol Sulfate 3 ML AMPUL.NEB INHALATION ×2 (10:40→19:23)
[2019-09-26] MEDS: HYDROcodone Bitartrate/Apap 5/325 Tablet PO ×3 (10:40→19:53)
[2019-09-26 10:56] LABS: Anion Gap 6 (5-15); BUN 13 mg/dL (7-18); BUN/Creat Ratio 10.8 RATIO (10-20); Chloride 108 mmol/L (98-107); EST Glomerular Filtration Rate 46 mL/min (>60); Est Glom Filt Rate - Afr Amer 56 mL/min (>60); Estimated Creatinine Clearance 43.01 ml/min; Glucose 141 mg/dL (74-106); Potassium 3.7 mmol/L (3.5-5.1); Sodium Level 141 mmol/L (136-145)
[2019-09-26 10:58] LABS: Anisocytosis RARE; Hypochromasia 3+; Platelet Estimate ADEQUATE (ADEQ); Polychromasia RARE; Red Cell Morphology N CYTIC NORMAL (NORM C&C); Stomatocyte 1+
[2019-09-26] MEDS: Albuterol 2.5 MG/3 ML VIAL.NEB. INHALATION ×3 (11:11→12:30)
--- NOTE | 2019-09-26 11:40 | RAD_ITS ---
STUDY: X-RAY - RIGHT HUMERUS REASON FOR EXAM: Female, 79 years old. Fall right shoulder pain TECHNIQUE: 2 view(s) of the humerus. COMPARISON: None. FINDINGS: Normal visualized humerus. There is no demonstrated fracture or osseous destructive process. Marked osteoarthritis of the glenohumeral joint. There is no demonstrated soft tissue abnormality. RAD/Humerus min 2 Views IMPRESSION: No fracture is seen. Marked degree of osteoarthritis of the glenohumeral joint. Electronically Signed: Jessee Farmer, at 11:57 EST , Service support ,
[2019-09-26 12:19] LABS: Mucous, Urine 0 SEEN /hpf (<or=2+); Red Blood Cells-Urine 0 SEEN /hpf (0-5)
[2019-09-26 12:22] LABS: Color, Urine Yellow (Yellow); Glucose, Dipstick Normal (Normal); Ketone-Dipstick 5 mg/dl (Negative); Leukocyte Esterase-Dipstick Negative /ul (Negative); Nitrite-Dipstick Negative (Negative); Occult Blood-Urine Negative /ul (Negative); Protein-Dipstick 30 mg/dl (Negative); Urine Bilirubin Dipstick Negative (Negative); Urine Clarity Clear (Clear); Urine Urobilinogen Normal (Normal)
--- NOTE | 2019-09-26 12:29 | HP.PCM_ITS ---
History of Present Illness Date of Admission: 09/26/19 Chief Complaint: shortness of breath The patient is a 79 year old F with an extensive past medical history as listed which includes chronic respiratory failure, on 4 L of oxygen at home. She was admitted through the ED on 09/26/2019 with a complaint of shortness of breath which have been going on about 3 days prior to admission. She had assisted wheezing and a cough which he states was nonproductive. She denied any fever chills nausea vomiting and denied any abdominal pain, palpitations or dizziness. Of note, patient states she has been getting weaker and fell twice the night before admission. States both times she just felt weak in her legs gave way and she fell and hit her head and her right arm and right leg. She did not lose consciousness and was able to crawl over to a stool and pull herself up. She says she has had similar fall like once every 6 months. Patient is on Eliquis. On admission the ED, vitals were essentially stable and chemistry was significant for creatinine of 1.2 but was otherwise unremarkable. Lactic acid was 2. Initial troponin was negative. Past in the ED, patient developed a temperature spike to 100.5 ?C. CBC showed white cell count of 15.9, and hemoglobin of 7.2 with platelets of 502. She was requiring up to 5 L of oxygen in the ED. Chest x-ray showed right lower lobe infiltrate with a small right pleural effusion. CT of the brain showed no acute intracranial process and no evidence of bleeding. Humerus x-ray series x-ray negative for any fracture. She has been admitted to be managed for debility and mechanical falls as well as acute on chronic hypoxic respiratory failure due to community-acquired pneumonia. 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) Nonrheumatic tricuspid (valve) insufficiency (Chronic) Nonrheumatic aortic (valve) insufficiency (Chronic) Hyperlipidemia (Chronic) COPD (chronic obstructive pulmonary disease) (Chronic) Hypertension (Chronic) Medical History: Medical History (Last Reviewed 07/10/19 @ 13:02 by Destiny Hsieh) Sick sinus syndrome (Chronic) I49.5 Paroxysmal atrial fibrillation (Chronic) I48.0 half-way current use of anticoagulant therapy (Chronic) Z79.01 Nonrheumatic tricuspid (valve) insufficiency (Chronic) I36.1 Nonrheumatic aortic (valve) insufficiency (Chronic) I35.1 Hyperlipidemia (Chronic) E78.5 Hypertension (Chronic) I10 Body mass index 34.0-34.9, adult Z68.34 CVA (cerebral vascular accident) I63.9 Long-term use of high-risk medication Z79.899 Lung nodule R91.1 Stage 1 mild COPD by GOLD classification J44.9 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.201 Allergies ferrous sulfate Adverse Reaction (Severe, Verified 09/26/19 10:20) Diarrhea codeine Adverse Reaction (Verified 09/26/19 10:20) makes me sick pregabalin [From Lyrica] Adverse Reaction (Verified 09/26/19 10:20) makes me deathly ill makes me deathly ill tramadol Adverse Reaction (Verified 09/26/19 10:20) Nausea and dizziness Home Medications: Ambulatory Orders Medication Instructions Recorded Carisoprodol [Soma] 350 mg PO TID 03/17/17 Cholecalciferol (Vitamin D3) 5,000 unit PO DAILY 03/17/17 [Vitamin D3] Gabapentin [Neurontin] 600 mg PO TIDCM 03/17/17 Hydrocodone Bitart/Apap 5-325 1 - 2 tab PO Q4H PRN PRN 03/17/17 [Paxton 5/325] Melatonin 10 - 15 mg PO QHS PRN PRN 03/17/17 Pravastatin [Pravachol] 80 mg PO QHS 11/17/18 ipratropium 0.5 mg-albuterol 3 mg 3 ml INHALATION Q8H #180 ml 12/21/18 (2.5 mg base)/3 mL nebulization soln Aspirin [Low Dose Aspirin EC] 81 mg PO DAILY 03/09/19 methimazole 5 mg tablet 5 mg PO DAILY #30 tab 03/09/19 furosemide 40 mg tablet 40 mg PO DAILY tab 05/29/19 albuterol sulfate 90 mcg/actuation 2 puff INHALATION Q4H PRN PRN #18 g 07/10/19 aerosol inhaler Amiodarone HCl 100 mg PO DAILY 09/26/19 Amlodipine Besylate 2.5 mg PO DAILY 09/26/19 Metoprolol Tartrate [Lopressor 100 mg PO BID 09/26/19 (beta manuel)] Pantoprazole Sodium [Protonix] 40 mg PO BID 09/26/19 Potassium Chloride [K-Tab ER] 20 meq PO DAILY 09/26/19 Rivaroxaban [Xarelto] 15 mg PO DAILY 09/26/19 Tiotropium Br/Olodaterol HCl 2 puff INHALATION DAILY 09/26/19 [Stiolto Respimat] Surgical History: Surgical History (Last Reviewed 07/10/19 @ 13:02 by Destiny Hsieh) Presence of permanent cardiac pacemaker (Chronic) Onset Date: 03/13/19 Z95.0 History of back surgery Z98.890 Surgical History: - - back surgery Psychiatric History: No pertinent psych hx 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 Denies: Chills, Fever, Night Sweats, Weight Change Eyes: Denies: Blurred vision HEENT: Reports: - - very hard of hearing. Denies: Eye Pain, Hard of Hearing, Head Aches, Sinus Congestion, Sinus Drainage Cardiovascular: Denies: Chest Pain, Chest Pressure, Chest Tightness, Palpitations Respiratory: Reports: Cough, Shortness of Breath, Shortness of breath at rest, Shortness of breath upon exertion, Wheezing. Denies: Sputum production Gastrointestinal: Denies: Abdominal Pain, Nausea, Vomiting Genitourinary: Denies: Dysuria Musculoskeletal: Denies: Joint Pain, Joint Tenderness Skin: Denies: Rash, Wounds Neurological: Denies: Numbness, Tingling, Focal weakness Psychiatric: Denies: Anxiety, Depression, Homicidal Ideations, Suicidal Ideation s Hematologic/ Lymphatic: Denies: Easy Bruising, Easy Bleeding VTE Information - Inpt Only VTE Present on Admission: No VTE Mechan Device Prophylaxis: SCD's - Physical Exam Vitals/I&O's: Vital Signs Temp Pulse Resp BP Pulse Ox 100.5 F H 68 22 H 94/75 94 09/26/19 12:02 09/26/19 12:02 09/26/19 12:02 09/26/19 12:02 09/26/19 12:02 Oxygen Flow Rate (L/min) 5 Oxygen Delivery Method Nasal Cannula Weight: 153 lb 0.013 oz Body Mass Index (BMI) 34.2 General: Alert, Oriented x3, Cooperative, No apparent distress HEENT: Atraumatic, PERRLA, EOMI, Normocephalic Oral: Dry Mucosa Neck: Supple, No JVD, Negative Carotid Bruits Lungs: - - decreased breath sounds in right posterior mid and lower lung field. NO crackles. on 5L of oxygen by nasal cannula Cardiovascular: Regular rate, Regular Rhythm, Normal S1, Normal S2, No murmurs Abdomen: Bowel Sounds Present, Soft, Non Tender, Non-Distended, No Hepato- splenomegaly Extremities: No clubbing, No cyanosis, No edema, Capillary Refill Less than 3 Seconds Skin: No rashes, No breakdown Musculoskeletal: No Tenderness to Palpation of Joints or Extremities Lymphatic: No Cervical, Supraclavicular, or Inguinal Adenopathy Neurological: Cranial nerves II-XII grossly intact, Neuro grossly intact, Motor Exam 5/5 strength throughout Psych/Mental Status: Normal Affect, Appropriate, Alert and oriented to time, place, person, mood and affect Laboratory Results 09/26/19 10:25: WBC 15.9 H, RBC 2.69 L, Hgb 7.2 L, Hct 25.8 L, MCV 95.9, MCH 26.8 L, MCHC 27.9 L, RDW Std Deviation 60.8 H, RDW Coeff of Valorie 17.2 H, Plt Count 502 H, MPV 10.5, Immature Gran % (Auto) 0.600, Neut % (Auto) 87.9 H, Lymph % (Auto) 3.7 L, [place] % (Auto) 6.7, Eos % (Auto) 0.2, Baso % (Auto) 0.9, Absolute Neuts (auto) 14.0 H, Absolute Lymphs (auto) 0.59 L, Nucleated RBC % 0.3, Platelet Estimate ADEQUATE, RBC Morphology N CYTIC, Polychromasia RARE, Hypochromasia 3+, Anisocytosis RARE, Stomatocytes 1+ 09/26/19 10:25: Sodium 141, Potassium 3.7, Chloride 108 H, Carbon Dioxide 27.0, Anion Gap 6, BUN 13, Creatinine 1.20 H, Estim Creat Clear Calc 43.01, Est GFR (MDRD) Af Amer 56 L, Est GFR (MDRD) Non-Af 46 L, BUN/Creatinine Ratio 10.8, Glucose 141 H, Calcium 9.0, Troponin I < 0.015 09/26/19 12:14: Urine Color Yellow, Urine Clarity Clear, Urine pH 5.0, Ur Specific [place] 1.020, Urine Protein 30 H, Urine Glucose (UA) Normal, Urine Ketones 5 H, Urine Occult Blood Negative, Urine Nitrite Negative, Urine Bilirubin Negative, Urine Urobilinogen Normal, Ur Leukocyte Esterase Negative, Urine RBC Pending, Urine WBC Pending, Ur Squamous Epith Cells Pending, Urine Bacteria Pending, Urine Mucus Pending Diagnostic Data Chest X-Ray 09/26/19 10:19 IMPRESSION: Right lower lobe infiltrate with a small right pleural effusion. Electronically Signed: Jessee Farmer, at 10:50 EST , Service support , Brain CT 09/26/19 10:26 IMPRESSION: Chronic involutional changes of the brain. Electronically Signed: Jessee Farmer, at 11:56 EST , Service support , Shoulder X-Ray 09/26/19 10:26 IMPRESSION: Degenerative changes of the acromioclavicular joint as well as the glenohumeral joint. Electronically Signed: Jessee Farmer, at 11:58 EST , Service support , Humerus X-Ray 09/26/19 11:40 IMPRESSION: No fracture is seen. Marked degree of osteoarthritis of the glenohumeral joint. Electronically Signed: Jessee Farmer, at 11:57 EST , Service support , Assessment/Plan All Active Problems (Last Reviewed 07/10/19 @ 13:02 by Destiny Hsieh) Bradycardia (Resolved) 79-year-old admitted with complaint of shortness of breath and also had a mechanical fall. 1. Sepsis due to community acquired pneumonia * SIRS criteria is 2/4 (fever and leucocytosis) * CXR showed right lower lobe infiltrate with a small right pleural effusion. * Lactic acid 2. * Will check urine for strep and Legionella. Check sputum culture and blood cultures * Start on IV ceftriaxone and azithromycin. * Hydrate gently with IV fluids. * 2. Acute on chronic hypoxic respiratory failure due to community acquired pneumonia * As under 1. Baseline home oxygen is 4 L. Currently on 5 L. * Titrate oxygen to maintain saturation above 90%. Try to wean down to baseline and below as tolerated. * Breathing treatments with bronchodilators. * 3. Acute on chronic anemia * Hemoglobin is 7.2. Baseline hemoglobin is around 8-9 with the lowest being 7.6 on 11/16/2018 per EMR * Patient is on Eliquis but reports no evidence of bleeding on no doc stools * Last colonoscopy was 11/18/2018 which showed diverticulosis in the sigmoid and ascending colon but examination was otherwise normal. * Also had EGD on 11/18/2018 which showed gastritis which was biopsied. * Will check iron panel. Will give IV pantoprazole. * Check stool for occult blood. * Hold aspirin and xarelto for now. Patient counseled extensively about different types of CODE STATUS including full code, DNR CCA and DNR CCA. Patient elects to be (). Total [id number] time () minutes. * 4. Afib: Currently rate and rhythm controlled. On amiodarone and metoprolol. xarelto currently on hold. 5. Hypertension: Controlled. On amlodipine and metoprolol 6. Hyperlipidemia: On statin 7. COPD: On breathing treatments with DuoNeb's. He is usually on 4 L of oxygen at home. 8. Hyperlipidemia: On statin DVT prophylaxis; SCDs. Xarelto on hold on account of acute on chronic anemia Code Status: Full code * Patient counseled extensively about different types of CODE STATUS including full code, DNR CCA and DNR CCA. Patient elects to be full code, though she said if she required resuscitation, she would want to have CPR and be intubated only once, because she didnt want to be a vegetable. Total [id number]-[id number] time 20 minutes. Code Visit Inpatient E&M: 32474 Init Hosp L3 Procedures: 28488 Advncd Care Plan 30 Min
[2019-09-26 12:33] LABS: Bacteria RARE /hpf (None Seen); Squamous Epithelial Cells - UA 0-5 SEEN /hpf (5-10); White Blood Cells 0-5 SEEN /hpf (0-5)
[2019-09-26] MEDS: Ceftriaxone 1 GM/50 ML BAG IV (13:18)
[2019-09-26 14:34] LABS: Ferritin 8 ng/mL (8-252); Iron 16 ug/dL (50-170); Iron Binding Capacity,Total 363 ug/dL (250-450); PERCENT IRON SATURATION 4.4 % (15.0-55.0)
[2019-09-26] MEDS: Amiodarone 200 MG Tablet 100 MG PO (15:54)
[2019-09-26] MEDS: amLODIPine 2.5 MG Tablet PO (15:58)
[2019-09-26] MEDS: Furosemide 40 MG Tablet PO (15:58)
[2019-09-26] MEDS: Aspirin E.C. 81 MG Tablet PO (15:58)
[2019-09-26 17:03] LABS: Reflex Lactate? Y
[2019-09-26] MEDS: Methimazole 5 MG Tablet PO (17:04)
[2019-09-26] MEDS: Gabapentin 600 MG Tablet PO (17:04)
[2019-09-26 18:15] LABS: Lactic Acid 1.8 mmol/L (0.4-1.9)
[2019-09-26] MEDS: Pravastatin 80 MG Tablet PO (21:18)
[2019-09-26] MEDS: MELATONIN 10 MG TABLET PO (21:18)
[2019-09-26] MEDS: Metoprolol Tartrate 100 MG Tablet PO (21:18)
[2019-09-27] VITALS (19 sets, daily range): BP systolic 129–157; BP diastolic 53–67; PULSE 63–95; RESP 18–20; TEMP 36.3–36.9; O2SAT 92–96
[2019-09-27] MEDS: HYDROcodone Bitartrate/Apap 5/325 Tablet PO ×4 (00:10→19:30)
[2019-09-27] MEDS: Ipratropium/Albuterol Sulfate 3 ML AMPUL.NEB INHALATION ×3 (01:46→19:59)
[2019-09-27 06:01] LABS: Absolute Lymphocyte Count 0.59 X10^3/uL (0.83-4.51); Absolute Neutrophil Count 13.5 X10^3/uL (2.0-7.7); Basophil# 0.02 X10^3/uL; Basophil% 0.1 % (0-1); Hematocrit 20.8 % (37-47); Lymphocyte # 0.59 X10^3/ul (4.0); Lymphocyte % 3.9 % (19-41); Mean Corp Hgb Conc 28.4 g/dL (32-36); Mean Corpuscular Hgb 26.6 pg (27.0-32.0); Mean Corpuscular Volume 93.7 fL (81-99); Mean Platelet Vol. 10.7 fl (6.2-12.0); Monocyte# 1.05 X10^3/uL; Monocyte% 6.9 % (0-10); NRBC Flagged by Analyzer 0.2 % (0-5); Neutrophil # 13.47 X10^3/uL (2.7-7.7); Neutrophil % 88.3 % (47-70); POSITIVE COUNT YES; POSITIVE DIFFERENTIAL YES; Platelet Count 459 K/mm3 (150-450); RBC Distribution Width SD 57.6 fl (35.1-43.9); Red Blood Count 2.22 M/mm3 (4.2-5.4); White Blood Count 15.3 K/mm3 (4.4-11.0)
[2019-09-27 06:13] LABS: Differential Indicated SCAN CRITERIA MET
[2019-09-27 06:14] LABS: Hemoglobin 5.9 g/dL (12.0-15.0)
[2019-09-27 06:28] LABS: Anion Gap 6 (5-15); BUN 18 mg/dL (7-18); Calcium,Total 8.5 mg/dL (8.5-10.1); Chloride 105 mmol/L (98-107); EST Glomerular Filtration Rate 46 mL/min (>60); Est Glom Filt Rate - Afr Amer 56 mL/min (>60); Estimated Creatinine Clearance 40.41 ml/min; Glucose 124 mg/dL (74-106); Potassium 3.6 mmol/L (3.5-5.1); Sodium Level 138 mmol/L (136-145)
[2019-09-27 06:52] LABS: Differential Comment SCANNED
[2019-09-27] MEDS: Gabapentin 600 MG Tablet PO ×3 (08:35→16:25)
[2019-09-27] MEDS: Amiodarone 200 MG Tablet 100 MG PO (08:36)
[2019-09-27] MEDS: amLODIPine 2.5 MG Tablet PO (08:37)
[2019-09-27] MEDS: Furosemide 40 MG Tablet PO (08:37)
[2019-09-27] MEDS: Methimazole 5 MG Tablet PO (08:37)
[2019-09-27] MEDS: Metoprolol Tartrate 100 MG Tablet PO ×2 (08:37→22:33)
--- NOTE | 2019-09-27 09:38 | CON.PCM_ITS ---
Problem List (1) Anemia Status: Acute Reason for Consult Date of Consultation: 09/27/19 Reason for Consultation: Acute on chronic anemia History of Present Illness: The patient is a 79 year old F who presented with dizziness, more shortness of breath and 3 falls at home. Patient was found to have a hemoglobin of 7.2 on admission. Her hgb today is 5.9. Patient denies melena, bright red blood per rectum, abdominal pain, nausea, vomiting, hematemesis. She denies family history of colon cancer. Patient states she had a colonoscopy and upper scope at her hospitalization in October. Dr. Gipson found gastritis and diverticulosis of the sigmoid and descending colon. Otherwise patient had an unremarkable exam. Pathology demonstrated mild gastritis. Patient has been taking 40 mg Protonix BID since that time. Patient is on Xarelto daily for A Fib. She noted she was on Eliquis at the October hospitalization. She states she has switched blood thinners multiple times. Patient notes she had a pacemaker placed in February [address] 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 She has COPD and is on oxygen at bedtime. She denies bloody noses, excessive bruising. Patient states she does not want to be scoped again. She noted she wanted to refuse last October but gave in. 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5 Hypertension (Chronic) I10 Body mass index 34.0-34.9, adult Z68.34 CVA (cerebral vascular accident) I63.9 Long-term use of high-risk medication Z79.899 Lung nodule R91.1 Stage 1 mild COPD by GOLD classification J44.9 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.201 Allergies ferrous sulfate Adverse Reaction (Severe, Verified 09/26/19 10:20) Diarrhea codeine Adverse Reaction (Verified 09/26/19 10:20) makes me sick pregabalin [From Lyrica] Adverse Reaction (Verified 09/26/19 10:20) makes me deathly ill makes me deathly ill tramadol Adverse Reaction (Verified 09/26/19 10:20) Nausea and dizziness Home Medications: Ambulatory Orders Medication Instructions Recorded Carisoprodol [Soma] 350 mg PO TID 03/17/17 Cholecalciferol (Vitamin D3) 5,000 unit PO DAILY 03/17/17 [Vitamin D3] Gabapentin [Neurontin] 600 mg PO TIDCM 03/17/17 Hydrocodone Bitart/Apap 5-325 1 - 2 tab PO Q4H PRN PRN 03/17/17 [Dannemora 5/325] Melatonin 10 - 15 mg PO QHS PRN PRN 03/17/17 Pravastatin [Pravachol] 80 mg PO QHS 11/17/18 ipratropium 0.5 mg-albuterol 3 mg 3 ml INHALATION Q8H #180 ml 12/21/18 (2.5 mg base)/3 mL nebulization soln Aspirin [Low Dose Aspirin EC] 81 mg PO DAILY 03/09/19 methimazole 5 mg tablet 5 mg PO DAILY #30 tab 03/09/19 furosemide 40 mg tablet 40 mg PO DAILY tab 05/29/19 albuterol sulfate 90 mcg/actuation 2 puff INHALATION Q4H PRN PRN #18 g 07/10/19 aerosol inhaler Amiodarone HCl 100 mg PO DAILY 09/26/19 Amlodipine Besylate 2.5 mg PO DAILY 09/26/19 Metoprolol Tartrate [Lopressor 100 mg PO BID 09/26/19 (beta geronimo)] Pantoprazole Sodium [Protonix] 40 mg PO BID 09/26/19 Potassium Chloride [K-Tab ER] 20 meq PO DAILY 09/26/19 Rivaroxaban [Xarelto] 15 mg PO DAILY 09/26/19 Tiotropium Br/Olodaterol HCl 2 puff INHALATION DAILY 09/26/19 [Stiolto Respimat] Surgical History: Surgical History (Last Reviewed 09/27/19 @ 09:56 by Malia Gutierrez PA-C) Presence of permanent cardiac pacemaker (Chronic) Onset Date: 03/13/19 Z95.0 History of back surgery Z98.890 Surgical History: - - back surgery Psychiatric History: No pertinent psych hx BPM ARCHITECT History: No pertinent BPM ARCHITECT history Lives: With Family Smoking Status: Former smoker - *Family History Maternal Family History: Family History (Last Reviewed 09/27/19 @ 09:56 by Malia Gutierrez PA-C) Mother CVA (cerebral vascular accident) Atrial fibrillation Brother Atrial fibrillation History of PTCA History Items: No pertinent history Paternal Family History: Family History (Last Reviewed 09/27/19 @ 09:56 by Malia Gutierrez PA-C) Mother CVA (cerebral vascular accident) Atrial fibrillation Brother Atrial fibrillation History of PTCA History Items: Cancer - lung Review of Systems Constitutional: Reports: Fever, Weakness, Fatigue HEENT: Reports: Hard of Hearing. Denies: Nasal bleeding Cardiovascular: Denies: Chest Pain, Palpitations Respiratory: Denies: Cough, Shortness of breath at rest, Sputum production Gastrointestinal: Reports: Constipation. Denies: Abdominal Pain, Diarrhea, Dyspepsia, Hematemesis, Hematochezia, Nausea, Melena, Vomiting Genitourinary: Denies: Dysuria Musculoskeletal: Denies: Joint Pain, Joint Tenderness Skin: Denies: Rash, Wounds Neurological: Reports: Balance problems Psychiatric: Denies: Anxiety, Depression, Homicidal Ideations, Suicidal Ideat ions Hematologic/ Lymphatic: Reports: Anemia, Easy Bruising, Easy Bleeding, Hx of blood transfusion - Physical Exam Vitals/I&O's: Vital Signs Temp Pulse Resp BP Pulse Ox 98.0 F 74 18 139/67 H 94 09/27/19 08:40 09/27/19 08:40 09/27/19 08:40 09/27/19 08:40 01/29/20 08:40 Oxygen Flow Rate (L/min) 4 Oxygen Delivery Method Nasal Cannula Weight: 143 lb 11.862 oz Body Mass Index (BMI) 32.2 Intake and Output for Last 24 Hours 09/25/19 09/26/19 09/27/19 23:59 23:59 23:59 Intake Total 1245.00 / 1245.00 320 / 320 Output Total 750 / 750 Balance 495.00 / 495.00 320 / 320 General: Alert, Oriented x3, Cooperative HEENT: Atraumatic, PERRLA, EOMI, Normocephalic Neck: Supple, No JVD, Negative Carotid Bruits Lungs: Diminished - bilateral bases Cardiovascular: Regular rate, No murmurs Abdomen: Bowel Sounds Present, Soft, Non Tender, Obese Extremities: No edema, Capillary Refill Less than 3 Seconds Skin: No rashes, No breakdown, - - multiple ecchymosis noted bilateral upper extremities Musculoskeletal: No Tenderness to Palpation of Joints or Extremities Neurological: Neuro grossly intact Psych/Mental Status: Normal Affect, Appropriate Microbiology Past 72 Hours 09/26/19 20:30 Urine, Clean Catch Legionella Antigen - Final 09/26/19 20:30 Urine, Clean Catch Streptococcus pneumoniae Antigen (M - Final Laboratory Results 09/26/19 10:25: WBC 15.9 H, RBC 2.69 L, Hgb 7.2 L, Hct 25.8 L, MCV 95.9, MCH 26.8 L, MCHC 27.9 L, RDW Std Deviation 60.8 H, RDW Coeff of Valorie 17.2 H, Plt Count 502 H, MPV 10.5, Immature Gran % (Auto) 0.600, Neut % (Auto) 87.9 H, Lymph % (Auto) 3.7 L, [place] % (Auto) 6.7, Eos % (Auto) 0.2, Baso % (Auto) 0.9, Absolute Neuts (auto) 14.0 H, Absolute Lymphs (auto) 0.59 L, Nucleated RBC % 0.3, Platelet Estimate ADEQUATE, RBC Morphology N CYTIC, Polychromasia RARE, Hypochromasia 3+, Anisocytosis RARE, Stomatocytes 1+ 09/26/19 10:25: Sodium 141, Potassium 3.7, Chloride 108 H, Carbon Dioxide 27.0, Anion Gap 6, BUN 13, Creatinine 1.20 H, Estim Creat Clear Calc 43.01, Est GFR (MDRD) Af Amer 56 L, Est GFR (MDRD) Non-Af 46 L, BUN/Creatinine Ratio 10.8, Glucose 141 H, Calcium 9.0, Troponin I < 0.015 09/26/19 10:25: Iron 16 L, TIBC 363, Iron Saturation 4.4 L, Ferritin 8 09/26/19 12:14: Urine Color Yellow, Urine Clarity Clear, Urine pH 5.0, Ur Specific [place] 1.020, Urine Protein 30 H, Urine Glucose (UA) Normal, Urine Ketones 5 H, Urine Occult Blood Negative, Urine Nitrite Negative, Urine Bilirubin Negative, Urine Urobilinogen Normal, Ur Leukocyte Esterase Negative, Urine RBC 0 SEEN, Urine WBC 0-5 SEEN, Ur Squamous Epith Cells 0-5 SEEN, Urine Bacteria RARE, Urine Mucus 0 SEEN 09/26/19 12:56: Lactic Acid 2.0 09/26/19 12:56: Blood Type A POSITIVE, Antibody Screen NEGATIVE 09/26/19 12:56: Crossmatch See Detail 09/26/19 17:36: Lactic Acid 1.8 09/27/19 05:20: WBC 15.3 H, RBC 2.22 L, Hgb 5.9 L*, Hct 20.8 L, MCV 93.7, MCH 26.6 L, MCHC 28.4 L, RDW Std Deviation 57.6 H, RDW Coeff of Valorie 17.0 H, Plt Count 459 H, MPV 10.7, Immature Gran % (Auto) 0.800, Neut % (Auto) 88.3 H, Lymph % (Auto) 3.9 L, [place] % (Auto) 6.9, Eos % (Auto) 0.0, Baso % (Auto) 0.1, Absolute Neuts (auto) 13.5 H, Absolute Lymphs (auto) 0.59 L, Nucleated RBC % 0.2, Differential Comment SCANNED, Diff Path Review December09/27/19 05:20: Sodium 138, Potassium 3.6, Chloride 105, Carbon Dioxide 27.0, Anion Gap 6, BUN 18, Creatinine 1.20 H, Estim Creat Clear Calc 40.41, Est GFR (MDRD) Af Amer 56 L, Est GFR (MDRD) Non-Af 46 L, BUN/Creatinine Ratio 15.0, Glucose 124 H, Calcium 8.5 Current Medications Hydrocodone Bitart/Acetaminophen (Dannemora 5mg-325mg) 1 - 2 tablet PO Q4H PRN PRN PRN Reason: Pain Score 1-10/10 Last Admin: 09/27/19 04:19 Dose: 2 tablet Documented by: Albuterol Sulfate (Ventolin Aerosols) 2.5 mg INHALATION Q4H PRN PRN PRN Reason: SOB &/OR WHEEZING Albuterol/Ipratropium (Duoneb) 3 ml INHALATION Q6HWA.RT [facility] Last Admin: 09/27/19 06:43 Dose: 3 ml Documented by: Amiodarone HCl (Cordarone) 100 mg PO DAILY [facility] Last Admin: 09/27/19 08:36 Dose: 100 mg Documented by: Amlodipine Besylate (Norvasc) 2.5 mg PO DAILY [facility] Last Admin: 09/27/19 08:37 Dose: 2.5 mg Documented by: Furosemide (Lasix) 40 mg PO DAILY [facility] Last Admin: 09/27/19 08:37 Dose: 40 mg Documented by: Gabapentin (Neurontin) 600 mg PO TIDCM [facility] Last Admin: 09/27/19 08:35 Dose: 600 mg Documented by: Glucagon () 1 mg IM .X1 PRN PRN Reason: Hypoglycemia Ceftriaxone Sodium 2 gm/ (Sodium Chloride) 50 mls @ 100 mls/hr IV Q24 [facility] Azithromycin 500 mg/ Dextrose 255 mls @ 250 mls/hr IV Q24 [facility] Dextrose (Dextrose 10%-Water) 250 mls @ 999 mls/hr IV .Q16M PRN; Protocol PRN Reason: HYPOGLYCEMIA Meclizine HCl (Antivert) 25 mg PO TID PRN PRN PRN Reason: DIZZINESS Melatonin (Melatonin) 10 mg PO QHS PRN PRN PRN Reason: SLEEP Last Admin: 09/26/19 21:18 Dose: 10 mg Documented by: Methimazole (Tapazole) 5 mg PO DAILY [facility] Last Admin: 09/27/19 08:37 Dose: 5 mg Documented by: Metoprolol Tartrate (Lopressor (Beta Geronimo)) 100 mg PO BID [facility] Last Admin: 09/27/19 08:37 Dose: 100 mg Documented by: Ondansetron HCl (Zofran) 4 mg IV Q8H PRN PRN PRN Reason: NAUSEA/VOMITING Potassium Chloride (K-Dur) 20 meq PO DAILY [facility] Last Admin: 09/27/19 08:36 Dose: 20 meq Documented by: Pravastatin Sodium (Pravachol) 80 mg PO QHS [facility] Last Admin: 09/26/19 21:18 Dose: 80 mg Documented by: Sodium Chloride () 10 - 40 ml IV UD PRN PRN Reason: SALINE FLUSH Assessment/Plan All Active Problems (Last Reviewed 07/10/19 @ 13:02 by Destiny Hsieh) Bradycardia (Resolved) Anemia (Acute) I have been consulted in conjunction with Dr. Yanez. Impression: Acute on chronic anemia Plan: I have discussed this patient with Dr. Yanez. Recommend continuing patient on PPI while in the hospital. Checking stool for occult blood. Continue to beckie sely monitor Hgb. Patient had scopes less than 1 year ago with mild gastritis findings. Would consider anticoagulation to play a large factor in her acute anemia. Would hold Xarelto and aspirin. Recommend cardiology to reassess patient's anticoagulation. Again, patient is refusing scopes at this time. Discussed with patient that procedure is not urgent and may even be completed as an outpatient. She again declined. Patient and her granddaughter have had the opportunity to ask and have questions answered. Patient verbally understands and agrees with the current plan. I have suggested if she is to change her mind, to let the nursing staff know. We will continue to monitor this patient. Thank you for allowing us to participate in this patient's care. Code Visit Office Visits / Consults: [id number] IP Consult L3
--- NOTE | 2019-09-27 09:42 | CASEMGMT ---
RN BAN INTEGRATION LEAD CM to room to meet with patient for initial transition planning/care coordination assessment. RN BAN introduced self and role at [facility]. Pt voices understanding and consents to assessment at this time. Pt resting in bed in no distress at this time. GranddaughterOphelia, at bedside and is one of pt's primary caregivers. Pt is alert/oriented and very HOONAH--she states pOhelia will be able to answer questions that RN BAN may have. Care providers, pharmacy, and demographics verified/updated at this time. PCP: Dr Shila Mckinnon Specialists: Dr Campoverde--cardiology, Dr Ravi--pulmonology Preferred Pharmacy: [facility] Insurance: [employer] Prescription Benefit: Yes Living Will/HPOA: Has both LW and Healthcare POA, who is her daughter, Myra Rios. Copies of both on file @ [facility]. LNOK: DaughterMyra. Living Arrangements: Lives alone in one-story Condo--has ramp to enter. DaughterMyra, and granddaughter, Ophelia very involved in helping to take care of pt and checks on her daily. Other family members also help. Ophelia states she assists pt with bathing a couple times a week and that pt is able to dress herself. Myra helps to manage appts. Ophelia helps with medications, bills, grocery shopping. Pt is able to prepare some of her own meals. Another family member does cleaning. Transportation: Grandjoseluisughter, Ophelia, and daughter Myra. Ophelia states she will be the one taking pt home @ discharge. DME: Has the following DME: shower chair, hand-held shower, grab bars, cane, walker, W/C, nebulizer, O2 @ 4 L/M through [facility]. Ophelia states pt usually only wears it @ HS, but has been needing to wear it continuously. Call place to [facility] and they confirm pt has current orders for O2 @ 4 L/M continuously. Pt has concentrator and portability. Pt's own portable O2 tank in room to use for when she returns home. Pt does not have medical alert button and adamant that she does not want one. Ophelia states no need for further DME at this time. HHC/SNF: No history of SNF. Has had HHC in the past but Ophelia does not remember name of agency. PT/OT evals pending. Discussed discharge planning with pt and Ophelia. Pt adamant that she wants to return home @ discharge and refuses possible option of SNF. Pt is agreeable to HHC. Given list of local HHC agencies and pt's 1st preference is [facility]. Call placed to Jenny @ [facility] and referral made. Order placed for HHC: long-term, PT/OT eval and treat. Pt wishes to return home and pt and Ophelia Kruse state they have no concerns with her going home at time of discharge. CM to follow for home oxygen needs and any further discharge planning/needs. Pt and Blair voice no further concerns/needs at this time. Advised them to ask for CM if any further questions/concerns/needs arise. They voice understanding. PLAN: Home w/[facility] HHC, family support, and discharge plans in place. Sneha CASTELLANOS RN CM
--- NOTE | 2019-09-27 10:05 | PCM.PN.HOSP ---
Subjective: Patient seen and examined. She says she feels better today. Shortness of breath is improved. She denies any fever or chills and still has a cough which is nonproductive though it sounds worse. She denies any nausea vomiting or diarrhea. 12 point review systems otherwise negative. Labs and vitals reviewed. Chemistries essentially unremarkable. WBC is 15.3. However hemoglobin dropped to 5.9. She denies any bright red blood per rectum or any dark stools or coffee-ground emesis. Iron panel showed iron saturation of 4.4 with iron of 16 and ferritin of only 80. TIBC is 363. Vitals/I&O's: Vital Signs Temp Pulse Resp BP Pulse Ox 98.0 F 74 18 139/67 H 94 09/27/19 08:40 09/27/19 08:40 09/27/19 08:40 09/27/19 08:40 09/27/19 08:40 Oxygen Flow Rate (L/min) 4 Oxygen Delivery Method Nasal Cannula Weight: 143 lb 11.862 oz Body Mass Index (BMI) 32.2 Intake and Output for Last 24 Hours 09/25/19 09/26/19 09/27/19 23:59 23:59 23:59 Intake Total 1245.00 / 1245.00 320 / 320 Output Total 750 / 750 Balance 495.00 / 495.00 320 / 320 General: Alert, Oriented x3, Cooperative, No apparent distress HEENT: Atraumatic, PERRLA, EOMI, Normocephalic Oral: Dry Mucosa Neck: Supple, No JVD, Negative Carotid Bruits Lungs: - - mildly decreased breath sounds in right posterior mid and lower lung field. NO crackles. on 4L of oxygen, which is her baseline. Cardiovascular: Regular rate, Regular Rhythm, Normal S1, Normal S2, No murmurs Abdomen: Bowel Sounds Present, Soft, Non Tender, Non-Distended, No Hepato-splenomegaly Extremities: No clubbing, No cyanosis, No edema, Capillary Refill Less than 3 Seconds Skin: No rashes, No breakdown Musculoskeletal: No Tenderness to Palpation of Joints or Extremities Lymphatic: No Cervical, Supraclavicular, or Inguinal Adenopathy Neurological: Cranial nerves II-XII grossly intact, Neuro grossly intact, Motor Exam 5/5 strength throughout Psych/Mental Status: Normal Affect, Appropriate, Alert and oriented to time, place, person, mood and affect Microbiology Past 72 Hours 09/26/19 20:30 Urine, Clean Catch Legionella Antigen - Final 09/26/19 20:30 Urine, Clean Catch Streptococcus pneumoniae Antigen (M - Final Laboratory Results 09/26/19 10:25: WBC 15.9 H, RBC 2.69 L, Hgb 7.2 L, Hct 25.8 L, MCV 95.9, MCH 26.8 L, MCHC 27.9 L, RDW Std Deviation 60.8 H, RDW Coeff of Valorie 17.2 H, Plt Count 502 H, MPV 10.5, Immature Gran % (Auto) 0.600, Neut % (Auto) 87.9 H, Lymph % (Auto) 3.7 L, [place] % (Auto) 6.7, Eos % (Auto) 0.2, Baso % (Auto) 0.9, Absolute Neuts (auto) 14.0 H, Absolute Lymphs (auto) 0.59 L, Nucleated RBC % 0.3, Platelet Estimate ADEQUATE, RBC Morphology N CYTIC, Polychromasia RARE, Hypochromasia 3+, Anisocytosis RARE, Stomatocytes 1+ 09/26/19 10:25: Sodium 141, Potassium 3.7, Chloride 108 H, Carbon Dioxide 27.0, Anion Gap 6, BUN 13, Creatinine 1.20 H, Estim Creat Clear Calc 43.01, Est GFR (MDRD) Af Amer 56 L, Est GFR (MDRD) Non-Af 46 L, BUN/Creatinine Ratio 10.8, Glucose 141 H, Calcium 9.0, Troponin I < 0.015 09/26/19 10:25: Iron 16 L, TIBC 363, Iron Saturation 4.4 L, Ferritin 8 09/26/19 12:14: Urine Color Yellow, Urine Clarity Clear, Urine pH 5.0, Ur Specific [place] 1.020, Urine Protein 30 H, Urine Glucose (UA) Normal, Urine Ketones 5 H, Urine Occult Blood Negative, Urine Nitrite Negative, Urine Bilirubin Negative, Urine Urobilinogen Normal, Ur Leukocyte Esterase Negative, Urine RBC 0 SEEN, Urine WBC 0-5 SEEN, Ur Squamous Epith Cells 0-5 SEEN, Urine Bacteria RARE, Urine Mucus 0 SEEN 09/26/19 12:56: Lactic Acid 2.0 09/26/19 12:56: Blood Type A POSITIVE, Antibody Screen NEGATIVE 09/26/19 12:56: Crossmatch See Detail 09/26/19 12:56: Crossmatch See Detail 09/26/19 17:36: Lactic Acid 1.8 09/27/19 05:20: WBC 15.3 H, RBC 2.22 L, Hgb 5.9 L*, Hct 20.8 L, MCV 93.7, MCH 26.6 L, MCHC 28.4 L, RDW Std Deviation 57.6 H, RDW Coeff of Valorie 17.0 H, Plt Count 459 H, MPV 10.7, Immature Gran % (Auto) 0.800, Neut % (Auto) 88.3 H, Lymph % (Auto) 3.9 L, [place] % (Auto) 6.9, Eos % (Auto) 0.0, Baso % (Auto) 0.1, Absolute Neuts (auto) 13.5 H, Absolute Lymphs (auto) 0.59 L, Nucleated RBC % 0.2, Differential Comment SCANNED, Diff Path Review May foll 09/27/19 05:20: Sodium 138, Potassium 3.6, Chloride 105, Carbon Dioxide 27.0, Anion Gap 6, BUN 18, Creatinine 1.20 H, Estim Creat Clear Calc 40.41, Est GFR (MDRD) Af Amer 56 L, Est GFR (MDRD) Non-Af 46 L, BUN/Creatinine Ratio 15.0, Glucose 124 H, Calcium 8.5 Diagnostic Data Chest X-Ray 09/26/19 10:19 IMPRESSION: Right lower lobe infiltrate with a small right pleural effusion. Electronically Signed: Jessee Farmer, at 10:50 EST , Service support , Brain CT 09/26/19 10:26 IMPRESSION: Chronic involutional changes of the brain. Electronically Signed: Jessee Farmer, at 11:56 EST , Service support , Shoulder X-Ray 09/26/19 10:26 IMPRESSION: Degenerative changes of the acromioclavicular joint as well as the glenohumeral joint. Electronically Signed: Jessee Farmer, at 11:58 EST , Service support , Humerus X-Ray 09/26/19 11:40 IMPRESSION: No fracture is seen. Marked degree of osteoarthritis of the glenohumeral joint. Electronically Signed: Jessee Farmer, at 11:57 EST , Service support , Current Medications Hydrocodone Bitart/Acetaminophen ([place] 5mg-325mg) 1 - 2 tablet PO Q4H PRN PRN PRN Reason: Pain Score 1-10/10 Last Admin: 09/27/19 04:19 Dose: 2 tablet Documented by: Albuterol Sulfate (Ventolin Aerosols) 2.5 mg INHALATION Q4H PRN PRN PRN Reason: SOB &/OR WHEEZING Albuterol/Ipratropium (Duoneb) 3 ml INHALATION Q6HWA.RT [facility] Last Admin: 09/27/19 06:43 Dose: 3 ml Documented by: Amiodarone HCl (Cordarone) 100 mg PO DAILY [facility] Last Admin: 09/27/19 08:36 Dose: 100 mg Documented by: Amlodipine Besylate (Norvasc) 2.5 mg PO DAILY [facility] Last Admin: 09/27/19 08:37 Dose: 2.5 mg Documented by: Furosemide (Lasix) 40 mg PO DAILY [facility] Last Admin: 09/27/19 08:37 Dose: 40 mg Documented by: Gabapentin (Neurontin) 600 mg PO TIDCM [facility] Last Admin: 09/27/19 08:35 Dose: 600 mg Documented by: Glucagon () 1 mg IM .X1 PRN PRN Reason: Hypoglycemia Ceftriaxone Sodium 2 gm/ (Sodium Chloride) 50 mls @ 100 mls/hr IV Q24 [facility] Azithromycin 500 mg/ Dextrose 255 mls @ 250 mls/hr IV Q24 [facility] Dextrose (Dextrose 10%-Water) 250 mls @ 999 mls/hr IV .Q16M PRN; Protocol PRN Reason: HYPOGLYCEMIA Meclizine HCl (Antivert) 25 mg PO TID PRN PRN PRN Reason: DIZZINESS Melatonin (Melatonin) 10 mg PO QHS PRN PRN PRN Reason: SLEEP Last Admin: 09/26/19 21:18 Dose: 10 mg Documented by: Methimazole (Tapazole) 5 mg PO DAILY [facility] Last Admin: 09/27/19 08:37 Dose: 5 mg Documented by: Metoprolol Tartrate (Lopressor (Beta Greonimo)) 100 mg PO BID [facility] Last Admin: 09/27/19 08:37 Dose: 100 mg Documented by: Ondansetron HCl (Zofran) 4 mg IV Q8H PRN PRN PRN Reason: NAUSEA/VOMITING Potassium Chloride (K-Dur) 20 meq PO DAILY [facility] Last Admin: 09/27/19 08:36 Dose: 20 meq Documented by: Pravastatin Sodium (Pravachol) 80 mg PO QHS [facility] Last Admin: 09/26/19 21:18 Dose: 80 mg Documented by: Sodium Chloride () 10 - 40 ml IV UD PRN PRN Reason: SALINE FLUSH STROKE Vital Signs/Narrative: Vital Signs Temp Pulse Resp BP Pulse Ox 09/27/19 08:40 98.0 F 74 18 139/67 H 94 09/27/19 08:37 74 09/27/19 07:47 97.9 F 76 18 151/59 H 94 09/27/19 07:32 97.9 F 73 18 147/61 H 94 09/27/19 07:28 97.5 F L 73 18 157/53 H 94 09/27/19 06:43 85 20 H 96 Medical Necessity - Tobacco Use Smoking Status: Former smoker Assessment/Plan All Active Problems (Last Reviewed 09/27/19 @ 09:55 by Malia Gutierrez PA-C) Bradycardia (Resolved) Anemia (Acute) 1. Sepsis due to community acquired pneumonia SIRS criteria is 1/ today- leucocytosis CXR showed right lower lobe infiltrate with a small right pleural effusion. Lactic acid 2. urine for strep adn legionella were negative on IV ceftriaxone and azithromycin 2. Acute on chronic hypoxic respiratory failure due to community acquired pneumonia now on her baseline 4L of oxygen. titrate oxygen to maintain sats>90%. Breathing treatments with bronchodilators. 3. Acute on chronic anemia Hemoglobin has dropped to 5.9 from 7.2 yesterday. Baseline hemoglobin is around 8-9. Aspirin and Eliquis on hold. Iron panel shows iron deficiency anemia with iron of 16 and iron saturation of 4.4 and ferritin of 8. States she cannot tolerate oral iron. Being transfused with 2 units of packed red blood cells. We will give IV PPI and also IV Venofer general surgery consulted Last colonoscopy was 11/18/2018 which showed diverticulosis in the sigmoid and ascending colon but examination was otherwise normal. Also had EGD on 11/18/2018 which showed gastritis which was biopsied. 4. Debility due to mechanical falls clare fell twice at home on night before admission. CT brain showed chronic involutional changes of the brain shoulder xray showed degenerative changes of the acromioclavicular joint as well as glenohumeral joint PT/OT on board PO tylenol prn 5. Afib: Currently rate and rhythm controlled. On amiodarone and metoprolol. xarelto currently on hold. 6. Hypertension: Controlled. On amlodipine and metoprolol 7. Hyperlipidemia: On statin 8. COPD: On breathing treatments with DuoNeb's. He is usually on 4 L of oxygen at home. 9. Hyperlipidemia: On statin DVT prophylaxis; SCDs. Xarelto on hold on account of acute on chronic anemia Code Status: Full code Code Visit Inpatient E&M: 55762 Subs Hosp L3
--- NOTE | 2019-09-27 11:21 | CASEMGMT ---
LW/POA forms in summary tab of Myra ellington is pt's medical POA. FRANCISCO J Miguel
[2019-09-27 13:14] LABS: Pathologist Review Reviewed
[2019-09-27] MEDS: Albuterol 2.5 MG/3 ML VIAL.NEB. INHALATION (14:44)
[2019-09-27] MEDS: Pravastatin 80 MG Tablet PO (22:33)
[2019-09-27] MEDS: 0.9% Saline Lock 10 ML Syringe IV (22:35)
[2019-09-27] MEDS: MELATONIN 10 MG TABLET PO (22:39)
[2019-09-28] VITALS (13 sets, daily range): BP systolic 125–176; BP diastolic 50–75; PULSE 60–78; RESP 16–20; TEMP 36.2–37; O2SAT 92–94
[2019-09-28] MEDS: HYDROcodone Bitartrate/Apap 5/325 Tablet PO ×5 (01:01→20:59)
[2019-09-28 05:53] LABS: Absolute Lymphocyte Count 0.99 X10^3/uL (0.83-4.51); Absolute Neutrophil Count 10.3 X10^3/uL (2.0-7.7); Basophil% 0.8 % (0-1); Eosinophil# 0.05 X10^3/uL; Eosinophils% 0.4 % (0-5); Hematocrit 26.8 % (37-47); Lymphocyte # 0.99 X10^3/ul (4.0); Lymphocyte % 7.7 % (19-41); Mean Corp Hgb Conc 29.9 g/dL (32-36); Mean Corpuscular Hgb 27.8 pg (27.0-32.0); Mean Corpuscular Volume 93.1 fL (81-99); Mean Platelet Vol. 9.8 fl (6.2-12.0); Monocyte# 1.32 X10^3/uL; Monocyte% 10.2 % (0-10); NRBC Flagged by Analyzer 0.9 % (0-5); Neutrophil # 10.28 X10^3/uL (2.7-7.7); Neutrophil % 79.8 % (47-70); Platelet Count 490 K/mm3 (150-450); RBC Distribution Width CV 16.4 % (11.6-14.6); RBC Distribution Width SD 55.6 fl (35.1-43.9); Red Blood Count 2.88 M/mm3 (4.2-5.4); White Blood Count 12.9 K/mm3 (4.4-11.0)
[2019-09-28 06:33] LABS: Anion Gap 5 (5-15); BUN 15 mg/dL (7-18); BUN/Creat Ratio 14.3 RATIO (10-20); Calcium,Total 8.8 mg/dL (8.5-10.1); Chloride 104 mmol/L (98-107); Creatinine, Serum 1.05 mg/dL (0.55-1.02); EST Glomerular Filtration Rate 54 mL/min (>60); Est Glom Filt Rate - Afr Amer 65 mL/min (>60); Estimated Creatinine Clearance 46.18 ml/min; Glucose 90 mg/dL (74-106); Potassium 3.6 mmol/L (3.5-5.1); Sodium Level 141 mmol/L (136-145)
[2019-09-28] MEDS: Ipratropium/Albuterol Sulfate 3 ML AMPUL.NEB INHALATION ×3 (07:05→19:10)
[2019-09-28] MEDS: Gabapentin 600 MG Tablet PO ×3 (07:32→16:57)
[2019-09-28] MEDS: Amiodarone 200 MG Tablet 100 MG PO (09:36)
[2019-09-28] MEDS: Furosemide 40 MG Tablet PO (09:36)
[2019-09-28] MEDS: Metoprolol Tartrate 100 MG Tablet PO ×2 (09:37→20:59)
[2019-09-28] MEDS: Methimazole 5 MG Tablet PO (09:37)
[2019-09-28] MEDS: amLODIPine 2.5 MG Tablet PO (09:37)
--- NOTE | 2019-09-28 10:21 | PCM.PN.HOSP ---
Subjective: Patient seen and examined. She had an uneventful night. She denies shortness of breath, palpitations, dizziness, abdominal pain, diarrhea or vomiting. She still has a cough which is nonproductive and she is back to her baseline 4 L of oxygen. Labs and vitals reviewed. Chemistry is unremarkable; WBC is down to 12.9 today and hemoglobin is 8. She did receive 2 units of packed red blood cells yesterday. General surgery was consulted and she is adamant that she does not want any colonoscopy or EGD. Vitals/I&O's: Vital Signs Temp Pulse Resp BP Pulse Ox 98.4 F 62 20 H 176/75 H 92 09/28/19 07:40 09/28/19 09:37 09/28/19 07:40 09/28/19 07:40 09/28/19 07:40 Oxygen Flow Rate (L/min) 4 Oxygen Delivery Method Nasal Cannula Weight: 143 lb 11.862 oz Body Mass Index (BMI) 32.2 Intake and Output for Last 24 Hours 09/26/19 09/27/19 09/28/19 23:59 23:59 23:59 Intake Total 1245.00 / 1245.00 2615 / 2615 300 / 300 Output Total 750 / 750 950 / 950 400 / 400 Balance 495.00 / 495.00 1665 / 1665 -100 / -100 General: Alert, Oriented x3, Cooperative, No apparent distress HEENT: Atraumatic, PERRLA, EOMI, Normocephalic Oral: Dry Mucosa Neck: Supple, No JVD, Negative Carotid Bruits Lungs: - - mildly decreased breath sounds in right posterior mid and lower lung field. No crackles. on 4L of oxygen, which is her baseline. Cardiovascular: Regular rate, Regular Rhythm, Normal S1, Normal S2, No murmurs Abdomen: Bowel Sounds Present, Soft, Non Tender, Non-Distended, No Hepato-splenomegaly Extremities: No clubbing, No cyanosis, No edema, Capillary Refill Less than 3 Seconds Skin: No rashes, No breakdown Musculoskeletal: No Tenderness to Palpation of Joints or Extremities Lymphatic: No Cervical, Supraclavicular, or Inguinal Adenopathy Neurological: Cranial nerves II-XII grossly intact, Neuro grossly intact, Motor Exam 5/5 strength throughout Psych/Mental Status: Normal Affect, Appropriate, Alert and oriented to time, place, person, mood and affect Microbiology Past 72 Hours 09/28/19 04:20 Stool Stool Occult Blood (MAU) - Final Occult Blood Positive 09/26/19 20:30 Urine, Clean Catch Legionella Antigen - Final 09/26/19 20:30 Urine, Clean Catch Streptococcus pneumoniae Antigen (M - Final Laboratory Results 09/26/19 12:56: Crossmatch See Detail 09/26/19 12:56: Crossmatch See Detail 09/27/19 05:20: Diff Path Review Reviewed 09/28/19 05:35: WBC 12.9 H, RBC 2.88 L, Hgb 8.0 L, Hct 26.8 L, MCV 93.1, MCH 27.8, MCHC 29.9 L, RDW Std Deviation 55.6 H, RDW Coeff of Valorie 16.4 H, Plt Count 490 H, MPV 9.8, Immature Gran % (Auto) 1.100 H, Neut % (Auto) 79.8 H, Lymph % (Auto) 7.7 L, [place] % (Auto) 10.2 H, Eos % (Auto) 0.4, Baso % (Auto) 0.8, Absolute Neuts (auto) 10.3 H, Absolute Lymphs (auto) 0.99, Nucleated RBC % 0.9 09/28/19 05:35: Sodium 141, Potassium 3.6, Chloride 104, Carbon Dioxide 32.0, Anion Gap 5, BUN 15, Creatinine 1.05 H, Estim Creat Clear Calc 46.18, Est GFR (MDRD) Af Amer 65, Est GFR (MDRD) Non-Af 54 L, BUN/Creatinine Ratio 14.3, Glucose 90, Calcium 8.8 Diagnostic Data Chest X-Ray 09/26/19 10:19 IMPRESSION: Right lower lobe infiltrate with a small right pleural effusion. Electronically Signed: Jessee Farmer, at 10:50 EST , Service support , Brain CT 09/26/19 10:26 IMPRESSION: Chronic involutional changes of the brain. Electronically Signed: Jessee Farmer, at 11:56 EST , Service support , Shoulder X-Ray 09/26/19 10:26 IMPRESSION: Degenerative changes of the acromioclavicular joint as well as the glenohumeral joint. Electronically Signed: Jessee Zhengdeepaktonio, at 11:58 EST , Service support , Humerus X-Ray 09/26/19 11:40 IMPRESSION: No fracture is seen. Marked degree of osteoarthritis of the glenohumeral joint. Electronically Signed: Jessee Darian, at 11:57 EST , Service support , Current Medications Hydrocodone Bitart/Acetaminophen ([place] 5mg-325mg) 1 - 2 tablet PO Q4H PRN PRN PRN Reason: Pain Score 1-10/10 Last Admin: 09/28/19 07:31 Dose: 1 tablet Documented by: Albuterol Sulfate (Ventolin Aerosols) 2.5 mg INHALATION Q4H PRN PRN PRN Reason: SOB &/OR WHEEZING Last Admin: 09/27/19 14:44 Dose: 2.5 mg Documented by: Albuterol/Ipratropium (Duoneb) 3 ml INHALATION Q6HWA.RT [facility] Last Admin: 09/28/19 07:05 Dose: 3 ml Documented by: Amiodarone HCl (Cordarone) 100 mg PO DAILY [facility] Last Admin: 09/28/19 09:36 Dose: 100 mg Documented by: Amlodipine Besylate (Norvasc) 2.5 mg PO DAILY [facility] Last Admin: 09/28/19 09:37 Dose: 2.5 mg Documented by: Furosemide (Lasix) 40 mg PO DAILY [facility] Last Admin: 09/28/19 09:36 Dose: 40 mg Documented by: Gabapentin (Neurontin) 600 mg PO TIDCM [facility] Last Admin: 09/28/19 07:32 Dose: 600 mg Documented by: Glucagon () 1 mg IM .X1 PRN PRN Reason: Hypoglycemia Ceftriaxone Sodium 2 gm/ (Sodium Chloride) 50 mls @ 100 mls/hr IV Q24 [facility] Last Infusion: 09/28/19 10:10 Dose: Infused Documented by: Azithromycin 500 mg/ Dextrose 255 mls @ 250 mls/hr IV Q24 [facility] Last Infusion: 09/27/19 13:43 Dose: Infused Documented by: Dextrose (Dextrose 10%-Water) 250 mls @ 999 mls/hr IV .Q16M PRN; Protocol PRN Reason: HYPOGLYCEMIA Pantoprazole Sodium 40 mg/ (Sodium Chloride) 110 mls @ 330 mls/hr IV Q12 [facility] Last Admin: 09/28/19 10:12 Dose: 330 mls/hr Documented by: Meclizine HCl (Antivert) 25 mg PO TID PRN PRN PRN Reason: DIZZINESS Melatonin (Melatonin) 10 mg PO QHS PRN PRN PRN Reason: SLEEP Last Admin: 09/27/19 22:39 Dose: 10 mg Documented by: Methimazole (Tapazole) 5 mg PO DAILY [facility] Last Admin: 09/28/19 09:37 Dose: 5 mg Documented by: Metoprolol Tartrate (Lopressor (Beta Geronimo)) 100 mg PO BID [facility] Last Admin: 09/28/19 09:37 Dose: 100 mg Documented by: Ondansetron HCl (Zofran) 4 mg IV Q8H PRN PRN PRN Reason: NAUSEA/VOMITING Potassium Chloride (K-Dur) 20 meq PO DAILY [facility] Last Admin: 09/28/19 09:36 Dose: 20 meq Documented by: Pravastatin Sodium (Pravachol) 80 mg PO QHS [facility] Last Admin: 09/27/19 22:33 Dose: 80 mg Documented by: Sodium Chloride () 10 - 40 ml IV UD PRN PRN Reason: SALINE FLUSH Last Admin: 09/27/19 22:35 Dose: 10 ml Documented by: STROKE Vital Signs/Narrative: Vital Signs Temp Pulse Resp BP Pulse Ox 09/28/19 09:37 62 09/28/19 07:52 62 09/28/19 07:40 98.4 F 72 20 H 176/75 H 92 09/28/19 07:05 69 16 92 Medical Necessity - Tobacco Use Smoking Status: Former smoker Assessment/Plan All Active Problems (Last Reviewed 09/27/19 @ 09:55 by Malia Gutierrez PA-C) Bradycardia (Resolved) Anemia (Acute) 1. Sepsis due to community acquired pneumonia she still has leucocytosis, though wbc is down to 12.9 on IV ceftriaxone and azithromycin urine for strep and legionella were negative; blood culture pending; sputum culture not obtained yet as cough is nonproductive 2. Acute on chronic hypoxic respiratory failure due to community acquired pneumonia now on her baseline 4L of oxygen. titrate oxygen to maintain sats>90%. Breathing treatments with bronchodilators. 3. Acute on chronic anemia s/p 2 units of PRBC transfusion Hb today is 8 Aspirin and Eliquis on hold. Iron panel shows iron deficiency anemia with iron of 16 and iron saturation of 4.4 and ferritin of 8. States she cannot tolerate oral iron. Being transfused with 2 units of packed red blood cells. on IV pantoprazole. Also gave IV venofer. general surgery consulted-patient refuses to have EGD or colonoscopy Last colonoscopy was 11/18/2018 which showed diverticulosis in the sigmoid and ascending colon but examination was otherwise normal. Also had EGD on 11/18/2018 which showed gastritis which was biopsied. 4. Debility due to mechanical falls PT/OT on board PO tylenol prn 5. Afib: Currently rate and rhythm controlled. On amiodarone and metoprolol. xarelto currently on hold due to acute on chronic anemia and iron deficiency especially as she refuses to have any work-up done. She was counseled that she is at risk of stroke with Xarelto was discontinued. Atient counseled that aspirin and xarelto will be dc'd 6. Hypertension: Controlled. On amlodipine and metoprolol 7. Hyperlipidemia: On statin 8. COPD: On breathing treatments with DuoNeb's. usually on 4 L of oxygen at home. 9. Hyperlipidemia: On statin DVT prophylaxis; SCDs. Xarelto on hold on account of acute on chronic anemia Code Status: Full code Code Visit Inpatient E&M: 28634 Subs Hosp L2
--- NOTE | 2019-09-28 14:56 | CASEMGMT ---
Pt is asking about getting a portable concentrator for at home. Call to Dr. Ravi's office and message left on nurse line in regards to same at this time. Rocky BARKER CM also updated on all, voices understanding. Krista BARKER CM
--- NOTE | 2019-09-28 17:50 | NURSING ---
Assumed care of pt at this time.
[2019-09-28] MEDS: MELATONIN 10 MG TABLET PO (20:59)
[2019-09-28] MEDS: Pravastatin 80 MG Tablet PO (20:59)
[2019-09-28] MEDS: 0.9% Saline Lock 10 ML Syringe IV (21:01)
[2019-09-29] VITALS (9 sets, daily range): BP systolic 143–147; BP diastolic 78–86; PULSE 61–85; RESP 18; TEMP 36.6; O2SAT 95–96
[2019-09-29] MEDS: HYDROcodone Bitartrate/Apap 5/325 Tablet PO ×3 (00:58→09:42)
[2019-09-29] MEDS: Ipratropium/Albuterol Sulfate 3 ML AMPUL.NEB INHALATION ×3 (01:12→13:38)
[2019-09-29 05:49] LABS: Absolute Neutrophil Count 5.8 X10^3/uL (2.0-7.7); Basophil# 0.11 X10^3/uL; Basophil% 1.3 % (0-1); Eosinophil# 0.22 X10^3/uL; Eosinophils% 2.7 % (0-5); Hematocrit 26.5 % (37-47); Hemoglobin 7.8 g/dL (12.0-15.0); Lymphocyte % 12.2 % (19-41); Mean Corp Hgb Conc 29.4 g/dL (32-36); Mean Corpuscular Hgb 27.5 pg (27.0-32.0); Mean Corpuscular Volume 93.3 fL (81-99); Monocyte# 1.02 X10^3/uL; Monocyte% 12.4 % (0-10); NRBC Flagged by Analyzer 0.6 % (0-5); Neutrophil # 5.81 X10^3/uL (2.7-7.7); Neutrophil % 70.8 % (47-70); Platelet Count 493 K/mm3 (150-450); RBC Distribution Width CV 16.3 % (11.6-14.6); RBC Distribution Width SD 54.8 fl (35.1-43.9); Red Blood Count 2.84 M/mm3 (4.2-5.4); White Blood Count 8.2 K/mm3 (4.4-11.0)
[2019-09-29 06:14] LABS: Anion Gap 4 (5-15); BUN 14 mg/dL (7-18); Calcium,Total 8.8 mg/dL (8.5-10.1); Chloride 107 mmol/L (98-107); EST Glomerular Filtration Rate 57 mL/min (>60); Est Glom Filt Rate - Afr Amer 69 mL/min (>60); Estimated Creatinine Clearance 48.49 ml/min; Glucose 82 mg/dL (74-106); Potassium 3.3 mmol/L (3.5-5.1); Sodium Level 142 mmol/L (136-145)
[2019-09-29] MEDS: Gabapentin 600 MG Tablet PO (08:29)
[2019-09-29] MEDS: amLODIPine 2.5 MG Tablet PO (08:30)
[2019-09-29] MEDS: Furosemide 40 MG Tablet PO (08:30)
[2019-09-29] MEDS: Methimazole 5 MG Tablet PO (08:30)
[2019-09-29] MEDS: Metoprolol Tartrate 100 MG Tablet PO (08:31)
[2019-09-29] MEDS: Amiodarone 200 MG Tablet 100 MG PO (08:37)
--- NOTE | 2019-09-29 10:00 | DS.PCM_ITS ---
Discharge Date and Diagnosis Date of Admission: 09/26/19 Date of Discharge: 09/29/19 - Primary Discharge Diagnosis sepsis community acquired pneumonia acute on chronic hypoxic respiratory failure acute on chronic anemia - Secondary Discharge Diagnosis Chronic Problems (Last Reviewed 09/27/19 @ 09:55 by Malia Gutierrez PA-C) Sick sinus syndrome (Chronic) Presence of permanent cardiac pacemaker (Chronic 03/13/19) Valvular heart disease (Chronic) Stage III chronic kidney disease (Chronic) Chronic back pain (Chronic) Iron deficiency anemia due to chronic blood loss (Chronic) Hyperthyroidism (Chronic) Chronic respiratory failure with hypoxia (Chronic) Paroxysmal atrial fibrillation (Chronic) rn long term care current use of anticoagulant therapy (Chronic) Nonrheumatic tricuspid (valve) insufficiency (Chronic) Nonrheumatic aortic (valve) insufficiency (Chronic) Hyperlipidemia (Chronic) COPD (chronic obstructive pulmonary disease) (Chronic) Hypertension (Chronic) Hospital Course and Treatment Imaging Results: Diagnostic Data Chest X-Ray 09/26/19 10:19 IMPRESSION: Right lower lobe infiltrate with a small right pleural effusion. Electronically Signed: Jessee Farmer at 10:50 EST , Service support , Brain CT 09/26/19 10:26 IMPRESSION: Chronic involutional changes of the brain. Electronically Signed: Jessee Farmer at 11:56 EST , Service support , Shoulder X-Ray 09/26/19 10:26 IMPRESSION: Degenerative changes of the acromioclavicular joint as well as the glenohumeral joint. Electronically Signed: Jessee Farmer at 11:58 EST , Service support , Humerus X-Ray 09/26/19 11:40 IMPRESSION: No fracture is seen. Marked degree of osteoarthritis of the glenohumeral joint. Electronically Signed: Jessee Farmer at 11:57 EST , Service support , general surgery- Dr Yanez Operations: None Procedures: None Summary of Care Provided: The patient is a 79 year old F with an extensive past medical history as listed which includes chronic respiratory failure, on 4 L of oxygen at home. She was admitted through the ED on 09/26/2019 with a complaint of shortness of breath which have been going on about 3 days prior to admission. She had assisted wheezing and a cough which he states was nonproductive. She denied any fever chills nausea vomiting and denied any abdominal pain, palpitations or dizziness. Of note, patient states she has been getting weaker and fell twice the night before admission. States both times she just felt weak in her legs gave way and she fell and hit her head and her right arm and right leg. She did not lose consciousness and was able to crawl over to a stool and pull herself up. She says she has had similar fall like once every 6 months. Patient is on Eliquis. On admission the ED, vitals were essentially stable and chemistry was significant for creatinine of 1.2 but was otherwise unremarkable. Lactic acid was 2. Initial troponin was negative. Past in the ED, patient developed a temperature spike to 100.5 ?C. CBC showed white cell count of 15.9, and hemoglobin of 7.2 with platelets of 502. She was requiring up to 5 L of oxygen in the ED. Chest x-ray showed right lower lobe infiltrate with a small right pleural effusion. CT of the brain showed no acute intracranial process and no evidence of bleeding. Humerus x-ray series x-ray negative for any fracture. She was admitted to be managed for debility and mechanical falls as well as acute on chronic hypoxic respiratory failure due to community-acquired pneumonia. She was started on IV ceftriaxone and azithromycin. She was h ydrated with IV fluids. Urine for strep and Legionella were negative and blood cultures were also negative. She was started on bronchodilator breathing treatments and oxygen was to be titrated down to a baseline of 4 L. Hemoglobin subsequently dropped to 5.9 from 7.2 on admission. She denied any bright red blood per rectum or any dark stools or coffee-ground emesis. Her aspirin and Eliquis were held and stool occult blood done was positive. General surgery was consulted and patient adamantly refused to have any EGD or colonoscopy as she had had a colonoscopy in October 2018 which showed diverticulosis in the sigmoid and ascending colon. EGD done in October 2018 also showed gastritis. Patient was put on PPI and transfused with 2 units of packed red blood cells. Patient stated she could not tolerate oral iron as she got profuse diarrhea and so was given IV Venofer during this admission. Patient gradually improved and went back down to her baseline 4 L of oxygen. She remained stable and was discharged home on 09/29/2019 with a prescription for p.o. levofloxacin for 5 days. She is to follow-up with her primary care doctor and general surgery. Aspirin and Eliquis were discontinued and patient was counseled extensively that she was at risk of getting a stroke as aspirin and Eliquis have been discontinued due to suspicion for GI bleed. Her refusal to have an EGD or colonoscopy means that we could not rule out any GI bleed and so it was dangerous for her to be on aspirin and Eliquis. Patient expressed understanding about this and still refused to have an EGD or colonoscopy. Patient seen and examined prior to discharge. She felt well to be discharged home today. She had no complaints and she denied any fever or chills, shortness of breath, chest pain, palpitations, dizziness, nausea vomiting or diarrhea. Review of stems otherwise negative. Labs and vitals reviewed. Potassium was 3.3 and she was given replacement as per protocol. Home medications reviewed and reconciled. o/e: Vital Signs Height 4 ft 8 in Weight: 143 lb 11.862 oz Weight in Pounds 143.7 lbs Pulse Ox 96 Temperature 97.8 F Pulse Rate 68 Respiratory Rate 18 Blood Pressure [BP] 126/60 Blood Pressure 143/78 Blood Pressure Position [BP] Semi-Fowlers Blood Pressure Position Sitting General: Alert, Oriented x3, Cooperative, No apparent distress HEENT: Atraumatic, PERRLA, EOMI, Normocephalic Oral: Dry Mucosa Neck: Supple, No JVD, Negative Carotid Bruits Lungs: - - mildly decreased breath sounds in right posterior mid and lower lung field. No crackles. on 4L of oxygen, which is her baseline. Cardiovascular: Regular rate, Regular Rhythm, Normal S1, Normal S2, No murmurs Abdomen: Bowel Sounds Present, Soft, Non Tender, Non-Distended, No Hepato- splenomegaly Extremities: No clubbing, No cyanosis, No edema, Capillary Refill Less than 3 Seconds Skin: No rashes, No breakdown Musculoskeletal: No Tenderness to Palpation of Joints or Extremities Lymphatic: No Cervical, Supraclavicular, or Inguinal Adenopathy Neurological: Cranial nerves II-XII grossly intact, Neuro grossly intact, Motor Exam 5/5 strength throughout Psych/Mental Status: Normal Affect, Appropriate, Alert and oriented to time, place, person, mood and affect Plan as above. - Physical Exam Vitals/I&O's: Vital Signs Temp Pulse Resp BP Pulse Ox 97.8 F 85 18 143/78 H 96 09/29/19 08:38 09/29/19 08:38 09/29/19 08:38 09/29/19 08:38 09/29/19 08:38 Oxygen Flow Rate (L/min) 4 Oxygen Delivery Method Nasal Cannula Weight: 143 lb 11.862 oz Body Mass Index (BMI) 32.2 Intake and Output for Last 24 Hours 09/27/19 09/28/19 09/29/19 23:59 23:59 23:59 Intake Total 2615 / 2615 2265 / 2265 120 / 120 Output Total 950 / 950 1100 / 1100 300 / 300 Balance 1665 / 1665 1165 / 1165 -180 / -180 Microbiology Past 72 Hours 09/26/19 13:05 Blood Culture (Wb) - Anticubital Left Blood Culture - Preliminary No growth in 48 hours. 09/26/19 12:56 Blood Culture (Wb) - Anticubital Right Blood Culture - Preliminary No growth in 48 hours. 09/28/19 04:20 Stool Stool Occult Blood (MAU) - Final Occult Blood Positive 09/26/19 20:30 Urine, Clean Catch Legionella Antigen - Final 09/26/19 20:30 Urine, Clean Catch Streptococcus pneumoniae Antigen (M - Final Laboratory Results 09/29/19 05:25: WBC 8.2, RBC 2.84 L, Hgb 7.8 L, Hct 26.5 L, MCV 93.3, MCH 27.5, MCHC 29.4 L, RDW Std Deviation 54.8 H, RDW Coeff of Valorie 16.3 H, Plt Count 493 H, MPV 10.0, Immature Gran % (Auto) 0.600, Neut % (Auto) 70.8 H, Lymph % (Auto) 12.2 L, [place]undy % (Auto) 12.4 H, Eos % (Auto) 2.7, Baso % (Auto) 1.3 H, Absolute Neuts (auto) 5.8, Absolute Lymphs (auto) 1.00, Nucleated RBC % 0.6 09/29/19 05:25: Sodium 142, Potassium 3.3 L, Chloride 107, Carbon Dioxide 31.0, Anion Gap 4 L, BUN 14, Creatinine 1.00, Estim Creat Clear Calc 48.49, Est GFR (MDRD) Af Amer 69, Est GFR (MDRD) Non-Af 57 L, BUN/Creatinine Ratio 14.0, Glucose 82, Calcium 8.8 Current Medications Hydrocodone Bitart/Acetaminophen ([place] 5mg-325mg) 1 - 2 tablet PO Q4H PRN PRN PRN Reason: Pain Score 1-10/10 Last Admin: 09/29/19 09:42 Dose: 2 tablet Documented by: Albuterol Sulfate (Ventolin Aerosols) 2.5 mg INHALATION Q4H PRN PRN PRN Reason: SOB &/OR WHEEZING Last Admin: 09/27/19 14:44 Dose: 2.5 mg Documented by: Albuterol/Ipratropium (Duoneb) 3 ml INHALATION Q6HWA.RT [facility] Last Admin: 09/29/19 07:41 Dose: 3 ml Documented by: Amiodarone HCl (Cordarone) 100 mg PO DAILY [facility] Last Admin: 09/29/19 08:37 Dose: 100 mg Documented by: Amlodipine Besylate (Norvasc) 2.5 mg PO DAILY [facility] Last Admin: 09/29/19 08:30 Dose: 2.5 mg Documented by: Furosemide (Lasix) 40 mg PO DAILY [facility] Last Admin: 09/29/19 08:30 Dose: 40 mg Documented by: Gabapentin (Neurontin) 600 mg PO TIDCM [facility] Last Admin: 09/29/19 08:29 Dose: 600 mg Documented by: Glucagon () 1 mg IM .X1 PRN PRN Reason: Hypoglycemia Ceftriaxone Sodium 2 gm/ (Sodium Chloride) 50 mls @ 100 mls/hr IV Q24 [facility] Last Admin: 09/29/19 09:50 Dose: 100 mls/hr Documented by: Azithromycin 500 mg/ Dextrose 255 mls @ 250 mls/hr IV Q24 [facility] Last Infusion: 09/28/19 11:39 Dose: Infused Documented by: Dextrose (Dextrose 10%-Water) 250 mls @ 999 mls/hr IV .Q16M PRN; Protocol PRN Reason: HYPOGLYCEMIA Pantoprazole Sodium 40 mg/ (Sodium Chloride) 110 mls @ 330 mls/hr IV Q12 [facility] Last Infusion: 09/28/19 21:42 Dose: Infused Documented by: Meclizine HCl (Antivert) 25 mg PO TID PRN PRN PRN Reason: DIZZINESS Melatonin (Melatonin) 10 mg PO QHS PRN PRN PRN Reason: SLEEP Last Admin: 09/28/19 20:59 Dose: 10 mg Documented by: Methimazole (Tapazole) 5 mg PO DAILY [facility] Last Admin: 09/29/19 08:30 Dose: 5 mg Documented by: Metoprolol Tartrate (Lopressor (Beta Geronimo)) 100 mg PO BID [facility] Last Admin: 09/29/19 08:31 Dose: 100 mg Documented by: Ondansetron HCl (Zofran) 4 mg IV Q8H PRN PRN PRN Reason: NAUSEA/VOMITING Potassium Chloride (K-Dur) 20 meq PO DAILY [facility] Last Admin: 09/29/19 08:29 Dose: 20 meq Documented by: Pravastatin Sodium (Pravachol) 80 mg PO QHS [facility] Last Admin: 09/28/19 20:59 Dose: 80 mg Documented by: Sodium Chloride () 10 - 40 ml IV UD PRN PRN Reason: SALINE FLUSH Last Admin: 09/28/19 21:01 Dose: 10 ml Documented by: Discharge Diet: Low fat/ Low Cholesterol Discharge Activity: Return to Normal Activity Weight Bearing Status: Weight bearing as tolerated Call your doctor if you observe: Fever of 101 or Higher, Shortness of breath, Swelling in the ankles Home Medications: Medications to take at Discharge Carisoprodol [Soma] 350 mg PO TID 03/17/17 Cholecalciferol (Vitamin D3) [Vitamin D3] 5,000 unit PO DAILY 03/17/17 Gabapentin [Neurontin] 600 mg PO TIDCM 03/17/17 Hydrocodone Bitart/Apap 5-325 [[place] 5/325] 1 - 2 tab PO Q4H PRN PRN 03/17/17 Melatonin 10 - 15 mg PO QHS PRN PRN 03/17/17 Pravastatin [Pravachol] 80 mg PO QHS 11/17/18 ipratropium 0.5 mg-albuterol 3 mg (2.5 mg base)/3 mL nebulization soln 3 ml INHALATION Q8H #180 ml 12/21/18 methimazole 5 mg tablet 5 mg PO DAILY #30 tab 03/09/19 furosemide 40 mg tablet 40 mg PO DAILY tab 05/29/19 albuterol sulfate 90 mcg/actuation aerosol inhaler 2 puff INHALATION Q4H PRN PRN #18 g 07/10/19 Amiodarone HCl 100 mg PO DAILY 09/26/19 Amlodipine Besylate 2.5 mg PO DAILY 09/26/19 Metoprolol Tartrate [Lopressor (beta geronimo)] 100 mg PO BID 09/26/19 Pantoprazole Sodium [Protonix] 40 mg PO BID 09/26/19 Potassium Chloride [K-Tab ER] 20 meq PO DAILY 09/26/19 Tiotropium Br/Olodaterol HCl [Stiolto Respimat Inhal [place]] 2 puff INHALATION DAILY 09/26/19 levoFLOXacin tablet [Levaquin tablet] 750 mg PO DAILY #5 tab 09/29/19 Following Prescrptions Were Given to Patient: levoFLOXacin tablet [Levaquin tablet] 750 mg PO DAILY #5 tab Transmission Status: Received by [facility]/pharmacy #[id number] Primary Care Physician: Shila Mckinnon DO [Primary Care Provider] - Please follow up with your Primary Care Physician in: one week Please Follow Up With: Shila Mckinnon DO Please Follow Up With: Blade Campoverde MD Please Follow Up With: Farhan Yanez MD When: 1-2 weeks Patient Instructions: Fecal Occult Blood Test, Anemia, Using Oxygen Safely, What Is Pneumonia?, Using Oxygen at Home, Preventing Pneumonia, Treating Pneumonia, Sepsis Disposition: Home Minutes spent on discharge:: 40 Patient Condition:: Stable Medical Necessity - Tobacco Use Smoking Status: Former smoker Meaningful Use Info Meaningful Use Diagnoses (Choose all that apply): None applicable Code Visit Inpatient E&M: 70439 Disch Hosp
--- NOTE | 2019-09-29 10:00 | DCINST_ITS ---
You will use the following diet at home:: Cardiac Your food should be the consistency of: Regular Your liquids should be the consistency of: Regular/Thin Discharge Activity: Return to Normal Activity Weight Bearing Status: Weight bearing as tolerated Call your doctor if you observe: Fever of 101 or Higher, Shortness of breath, Dizziness, Fainting spells, Chest pain Instructions: Sepsis, What Is Pneumonia?, Using Oxygen Safely, Using Oxygen at Home, Preventing Pneumonia, Treating Pneumonia, Anemia, Fecal Occult Blood Test Allergies/Adverse Reactions: Allergies ferrous sulfate Adverse Reaction (Severe, Verified 09/26/19 10:20) Diarrhea codeine Adverse Reaction (Verified 09/26/19 10:20) makes me sick pregabalin [From Lyrica] Adverse Reaction (Verified 09/26/19 10:20) makes me deathly ill makes me deathly ill tramadol Adverse Reaction (Verified 09/26/19 10:20) Nausea and dizziness Medications to take at Discharge Carisoprodol [Soma] 350 mg PO TID 03/17/17 Cholecalciferol (Vitamin D3) [Vitamin D3] 5,000 unit PO DAILY 03/17/17 Gabapentin [Neurontin] 600 mg PO TIDCM 03/17/17 Hydrocodone Bitart/Apap 5-325 [[place] 5/325] 1 - 2 tab PO Q4H PRN PRN 03/17/17 Melatonin 10 - 15 mg PO QHS PRN PRN 03/17/17 Pravastatin [Pravachol] 80 mg PO QHS 11/17/18 ipratropium 0.5 mg-albuterol 3 mg (2.5 mg base)/3 mL nebulization soln 3 ml INHALATION Q8H #180 ml 12/21/18 methimazole 5 mg tablet 5 mg PO DAILY #30 tab 03/09/19 furosemide 40 mg tablet 40 mg PO DAILY tab 05/29/19 albuterol sulfate 90 mcg/actuation aerosol inhaler 2 puff INHALATION Q4H PRN PRN #18 g 07/10/19 Amiodarone HCl 100 mg PO DAILY 09/26/19 Amlodipine Besylate 2.5 mg PO DAILY 09/26/19 Metoprolol Tartrate [Lopressor (beta manuel)] 100 mg PO BID 09/26/19 Pantoprazole Sodium [Protonix] 40 mg PO BID 09/26/19 Potassium Chloride [K-Tab ER] 20 meq PO DAILY 09/26/19 Tiotropium Br/Olodaterol HCl [Stiolto Respimat Inhal [place]] 2 puff INHALATION DAILY 09/26/19 levoFLOXacin tablet [Levaquin tablet] 750 mg PO DAILY #5 tab 09/29/19 The following prescriptions were given: levoFLOXacin tablet [Levaquin tablet] 750 mg PO DAILY #5 tab Transmission Status: Pending to [facility]/pharmacy #[id number] Primary Care Physician: Shila Mckinnon DO [Primary Care Provider] - Please follow up with your Primary Care Physician in: one week Test Results: Test results from this visit will be discussed in further detail at your follow- up appointment, if applicable. Please Follow Up With: Shila Mckinnon DO Please Follow Up With: Blade Campoverde MD When: 1-2 weeks Please Follow Up With: Farhan Yanez MD When: 1-2 weeks o.a of anemia Proposed Discharge Date: 09/29/19
--- NOTE | 2019-09-29 10:41 | CASEMGMT ---
MJ CEVALLOS NOTE: Pt being discharged. RN CM to room. Pt resting in bed. Granddaughter @ bedside. Pt states her granddaughter will be staying with her through the weekend until at least Wednesday. They were made aware [facility] is awaiting a call back from pt's daughter to set up appt for start of care. Granddaughter voices understanding. Pt and granddaughter deny further needs or concerns at this time. Sneha CASTELLANOS RN, CM
--- NOTE | 2019-09-29 11:32 | PHA.DC.MC ---
Pharmacy Service has performed discharge medication reconciliation and counseling for this patient. The patient's discharge medication list was reviewed for discrepancies and discrepancies were resolved. Home Medications Carisoprodol [Soma] 350 mg PO TID 03/17/17 Cholecalciferol (Vitamin D3) [Vitamin D3] 5,000 unit PO DAILY 03/17/17 Gabapentin [Neurontin] 600 mg PO TIDCM 03/17/17 Hydrocodone Bitart/Apap 5-325 [[place] 5/325] 1 - 2 tab PO Q4H PRN PRN 03/17/17 Melatonin 10 - 15 mg PO QHS PRN PRN 03/17/17 Pravastatin [Pravachol] 80 mg PO QHS 11/17/18 ipratropium 0.5 mg-albuterol 3 mg (2.5 mg base)/3 mL nebulization soln 3 ml INHALATION Q8H #180 ml 12/21/18 methimazole 5 mg tablet 5 mg PO DAILY #30 tab 03/09/19 furosemide 40 mg tablet 40 mg PO DAILY tab 05/29/19 albuterol sulfate 90 mcg/actuation aerosol inhaler 2 puff INHALATION Q4H PRN PRN #18 g 07/10/19 Amiodarone HCl 100 mg PO DAILY 09/26/19 Amlodipine Besylate 2.5 mg PO DAILY 09/26/19 Metoprolol Tartrate [Lopressor (beta manuel)] 100 mg PO BID 09/26/19 Pantoprazole Sodium [Protonix] 40 mg PO BID 09/26/19 Potassium Chloride [K-Tab ER] 20 meq PO DAILY 09/26/19 Tiotropium Br/Olodaterol HCl [Stiolto Respimat Inhal [place]] 2 puff INHALATION DAILY 09/26/19 levoFLOXacin tablet [Levaquin tablet] 750 mg PO DAILY #5 tab 09/29/19 The patient was counseled on the following discharge medications and changes in medications for homegoing were reviewed. The Reason for Use, instructions for use, and potential side effects were reviewed for all new medications. 1. levofloxacin The patient's questions regarding all of their medications were answered. The patient demonstrated some understanding but would benefit from further education and reinforcement.
--- NOTE | 2019-10-02 13:42 | CASEMGMT ---
Case Management DC F/u Call: DC Date: Wednesday09/29/2019 DC Diagnosis: sepsis, community acquired pneumonia, acute on chronic hypoxic respiratory failure, acute on chronic anemia DC Disposition: Home with [facility] start of care Lace/Strata: 07/02 Called patient listed cell phone on demographics, no answer, VM did not verify correct patient identity and therefore no VM left. Hector Raymundo RNCM
== END 2019-09-29 14:15 | disposition home or self-care (01) | DRG 871 ==
LOC: ED 10:33 → PCU 13:02
PROVIDERS: Admitting Provider Student in an Organized Health Care Education/Training Program; Emergency Provider Emergency Medicine; PCP Family Medicine; Visit Provider Student in an Organized Health Care Education/Training Program
DX: A41.9 Sepsis, unspecified organism (principal); J18.9 Pneumonia, unspecified organism; J96.21 Acute and chronic respiratory failure with hypoxia; J44.0 Chronic obstructive pulmonary disease with (acute) lower respiratory infection; S40.011A Contusion of right shoulder, initial encounter; W19.XXXA Unspecified fall, initial encounter; Y92.039 Unspecified place in apartment as the place of occurrence of the external cause; E78.5 Hyperlipidemia, unspecified; Z99.81 Dependence on supplemental oxygen; R53.81 Other malaise; I49.5 Sick sinus syndrome; N18.3 Chronic kidney disease, stage 3 (moderate); I12.9 Hypertensive chronic kidney disease with stage 1 through stage 4 chronic kidney disease, or unspecified chronic kidney disease; G89.29 Other chronic pain; M54.9 Dorsalgia, unspecified; D50.0 Iron deficiency anemia secondary to blood loss (chronic); I48.0 Paroxysmal atrial fibrillation; Z95.0 Presence of cardiac pacemaker; Z79.01 Long term (current) use of anticoagulants; Z87.891 Personal history of nicotine dependence; E05.90 Thyrotoxicosis, unspecified without thyrotoxic crisis or storm
CPT/HCPCS: 36415; 70450; 71045; 73030; 73060; 80048; 81001; 82274; 82728; 83540; 83550; 83605; 84484; 85025; 86850; 86900; 86901; 86920; 87040; 87449; 93005; 94640; 94762; 97162; 97166; 97530; 97535; 99251; 99285; J1756; J7040; P9040; P9612; A4216; G0463; J0696

== ENCOUNTER 2019-10-27 19:38 | Inpatient (IN) | payer MEDICARE, SELFPAY ==
[2019-09-26 14:00] VITALS: BMI 32.2
[2019-10-27] VITALS (10 sets, daily range): BP systolic 120–145; BP diastolic 50–60; PULSE 70–74; RESP 16–27; TEMP 36.3–38.6; O2SAT 92–94; BMI 30.4; BMI 31.7
--- NOTE | 2019-10-27 20:05 | EKG12_ITS ---
Test Reason : DYSRHYTHMIA Blood Pressure : / mmHG Vent. Rate : 068 BPM Atrial Rate : 068 BPM P-R Int : 172 ms QRS Dur : 076 ms QT Int : 418 ms P-R-T Axes : 021 043 059 degrees QTc Int : 444 ms Normal sinus rhythm Nonspecific T wave abnormality Abnormal ECG Confirmed by ALYSSIA XIE, STORM ([id number]), fashion editor DENISE LEON ([id number]) on 10/30/2019 10:04:26 AM Referred By: HEBERT Confirmed By:STORM CADE MD
--- NOTE | 2019-10-27 20:08 | RAD_ITS ---
STUDY: X-RAY CHEST REASON FOR EXAM: Female, 79 years old. sob cough and fever TECHNIQUE: Frontal view COMPARISON: September 26, 2019 FINDINGS: Stable left-sided pacemaker. The lungs are expanded. Right basilar infiltrate is noted. Normal size heart. Normal mediastinum and lydia. Normal visualized pulmonary arteries. Normal visualized aortic arch and descending thoracic aorta. Degenerative changes and scoliosis of the thoracic spine. Normal visualized ribs, clavicles, and shoulders. There is no demonstrated abnormality of the visualized soft tissue structures of the upper abdomen. RAD/Chest 1 View (Portable) IMPRESSION: Right basilar infiltrate. Electronically Signed: Mati Novak DO at 20:39 EST Tel [phone], Service support ,
[2019-10-27] MEDS: Ipratropium/Albuterol Sulfate 3 ML AMPUL.NEB INHALATION ×2 (20:22→23:28)
[2019-10-27 20:43] LABS: Absolute Lymphocyte Count 0.62 X10^3/uL (0.83-4.51); Absolute Neutrophil Count 14.2 X10^3/uL (2.0-7.7); Basophil% 0.6 % (0-1); Eosinophils% 0.6 % (0-5); Hematocrit 33.3 % (37-47); Hemoglobin 9.8 g/dL (12.0-15.0); Lymphocyte # 0.62 X10^3/ul (4.0); Lymphocyte % 3.8 % (19-41); Mean Corp Hgb Conc 29.4 g/dL (32-36); Mean Corpuscular Hgb 29.4 pg (27.0-32.0); Mean Platelet Vol. 11.8 fl (6.2-12.0); Monocyte# 1.25 X10^3/uL; Monocyte% 7.6 % (0-10); NRBC Flagged by Analyzer 0 % (0-5); Neutrophil # 14.16 X10^3/uL (2.7-7.7); Neutrophil % 86.2 % (47-70); POSITIVE MORPHOLOGY YES; Platelet Count 233 K/mm3 (150-450); RBC Distribution Width CV 19.5 % (11.6-14.6); RBC Distribution Width SD 71.8 fl (35.1-43.9); Red Blood Count 3.33 M/mm3 (4.2-5.4); White Blood Count 16.4 K/mm3 (4.4-11.0)
[2019-10-27] MEDS: 0.9% Normal Saline 1,000 ML 150 ML IV (20:46)
[2019-10-27 20:56] LABS: Differential Indicated SCAN CRITERIA MET
[2019-10-27 21:03] LABS: Anion Gap 4 (5-15); BUN 26 mg/dL (7-18); BUN/Creat Ratio 20.6 RATIO (10-20); Calcium,Total 9.1 mg/dL (8.5-10.1); Chloride 108 mmol/L (98-107); Creatinine, Serum 1.26 mg/dL (0.55-1.02); EST Glomerular Filtration Rate 44 mL/min (>60); Est Glom Filt Rate - Afr Amer 53 mL/min (>60); Estimated Creatinine Clearance 36.41 ml/min; Glucose 119 mg/dL (74-106); Potassium 3.9 mmol/L (3.5-5.1); Sodium Level 142 mmol/L (136-145)
[2019-10-27] MEDS: Acetaminophen 325 MG Tablet 650 MG PO (21:06)
--- NOTE | 2019-10-27 21:06 | ED.VISSUMM ---
- ER Visit Summary Date of Service: 10/27/19 Chief Complaint: [Shortness of breath] History of Present Illness: The patient is a 79 F [presents to the emergency department feeling short of breath the last for 5 days. Patient had a cough. Cough is mostly nonproductive. Patient tells me she was admitted a month ago for pneumonia. Patient has no energy. Patient with history of COPD and normally wears 4 L of O2 at home. Patient also with history of hypertension high cholesterol. He denies any chest pain.] Physical Examination: [HEENT-PERRLA, EOMI. Cranial nerves II through XII grossly intact. TMs clear. Mucous membranes moist. No adenopathy. Cardiovascular-regular rate and rhythm without murmur or ectopy Lungs-rales noted both bases right greater than left. Patient is diminished bilaterally. Patient has some faint expiratory wheezes. Patient is tachypneic. No accessory muscle use or retractions. Abdomen-normoactive bowel sounds, soft, nontender, no rebound or rigidity, no peritoneal signs. Extremities-intact ?4, normal range of motion, normal pulses, atraumatic] Test Results: [EKG obtained on arrival showed a sinus rhythm with a ventricular rate of 60 bpm with no acute segment changes. CBC with differential showed a white count 16.4, hemoglobin 9.8, hematocrit 33, platelets 233. Chemistries unremarkable. Influenza screen was negative.] Cultures ordered and pending. Lactate was 1.9. Emergency Department Course and Treatment: [She had an IV line established and was placed on vehicle monitor technician. Patient was given a liter mostly fluid bolus. Patient was started on Zosyn 4.5 g IV as well as vancomycin 1 g IV.] Treatment Plan: [Admit for IV antibiotics] Disposition: [Admit] Impression: [Healthcare acquired pneumonia Dyspnea] This note was generated with [employer] dictation software. It may contain incorrect words, spelling, and punctuation that were not noted in review of the chart prior to signing ED Disposition - Plan for ED Patient: Referrals: Shila Mckinnon DO [Primary Care Provider] -
[2019-10-27 21:08] LABS: Lactic Acid 1.9 mmol/L (0.4-1.9)
--- NOTE | 2019-10-27 21:12 | HP.PCM_ITS ---
History of Present Illness Date of Admission: 10/27/19 Chief Complaint: shortness of breath, fever The patient is a 79 year old F with a PMH as outlined, including a history of chronic hypoxic respiratory failure, on 4L of oxygen at home. She was admitted via the Ed on 10/27/2019 with a complaint of shortness of breath and fever. Symptoms started 4 days prior to presentation. She had an associated cough but was not able to expectorate. He states her oxygen had to be turned up to 5 L for her to be able to feel comfortable. She denied any chest pain, nausea vomiting or palpitation, dizziness, abdominal pain, diarrhea vomiting. Review of symptoms otherwise negative. Of note, patient was admitted just about a month ago and discharged on September 29, 2018 after being admitted and managed for sepsis due to community-acquired pneumonia. On admission in the ED, temperature was 101.5 Fahrenheit with respiratory rate of 19. Chemistry showed creatinine of 1.26 and sodium of 142 with potassium of 3.9. CBC showed WBC of 16.4 and hemoglobin of 9.8. Platelets were 233. Lactic acid was 1.9. Chest x-ray showed a right basilar infiltrate. She was saturating at 92% on 4 L of oxygen. She has been admitted to be managed for sepsis due to health associated pneumonia. She was started on IV vancomycin and Zosyn in the ED. [] Past Medical History Past Medical History (Chronic Problems): Chronic Problems (Last Reviewed 09/27/19 @ 09:55 by Malia Gutierrez PA-C) Sick sinus syndrome (Chronic) Presence of permanent cardiac pacemaker (Chronic 03/13/19) Valvular heart disease (Chronic) Stage III chronic kidney disease (Chronic) Chronic back pain (Chronic) Iron deficiency anemia due to chronic blood loss (Chronic) Hyperthyroidism (Chronic) Chronic respiratory failure with hypoxia (Chronic) Paroxysmal atrial fibrillation (Chronic) senior living current use of anticoagulant therapy (Chronic) Nonrheumatic tricuspid (valve) insufficiency (Chronic) Nonrheumatic aortic (valve) insufficiency (Chronic) Hyperlipidemia (Chronic) COPD (chronic obstructive pulmonary disease) (Chronic) Hypertension (Chronic) Medical History: Medical History (Last Reviewed 09/27/19 @ 09:55 by Malia Gutierrez PA-C) Sick sinus syndrome (Chronic) I49.5 Paroxysmal atrial fibrillation (Chronic) I48.0 senior living current use of anticoagulant therapy (Chronic) Z79.01 Nonrheumatic tricuspid (valve) insufficiency (Chronic) I36.1 Nonrheumatic aortic (valve) insufficiency (Chronic) I35.1 Hyperlipidemia (Chronic) E78.5 Hypertension (Chronic) I10 Body mass index 34.0-34.9, adult Z68.34 CVA (cerebral vascular accident) I63.9 Long-term use of high-risk medication Z79.899 Lung nodule R91.1 Stage 1 mild COPD by GOLD classification J44.9 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.201 Allergies ferrous sulfate Adverse Reaction (Severe, Verified 10/27/19 19:40) Diarrhea codeine Adverse Reaction (Verified 10/27/19 19:40) makes me sick pregabalin [From Lyrica] Adverse Reaction (Verified 10/27/19 19:40) makes me deathly ill makes me deathly ill tramadol Adverse Reaction (Verified 10/27/19 19:40) Nausea and dizziness Home Medications: Ambulatory Orders Medication Instructions Recorded Carisoprodol [Soma] 350 mg PO TID 03/17/17 Cholecalciferol (Vitamin D3) 5,000 unit PO DAILY 03/17/17 [Vitamin D3] Gabapentin [Neurontin] 600 mg PO TIDCM 03/17/17 Hydrocodone Bitart/Apap 5-325 1 - 2 tab PO Q4H PRN PRN 03/17/17 [[place] 5/325] Melatonin 10 - 15 mg PO QHS PRN PRN 03/17/17 Pravastatin [Pravachol] 80 mg PO QHS 11/17/18 ipratropium 0.5 mg-albuterol 3 mg 3 ml INHALATION Q8H #180 ml 12/21/18 (2.5 mg base)/3 mL nebulization soln methimazole 5 mg tablet 5 mg PO DAILY #30 tab 03/09/19 furosemide 40 mg tablet 40 mg PO DAILY PRN tab 05/29/19 albuterol sulfate 90 mcg/actuation 2 puff INHALATION Q4H PRN PRN #18 g 07/10/19 aerosol inhaler Amiodarone HCl 100 mg PO DAILY 09/26/19 Amlodipine Besylate 2.5 mg PO DAILY 09/26/19 Metoprolol Tartrate [Lopressor 100 mg PO BID 09/26/19 (beta manuel)] Pantoprazole Sodium [Protonix] 40 mg PO BID 09/26/19 Potassium Chloride [K-Tab ER] 20 meq PO DAILY PRN 09/26/19 Tiotropium Br/Olodaterol HCl 2 puff INHALATION DAILY 09/26/19 [Stiolto Respimat Inhal [place]] Surgical History: Surgical History (Last Reviewed 09/27/19 @ 09:56 by Malia Gutierrez PA-C) Presence of permanent cardiac pacemaker (Chronic) Onset Date: 03/13/19 Z95.0 History of back surgery Z98.890 Surgical History: - - back surgery Psychiatric History: No pertinent psych hx MINERAL ENGINEER History: No pertinent MINERAL ENGINEER history Lives: With Family Smoking Status: Former smoker Alcohol: None Drugs: None - *Family History Maternal Family History: Family History (Last Reviewed 09/27/19 @ 09:56 by Malia Gutierrez PA-C) Mother CVA (cerebral vascular accident) Atrial fibrillation Brother Atrial fibrillation History of PTCA History Items: No pertinent history Paternal Family History: Family History (Last Reviewed 09/27/19 @ 09:56 by Malia Gutierrez PA-C) Mother CVA (cerebral vascular accident) Atrial fibrillation Brother Atrial fibrillation History of PTCA History Items: Cancer - lung Review of Systems Constitutional: Reports: Chills, Fever, Malaise. Denies: Anorexia Eyes: Denies: Blurred vision HEENT: Denies: Head Aches, Sinus Congestion, Sinus Drainage Cardiovascular: Denies: Chest Pain, Chest Pressure, Chest Tightness, Orthopnea, Palpitations Respiratory: Reports: Cough, Shortness of Breath, Shortness of breath at rest, Shortness of breath upon exertion. Denies: Pleuritic Pain, Sputum production, Wheezing Gastrointestinal: Denies: Abdominal Pain, Nausea, Vomiting Genitourinary: Denies: Dysuria Musculoskeletal: Denies: Joint Pain, Joint Tenderness Skin: Denies: Rash, Wounds Neurological: Denies: Numbness, Tingling, Focal weakness Psychiatric: Denies: Anxiety, Depression, Homicidal Ideations, Suicidal Ideations Hematologic/ Lymphatic: Denies: Easy Bruising, Easy Bleeding VTE Information - Inpt Only VTE Present on Admission: No VTE Pharm Prophylaxis ordered?: Yes - Physical Exam Vitals/I&O's: Vital Signs Temp Pulse Resp BP Pulse Ox 101.5 F H 74 16 130/56 H 94 02/28/20 20:10 10/27/19 21:09 10/27/19 21:09 10/27/19 21:09 10/27/19 21:09 Oxygen Flow Rate (L/min) 4 Oxygen Delivery Method Nasal Cannula Weight: 136 lb Body Mass Index (BMI) 30.4 General: Alert, Oriented x3, Cooperative, No apparent distress HEENT: Atraumatic, PERRLA, EOMI, Normocephalic Oral: Dry Mucosa Neck: Supple Lungs: Wheezes - decreased breath sounds bibasally, has crackles bilaterally, but mainly in right lower lung ayala. on 4L of oxygen by nasal canula Cardiovascular: Regular rate, Regular Rhythm, Normal S1, Normal S2, No murmurs Abdomen: Bowel Sounds Present, Soft, Non Tender Extremities: No clubbing, No cyanosis, No edema, Capillary Refill Less than 3 Seconds Skin: No rashes, No breakdown Musculoskeletal: No Tenderness to Palpation of Joints or Extremities Lymphatic: No Cervical, Supraclavicular, or Inguinal Adenopathy Neurological: Cranial nerves II-XII grossly intact, Neuro grossly intact, Motor Exam 5/5 strength throughout Psych/Mental Status: Normal Affect, Appropriate, Alert and oriented to time, place, person, mood and affect Microbiology Past 72 Hours 10/27/19 20:27 Mucosa - Nose Influenza Types A,B Direct FA ([facility]) - Final Laboratory Results 10/27/19 20:35: WBC 16.4 H, RBC 3.33 L, Hgb 9.8 L, Hct 33.3 L, MCV 100.0 H, MCH 29.4, MCHC 29.4 L, RDW Std Deviation 71.8 H, RDW Coeff of Valorie 19.5 H, Plt Count 233, MPV 11.8, Immature Gran % (Auto) 1.200 H, Neut % (Auto) 86.2 H, Lymph % (Auto) 3.8 L, [place] % (Auto) 7.6, Eos % (Auto) 0.6, Baso % (Auto) 0.6, Absolute Neuts (auto) 14.2 H, Absolute Lymphs (auto) 0.62 L, Nucleated RBC % 0 10/27/19 20:35: Sodium 142, Potassium 3.9, Chloride 108 H, Carbon Dioxide 30.0, Anion Gap 4 L, BUN 26 H, Creatinine 1.26 H, Estim Creat Clear Calc 36.41, Est GFR (MDRD) Af Amer 53 L, Est GFR (MDRD) Non-Af 44 L, BUN/Creatinine Ratio 20.6 H , Glucose 119 H, Calcium 9.1 10/27/19 20:35: Lactic Acid 1.9 Diagnostic Data Chest X-Ray 10/27/19 20:08 IMPRESSION: Right basilar infiltrate. Electronically Signed: Mati Novak DO at 20:39 EST Tel [phone], Service support , Current Medications Sodium Chloride () 1,000 mls @ 150 mls/hr IV .[id number] ONE Stop: 10/28/19 02:44 Last Admin: 10/27/19 20:46 Dose: 150 mls/hr Documented by: Vancomycin HCl (Vancomycin) 1,000 mg in 200 mls @ 200 mls/hr IV X1 ONE Stop: 10/27/19 21:59 Assessment/Plan All Active Problems (Last Reviewed 09/27/19 @ 09:55 by Malia Gutierrez PA-C) Bradycardia (Resolved) Anemia (Acute) 79 y/o admitted with a complaint of shortness of breath, fever and cough 1. Sepsis due to health associated pneumonia * Admit to PCU with telemetry. * Patient was just discharged about a month ago after being managed for sepsis due to community-acquired pneumonia and so she meets the criteria for health associated pneumonia. * SIRS criteria is 2/4 namely fever and leukocytosis. * Chest x-ray showed right lower lobe infiltrate. She saturating at 92% on her baseline 4 L of oxygen. * Get blood culture. Urine for strep and Legionella. Get respiratory panel. Rapid influenza screen was negative. * Will put patient on IV vancomycin and Zosyn. * Titrate oxygen to maintain saturation above 90%. Breathing treatments with DuoNeb's. * 2. Hypertension: On amlodipine and metoprolol. 3. History of A. fib: On amiodarone and metoprolol. Eliquis was stopped at last admission on account of anemia. Patient refused to have any GI work-up. 4. Chronic hypoxic respiratory failure due to COPD. On breathing treatments. 5. COPD: On tiotropium olodaterol and breathing treatments with DuoNeb's. Does not seem to be in current exacerbation. 6. Hyperlipidemia: On statin DVT prophylaxis: SCDs CODE STATUS: Full code * Patient counseled extensively about different types of CODE STATUS including full code, DNR CCA and DNR CCA. Patient elects to be full code. Total [id number] time 16 minutes. Code Visit Inpatient E&M: 57581 Init Hosp L3 Procedures: 64934 Advncd Care Plan 30 Min
[2019-10-27 21:18] LABS: Anisocytosis 1+; Hypochromasia 1+; Macrocytosis 1+; Platelet Estimate ADEQUATE (ADEQ); Red Cell Morphology N CHROM NORMAL (NORM C&C)
[2019-10-27] MEDS: Vancomycin IV 1,000 MG/200 ML BAG 200 MG IV (22:45)
[2019-10-27] MEDS: HYDROcodone Bitartrate/Apap 5/325 Tablet PO (22:50)
[2019-10-28] VITALS (16 sets, daily range): BP systolic 131–163; BP diastolic 64–78; PULSE 7–92; RESP 18–22; TEMP 36.6–36.7; O2SAT 91–94
[2019-10-28] MEDS: HYDROcodone Bitartrate/Apap 5/325 Tablet PO ×3 (05:11→18:31)
--- NOTE | 2019-10-28 06:59 | PCM.RX.CS ---
Consult Pharmacy has been consulted to manage selected antiobiotic: Vancomycin Type of Consult: New start Suspected Infection: Sepsis, Pneumonia Labs: Sodium 142 mmol/L (136-145) 10/27/19 20:35 Potassium 3.9 mmol/L (3.5-5.1) 10/27/19 20:35 Chloride 108 mmol/L (98-107) H 10/27/19 20:35 Carbon Dioxide 30.0 mmol/L (21.0-32.0) 10/27/19 20:35 Anion Gap 4 (5-15) L 10/27/19 20:35 BUN 26 mg/dL (7-18) H 10/27/19 20:35 Creatinine 1.26 mg/dL (0.55-1.02) H 10/27/19 20:35 Est GFR (MDRD) Af Amer 53 mL/min (>60) L 10/27/19 20:35 Est GFR (MDRD) Non-Af 44 mL/min (>60) L 10/27/19 20:35 BUN/Creatinine Ratio 20.6 RATIO (10-20) H 10/27/19 20:35 Glucose 119 mg/dL (74-106) H 10/27/19 20:35 Microbiology: Microbiology 10/27/19 20:27 Mucosa - Nose Influenza Types A,B Direct FA ([facility]) - Final Weight used for dosin.2 kg Estimated Creatinine Clearance: 31.27 Goal Trough: 15-20 mcg/mL Pharmacy Plan for Drug Dosing: Pharmacy Service will continue to monitor and adjust dosing as required. Medications Vancomycin HCl 750 mg/ Sodium (Chloride) 265 mls @ 250 mls/hr IV Q24H DERRICK Discontinued Medications Vancomycin HCl 1,000 mg/ (Dextrose) 270 mls @ 250 mls/hr IV X1 ONE Stop: 10/27/19 21:39 Last Admin: 10/27/19 22:59 Dose: Not Given Documented by: Follow-Up Labs: Trough Vancomycin Labs to be done on [date and time ordered]: 10/28 @ 1963
[2019-10-28 07:11] LABS: Bedside Glucose 100 mg/dL (70-110)
[2019-10-28] MEDS: Ipratropium/Albuterol Sulfate 3 ML AMPUL.NEB INHALATION ×3 (07:12→19:16)
[2019-10-28] MEDS: Pantoprazole Sodium 40 MG Tablet PO ×2 (08:07→21:39)
[2019-10-28] MEDS: Gabapentin 600 MG Tablet PO ×3 (08:07→17:21)
[2019-10-28] MEDS: amLODIPine 2.5 MG Tablet PO (08:07)
[2019-10-28] MEDS: Amiodarone 200 MG Tablet 100 MG PO (08:08)
[2019-10-28] MEDS: Metoprolol Tartrate 100 MG Tablet PO ×2 (08:08→21:39)
[2019-10-28 08:21] LABS: Hemoglobin 8.8 g/dL (12.0-15.0); Mean Corp Hgb Conc 30.3 g/dL (32-36); Mean Corpuscular Hgb 29.7 pg (27.0-32.0); Mean Platelet Vol. 12.2 fl (6.2-12.0); POSITIVE MORPHOLOGY YES; Platelet Count 200 K/mm3 (150-450); RBC Distribution Width CV 19.4 % (11.6-14.6); Red Blood Count 2.96 M/mm3 (4.2-5.4); Scan Indicated on CBC? Y/N YES- FLAGS NOTED; White Blood Count 14.8 K/mm3 (4.4-11.0)
[2019-10-28 08:41] LABS: Anion Gap 5 (5-15); BUN 22 mg/dL (7-18); Calcium,Total 8.5 mg/dL (8.5-10.1); Chloride 110 mmol/L (98-107); Creatinine, Serum 1.05 mg/dL (0.55-1.02); EST Glomerular Filtration Rate 54 mL/min (>60); Est Glom Filt Rate - Afr Amer 65 mL/min (>60); Estimated Creatinine Clearance 45.48 ml/min; Glucose 102 mg/dL (74-106); Potassium 3.5 mmol/L (3.5-5.1); Sodium Level 142 mmol/L (136-145)
[2019-10-28] MEDS: Enoxaparin 40 MG/0.4 ML Syringe SC (09:22)
--- NOTE | 2019-10-28 10:33 | NURSING ---
attempted to call granddaughter to update on rounds, she did not answer.
[2019-10-28 12:11] LABS: Bedside Glucose 105 mg/dL (70-110)
--- NOTE | 2019-10-28 15:52 | PCM.PN.HOSP ---
Subjective: Patient was seen and examined today, she states she does want to leave the hospital until I know what is wrong with me . Today was 14.8, hemoglobin was 8.8. She appears comfortable on nasal cannula oxygen at 5 L. She does not complain of any shortness of breath or chest discomfort. Chest x-ray yesterday showed a right basilar infiltrate. Vitals/I&O's: Vital Signs Temp Pulse Resp BP Pulse Ox 98.0 F 66 18 163/72 H 94 10/28/19 09:20 10/28/19 14:54 10/28/19 13:44 10/28/19 09:20 10/28/19 09:20 Oxygen Flow Rate (L/min) 4.5 Oxygen Delivery Method Nasal Cannula Weight: 64.2 kg Body Mass Index (BMI) 31.7 Intake and Output for Last 24 Hours 10/26/19 10/27/19 10/28/19 23:59 23:59 23:59 Intake Total 407.5 / 407.5 1511.75 / 1511.75 Output Total 200 / 200 Balance 407.5 / 407.5 1311.75 / 1311.75 General: Alert, Oriented x3, Cooperative, No apparent distress, Well developed, Well nourished HEENT: Atraumatic, PERRLA, EOMI, Normocephalic Oral: Moist Mucosa Neck: Supple, Trachea Midline, Thyroid Normal Size and Texture Lungs: Diminished, Rhonchi - Scattered expiratory rhonchi bilaterally Cardiovascular: Regular rate, Regular Rhythm, Normal S1, Normal S2, No murmurs, PMI Normal, No rub noted Abdomen: Bowel Sounds Present, Soft, Non Tender Extremities: No edema, Capillary Refill Less than 3 Seconds Skin: No rashes, No breakdown Musculoskeletal: No Tenderness to Palpation of Joints or Extremities, No Muscle Wasting Neurological: Cranial nerves II-XII grossly intact, Neuro grossly intact, Sensory exam intact to light touch and pain Psych/Mental Status: Normal Affect, Appropriate, Alert and oriented to time, place, person, mood and affect Microbiology Past 72 Hours 10/28/19 06:45 Urine, Clean Catch Streptococcus pneumoniae Antigen (M - Final 10/28/19 06:45 Urine, Clean Catch Legionella Antigen - Final 10/27/19 20:27 Mucosa - Nose Influenza Types A,B Direct FA ([facility]) - Final Laboratory Results 10/27/19 20:35: WBC 16.4 H, RBC 3.33 L, Hgb 9.8 L, Hct 33.3 L, MCV 100.0 H, MCH 29.4, MCHC 29.4 L, RDW Std Deviation 71.8 H, RDW Coeff of Valorie 19.5 H, Plt Count 233, MPV 11.8, Immature Gran % (Auto) 1.200 H, Neut % (Auto) 86.2 H, Lymph % (Auto) 3.8 L, [place] % (Auto) 7.6, Eos % (Auto) 0.6, Baso % (Auto) 0.6, Absolute Neuts (auto) 14.2 H, Absolute Lymphs (auto) 0.62 L, Nucleated RBC % 0, Platelet Estimate ADEQUATE, RBC Morphology N CHROM, Hypochromasia 1+, Anisocytosis 1+, Macrocytosis 1+ 10/27/19 20:35: Sodium 142, Potassium 3.9, Chloride 108 H, Carbon Dioxide 30.0, Anion Gap 4 L, BUN 26 H, Creatinine 1.26 H, Estim Creat Clear Calc 36.41, Est GFR (MDRD) Af Amer 53 L, Est GFR (MDRD) Non-Af 44 L, BUN/Creatinine Ratio 20.6 H, Glucose 119 H, Calcium 9.1 10/27/19 20:35: Lactic Acid 1.9 10/28/19 06:50: POC Glucose 100 10/28/19 07:58: WBC 14.8 H, RBC 2.96 L, Hgb 8.8 L, Hct 29.0 L, MCV 98.0, MCH 29.7, MCHC 30.3 L, RDW Std Deviation 69.0 H, RDW Coeff of Valorie 19.4 H, Plt Count 200, MPV 12.2 H 10/28/19 07:58: Sodium 142, Potassium 3.5, Chloride 110 H, Carbon Dioxide 27.0, Anion Gap 5, BUN 22 H, Creatinine 1.05 H, Estim Creat Clear Calc 45.48, Est GFR (MDRD) Af Amer 65, Est GFR (MDRD) Non-Af 54 L, BUN/Creatinine Ratio 21.0 H, Glucose 102, Calcium 8.5 10/28/19 12:05: POC Glucose 105 Current Medications Hydrocodone Bitart/Acetaminophen ([place] 5mg-325mg) 1 - 2 tablet PO Q4H PRN PRN PRN Reason: Pain Score 4-10/10 Last Admin: 10/28/19 10:34 Dose: 2 tablet Documented by: Albuterol Sulfate (Ventolin Aerosols) 2.5 mg INHALATION Q4H PRN PRN PRN Reason: SOB/WEEZING Albuterol/Ipratropium (Duoneb) 3 ml INHALATION TID.RT [facility] Last Admin: 10/28/19 13:31 Dose: 3 ml Documented by: Amiodarone HCl (Cordarone) 100 mg PO DAILY [facility] Last Admin: 10/28/19 08:08 Dose: 100 mg Documented by: Amlodipine Besylate (Norvasc) 2.5 mg PO DAILY [facility] Last Admin: 10/28/19 08:07 Dose: 2.5 mg Documented by: Carisoprodol (Carisoprodol) 350 mg PO TID [facility] Cholecalciferol (Vitamin D (25mcg)) 5,000 unit PO DAILY [facility] Last Admin: 10/28/19 08:08 Dose: 5,000 unit Documented by: Enoxaparin Sodium (Lovenox) 40 mg SC DAILY@0600 [facility] Furosemide (Lasix) 40 mg PO DAILY PRN PRN PRN Reason: edema Gabapentin (Neurontin) 600 mg PO TIDCM [facility] Last Admin: 10/28/19 12:06 Dose: 600 mg Documented by: Glucagon () 1 mg IM .X1 PRN PRN Reason: Hypoglycemia Sodium Chloride () 250 mls @ 15 mls/hr IV .[id number] PRN PRN Reason: Saline Flush Last Infusion: 10/28/19 14:17 Dose: 0 mls/hr Documented by: Sodium Chloride () 250 mls @ 15 mls/hr IV .[id number] PRN PRN Reason: Additional IVPB Infusion Piperacillin Sod/Tazobactam (Sod 3.375 gm/ Sodium Chloride) 50 mls @ 12.5 mls/hr IV Q8 [facility] Stop: 11/04/19 06:01 Last Admin: 10/28/19 14:17 Dose: 12.5 mls/hr Documented by: Vancomycin IV Pharmacy to Dose (1 ea/ Sodium Chloride) 500 mls @ 250 mls/hr IV X1 PRN; Protocol PRN Reason: Rx to Dose Dextrose (Dextrose 10%-Water) 250 mls @ 999 mls/hr IV .Q16M PRN; Protocol PRN Reason: HYPOGLYCEMIA Vancomycin HCl 750 mg/ Sodium (Chloride) 265 mls @ 250 mls/hr IV Q24H [facility] Melatonin (Melatonin) 10 mg PO QHS PRN PRN PRN Reason: SLEEP Methimazole (Tapazole) 5 mg PO DAILY [facility] Metoprolol Tartrate (Lopressor (Beta [place])) 100 mg PO BID [facility] Last Admin: 10/28/19 08:08 Dose: 100 mg Documented by: Ondansetron HCl (Zofran) 4 mg IV Q8H PRN PRN PRN Reason: NAUSEA/VOMITING Pantoprazole Sodium (Protonix) 40 mg PO BID [facility] Last Admin: 10/28/19 08:07 Dose: 40 mg Documented by: Potassium Chloride (K-Dur) 20 meq PO DAILY PRN PRN PRN Reason: when she takes lasix Pravastatin Sodium (Pravachol) 80 mg PO QHS [facility] Sodium Chloride () 10 - 40 ml IV UD PRN PRN Reason: SALINE FLUSH STROKE Vital Signs/Narrative: Vital Signs Pulse Resp 10/28/19 14:54 66 10/28/19 13:44 81 18 Medical Necessity - Tobacco Use Smoking Status: Former smoker Assessment/Plan All Active Problems (Last Reviewed 09/27/19 @ 09:55 by Malia Gutierrez PA-C) Bradycardia (Resolved) #1 sepsis secondary to healthcare associated pneumonia-continue present antibiotic coverage, repeat labs tomorrow #2 chronic obstructive pulmonary disease #3 chronic hypoxic respiratory failure secondary to chronic COPD #4 essential hypertension #5 chronic iron deficiency anemia-recheck labs tomorrow, Venofer was ordered #6 stage III chronic kidney disease Code Visit Inpatient E&M: 35743 Subs Hosp L2
[2019-10-28 17:41] LABS: Bedside Glucose 106 mg/dL (70-110)
[2019-10-28] MEDS: Pravastatin 80 MG Tablet PO (21:39)
[2019-10-28] MEDS: Albuterol 2.5 MG/3 ML VIAL.NEB. INHALATION (23:12)
[2019-10-29] VITALS (18 sets, daily range): BP systolic 149–155; BP diastolic 68–80; PULSE 65–115; RESP 18–20; TEMP 36.4–37.2; O2SAT 92–95
[2019-10-29] MEDS: HYDROcodone Bitartrate/Apap 5/325 Tablet PO ×5 (00:17→20:07)
[2019-10-29] MEDS: Enoxaparin 40 MG/0.4 ML Syringe SC (05:20)
--- NOTE | 2019-10-29 05:55 | RAD_ITS ---
STUDY: X-RAY CHEST REASON FOR EXAM: Female, 79 years old. PNEUMONIA TECHNIQUE: Single AP portable view of the chest. COMPARISON: 10/27/2019. FINDINGS: There is persistent infiltration in the right lower lung field, not significantly different from the previous study. There is a small right pleural effusion. The heart is enlarged. There is atrioventricular pacemaker. Normal mediastinum and lydia. Normal visualized pulmonary arteries. There is atherosclerotic calcification of the aortic arch with tortuosity. There are diffuse degenerative changes of the visualized thoracic spine. There is degenerative osteoarthritis of the bilateral shoulders. There is no demonstrated abnormality of the visualized soft tissue structures of the upper abdomen. RAD/Chest 1 View (Portable) IMPRESSION: Persistent infiltration in the right lower lung field, not significantly changed. Suspect a small right pleural effusion. Cardiomegaly. Pacemaker. Electronically Signed: Kasi Gaona MD at 7:01 EST , Service support ,
[2019-10-29] MEDS: Ipratropium/Albuterol Sulfate 3 ML AMPUL.NEB INHALATION ×3 (07:20→19:10)
[2019-10-29 07:45] LABS: Absolute Lymphocyte Count 0.69 X10^3/uL (0.83-4.51); Basophil% 0.9 % (0-1); Eosinophil# 0.32 X10^3/uL; Eosinophils% 2.9 % (0-5); Hematocrit 29.4 % (37-47); Hemoglobin 8.6 g/dL (12.0-15.0); Lymphocyte # 0.69 X10^3/ul (4.0); Lymphocyte % 6.3 % (19-41); Mean Corp Hgb Conc 29.3 g/dL (32-36); Mean Platelet Vol. 11.8 fl (6.2-12.0); Monocyte# 0.77 X10^3/uL; Monocyte% 7.1 % (0-10); NRBC Flagged by Analyzer 0 % (0-5); Neutrophil # 8.96 X10^3/uL (2.7-7.7); Neutrophil % 82.1 % (47-70); POSITIVE MORPHOLOGY YES; Platelet Count 203 K/mm3 (150-450); RBC Distribution Width CV 18.9 % (11.6-14.6); RBC Distribution Width SD 69.1 fl (35.1-43.9); Red Blood Count 2.97 M/mm3 (4.2-5.4); White Blood Count 10.9 K/mm3 (4.4-11.0)
[2019-10-29 07:50] LABS: Differential Indicated SCAN CRITERIA MET
[2019-10-29 08:12] LABS: Anion Gap 5 (5-15); BUN 13 mg/dL (7-18); Calcium,Total 8.6 mg/dL (8.5-10.1); Chloride 107 mmol/L (98-107); Creatinine, Serum 0.93 mg/dL (0.55-1.02); EST Glomerular Filtration Rate 62 mL/min (>60); Est Glom Filt Rate - Afr Amer 75 mL/min (>60); Estimated Creatinine Clearance 51.34 ml/min; Glucose 101 mg/dL (74-106); Potassium 3.5 mmol/L (3.5-5.1); Sodium Level 141 mmol/L (136-145)
[2019-10-29 08:28] LABS: Platelet Estimate ADEQUATE (ADEQ)
[2019-10-29 08:29] LABS: Hypochromasia 1+
[2019-10-29] MEDS: Gabapentin 600 MG Tablet PO ×3 (09:33→17:27)
[2019-10-29] MEDS: Pantoprazole Sodium 40 MG Tablet PO ×2 (09:33→21:12)
[2019-10-29] MEDS: amLODIPine 2.5 MG Tablet PO (09:34)
[2019-10-29] MEDS: Metoprolol Tartrate 100 MG Tablet PO ×2 (09:34→21:12)
[2019-10-29] MEDS: Amiodarone 200 MG Tablet 100 MG PO (09:34)
[2019-10-29] MEDS: Methimazole 5 MG Tablet 2.5 MG PO (12:06)
--- NOTE | 2019-10-29 14:23 | PN_ITS ---
Subjective: Patient was seen and examined today, she refused IV Javad for today, I talked briefly to her about this and she is agreed to take it. She states she is allergic to iron-she gets diarrhea and stomach discomfort if she takes oral iron, I explained to her that this was IV iron and that she has an iron deficiency anemia. Patient's white blood cell count today was normal, she is currently on 4-5 l via nasal cannula. Hest x-ray today showed a persistent infiltration in the right lower lung field unchanged from yesterday. - Physical Exam Vitals/I&O's: Vital Signs Temp Pulse Resp BP Pulse Ox 97.6 F L 74 18 149/80 H 93 10/29/19 09:30 10/29/19 13:34 10/29/19 13:34 10/29/19 09:30 10/29/19 10:08 Oxygen Flow Rate (L/min) 5 Oxygen Delivery Method Nasal Cannula Weight: 64.2 kg Body Mass Index (BMI) 31.7 Intake and Output for Last 24 Hours 10/27/19 10/28/19 10/29/19 23:59 23:59 23:59 Intake Total 407.5 / 407.5 2477.00 / 2477.00 726.25 / 726.25 Output Total 900 / 900 1100 / 1100 Balance 407.5 / 407.5 1577.00 / 1577.00 -373.75 / -373.75 General: Alert, Oriented x3, Cooperative, No apparent distress, Well developed, Well nourished HEENT: Atraumatic, PERRLA, EOMI, Normocephalic Oral: Moist Mucosa Neck: Supple, No JVD, Trachea Midline, Thyroid Normal Size and Texture Lungs: Clear to auscultation, Normal air movement, No rhonchi, No wheeze, No rales Cardiovascular: Regular rate, Regular Rhythm, Normal S1, Normal S2, No murmurs Abdomen: Bowel Sounds Present, Soft, Non Tender, Non-Distended Extremities: No clubbing, No cyanosis, No edema, Capillary Refill Less than 3 Seconds Skin: No rashes, No breakdown Musculoskeletal: No Tenderness to Palpation of Joints or Extremities Neurological: Cranial nerves II-XII grossly intact, Neuro grossly intact, Sensory exam intact to light touch and pain Psych/Mental Status: Normal Affect, Appropriate, Alert and oriented to time, place, person, mood and affect Microbiology Past 72 Hours 10/28/19 10:05 Mucosa - Nose Respiratory Panel (PCR) - Final 10/28/19 06:45 Urine, Clean Catch Streptococcus pneumoniae Antigen (M - Final 10/28/19 06:45 Urine, Clean Catch Legionella Antigen - Final 10/27/19 20:27 Mucosa - Nose Influenza Types A,B Direct FA (MAU) - Final Laboratory Results 10/28/19 17:13: POC Glucose 106 10/29/19 07:15: WBC 10.9, RBC 2.97 L, Hgb 8.6 L, Hct 29.4 L, MCV 99.0, MCH 29.0, MCHC 29.3 L, RDW Std Deviation 69.1 H, RDW Coeff of Valorie 18.9 H, Plt Count 203, MPV 11.8, Immature Gran % (Auto) 0.700, Neut % (Auto) 82.1 H, Lymph % (Auto) 6.3 L, Fisher % (Auto) 7.1, Eos % (Auto) 2.9, Baso % (Auto) 0.9, Absolute Neuts (auto) 9.0 H, Absolute Lymphs (auto) 0.69 L, Nucleated RBC % 0, Platelet Estimate ADEQUATE, Hypochromasia 1+ 10/29/19 07:15: Sodium 141, Potassium 3.5, Chloride 107, Carbon Dioxide 29.0, Anion Gap 5, BUN 13, Creatinine 0.93, Estim Creat Clear Calc 51.34, Est GFR (MDRD) Af Amer 75, Est GFR (MDRD) Non-Af 62, BUN/Creatinine Ratio 14.0, Glucose 101, Calcium 8.6 Current Medications Hydrocodone Bitart/Acetaminophen ([place] 5mg-325mg) 1 - 2 tablet PO Q4H PRN PRN PRN Reason: Pain Score 4-10/10 Last Admin: 10/29/19 09:34 Dose: 2 tablet Documented by: Albuterol Sulfate (Ventolin Aerosols) 2.5 mg INHALATION Q4H PRN PRN PRN Reason: SOB/WEEZING Last Admin: 10/28/19 23:12 Dose: 2.5 mg Documented by: Albuterol/Ipratropium (Duoneb) 3 ml INHALATION TID.RT DERRICK Last Admin: 10/29/19 13:16 Dose: 3 ml Documented by: Amiodarone HCl (Cordarone) 100 mg PO DAILY [facility] Last Admin: 10/29/19 09:34 Dose: 100 mg Documented by: Amlodipine Besylate (Norvasc) 2.5 mg PO DAILY [facility] Last Admin: 10/29/19 09:34 Dose: 2.5 mg Documented by: Carisoprodol (Carisoprodol) 175 mg PO TID PRN PRN PRN Reason: SPASMS Cholecalciferol (Vitamin D (25mcg)) 5,000 unit PO DAILY [facility] Last Admin: 10/29/19 09:33 Dose: 5,000 unit Documented by: Enoxaparin Sodium (Lovenox) 40 mg SC DAILY@0600 [facility] Last Admin: 10/29/19 05:20 Dose: 40 mg Documented by: Furosemide (Lasix) 40 mg PO DAILY PRN PRN PRN Reason: edema Gabapentin (Neurontin) 600 mg PO TIDCM [facility] Last Admin: 10/29/19 12:06 Dose: 600 mg Documented by: Glucagon () 1 mg IM .X1 PRN PRN Reason: Hypoglycemia Sodium Chloride () 250 mls @ 15 mls/hr IV .[id number] PRN PRN Reason: Saline Flush Last Infusion: 10/29/19 13:01 Dose: 0 mls/hr Documented by: Sodium Chloride () 250 mls @ 15 mls/hr IV .[id number] PRN PRN Reason: Additional IVPB Infusion Piperacillin Sod/Tazobactam (Sod 3.375 gm/ Sodium Chloride) 50 mls @ 12.5 mls/hr IV Q8 [facility] Stop: 11/04/19 06:01 Last Infusion: 10/29/19 09:38 Dose: Infused Documented by: Vancomycin IV Pharmacy to Dose (1 ea/ Sodium Chloride) 500 mls @ 250 mls/hr IV X1 PRN; Protocol PRN Reason: Rx to Dose Dextrose (Dextrose 10%-Water) 250 mls @ 999 mls/hr IV .Q16M PRN; Protocol PRN Reason: HYPOGLYCEMIA Vancomycin HCl 750 mg/ Sodium (Chloride) 265 mls @ 250 mls/hr IV Q24H [facility] Last Infusion: 10/28/19 22:43 Dose: Infused Documented by: Melatonin (Melatonin) 10 mg PO QHS PRN PRN PRN Reason: SLEEP Methimazole (Tapazole) 2.5 mg PO DAILY [facility] Last Admin: 10/29/19 12:06 Dose: 2.5 mg Documented by: Metoprolol Tartrate (Lopressor (Beta Geronimo)) 100 mg PO BID [facility] Last Admin: 10/29/19 09:34 Dose: 100 mg Documented by: Ondansetron HCl (Zofran) 4 mg IV Q8H PRN PRN PRN Reason: NAUSEA/VOMITING Pantoprazole Sodium (Protonix) 40 mg PO BID [facility] Last Admin: 10/29/19 09:33 Dose: 40 mg Documented by: Potassium Chloride (K-Dur) 20 meq PO DAILY PRN PRN PRN Reason: when she takes lasix Pravastatin Sodium (Pravachol) 80 mg PO QHS [facility] Last Admin: 10/28/19 21:39 Dose: 80 mg Documented by: Simethicone (Mylicon) 80 mg PO Q6H PRN PRN PRN Reason: gas Sodium Chloride () 10 - 40 ml IV UD PRN PRN Reason: SALINE FLUSH Medical Necessity - Tobacco Use Smoking Status: Former smoker Assessment/Plan All Active Problems (Last Reviewed 09/27/19 @ 09:55 by Malia Gutierrez PA-C) Bradycardia (Resolved) #1 sepsis secondary to healthcare associated pneumonia-continue present antibiotic coverage, PT and OT are seeing patient #2 chronic obstructive pulmonary disease #3 chronic hypoxic respiratory failure secondary to chronic COPD-patient currently on nasal cannula O2 #4 essential hypertension #5 chronic iron deficiency anemia-hemoglobin is unchanged from yesterday, patient has agreed to take Venofer #6 stage III chronic kidney disease Code Visit Inpatient E&M: 22640 Subs Hosp L2
[2019-10-29] MEDS: 0.9% Saline Lock 10 ML Syringe IV (14:24)
--- NOTE | 2019-10-29 17:48 | EKG12_ITS ---
Test Reason : CP Blood Pressure : / mmHG Vent. Rate : 077 BPM Atrial Rate : 077 BPM P-R Int : 126 ms QRS Dur : 084 ms QT Int : 410 ms P-R-T Axes : 080 039 039 degrees QTc Int : 463 ms Normal sinus rhythm Normal ECG Confirmed by ALYSSIA XIE, STORM ([id number]), multimedia editor ALEXANDRA DENNIS ([id number]) on 11/01/2019 4:28:07 PM Referred By: KANDICE Confirmed By:STORM CADE MD
[2019-10-29] MEDS: Pravastatin 80 MG Tablet PO (21:12)
[2019-10-29] MEDS: MELATONIN 10 MG TABLET PO (21:12)
[2019-10-29 22:39] LABS: Vancomycin, Trough Level 6.9 ug/mL (5.0-15.0)
--- NOTE | 2019-10-29 22:52 | PCM.RX.CS ---
Consult Pharmacy has been consulted to manage selected antiobiotic: Vancomycin Type of Consult: Follow-up Suspected Infection: Sepsis Labs: Sodium 141 mmol/L (136-145) 10/29/19 07:15 Potassium 3.5 mmol/L (3.5-5.1) 10/29/19 07:15 Chloride 107 mmol/L (98-107) 10/29/19 07:15 Carbon Dioxide 29.0 mmol/L (21.0-32.0) 10/29/19 07:15 Anion Gap 5 (5-15) 10/29/19 07:15 BUN 13 mg/dL (7-18) 10/29/19 07:15 Creatinine 0.93 mg/dL (0.55-1.02) 10/29/19 07:15 Est GFR (MDRD) Af Amer 75 mL/min (>60) 10/29/19 07:15 Est GFR (MDRD) Non-Af 62 mL/min (>60) 10/29/19 07:15 BUN/Creatinine Ratio 14.0 RATIO (10-20) 10/29/19 07:15 Glucose 101 mg/dL (74-106) 10/29/19 07:15 Vancomycin Trough 6.9 ug/mL (5.0-15.0) 10/29/19 21:40 Microbiology: Microbiology 10/28/19 10:05 Mucosa - Nose Respiratory Panel (PCR) - Final 10/28/19 06:45 Urine, Clean Catch Streptococcus pneumoniae Antigen (M - Final 10/28/19 06:45 Urine, Clean Catch Legionella Antigen - Final 10/27/19 20:27 Mucosa - Nose Influenza Types A,B Direct FA ([facility]U) - Final Goal Trough: 15-20 mcg/mL Pharmacy Plan for Drug Dosing: Pharmacy Service will continue to monitor and adjust dosing as required. TROUGH 6.9 AND SCr DECREASED TO 0.93. INCREASE TO 750MG Q12H AND DRAW TROUGH 10/30 Follow-Up Labs: Trough Vancomycin Labs to be done on [date and time ordered]: 10/30 @ 7220
[2019-10-29] MEDS: Albuterol 2.5 MG/3 ML VIAL.NEB. INHALATION (23:05)
[2019-10-30] VITALS (19 sets, daily range): BP systolic 144–175; BP diastolic 73–102; PULSE 66–146; RESP 16–20; TEMP 36.7–37.2; O2SAT 93–97
[2019-10-30] MEDS: HYDROcodone Bitartrate/Apap 5/325 Tablet PO ×4 (02:24→18:47)
[2019-10-30] MEDS: Enoxaparin 40 MG/0.4 ML Syringe SC (06:50)
[2019-10-30] MEDS: Ipratropium/Albuterol Sulfate 3 ML AMPUL.NEB INHALATION ×3 (07:11→19:25)
[2019-10-30] MEDS: Gabapentin 600 MG Tablet PO ×3 (09:35→16:05)
[2019-10-30] MEDS: Amiodarone 200 MG Tablet 100 MG PO (09:36)
[2019-10-30] MEDS: Pantoprazole Sodium 40 MG Tablet PO ×2 (09:36→20:46)
[2019-10-30] MEDS: Metoprolol Tartrate 100 MG Tablet PO ×2 (09:36→21:41)
[2019-10-30] MEDS: Methimazole 5 MG Tablet 2.5 MG PO (09:36)
[2019-10-30] MEDS: amLODIPine 2.5 MG Tablet PO (09:37)
--- NOTE | 2019-10-30 13:16 | CT_ITS ---
STUDY: CT CHEST WITH CONTRAST REASON FOR EXAM: Female, 79 years old. Fever and cough RADIATION DOSAGE (If Supplied By Facility): CTDIvol = ( 12.34 ) mGy, DLP = ( 438.19 ) mGycm TECHNIQUE: Transaxial imaging was performed following intravenous administration of IV 100ML ISOVUE 300. Multiplanar coronal and sagittal images were reformatted. Individualized dose optimization techniques were used for this CT. COMPARISON: 2015 FINDINGS: Lung windows show underlying emphysema. The left lung shows some chronic interstitial changes but no superimposed process. There is a right lower lobe pneumonia with air bronchograms along with scattered patchy noncalcified nodular opacifications either representing pneumonitis or soft tissue nodules. I suspect based on their appearance with air bronchograms and their relation to bronchi that they are inflammatory. Follow-up is recommended to assure resolution. No demonstrated effusion. Soft tissue windows show an enlarged thyroid with multiple nodules consistent with goiter. There are scattered subcentimeter axillary lymph nodes. There is a pretracheal lymph node on axial image 42 measuring 1.3 cm in short axis dimension. No significant perihilar adenopathy. Normal heart and pericardium. There are calcified coronary vessels with pacer leads noted along the base of the heart. Normal enhanced pulmonary arteries. Peripheral calcifications in the thoracic aorta without aneurysm. There are multi-level degenerative changes of the thoracic spine. Recover to the upper abdomen show a retrocardiac hiatal hernia and fatty infiltration of the liver CT/Chest WITH Contrast IMPRESSION: Underlying emphysema with scattered patchy noncalcified opacifications throughout the right lung field consistent with pneumonitis in an organized infiltrate in the right lung base. Follow-up recommended to show resolution. No superimposed process in the left lung. Calcified coronary vessels with pacer leads noted along the base of the heart. Degenerative bony changes Borderline-enlarged mediastinal adenopathy Retrocardiac hiatal hernia and fatty infiltration of the liver Enlarged thyroid with multiple nodules consistent with goiter Electronically Signed: Jimmy Bai MD at 15:29 EST , Service support ,
--- NOTE | 2019-10-30 14:53 | CON.PCM_ITS ---
Problem List (1) Pneumonia Status: Acute Reason for Consult: pneumonia Consulted by: Dr. Canseco History of Present Illness: The patient is a 79 year old F with pacer in place, admitted a month ago with CAP, discharged on po abx. Completed those, been doing relatively well at home since then until 10/27, tried to go to the bathroom at night without her O2 on, got dyspneic, fell. Some fever and chills, generalized weakness. Reports 3 days of intermittent chest soreness under L ribs. No sputum. Came to ED, admitted on vanc/zosyn. Vanc now stopped. Feeling better. Full ROS performed and neg except as noted above. 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) Nonrheumatic tricuspid (valve) insufficiency (Chronic) Nonrheumatic aortic (valve) insufficiency (Chronic) Hyperlipidemia (Chronic) COPD (chronic obstructive pulmonary disease) (Chronic) Hypertension (Chronic) Allergies/Adverse Reactions: Allergies ferrous sulfate Adverse Reaction (Severe, Verified 10/27/19 22:27) Diarrhea codeine Adverse Reaction (Verified 10/27/19 22:27) makes me sick pregabalin [From Lyrica] Adverse Reaction (Verified 10/27/19 22:27) makes me deathly ill makes me deathly ill tramadol Adverse Reaction (Verified 10/27/19 22:27) Nausea and dizziness Home Medications: Ambulatory Orders Medication Instructions Recorded Carisoprodol [Soma] 350 mg PO TID 03/17/17 Cholecalciferol (Vitamin D3) 5,000 unit PO DAILY 03/17/17 [Vitamin D3] Gabapentin [Neurontin] 600 mg PO TIDCM 03/17/17 Hydrocodone Bitart/Apap 5-325 1 - 2 tab PO Q4H PRN PRN 03/17/17 [[place] 5/325] Melatonin 10 - 15 mg PO QHS PRN PRN 03/17/17 Pravastatin [Pravachol] 80 mg PO DAILY 11/17/18 ipratropium 0.5 mg-albuterol 3 mg 3 ml INHALATION Q8H #180 ml 12/21/18 (2.5 mg base)/3 mL nebulization soln methimazole 5 mg tablet 2.5 mg PO DAILY #30 tab 03/09/19 furosemide 40 mg tablet 40 mg PO DAILY PRN tab 05/29/19 albuterol sulfate 90 mcg/actuation 2 puff INHALATION Q4H PRN PRN #18 g 07/10/19 aerosol inhaler Amiodarone HCl 100 mg PO DAILY 09/26/19 Amlodipine Besylate 2.5 mg PO DAILY 09/26/19 Metoprolol Tartrate [Lopressor 100 mg PO BID 09/26/19 (beta manuel)] Pantoprazole Sodium [Protonix] 40 mg PO BID 09/26/19 Potassium Chloride [K-Tab ER] 20 meq PO DAILY PRN 09/26/19 Tiotropium Br/Olodaterol HCl 2 puff INHALATION DAILY 09/26/19 [Stiolto Respimat Inhal [place]] - Social History SMOKING STATUS:: Former smoker Vital Signs Temp Pulse Resp BP Pulse Ox 98.5 F 66 16 175/89 H 97 10/30/19 09:00 10/30/19 13:18 10/30/19 13:18 10/30/19 09:00 10/30/19 09:00 Oxygen Flow Rate (L/min) 2 Oxygen Delivery Method Nasal Cannula Weight: 64.2 kg Body Mass Index (BMI) 31.7 Microbiology Past 72 Hours 10/28/19 07:58 Blood Culture - Preliminary Blood Culture (Wb) - Left Hand No growth in 48 hours. 10/28/19 07:58 Blood Culture - Preliminary Blood Culture (Wb) - Anticubital Left No growth in 48 hours. 10/27/19 20:55 Blood Culture - Preliminary Blood Culture (Wb) #2 - Anticubital Left No growth in 48 hours. 10/27/19 20:35 Blood Culture - Preliminary Blood Culture (Wb) - Anticubital Right No growth in 48 hours. 10/28/19 10:05 Respiratory Panel (PCR) - Final Mucosa - Nose 10/28/19 06:45 Streptococcus pneumoniae Antigen (M - Final Urine, Clean Catch 10/28/19 06:45 Legionella Antigen - Final Urine, Clean Catch 10/27/19 20:27 Influenza Types A,B Direct FA (MAU) - Final Mucosa - Nose Laboratory Tests Past 24 Hrs 10/29/19 21:40 Vancomycin Trough 6.9 - Other Studies Radiology: [] reviewed Other Studies: [] Route of nutrition/ use of supplements: [] Nutritional Intake: [] IV Site: [] Meraz Catheter: [] - Physical Exam General: Alert, Oriented x3, Cooperative, No apparent distress HEENT: Atraumatic, PERRLA, EOMI Neck: Supple, No Nodes Lungs: Rhonchi - R sided Cardiovascular: Regular rate, Regular Rhythm Abdomen: Soft, Non Tender, Non-Distended Extremities: No edema Skin: No rashes, - - no redness/swelling over L chest pacer IV Site: Peripheral, without redness, - Musculoskeletal: No Tenderness to Palpation of Joints or Extremities Neurological: Cranial nerves II-XII grossly intact - Assessment/Plan Antibiotics: [] Assessment/Plan: [] sepsis due to recurrent pneumonia - fever and wbc improved. Has persistent R base infiltrate on cxr, will order CT chest to better evaluate. May need pulm consult. Cont zosyn for now, cxs pending. Will follow, thank you
--- NOTE | 2019-10-30 14:54 | CASEMGMT ---
Readmission chart review: Pt was initially admitted 09/26-09/29/19 for SOB, sepsis d/t pna, mechanical falls. Pt was set up with [facility] at discharge with a call to Dr. Ravi's office in reference to getting portable concentrator at home. Pt was sent home on po antibx and states completed course as directed. Pt has 4liters continuous at home already set up through [facility]. Pt returned on 10/27/19 with increased SOB, cough, fever and admitted with Sepsis d/t pna. Chest CT pending at this time, pt continues on zosyn with blood cultures pending. CM to follow for any further questions/concerns/needs arise. SStjennifer BARKER CM
--- NOTE | 2019-10-30 15:19 | CASEMGMT ---
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
--- NOTE | 2019-10-30 15:23 | PN_ITS ---
Patient Problems: Active and Suspected Problems (Last Reviewed 09/27/19 @ 09:55 by Malia Gutierrez PA-C) Pneumonia (Acute) Subjective: Patient was seen and examined today, she continues to have multiple complaints- chest pain, generalized fatigue. I asked the patient if she would consider going to a shelter facility for inpatient rehab services for a brief period of time, she declined and stated that she can go home and be more comfortable there. She states she does not walk very much at home. I discontinued the patient's vancomycin today, yesterday she was afebrile and her white count was normal, she remains afebrile at this time, she is on 5 L nasal cannula O2 which is near her home setting of 4 L. I asked infectious diseases to see her today to direct antibiotic treatment. - Physical Exam Vitals/I&O's: Vital Signs Temp Pulse Resp BP Pulse Ox 98.5 F 66 16 175/89 H 97 10/30/19 09:00 10/30/19 13:18 10/30/19 13:18 10/30/19 09:00 10/30/19 09:00 Oxygen Flow Rate (L/min) 2 Oxygen Delivery Method Nasal Cannula Weight: 64.2 kg Body Mass Index (BMI) 31.7 Intake and Output for Last 24 Hours 10/28/19 10/29/19 10/30/19 23:59 23:59 23:59 Intake Total 2477.00 / 2477.00 1681.13 / 1681.13 969.62 / 969.62 Output Total 900 / 900 1400 / 1400 Balance 1577.00 / 1577.00 281.13 / 281.13 969.62 / 969.62 General: Alert, Oriented x3, Cooperative, No apparent distress, Well developed HEENT: Atraumatic, PERRLA, EOMI, Normocephalic Oral: Moist Mucosa Neck: Supple, No JVD, Trachea Midline, Thyroid Normal Size and Texture Lungs: Normal air movement, No rhonchi, No wheeze, Rales - Inspiratory rales at the bases bilaterally Cardiovascular: Regular rate, Regular Rhythm, Normal S1, Normal S2, No murmurs, PMI Normal, No rub noted Abdomen: Bowel Sounds Present, Soft, Non Tender, Non-Distended Extremities: No clubbing, No cyanosis, Capillary Refill Less than 3 Seconds Skin: No rashes, No breakdown Musculoskeletal: No Tenderness to Palpation of Joints or Extremities Neurological: Cranial nerves II-XII grossly intact, Neuro grossly intact, Sensory exam intact to light touch and pain, Coordination normal Psych/Mental Status: Normal Affect, Appropriate, Alert and oriented to time, place, person, mood and affect Microbiology Past 72 Hours 10/28/19 07:58 Blood Culture (Wb) - Left Hand Blood Culture - Preliminary No growth in 48 hours. 10/28/19 07:58 Blood Culture (Wb) - Anticubital Left Blood Culture - Preliminary No growth in 48 hours. 10/27/19 20:55 Blood Culture (Wb) #2 - Anticubital Left Blood Culture - Preliminary No growth in 48 hours. 10/27/19 20:35 Blood Culture (Wb) - Anticubital Right Blood Culture - Preliminary No growth in 48 hours. 10/28/19 10:05 Mucosa - Nose Respiratory Panel (PCR) - Final 10/28/19 06:45 Urine, Clean Catch Streptococcus pneumoniae Antigen (M - Final 10/28/19 06:45 Urine, Clean Catch Legionella Antigen - Final 10/27/19 20:27 Mucosa - Nose Influenza Types A,B Direct FA (MAU) - Final Laboratory Results 10/29/19 21:40: Vancomycin Trough 6.9 Current Medications Hydrocodone Bitart/Acetaminophen ([place] 5mg-325mg) 1 - 2 tablet PO Q4H PRN PRN PRN Reason: Pain Score 4-10/10 Last Admin: 10/30/19 12:41 Dose: 2 tablet Documented by: Albuterol Sulfate (Ventolin Aerosols) 2.5 mg INHALATION Q4H PRN PRN PRN Reason: SOB/WEEZING Last Admin: 10/29/19 23:05 Dose: 2.5 mg Documented by: Albuterol/Ipratropium (Duoneb) 3 ml INHALATION TID.RT [facility] Last Admin: 10/30/19 13:18 Dose: 3 ml Documented by: Amiodarone HCl (Cordarone) 100 mg PO DAILY [facility] Last Admin: 10/30/19 09:36 Dose: 100 mg Documented by: Amlodipine Besylate (Norvasc) 2.5 mg PO DAILY [facility] Last Admin: 10/30/19 09:37 Dose: 2.5 mg Documented by: Carisoprodol (Carisoprodol) 175 mg PO TID PRN PRN PRN Reason: SPASMS Cholecalciferol (Vitamin D (25mcg)) 5,000 unit PO DAILY [facility] Last Admin: 10/30/19 09:35 Dose: 5,000 unit Documented by: Enoxaparin Sodium (Lovenox) 40 mg SC DAILY@0600 [facility] Last Admin: 10/30/19 06:50 Dose: 40 mg Documented by: Furosemide (Lasix) 40 mg PO DAILY PRN PRN PRN Reason: edema Gabapentin (Neurontin) 600 mg PO TIDCM [facility] Last Admin: 10/30/19 12:42 Dose: 600 mg Documented by: Glucagon () 1 mg IM .X1 PRN PRN Reason: Hypoglycemia Sodium Chloride () 250 mls @ 15 mls/hr IV .[id number] PRN PRN Reason: Saline Flush Last Infusion: 10/30/19 05:26 Dose: Infused Documented by: Sodium Chloride () 250 mls @ 15 mls/hr IV .[id number] PRN PRN Reason: Additional IVPB Infusion Piperacillin Sod/Tazobactam (Sod 3.375 gm/ Sodium Chloride) 50 mls @ 12.5 mls/hr IV Q8 [facility] Stop: 11/04/19 06:01 Last Admin: 10/30/19 15:08 Dose: 12.5 mls/hr Documented by: Dextrose (Dextrose 10%-Water) 250 mls @ 999 mls/hr IV .Q16M PRN; Protocol PRN Reason: HYPOGLYCEMIA Melatonin (Melatonin) 10 mg PO QHS PRN PRN PRN Reason: SLEEP Last Admin: 10/29/19 21:12 Dose: 10 mg Documented by: Methimazole (Tapazole) 2.5 mg PO DAILY [facility] Last Admin: 10/30/19 09:36 Dose: 2.5 mg Documented by: Metoprolol Tartrate (Lopressor (Beta Geronimo)) 100 mg PO BID [facility] Last Admin: 10/30/19 09:36 Dose: 100 mg Documented by: Ondansetron HCl (Zofran) 4 mg IV Q8H PRN PRN PRN Reason: NAUSEA/VOMITING Pantoprazole Sodium (Protonix) 40 mg PO BID [facility] Last Admin: 10/30/19 09:36 Dose: 40 mg Documented by: Potassium Chloride (K-Dur) 20 meq PO DAILY PRN PRN PRN Reason: when she takes lasix Pravastatin Sodium (Pravachol) 80 mg PO QHS [facility] Last Admin: 10/29/19 21:12 Dose: 80 mg Documented by: Simethicone (Mylicon) 80 mg PO Q6H PRN PRN PRN Reason: gas Last Admin: 10/30/19 06:51 Dose: 80 mg Documented by: Sodium Chloride () 10 - 40 ml IV UD PRN PRN Reason: SALINE FLUSH Last Admin: 10/29/19 14:24 Dose: 10 ml Documented by: Medical Necessity - Tobacco Use Smoking Status: Former smoker Assessment/Plan All Active Problems (Last Reviewed 09/27/19 @ 09:55 by Malia Gutierrez PA-C) Pneumonia (Acute) Bradycardia (Resolved) #1 sepsis secondary to healthcare associated pneumonia-continue antibiotic coverage per infectious diseases, at this time, infectious diseases recommends keeping her on Zosyn and obtaining a chest CT. #2 chronic obstructive pulmonary disease #3 chronic hypoxic respiratory failure secondary to chronic COPD-patient currently on nasal cannula O2 #4 essential hypertension #5 chronic iron deficiency anemia-hemoglobin is unchanged from yesterday, I ordered another dose of Venofer today #6 stage III chronic kidney disease Code Visit Inpatient E&M: 88275 Subs Hosp L2
--- NOTE | 2019-10-30 20:00 | EKG12_ITS ---
Test Reason : INC HR Blood Pressure : / mmHG Vent. Rate : 134 BPM Atrial Rate : 141 BPM P-R Int : 000 ms QRS Dur : 084 ms QT Int : 258 ms P-R-T Axes : 000 035 270 degrees QTc Int : [address] & T wave abnormality, consider inferior ischemia ST & T wave abnormality, consider anterolateral ischemia Abnormal ECG When compared with ECG of 27-OCT-2019 20:18, Significant changes have occurred Confirmed by BELINDA XIE, PRIETO ([id number]), newspaper photo editor ALEXANDRA DENNIS ([id number]) on 11/06/2019 4:07:21 PM Referred By: SARAH Confirmed By:PRIETO TREVINO MD
[2019-10-30] MEDS: 0.9% Saline Lock 10 ML Syringe IV ×3 (20:35→22:45)
[2019-10-30] MEDS: Metoprolol Tartrate 5 MG/5 ML Vial IV ×3 (20:35→22:45)
[2019-10-30] MEDS: Pravastatin 80 MG Tablet PO (20:46)
--- NOTE | 2019-10-30 22:55 | EKG12_ITS ---
Test Reason : INC HR Blood Pressure : / mmHG Vent. Rate : 069 BPM Atrial Rate : 069 BPM P-R Int : 138 ms QRS Dur : 082 ms QT Int : 418 ms P-R-T Axes : 076 031 030 degrees QTc Int : 447 ms Normal sinus rhythm Nonspecific ST abnormality Abnormal ECG When compared with ECG of 30-OCT-2019 20:08, MANUAL COMPARISON REQUIRED, DATA IS UNCONFIRMED Confirmed by BELINDA XIE, PRIETO ([id number]), social media editor ALEXANDRA DENNIS ([id number]) on 11/06/2019 4:07:29 PM Referred By: SARAH Confirmed By:PRIETO TREVINO MD
[2019-10-31] VITALS (16 sets, daily range): BP systolic 143–167; BP diastolic 61–82; PULSE 60–110; RESP 18–20; TEMP 36.6–37.1; O2SAT 92–95
[2019-10-31] MEDS: HYDROcodone Bitartrate/Apap 5/325 Tablet PO ×5 (01:10→19:41)
[2019-10-31] MEDS: Enoxaparin 40 MG/0.4 ML Syringe SC (05:34)
[2019-10-31] MEDS: Ipratropium/Albuterol Sulfate 3 ML AMPUL.NEB INHALATION ×3 (07:32→18:41)
[2019-10-31 08:45] LABS: Absolute Lymphocyte Count 1.15 X10^3/uL (0.83-4.51); Absolute Neutrophil Count 4.1 X10^3/uL (2.0-7.7); Basophil# 0.17 X10^3/uL; Basophil% 2.4 % (0-1); Eosinophil# 0.59 X10^3/uL; Eosinophils% 8.2 % (0-5); Hematocrit 33.1 % (37-47); Hemoglobin 9.8 g/dL (12.0-15.0); Lymphocyte # 1.15 X10^3/ul (4.0); Mean Corp Hgb Conc 29.6 g/dL (32-36); Mean Corpuscular Volume 97.9 fL (81-99); Mean Platelet Vol. 11.1 fl (6.2-12.0); Monocyte# 0.94 X10^3/uL; Monocyte% 13.1 % (0-10); NRBC Flagged by Analyzer 0.8 % (0-5); Neutrophil # 4.09 X10^3/uL (2.7-7.7); Neutrophil % 56.8 % (47-70); POSITIVE MORPHOLOGY YES; Platelet Count 299 K/mm3 (150-450); RBC Distribution Width SD 67.2 fl (35.1-43.9); Red Blood Count 3.38 M/mm3 (4.2-5.4); White Blood Count 7.2 K/mm3 (4.4-11.0)
[2019-10-31 08:46] LABS: Differential Indicated SCAN CRITERIA MET
[2019-10-31 09:00] LABS: Anisocytosis 1+; Hypochromasia 2+; Platelet Estimate ADEQUATE (ADEQ); Polychromasia RARE
[2019-10-31] MEDS: Metoprolol Tartrate 100 MG Tablet PO ×2 (09:48→21:00)
[2019-10-31] MEDS: amLODIPine 2.5 MG Tablet PO (09:48)
[2019-10-31] MEDS: Methimazole 5 MG Tablet 2.5 MG PO (09:49)
[2019-10-31] MEDS: Amiodarone 200 MG Tablet 100 MG PO (09:49)
[2019-10-31] MEDS: Pantoprazole Sodium 40 MG Tablet PO ×2 (09:49→21:00)
[2019-10-31] MEDS: Gabapentin 600 MG Tablet PO ×3 (09:49→19:41)
--- NOTE | 2019-10-31 10:02 | PN.ID_ITS ---
Patient Problems: Active and Suspected Problems (Last Reviewed 09/27/19 @ 09:55 by Malia Gutierrez PA-C) Pneumonia (Acute) Subjective: Feeling better, still some cough and SOB. No fever. - Physical Exam Vitals/I&O's: Vital Signs Temp Pulse Resp BP Pulse Ox 98.1 F 75 18 155/77 H 92 10/31/19 08:50 10/31/19 09:48 10/31/19 08:50 10/31/19 08:50 10/31/19 08:50 Oxygen Flow Rate (L/min) 4 Oxygen Delivery Method Nasal Cannula Weight: 64.2 kg Body Mass Index (BMI) 31.7 Intake and Output for Last 24 Hours 10/29/19 10/30/19 10/31/19 23:59 23:59 23:59 Intake Total 1681.13 / 1681.13 1379.62 / 1379.62 100 / 100 Output Total 1400 / 1400 900 / 900 Balance 281.13 / 281.13 479.62 / 479.62 100 / 100 General: Alert, Cooperative, No apparent distress Lungs: Diminished Cardiovascular: Regular rate, Regular Rhythm Abdomen: Soft, Non Tender, Non-Distended Skin: No rashes Microbiology Past 72 Hours 10/28/19 07:58 Blood Culture (Wb) - Left Hand Blood Culture - Preliminary No growth in 48 hours. 10/28/19 07:58 Blood Culture (Wb) - Anticubital Left Blood Culture - Preliminary No growth in 48 hours. 10/27/19 20:55 Blood Culture (Wb) #2 - Anticubital Left Blood Culture - Preliminary No growth in 48 hours. 10/27/19 20:35 Blood Culture (Wb) - Anticubital Right Blood Culture - Preliminary No growth in 48 hours. 10/28/19 10:05 Mucosa - Nose Respiratory Panel (PCR) - Final 10/28/19 06:45 Urine, Clean Catch Streptococcus pneumoniae Antigen (M - Final 10/28/19 06:45 Urine, Clean Catch Legionella Antigen - Final Laboratory Results 10/31/19 08:18: WBC 7.2, RBC 3.38 L, Hgb 9.8 L, Hct 33.1 L, MCV 97.9, MCH 29.0, MCHC 29.6 L, RDW Std Deviation 67.2 H, RDW Coeff of Valorie 19.0 H, Plt Count 299, MPV 11.1, Immature Gran % (Auto) 3.500 H, Neut % (Auto) 56.8, Lymph % (Auto) 16.0 L, [place] % (Auto) 13.1 H, Eos % (Auto) 8.2 H, Baso % (Auto) 2.4 H, Absolute Neuts (auto) 4.1, Absolute Lymphs (auto) 1.15, Nucleated RBC % 0.8, Platelet Estimate ADEQUATE, Polychromasia RARE, Hypochromasia 2+, Anisocytosis 1+ Current Medications Hydrocodone Bitart/Acetaminophen ([place] 5mg-325mg) 1 - 2 tablet PO Q4H PRN PRN PRN Reason: Pain Score 4-10/10 Last Admin: 10/31/19 06:02 Dose: 2 tablet Documented by: Albuterol Sulfate (Ventolin Aerosols) 2.5 mg INHALATION Q4H PRN PRN PRN Reason: SOB/WEEZING Last Admin: 10/29/19 23:05 Dose: 2.5 mg Documented by: Albuterol/Ipratropium (Duoneb) 3 ml INHALATION TID.RT [facility] Last Admin: 10/31/19 07:32 Dose: 3 ml Documented by: Amiodarone HCl (Cordarone) 100 mg PO DAILY [facility] Last Admin: 10/31/19 09:49 Dose: 100 mg Documented by: Amlodipine Besylate (Norvasc) 2.5 mg PO DAILY [facility] Last Admin: 10/31/19 09:48 Dose: 2.5 mg Documented by: Carisoprodol (Carisoprodol) 175 mg PO TID PRN PRN PRN Reason: SPASMS Cholecalciferol (Vitamin D (25mcg)) 5,000 unit PO DAILY [facility] Last Admin: 10/31/19 09:48 Dose: 5,000 unit Documented by: Enoxaparin Sodium (Lovenox) 40 mg SC DAILY@0600 [facility] Last Admin: 10/31/19 05:34 Dose: 40 mg Documented by: Furosemide (Lasix) 40 mg PO DAILY PRN PRN PRN Reason: edema Gabapentin (Neurontin) 600 mg PO TIDCM [facility] Last Admin: 10/31/19 09:49 Dose: 600 mg Documented by: Glucagon () 1 mg IM .X1 PRN PRN Reason: Hypoglycemia Sodium Chloride () 250 mls @ 15 mls/hr IV .[id number] PRN PRN Reason: Saline Flush Last Infusion: 10/30/19 05:26 Dose: Infused Documented by: Sodium Chloride () 250 mls @ 15 mls/hr IV .[id number] PRN PRN Reason: Additional IVPB Infusion Piperacillin Sod/Tazobactam (Sod 3.375 gm/ Sodium Chloride) 50 mls @ 12.5 mls/hr IV Q8 D[facility]ICK Stop: 11/04/19 06:01 Last Infusion: 10/31/19 09:34 Dose: Infused Documented by: Dextrose (Dextrose 10%-Water) 250 mls @ 999 mls/hr IV .Q16M PRN; Protocol PRN Reason: HYPOGLYCEMIA Melatonin (Melatonin) 10 mg PO QHS PRN PRN PRN Reason: SLEEP Last Admin: 10/29/19 21:12 Dose: 10 mg Documented by: Methimazole (Tapazole) 2.5 mg PO DAILY [facility] Last Admin: 10/31/19 09:49 Dose: 2.5 mg Documented by: Metoprolol Tartrate (Lopressor (Beta Geronimo)) 100 mg PO BID [facility] Last Admin: 10/31/19 09:48 Dose: 100 mg Documented by: Ondansetron HCl (Zofran) 4 mg IV Q8H PRN PRN PRN Reason: NAUSEA/VOMITING Pantoprazole Sodium (Protonix) 40 mg PO BID [facility] Last Admin: 10/31/19 09:49 Dose: 40 mg Documented by: Potassium Chloride (K-Dur) 20 meq PO DAILY PRN PRN PRN Reason: when she takes lasix Pravastatin Sodium (Pravachol) 80 mg PO QHS [facility] Last Admin: 10/30/19 20:46 Dose: 80 mg Documented by: Simethicone (Mylicon) 80 mg PO Q6H PRN PRN PRN Reason: gas Last Admin: 10/30/19 06:51 Dose: 80 mg Documented by: Sodium Chloride () 10 - 40 ml IV UD PRN PRN Reason: SALINE FLUSH Last Admin: 10/30/19 22:45 Dose: 10 ml Documented by: Medical Necessity - Tobacco Use Smoking Status: Former smoker Route of nutrition/ use of supplements: [] Nutritional Intake: [] IV Site: [] Meraz Catheter: [] - Assessment/Plan Antibiotics: [] Assessment/Plan: [] sepsis due to recurrent pneumonia - fever and wbc improved. Has persistent R base infiltrate on cxr, CT chest did not show any effusion or abscess. Cont zosyn for now, cxs neg so far. Plan on po abx at discharge with pulm followup (sees Dr. Ravi as outpt). Will follow
[2019-10-31] MEDS: 0.9% Saline Lock 10 ML Syringe IV (14:40)
--- NOTE | 2019-10-31 16:49 | PCM.PROGNOTE ---
Patient Problems: Active and Suspected Problems (Last Reviewed 09/27/19 @ 09:55 by Malia Gutierrez PA-C) Pneumonia (Acute) Subjective: Patient was seen and examined today, I reviewed infectious diseases note today, they would like the patient to continue on IV antibiotics until tomorrow and be reassessed. I gave the patient Venofer today. On 4 L of oxygen via nasal cannula at this time - Physical Exam Vitals/I&O's: Vital Signs Temp Pulse Resp BP Pulse Ox 98.2 F 64 18 150/75 H 93 10/31/19 14:45 10/31/19 14:45 10/31/19 14:45 10/31/19 14:45 10/31/19 14:45 Oxygen Flow Rate (L/min) 4 Oxygen Delivery Method Nasal Cannula Weight: 64.2 kg Body Mass Index (BMI) 31.7 Intake and Output for Last 24 Hours 10/29/19 10/30/19 10/31/19 23:59 23:59 23:59 Intake Total 1681.13 / 1681.13 1379.62 / 1379.62 100 / 100 Output Total 1400 / 1400 900 / 900 Balance 281.13 / 281.13 479.62 / 479.62 100 / 100 General: Alert, Oriented x3, Cooperative, No apparent distress, Well developed HEENT: Atraumatic, PERRLA, EOMI, Normocephalic Oral: Moist Mucosa Neck: Supple, No JVD, Trachea Midline, Thyroid Normal Size and Texture Lungs: Clear to auscultation, Normal air movement, Rales - Inspiratory rales at the bases bilaterally Cardiovascular: Regular rate, Regular Rhythm, Normal S1, Normal S2, No murmurs, PMI Normal, No rub noted, No Gallop Abdomen: Bowel Sounds Present, Soft, Non Tender, Non-Distended Extremities: No clubbing, No cyanosis, No edema, Capillary Refill Less than 3 Seconds Skin: No rashes, No breakdown Musculoskeletal: No Tenderness to Palpation of Joints or Extremities Neurological: Cranial nerves II-XII grossly intact, Neuro grossly intact, Sensory exam intact to light touch and pain Psych/Mental Status: Normal Affect, Appropriate, Alert and oriented to time, place, person, mood and affect Microbiology Past 72 Hours 10/28/19 07:58 Blood Culture (Wb) - Left Hand Blood Culture - Preliminary No growth in 48 hours. 10/28/19 07:58 Blood Culture (Wb) - Anticubital Left Blood Culture - Preliminary No growth in 48 hours. 10/27/19 20:55 Blood Culture (Wb) #2 - Anticubital Left Blood Culture - Preliminary No growth in 48 hours. 10/27/19 20:35 Blood Culture (Wb) - Anticubital Right Blood Culture - Preliminary No growth in 48 hours. 10/28/19 10:05 Mucosa - Nose Respiratory Panel (PCR) - Final Laboratory Results 10/31/19 08:18: WBC 7.2, RBC 3.38 L, Hgb 9.8 L, Hct 33.1 L, MCV 97.9, MCH 29.0, MCHC 29.6 L, RDW Std Deviation 67.2 H, RDW Coeff of Valorie 19.0 H, Plt Count 299, MPV 11.1, Immature Gran % (Auto) 3.500 H, Neut % (Auto) 56.8, Lymph % (Auto) 16.0 L, [place] % (Auto) 13.1 H, Eos % (Auto) 8.2 H, Baso % (Auto) 2.4 H, Absolute Neuts (auto) 4.1, Absolute Lymphs (auto) 1.15, Nucleated RBC % 0.8, Platelet Estimate ADEQUATE, Polychromasia RARE, Hypochromasia 2+, Anisocytosis 1+ Current Medications Hydrocodone Bitart/Acetaminophen ([place] 5mg-325mg) 1 - 2 tablet PO Q4H PRN PRN PRN Reason: Pain Score 4-10/10 Last Admin: 10/31/19 14:40 Dose: 2 tablet Documented by: Albuterol Sulfate (Ventolin Aerosols) 2.5 mg INHALATION Q4H PRN PRN PRN Reason: SOB/WEEZING Last Admin: 10/29/19 23:05 Dose: 2.5 mg Documented by: Albuterol/Ipratropium (Duoneb) 3 ml INHALATION TID.RT [facility] Last Admin: 10/31/19 13:45 Dose: 3 ml Documented by: Amiodarone HCl (Cordarone) 100 mg PO DAILY [facility] Last Admin: 10/31/19 09:49 Dose: 100 mg Documented by: Amlodipine Besylate (Norvasc) 2.5 mg PO DAILY [facility] Last Admin: 10/31/19 09:48 Dose: 2.5 mg Documented by: Carisoprodol (Carisoprodol) 175 mg PO TID PRN PRN PRN Reason: SPASMS Cholecalciferol (Vitamin D (25mcg)) 5,000 unit PO DAILY [facility] Last Admin: 10/31/19 09:48 Dose: 5,000 unit Documented by: Enoxaparin Sodium (Lovenox) 40 mg SC DAILY@0600 [facility] Last Admin: 10/31/19 05:34 Dose: 40 mg Documented by: Furosemide (Lasix) 40 mg PO DAILY PRN PRN PRN Reason: edema Gabapentin (Neurontin) 600 mg PO TIDCM [facility] Last Admin: 10/31/19 13:32 Dose: 600 mg Documented by: Glucagon () 1 mg IM .X1 PRN PRN Reason: Hypoglycemia Sodium Chloride () 250 mls @ 15 mls/hr IV .[id number] PRN PRN Reason: Saline Flush Last Infusion: 10/30/19 05:26 Dose: Infused Documented by: Sodium Chloride () 250 mls @ 15 mls/hr IV .[id number] PRN PRN Reason: Additional IVPB Infusion Piperacillin Sod/Tazobactam (Sod 3.375 gm/ Sodium Chloride) 50 mls @ 12.5 mls/hr IV Q8 [facility] Stop: 11/04/19 06:01 Last Admin: 10/31/19 14:40 Dose: 12.5 mls/hr Documented by: Dextrose (Dextrose 10%-Water) 250 mls @ 999 mls/hr IV .Q16M PRN; Protocol PRN Reason: HYPOGLYCEMIA Melatonin (Melatonin) 10 mg PO QHS PRN PRN PRN Reason: SLEEP Last Admin: 10/29/19 21:12 Dose: 10 mg Documented by: Methimazole (Tapazole) 2.5 mg PO DAILY [facility] Last Admin: 10/31/19 09:49 Dose: 2.5 mg Documented by: Metoprolol Tartrate (Lopressor (Beta Geron[place])) 100 mg PO BID [facility] Last Admin: 10/31/19 09:48 Dose: 100 mg Documented by: Ondansetron HCl (Zofran) 4 mg IV Q8H PRN PRN PRN Reason: NAUSEA/VOMITING Pantoprazole Sodium (Protonix) 40 mg PO BID [facility] Last Admin: 10/31/19 09:49 Dose: 40 mg Documented by: Potassium Chloride (K-Dur) 20 meq PO DAILY PRN PRN PRN Reason: when she takes lasix Pravastatin Sodium (Pravachol) 80 mg PO QHS [facility] Last Admin: 10/30/19 20:46 Dose: 80 mg Documented by: Simethicone (Mylicon) 80 mg PO Q6H PRN PRN PRN Reason: gas Last Admin: 10/30/19 06:51 Dose: 80 mg Documented by: Sodium Chloride () 10 - 40 ml IV UD PRN PRN Reason: SALINE FLUSH Last Admin: 10/31/19 14:40 Dose: 10 ml Documented by: Medical Necessity - Tobacco Use Smoking Status: Former smoker Assessment/Plan All Active Problems (Last Reviewed 09/27/19 @ 09:55 by Malia Gutierrez PA-C) Pneumonia (Acute) Bradycardia (Resolved) #1 sepsis secondary to healthcare associated pneumonia-continue antibiotic coverage per infectious diseases, at this time, infectious diseases recommends keeping her on Zosyn and obtaining a chest CT. #2 chronic obstructive pulmonary disease #3 chronic hypoxic respiratory failure secondary to chronic COPD-patient currently on nasal cannula O2 #4 essential hypertension #5 chronic iron deficiency anemia-hemoglobin is unchanged from yesterday, I ordered another dose of Venofer today #6 stage III chronic kidney disease Code Visit Inpatient E&M: 07627 Subs Hosp L2
[2019-10-31] MEDS: Pravastatin 80 MG Tablet PO (21:00)
[2019-11-01] VITALS (11 sets, daily range): BP systolic 115–176; BP diastolic 56–80; PULSE 60–145; RESP 16–20; TEMP 36.6–37.1; O2SAT 92–95
[2019-11-01] MEDS: HYDROcodone Bitartrate/Apap 5/325 Tablet PO ×3 (01:38→10:47)
[2019-11-01] MEDS: Enoxaparin 40 MG/0.4 ML Syringe SC (06:08)
[2019-11-01] MEDS: Ipratropium/Albuterol Sulfate 3 ML AMPUL.NEB INHALATION (07:19)
[2019-11-01] MEDS: Amiodarone 200 MG Tablet 100 MG PO (08:55)
[2019-11-01] MEDS: Gabapentin 600 MG Tablet PO ×2 (08:55→11:46)
[2019-11-01] MEDS: Pantoprazole Sodium 40 MG Tablet PO (08:55)
[2019-11-01] MEDS: amLODIPine 2.5 MG Tablet PO (08:55)
[2019-11-01] MEDS: Metoprolol Tartrate 100 MG Tablet PO (08:55)
[2019-11-01] MEDS: Methimazole 5 MG Tablet 2.5 MG PO (08:56)
--- NOTE | 2019-11-01 09:04 | DCINST_ITS ---
- Discharge Diagnoses Current Active Problems: Current Active and Chronic Problems (Last Reviewed 09/27/19 @ 09:55 by Malia Gutierrez PA-C) Pneumonia (Acute) You will use the following diet at home:: No restrictions Your food should be the consistency of: Regular Your liquids should be the consistency of: Regular/Thin Discharge Activity: Return to Normal Activity Weight Bearing Status: Full weight bearing Allergies/Adverse Reactions: Allergies ferrous sulfate Adverse Reaction (Severe, Verified 10/27/19 22:27) Diarrhea codeine Adverse Reaction (Verified 10/27/19 22:27) makes me sick pregabalin [From Lyrica] Adverse Reaction (Verified 10/27/19 22:27) makes me deathly ill makes me deathly ill tramadol Adverse Reaction (Verified 10/27/19 22:27) Nausea and dizziness Medications to take at Discharge Carisoprodol [Soma] 350 mg PO TID 03/17/17 Cholecalciferol (Vitamin D3) [Vitamin D3] 5,000 unit PO DAILY 03/17/17 Gabapentin [Neurontin] 600 mg PO TIDCM 03/17/17 Hydrocodone Bitart/Apap 5-325 [[place] 5/325] 1 - 2 tab PO Q4H PRN PRN 03/17/17 Melatonin 10 - 15 mg PO QHS PRN PRN 03/17/17 Pravastatin [Pravachol] 80 mg PO DAILY 11/17/18 ipratropium 0.5 mg-albuterol 3 mg (2.5 mg base)/3 mL nebulization soln 3 ml INHALATION Q8H #180 ml 12/21/18 methimazole 5 mg tablet 2.5 mg PO DAILY #30 tab 03/09/19 furosemide 40 mg tablet 40 mg PO DAILY PRN tab 05/29/19 albuterol sulfate 90 mcg/actuation aerosol inhaler 2 puff INHALATION Q4H PRN PRN #18 g 07/10/19 Amiodarone HCl 100 mg PO DAILY 09/26/19 Amlodipine Besylate 2.5 mg PO DAILY 09/26/19 Metoprolol Tartrate [Lopressor (beta manuel)] 100 mg PO BID 09/26/19 Pantoprazole Sodium [Protonix] 40 mg PO BID 09/26/19 Potassium Chloride [K-Tab ER] 20 meq PO DAILY PRN 01/28/20 Tiotropium Br/Olodaterol HCl [Stiolto Respimat Inhal [place]] 2 puff INHALATION DAILY 09/26/19 Amoxicillin/Potassium Clav [Augmentin 875-125 Tablet] 1 ea PO BID #11 tab 11/01/19 Enoxaparin [Lovenox] 40 mg SUBCUT DAILY@0600 syringe 11/01/19 The following prescriptions were given: Amoxicillin/Potassium Clav [Augmentin 875-125 Tablet] 1 ea PO BID #11 tab Transmission Status: Sent to [facility] Primary Care Physician: Shila Mckinnon DO [Primary Care Provider] - Test Results: Test results from this visit will be discussed in further detail at your follow- up appointment, if applicable. Please Follow Up With: Shila Mckinnon DO Please Follow Up With: Blade Campoverde MD Please Follow Up With: Mumtaz Ravi DO
--- NOTE | 2019-11-01 09:29 | CASEMGMT ---
MJ CEVALLOS NOTE: Reviewed PT/OT notes--additional therapy recommended. MJ CEVALLOS to room to talk with pt and granddaughter who is at bedside. Discussed options of HHC and OP therapy. Pt adamant that she does not want either. Pt stated, No several times. Pt and granddaughter both deny having any concerns w/pt going home @ discharge and deny having any discharge planning needs. Both were made aware, if pt decides in the future, that they can discuss options of additional therapy with pt's PCP. They voice understanding. Sneha SANDERSONN MJ CEVALLOS
[2019-11-01] MEDS: Amox/Clavulanate 875 MG Tablet PO (10:47)
--- NOTE | 2019-11-01 11:49 | NURSING ---
Pt's home meds carisoprodol (20 pills) and methimazole returned to pt at [facility].
--- NOTE | 2019-11-02 15:11 | CASEMGMT ---
MJ CM Discharge Follow-Up Phone Call. Lace: 13 Strata: 3 Discharge Date: 11/01/19 Adm Dx: Sepsis d/t pneumonia Attempted discharge follow-up phone call. No answer. Message left for pt/family to return call if they have any questions/needs. Phone number provided. Sneha CASTELLANOS RN CM
--- NOTE | 2019-11-02 18:26 | PCM.DC.SUM ---
Discharge Date and Diagnosis Date of Admission: 10/27/19 Date of Discharge: 11/01/19 - Primary Discharge Diagnosis #1 sepsis secondary to healthcare associated pneumonia #2 chronic obstructive pulmonary disease #3 chronic hypoxic respiratory failure secondary to chronic COPD #4 essential hypertension #5 chronic iron deficiency anemia #6 stage III chronic kidney disease - Secondary Discharge Diagnosis Chronic Problems (Last Reviewed 09/27/19 @ 09:55 by Malia Gutierrez PA-C) Sick sinus syndrome (Chronic) Presence of permanent cardiac pacemaker (Chronic 03/13/19) Valvular heart disease (Chronic) Stage III chronic kidney disease (Chronic) Chronic back pain (Chronic) Anemia (Chronic) Iron deficiency anemia due to chronic blood loss (Chronic) Hyperthyroidism (Chronic) Chronic respiratory failure with hypoxia (Chronic) Paroxysmal atrial fibrillation (Chronic) 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 Work-up in the emergency room included labs which showed an elevated white blood cell count of 16.4, hemoglobin was 9.8, chemistries were unremarkable, lactic acid was 1.9. Chest x-ray showed a right basilar infiltrate. Patient was admitted to PCU for sepsis secondary to healthcare acquired pneumonia, she was placed on IV antibiotics, and received aerosol treatments. Patient was also anemic and her serum iron was low, she was given Venofer infusions while hospitalized. Patient was seen in consultation by infectious diseases who guided her antibiotic treatment. On 11/01/2019, patient was seen and examined: On examination she appeared in good health and spirits. Vital signs as documented. Skin warm and dry and without overt rashes. Neck without JVD. Lungs-inspiratory rales at the bases bilaterally. Heart exam notable for regular rhythm, normal sounds and absence of murmurs, rubs or gallops. Abdomen unremarkable and without evidence of organomegaly, masses, or abdominal aortic enlargement. Extremities nonedematous. Neuro: Cranial nerves II through XII are grossly intact, no focal motor deficits were noted, sensation to light touch and pinprick is intact. Psych: Patient is alert and oriented x3, she does not appear anxious or depressed On 11/01/2019, patient was seen and examined and felt to be in stable condition for discharge home. - Physical Exam Vitals/I&O's: Vital Signs Temp Pulse Resp BP Pulse Ox 98.6 F 66 16 163/71 H 95 11/01/19 11:50 11/01/19 11:50 11/01/19 11:50 11/01/19 11:50 11/01/19 11:50 Oxygen Flow Rate (L/min) 4 Oxygen Delivery Method Nasal Cannula Weight: 64.2 kg Body Mass Index (BMI) 31.7 Intake and Output for Last 24 Hours 10/31/19 11/01/19 11/02/19 23:59 23:59 23:59 Intake Total 910 / 1110 610 / 610 Output Total 700 / 700 300 / 300 Balance 210 / 410 310 / 310 Microbiology Past 72 Hours 10/28/19 07:58 Blood Culture (Wb) - Anticubital Left Blood Culture - Final No growth in 5 days. 10/28/19 07:58 Blood Culture (Wb) - Left Hand Blood Culture - Final No growth in 5 days. 10/27/19 20:55 Blood Culture (Wb) #2 - Anticubital Left Blood Culture - Final No growth in 5 days. 10/27/19 20:35 Blood Culture (Wb) - Anticubital Right Blood Culture - Final No growth in 5 days. Discharge Activity: Return to Normal Activity Weight Bearing Status: Full weight bearing Home Medications: Medications to take at Discharge Carisoprodol [Soma] 350 mg PO TID 03/17/17 Cholecalciferol (Vitamin D3) [Vitamin D3] 5,000 unit PO DAILY 03/17/17 Gabapentin [Neurontin] 600 mg PO TIDCM 03/17/17 Hydrocodone Bitart/Apap 5-325 [[place] 5/325] 1 - 2 tab PO Q4H PRN PRN 03/17/17 Melatonin 10 - 15 mg PO QHS PRN PRN 03/17/17 Pravastatin [Pravachol] 80 mg PO DAILY 11/17/18 ipratropium 0.5 mg-albuterol 3 mg (2.5 mg base)/3 mL nebulization soln 3 ml INHALATION Q8H #180 ml 12/21/18 methimazole 5 mg tablet 2.5 mg PO DAILY #30 tab 03/09/19 furosemide 40 mg tablet 40 mg PO DAILY PRN tab 05/29/19 albuterol sulfate 90 mcg/actuation aerosol inhaler 2 puff INHALATION Q4H PRN PRN #18 g 07/10/19 Amiodarone HCl 100 mg PO DAILY 09/26/19 Amlodipine Besylate 2.5 mg PO DAILY 09/26/19 Metoprolol Tartrate [Lopressor (beta manuel)] 100 mg PO BID 09/26/19 Pantoprazole Sodium [Protonix] 40 mg PO BID 09/26/19 Potassium Chloride [K-Tab ER] 20 meq PO DAILY PRN 09/26/19 Tiotropium Br/Olodaterol HCl [Stiolto Respimat Inhal [place]] 2 puff INHALATION DAILY 09/26/19 Amoxicillin/Potassium Clav [Augmentin 875-125 Tablet] 1 ea PO BID #11 tab 11/01/19 Following Prescrptions Were Given to Patient: Amoxicillin/Potassium Clav [Augmentin 875-125 Tablet] 1 ea PO BID #11 tab Transmission Status: Sent to [facility] Primary Care Physician: Shila Mckinnon DO [Primary Care Provider] - Please Follow Up With: Shila Mckinnon DO Please Follow Up With: Blade Campoverde MD Please Follow Up With: Mumtaz Ravi DO Disposition: Home Minutes spent on discharge:: 33 Patient Condition:: Stable Medical Necessity - Tobacco Use Smoking Status: Former smoker Meaningful Use Info Meaningful Use Diagnoses (Choose all that apply): None applicable Inpatient E&M: 19659 [facility] Hosp
== END 2019-11-01 12:12 | disposition home or self-care (01) | DRG 871 ==
LOC: ED 20:44 → PCU 21:23
PROVIDERS: Admitting Provider Student in an Organized Health Care Education/Training Program; Emergency Provider Emergency Medicine; PCP Family Medicine; Visit Provider Internal Medicine
DX: A41.9 Sepsis, unspecified organism (principal); J18.9 Pneumonia, unspecified organism; J96.11 Chronic respiratory failure with hypoxia; J44.0 Chronic obstructive pulmonary disease with (acute) lower respiratory infection; Z99.81 Dependence on supplemental oxygen; E78.5 Hyperlipidemia, unspecified; D50.9 Iron deficiency anemia, unspecified; N18.3 Chronic kidney disease, stage 3 (moderate); I49.5 Sick sinus syndrome; I12.9 Hypertensive chronic kidney disease with stage 1 through stage 4 chronic kidney disease, or unspecified chronic kidney disease; Y95 Nosocomial condition; Z87.891 Personal history of nicotine dependence; Z95.0 Presence of cardiac pacemaker; I36.1 Nonrheumatic tricuspid (valve) insufficiency; I35.1 Nonrheumatic aortic (valve) insufficiency; E05.90 Thyrotoxicosis, unspecified without thyrotoxic crisis or storm
CPT/HCPCS: 36415; 71045; 71260; 80048; 80202; 82962; 83605; 85025; 85027; 87040; 87449; 87633; 87804; 93005; 94640; 97162; 97166; 97530; 97535; 99285; J1756; J7030; J7050; Q9967; A4216

== ENCOUNTER → 2020-05-17 14:14 | Outpatient (CLI) | payer MEDICARE, SELFPAY ==
[2020-05-17 13:28] VITALS: BMI 36.5
[2020-05-17 15:50] LABS: Absolute Lymphocyte Count 0.83 X10^3/uL (0.83-4.51); Absolute Neutrophil Count 2.9 X10^3/uL (2.0-7.7); Basophil# 0.09 X10^3/uL; Eosinophil# 0.22 X10^3/uL; Hematocrit 41.9 % (37-47); Hemoglobin 12.5 g/dL (12.0-15.0); Lymphocyte # 0.83 X10^3/ul (4.0); Lymphocyte % 18.8 % (19-41); Mean Corp Hgb Conc 29.8 g/dL (32-36); Mean Corpuscular Hgb 32.2 pg (27.0-32.0); Mean Platelet Vol. 11.6 fl (6.2-12.0); Monocyte% 9.1 % (0-10); NRBC Flagged by Analyzer 0 % (0-5); Neutrophil # 2.86 X10^3/uL (2.7-7.7); Neutrophil % 64.9 % (47-70); Platelet Count 247 K/mm3 (150-450); RBC Distribution Width CV 12.7 % (11.6-14.6); RBC Distribution Width SD 50.5 fl (35.1-43.9); Red Blood Count 3.88 M/mm3 (4.2-5.4); White Blood Count 4.4 K/mm3 (4.4-11.0)
[2020-05-17 16:31] LABS: Anion Gap 4 (5-15); BUN 19 mg/dL (7-18); BUN/Creat Ratio 16.4 RATIO (10-20); Calcium,Total 8.4 mg/dL (8.5-10.1); Chloride 105 mmol/L (98-107); Creatinine, Serum 1.16 mg/dL (0.55-1.02); EST Glomerular Filtration Rate 48 mL/min (>60); Est Glom Filt Rate - Afr Amer 58 mL/min (>60); Glucose 82 mg/dL (74-106); Potassium 4.2 mmol/L (3.5-5.1); Sodium Level 140 mmol/L (136-145)
== END ==
PROVIDERS: PCP Family Medicine; Referring Provider Internal Medicine Cardiovascular Disease; Visit Provider Internal Medicine Cardiovascular Disease
DX: I48.0 Paroxysmal atrial fibrillation (principal); I49.5 Sick sinus syndrome; E78.00 Pure hypercholesterolemia, unspecified; I10 Essential (primary) hypertension; D64.9 Anemia, unspecified; Z95.0 Presence of cardiac pacemaker
CPT/HCPCS: 36415; 80048; 85025

== ENCOUNTER 2020-07-22 18:38 | Emergency (ER) | payer MEDICARE, SELFPAY ==
[2020-06-24 13:43] VITALS: BMI 36.5
[2020-07-22 18:39] VITALS: BP 186/96; PULSE 60; RESP 18; TEMP 36.1; O2SAT 100; BMI 36.5
--- NOTE | 2020-07-22 19:22 | EKG12_ITS ---
Test Reason : SOB Blood Pressure : / mmHG Vent. Rate : 060 BPM Atrial Rate : 036 BPM P-R Int : 208 ms QRS Dur : 082 ms QT Int : 440 ms P-R-T Axes : -55 039 051 degrees QTc Int : 440 ms Atrial-paced rhythm Abnormal ECG Confirmed by BELINDA XIE, PRIETO ([id number]), scientific publications editor DANAY LYN ([id number]) on 07/24/2020 10:50:06 AM Referred By: ANNETTA Confirmed By:PRIETO TREVINO MD
--- NOTE | 2020-07-22 19:28 | RAD_ITS ---
STUDY: X-RAY CHEST REASON FOR EXAM: Female, 80 years old. INC SOB AND COUGH THE LAST COUPLE DAYS.FATIGUE. HX OF COPD. TECHNIQUE: AP portable COMPARISON: 10/29/2019 FINDINGS: Patchy area of slightly increased density in the right lower lobe possibly representing atypical viral pneumonia.. These findings were present on the prior exam but improved since that time There is no demonstrated pleural abnormality. Heart is enlarged. Normal mediastinum and lydia. Normal visualized pulmonary arteries. Tortuous mildly calcified aortic arch and descending thoracic aorta. Pacer noted on the left with electrodes in satisfactory position. Spine demonstrates scoliosis and degenerative change.. Normal visualized ribs, clavicles, and shoulders. There is no demonstrated abnormality of the visualized soft tissue structures of the upper abdomen. RAD/Chest 1 View (Portable) IMPRESSION: Findings suspicious for changes of Covid 19 pneumonia in the right lower lobe possibly chronic residual inflammatory changes. Clinical correlation is recommended as this has improved since previous study No other significant change Electronically Signed: Primo Stone MD at 20:44 EST , Service support ,
[2020-07-22 20:05] VITALS: O2SAT 100
[2020-07-22 20:06] VITALS: O2SAT 100
--- NOTE | 2020-07-22 20:08 | ED.VIS.GEN ---
History of Present Illness Chief Complaint: Shortness of Breath Informant: Patient Narrative: Patient is a 80-year-old female with a past medical history of atrial fibrillation on Xarelto, COPD on chronic supplemental oxygen who presents to the emergency department for generalized weakness. She states that this been going on for a couple of weeks now. She states that she has developed black stools. She is on IV iron but has not had this issue before prior to a few weeks ago. She denies any shortness of breath past her baseline. No chest pain. She denies any abdominal pain. No nausea or vomiting. She states that she is sleeping most of the day. States she does have a history of anemia in the past. She denies any fevers or chills. She does have a baseline cough does not worsen usual. Past Medical History - Allergies and Home Meds Allergies/Adverse Reactions: Allergies ferrous sulfate Adverse Reaction (Severe, Verified 07/22/20 18:41) Diarrhea codeine Adverse Reaction (Verified 07/22/20 18:41) makes me sick pregabalin [From Lyrica] Adverse Reaction (Verified 07/22/20 18:41) makes me deathly ill makes me deathly ill tramadol Adverse Reaction (Verified 07/22/20 18:41) Nausea and dizziness Primary Care Physician: Shila Mckinnon DO [Primary Care Provider] - 3-5 Days if not improving Prior records reviewed: Yes Surgical History: appendectomy, hysterectomy, - - back surgery Smoking Status: Unknown if ever smoked - Family History Maternal Family History: Family History (Last Reviewed 06/24/20 @ 13:50 by Jailyn Tony) Mother CVA (cerebral vascular accident) Atrial fibrillation Brother Atrial fibrillation History of PTCA Family History: Reports: No pertinent history Paternal Family History: Family History (Last Reviewed 06/24/20 @ 13:50 by Jailyn Tony) Mother CVA (cerebral vascular accident) Atrial fibrillation Brother Atrial fibrillation History of PTCA Family History: Reports: Cancer - lung Review of Systems General: Reports: Malaise. Denies: Chills, Fever, Sweats Eyes: Denies: Visual changes - bilaterally, Diplopia ENT: Denies: Rhinorrhea, Sore throat Cardiovascular: Denies: Chest pain, Palpitations Respiratory: Reports: Dyspnea - At baseline, Cough - At baseline. Denies: Dyspnea on exertion Gastrointestinal: Reports: Melena. Denies: Abdominal pain, Nausea, Vomiting, Diarrhea, Hematochezia Genitourinary: Denies: Dysuria, Hematuria, Frequency Musculoskeletal: Denies: Back pain, Extremity Pain Skin: Denies: Rash, Wounds Neurological: Denies: Headache, Weakness, Numbness Physical Exam Vital Signs/Narrative: Vital Signs Temp Pulse Resp BP Pulse Ox 07/22/20 20:05 100 07/22/20 18:39 97 F L 60 18 186/96 H 100 Inital Vital Signs reviewed: Yes General: Well nourished, Well developed, No Acute Distress Head: Normocephalic, Atraumatic Eyes: Perrl, EOMI ENT: Moist mucous membranes, No rhinorrhea Neck: Supple, Nontender Cardiovascular: Regular rate, Regular rhythm, No murmurs Respiratory: No distress, CTA bilaterally, Chest nontender Abdomen: Soft, Nontender, Nondistended, Normal bowel sounds Back: Nontender, Normal Inspection Extremities: Nontender, No edema Skin: Normal color, No rash Neurological: Alert, Cranial nerves II-XII grossly intact, Normal Strength, Normal Sensation Psychological: Normal affect, Normal Mood Diagnostic/Tx/Re-eval Chest X-Ray - ED: 1 View - 1 view chest interpreted by myself. She has patchiness in the right lower lobe which was seen on previous exam. This does seem improved. Otherwise normal cardiac silhouette. Agree with radiologist reading. - EKG Initial EKG Interpretation: - - Rate of 60 bpm and an atrial paced rhythm. Normal intervals. Normal axis. No ST elevations or depressions. - Medical Decision Making Patient presents to the emergency department for generalized weakness. She also complaining of black stools. Upon arrival to the emergency department vital signs within normal limits. She is not hypotensive or tachycardic. Satting well on her baseline oxygen. Will check basic lab work to evaluate for anemia status. Patient's lab work did not show a significant elevated white blood cell count. Her hemoglobin is at her baseline. Her BUN is not elevated. I have a low suspicion for GI bleed with the black stools as opposed to her just being on the iron causing the dark stools. Her chest x-ray was concerning for coronavirus and she has a low lymphocyte count. Coronavirus test is currently pending. She otherwise has been stable throughout ED stay. She is satting 100% on her baseline oxygen in no respiratory distress. Will discharge home in stable condition. We will write a prescription for azithromycin given the fact she had the opacification of the right lower lobe with a history of COPD. We will have her follow-up with her PCP if the coronavirus test comes back negative. Warning signs and symptoms for which to return to ED are reviewed. She understands and is agreeable this plan. Discharged home in stable condition. All questions answered. ED Disposition - Plan for ED Patient: Disposition: Home or Assisted Living Diagnosis: Generalized weakness Instructions: ED Weakness [facility] Prescriptions: Azithromycin [Zithromax Z-Дмитрий] 250 mg PO UD #1 box Transmission Status: Received by [id number] Referrals: Shila Mckinnon DO [Primary Care Provider] - 3-5 Days if not improving
[2020-07-22 20:15] LABS: Absolute Lymphocyte Count 0.82 X10^3/uL (0.83-4.51); Absolute Neutrophil Count 4.5 X10^3/uL (2.0-7.7); Basophil% 1.6 % (0-1); Eosinophil# 0.13 X10^3/uL; Eosinophils% 2.1 % (0-5); Hematocrit 31.6 % (37-47); Hemoglobin 9.1 g/dL (12.0-15.0); Lymphocyte # 0.82 X10^3/ul (4.0); Lymphocyte % 13.3 % (19-41); Mean Corp Hgb Conc 28.8 g/dL (32-36); Mean Corpuscular Hgb 31.6 pg (27.0-32.0); Mean Corpuscular Volume 109.7 fL (81-99); Mean Platelet Vol. 10.9 fl (6.2-12.0); Monocyte# 0.62 X10^3/uL; Monocyte% 10.1 % (0-10); NRBC Flagged by Analyzer 0 % (0-5); Neutrophil # 4.46 X10^3/uL (2.7-7.7); Neutrophil % 72.6 % (47-70); Platelet Count 282 K/mm3 (150-450); RBC Distribution Width CV 14.6 % (11.6-14.6); RBC Distribution Width SD 59.6 fl (35.1-43.9); Red Blood Count 2.88 M/mm3 (4.2-5.4); White Blood Count 6.2 K/mm3 (4.4-11.0)
[2020-07-22 20:35] LABS: Anion Gap 3 (5-15); BUN 14 mg/dL (7-18); BUN/Creat Ratio 13.2 RATIO (10-20); Calcium,Total 8.5 mg/dL (8.5-10.1); Chloride 104 mmol/L (98-107); Creatinine, Serum 1.06 mg/dL (0.55-1.02); EST Glomerular Filtration Rate 53 mL/min (>60); Est Glom Filt Rate - Afr Amer 64 mL/min (>60); Estimated Creatinine Clearance 51.05 ml/min; Glucose 88 mg/dL (74-106); Potassium 4.5 mmol/L (3.5-5.1); Sodium Level 141 mmol/L (136-145)
[2020-07-22 20:37] VITALS: BP 164/67; PULSE 60; RESP 20; TEMP 36.1; O2SAT 99
[2020-07-22 21:30] VITALS: BP 164/69; PULSE 78; RESP 18; O2SAT 100
== END 2020-07-22 21:31 | disposition home or self-care (01) ==
PROVIDERS: Emergency Provider Emergency Medicine; PCP Family Medicine
DX: R53.1 Weakness (principal); J44.9 Chronic obstructive pulmonary disease, unspecified; Z79.01 Long term (current) use of anticoagulants; Z80.1 Family history of malignant neoplasm of trachea, bronchus and lung; Z82.3 Family history of stroke; Z88.5 Allergy status to narcotic agent; Z88.8 Allergy status to other drugs, medicaments and biological substances; Z90.710 Acquired absence of both cervix and uterus; K92.1 Melena
CPT/HCPCS: 71045; 80048; 84484; 85025; 87635; 93005; 99283; A4216; U0003

== ENCOUNTER 2021-01-06 10:44 | Emergency (ER) | payer MEDICARE, SELFPAY ==
[2020-12-23 13:41] VITALS: BMI 38.1
[2021-01-06 10:46] VITALS: BP 113/69; PULSE 118; RESP 24; TEMP 36.9; O2SAT 97; BMI 31.6
--- NOTE | 2021-01-06 11:11 | RAD_ITS ---
STUDY: X-RAY CHEST REASON FOR EXAM: Female, 80 years old. Cough x3 days. Chest tightness. TECHNIQUE: Single AP portable view of the chest. COMPARISON: Comparison is made with prior study dated 07/22/2020. FINDINGS: EKG electrodes are seen. Stable mild increased markings at the lung bases likely more prominent on the left side suggestive of scarring. There is no demonstrated pleural abnormality. Normal size heart. A left-sided dual-chamber pacemaker is seen. Normal mediastinum and lydia. Normal visualized pulmonary arteries. There is atherosclerotic calcification of the aortic arch with tortuosity. There is a levoscoliosis of the thoracic spine. There is degenerative osteoarthritis of the bilateral shoulders. There is no demonstrated abnormality of the visualized soft tissue structures of the upper abdomen. RAD/Chest 1 View (Portable) IMPRESSION: Mild increased markings at the lung bases suggestive of scarring. Electronically Signed: Jessee Farmer MD at 12:28 EDT , Service support ,
--- NOTE | 2021-01-06 11:12 | EKG12_ITS ---
Test Reason : CHEST HEAVINESS Blood Pressure : / mmHG Vent. Rate : 122 BPM Atrial Rate : 388 BPM P-R Int : 000 ms QRS Dur : 074 ms QT Int : 316 ms P-R-T Axes : 000 045 196 degrees QTc Int : 450 ms Atrial flutter with variable A-V block Nonspecific ST and T wave abnormality Abnormal ECG Confirmed by ALYSSIA XIE, STORM ([id number]), city editor DENISE LEON ([id number]) on 01/08/2021 8:21:39 AM Referred By: ABDULKADIR Confirmed By:STORM CADE MD
[2021-01-06 11:22] LABS: Absolute Lymphocyte Count 1.01 X10^3/uL (0.83-4.51); Absolute Neutrophil Count 7.1 X10^3/uL (2.0-7.7); Basophil# 0.18 X10^3/uL; Basophil% 1.9 % (0-1); Eosinophil# 0.09 X10^3/uL; Hemoglobin 11.4 g/dL (12.0-15.0); Lymphocyte # 1.01 X10^3/ul (0.83-4.51); Lymphocyte % 10.9 % (19-41); Mean Corp Hgb Conc 27.8 g/dL (32-36); Mean Corpuscular Hgb 27.9 pg (27.0-32.0); Mean Corpuscular Volume 100.2 fL (81-99); Mean Platelet Vol. 11.8 fl (6.2-12.0); Monocyte# 0.88 X10^3/uL; Monocyte% 9.5 % (0-10); NRBC Flagged by Analyzer 0 % (0-5); Neutrophil # 7.07 X10^3/uL (2.7-7.7); Neutrophil % 76.1 % (47-70); Platelet Count 326 K/mm3 (150-450); RBC Distribution Width CV 16.3 % (11.6-14.6); Red Blood Count 4.09 M/mm3 (4.2-5.4); White Blood Count 9.3 K/mm3 (4.4-11.0)
[2021-01-06 11:36] LABS: Lactic Acid 1.5 mmol/L (0.4-1.9)
[2021-01-06 11:38] LABS: Bacteria 0 SEEN /hpf (None Seen); Mucous, Urine 0 SEEN /hpf (<or=2+)
[2021-01-06 11:39] LABS: ALB/GLOB Ratio 0.7 RATIO (0.9-2.4); AST(SGOT) 28 U/L (15-37); Alanine Aminotransfer ALT/SGPT 10 U/L (13-56); Albumin, Serum 2.7 g/dL (3.2-5.0); Alkaline Phosphatase 114 U/L (45-117); Anion Gap 5 (5-15); BUN 20 mg/dL (7-18); BUN/Creat Ratio 19.6 RATIO (10-20); Chloride 100 mmol/L (98-107); Creatinine, Serum 1.02 mg/dL (0.55-1.02); EST Glomerular Filtration Rate 56 mL/min (>60); Est Glom Filt Rate - Afr Amer 67 mL/min (>60); Estimated Creatinine Clearance 32.65 ml/min; Globulin 3.7 g/dL (2.2-4.2); Glucose 78 mg/dL (74-106); Potassium 4.6 mmol/L (3.5-5.1); Protein, Total 6.4 g/dL (6.4-8.2); Sodium Level 140 mmol/L (136-145)
[2021-01-06 11:41] LABS: Color, Urine Yellow (Yellow); Glucose, Dipstick Normal (Normal); Ketone-Dipstick 5 mg/dl (Negative); Leukocyte Esterase-Dipstick 500 /ul (Negative); Nitrite-Dipstick Negative (Negative); Occult Blood-Urine 10 /ul (Negative); Protein-Dipstick 15 mg/dl (Negative); Urine Bilirubin Dipstick Negative (Negative); Urine Clarity Sl. Cloudy (Clear); Urine Urobilinogen Normal (Normal)
[2021-01-06 11:42] LABS: BNP,B-Type NATRIURETIC PEPTIDE 158.1 pg/mL (0-100)
[2021-01-06 11:46] LABS: Red Blood Cells-Urine 0-5 SEEN /hpf (0-5); Squamous Epithelial Cells - UA 0-5 SEEN /hpf (5-10); White Blood Cells 10-25 SEEN /hpf (0-5)
[2021-01-06 12:36] VITALS: BP 113/69; PULSE 114; RESP 17; TEMP 37.2; O2SAT 100
--- NOTE | 2021-01-06 12:39 | ED.RN ---
pt came in with catheter in place. catheter removed by this nurse and replaced with a 16 F indwelling Cath.
--- NOTE | 2021-01-06 12:43 | EX.ED.DYSGE1 ---
HPI History of Present Illness Chief Complaint: Chest Pain Informant: patient and family Limited: other (Per granddaughter who now resides with patient that she has been slightly confused and states that her daughter and other granddaughter have not been caring for her or helping her as they should.) Onset/Context/Timing Onset: Days Context: Sudden Onset Timing: Continuous Quality: Dyspnea, cough that is slightly productive and chest discomfort Location: Lower mid chest Current Severity: Mild Maximum Severity: Moderate Worsened by: Dyspnea on exertion, chest discomfort is not related to activity, change in Relieved by: Nothing Associated Symptoms Associated Symptoms: Cough Narrative Narrative: Patient is an elderly woman who is not a good informant with multiple medical problems who presents because of cough, shortness of breath and not doing well at home by herself. Granddaughter is attempting to become the power of research attorney. Granddaughter corrected her several times with regards to the history. Reported subjective fever with chills. She does report rhinorrhea. She is nonambulatory has been exposed to no one has been ill. Granddaughter states she is checked twice a week for Covid and has had all negative tests. Patient denies headache, visual, ocular or auditory symptoms. She denies sore throat, trouble swallowing or change in voice. The chest discomfort is described as discomfort. There is no alleviating, precipitating or aggravating factors. There is been no black or maroon-colored stool. She denies urologic symptoms. Prior similar symptoms: No Recent Illness/Hospitalization: No [facility] Medical History (Updated 01/06/21 @ 13:[address] 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 Long-term use of high-risk medication Lung nodule Nonrheumatic aortic (valve) insufficiency Nonrheumatic tricuspid (valve) insufficiency Paroxysmal atrial fibrillation Pure hypercholesterolemia Sick sinus syndrome Stage 1 mild COPD by GOLD classification Tobacco dependence in remission Home Medications cholecalciferol (vitamin D3) 5,000 unit PO DAILY 03/17/17 [History Last Taken 09/26/19] hydrocodone-acetaminophen 1 - 2 tab PO Q4H PRN PRN 03/17/17 [History Last Taken 09/25/19] melatonin 10 - 15 mg PO QHS PRN PRN 03/17/17 [History Last Taken 09/25/19] albuterol sulfate 90 mcg/actuation aerosol inhaler 2 puff INHALATION Q4H PRN PRN #18 g 07/10/19 [Rx Last Taken Unknown] meclizine 12.5 mg tablet 12.5 mg PO DAILY PRN 05/17/20 [History Last Taken Unknown] pantoprazole 40 mg tablet,delayed release 40 mg PO BID PRN 05/17/20 [History Last Taken Unknown] ipratropium 0.5 mg-albuterol 3 mg (2.5 mg base)/3 mL nebulization soln 3 ml INHALATION Q6H #180 vial 06/24/20 [Rx Last Taken Unknown] amiodarone 200 mg tablet See Rx Instructions .ROUTE .COMPLEX #45 tab 07/06/20 [Rx Last Taken Unknown] potassium chloride 20 mEq tablet,extended release 20 meq PO DAILY PRN #90 tab 08/14/20 [Rx Last Taken Unknown] furosemide 40 mg tablet 20 mg PO DAILY PRN tablet 12/23/20 [History Last Taken Unknown] gabapentin 600 mg tablet 400 mg PO TIDCM tablet 12/23/20 [History Last Taken Unknown] hydrocodone-acetaminophen 5-325mg 5mg-325mg 1 tablet PO QHS PRN 12/23/20 [History Last Taken Unknown] metoprolol tartrate 100 mg tablet 50 mg PO DAILY tablet 12/23/20 [History Last Taken Unknown] Allergy/AdvReac Type Severity Reaction Status Date / Time ferrous sulfate AdvReac Severe Diarrhea Verified 01/06/21 10:45 codeine AdvReac makes me Verified 01/06/21 10:45 sick pregabalin [From Lyrica] AdvReac makes me Verified 01/06/21 10:45 deathly ill tramadol AdvReac Nausea and Verified 01/06/21 10:45 dizziness Family History Mother CVA (cerebral vascular accident) Atrial fibrillation Brother Atrial fibrillation History of PTCA Surgical History History of back surgery Presence of permanent cardiac pacemaker (03/13/19) Social History Smoking Status: Unknown if ever smoked how long ago did patient quit smokin alcohol intake: never what type of physical activity do you participate in: none seatbelt use: always do you feel safe at home: Yes ROS ROS ED Review of Systems ROS Unobtainable: due to mental status Constitutional Constitutional ED: Reports chills; Denies fever(s), subjective or sweats Eyes Eyes: Denies blurry vision, change in vision or diplopia ENT ENT ED: Reports rhinorrhea; Denies ear pain or sore throat Cardiovascular Cardiovascular: Reports chest pain; Denies orthopnea, palpitations, paroxysmal nocturnal dyspnea or racing heartbeat Respiratory/Chest Respiratory/Chest: Reports cough, dyspnea and sputum; Denies dyspnea on exertion, orthopnea or paroxysmal nocturnal dyspnea Gastrointestinal Gastrointestinal: Denies abdominal pain, constipation, diarrhea, melena, nausea or vomiting Genitourinary Genitourinary ED: Denies dysuria, hematuria or urinary frequency Musculoskeletal Musculoskeletal: Reports back pain; Denies arthralgias, myalgias or neck pain Integumentary Denies rash Neurologic Neurologic: Reports weakness; Denies headache(s) or paresthesias Psychiatric Psychiatric: Reports depression; Denies anxiety Endocrine Endocrinology: Denies polydipsia, polyphagia or polyuria Allergic/Immunologic Allergic/Immunologic ED: Denies urticaria EXAM Physical Exam Const Vital Signs: 01/06/21 10:46 01/06/21 10:49 01/06/21 12:36 Temperature 98.4 F 98.9 F Temperature Source Oral Oral Pulse Rate 118 H 114 H Respiratory Rate 24 H 17 Respiratory Effort Short of Breath Blood Pressure 113/69 113/69 Blood Pressure Mean 83 83 Pulse Ox 97 100 Oxygen Delivery Method Nasal Cannula Nasal Cannula Oxygen Flow Rate (L/min) 4 Positive well nourished, well developed, obese and contractures General Appearance ED: well developed and contractures; Negative for cyanotic or diaphoretic Nutritional Appearance: obese HEENT Reports TM's clear and dry mucous membranes Negative for trauma or tenderness Tympanic Membrane ED: Yes TM's clear Mouth ED: Yes dry mucous membranes Mouth: dry mucous membranes Eyes PERRL and EOMs intact bilaterally General Eye ED: Yes pale conjunctiva; Negative for scleral icterus Neck no lymphadenopathy, supple and no JVD General: Negative for tenderness Chest Wall inspection of chest normal Resp Effort and Inspection: Negative for pain with movement Auscultation: rales bilateral lower and diminished lung sounds Cardio regular rate, regular rhythm, S1 normal heart sound, S2 normal heart sound and no murmurs GI no masses Palpation: soft, tender other (Throughout but predominantly on the right side.) and guarding; Negative for rebound tenderness present Back/Spine no CVA tenderness Cervical Spine: Negative for cervical spine tenderness Thoracic Spine / Upper Back: Negative for thoracic spinal tenderness or paraspinal muscle tenderness Extremity General Extremety ED: Yes edema; Negative for tenderness General Extremity: edema Neuro No oriented x3, CN's II-XII intact bilaterally and no sensory deficits noted Sensorium / Orientation: alert Motor Exam: Negative for strength 5/5 throughout Psych Mood & Affect: depressed Skin no rashes or lesions noted and no wounds MDM MDM MDM Narrative Medical decision making narrative: Patient with respiratory as well as abdominal symptoms. Patient is not a reliable informant. Need to rule out pneumonia, Covid, the abdominal pain according the granddaughter is chronic and she takes opiate analgesics hourly. She is not had problems with constipation. Will obtain CBC to assess white count and rule out anemia. Conference of panel was obtained to assess electrolytes, renal function and liver enzymes. Indwelling catheter was changed since has not been changed in some time and has significant debris noted. We will obtain urinalysis to rule out infection. Case management was consulted because of concerns raised by granddaughter. Arrangements made for nursing care at home and follow-up with adult protective. Lab Data Attestation: I reviewed the patient's lab results. Labs: Laboratory Results - last 24 hr 01/06/21 01/06/21 01/06/21 11:05 11:05 11:05 WBC 9.3 RBC 4.09 L Hgb 11.4 L Hct 41.0 MCV 100.2 H MCH 27.9 MCHC 27.8 L RDW Std Deviation 60.0 H RDW Coeff of Valorie 16.3 H Plt Count 326 MPV 11.8 Immature Gran % (Auto) 0.600 Neut % (Auto) 76.1 H Lymph % (Auto) 10.9 L [place] % (Auto) 9.5 Eos % (Auto) 1.0 Baso % (Auto) 1.9 H Absolute Neuts (auto) 7.1 Absolute Lymphs (auto) 1.01 Nucleated RBC % 0 Sodium 140 Potassium 4.6 Chloride 100 Carbon Dioxide 35.0 H Anion Gap 5 BUN 20 H Creatinine 1.02 Estim Creat Clear Calc 32.65 Est GFR (MDRD) Af Amer 67 Est GFR (MDRD) Non-Af 56 L BUN/Creatinine Ratio 19.6 Glucose 78 Lactic Acid 1.5 Calcium 9.0 Total Bilirubin 0.70 AST 28 ALT 10 L Alkaline Phosphatase 114 Troponin I < 0.015 B-Natriuretic Peptide Total Protein 6.4 Albumin 2.7 L Globulin 3.7 Albumin/Globulin Ratio 0.7 L Urine Color Urine Clarity Urine pH Ur Specific Alpine Urine Protein Urine Glucose (UA) Urine Ketones Urine Occult Blood Urine Nitrite Urine Bilirubin Urine Urobilinogen Ur Leukocyte Esterase Urine RBC Urine WBC Ur Squamous Epith Cells Urine Bacteria Urine Mucus 01/06/21 01/06/21 11:05 11:30 WBC RBC Hgb Hct MCV MCH MCHC RDW Std Deviation RDW Coeff of Valorie Plt Count MPV Immature Gran % (Auto) Neut % (Auto) Lymph % (Auto) [place] % (Auto) Eos % (Auto) Baso % (Auto) Absolute Neuts (auto) Absolute Lymphs (auto) Nucleated RBC % Sodium Potassium Chloride Carbon Dioxide Anion Gap BUN Creatinine Estim Creat Clear Calc Est GFR (MDRD) Af Amer Est GFR (MDRD) Non-Af BUN/Creatinine Ratio Glucose Lactic Acid Calcium Total Bilirubin AST ALT Alkaline Phosphatase Troponin I B-Natriuretic Peptide 158.1 H Total Protein Albumin Globulin Albumin/Globulin Ratio Urine Color Yellow Urine Clarity Sl. Cloudy Urine pH 7.0 Ur Specific Alpine 1.010 Urine Protein 15 H Urine Glucose (UA) Normal Urine Ketones 5 H Urine Occult Blood 10 H Urine Nitrite Negative Urine Bilirubin Negative Urine Urobilinogen Normal Ur Leukocyte Esterase 500 H Urine RBC 0-5 SEEN Urine WBC 10-25 SEEN Ur Squamous Epith Cells 0-5 SEEN Urine Bacteria 0 SEEN Urine Mucus 0 SEEN CBC and H&H are unremarkable. Comprehensive metabolic panel was normal. Troponin with hours of pain is normal. Lactate was normal. BNP was slightly elevated 158.1. Urine reveals pyuria without bacteria. This is probably due to the indwelling Meraz. Radiography Chest X-Ray - ED: 1 View, Read by ED Physician, Read by Radiologist, Heart, Bony Structures, No Acute Disease and Chronic Changes Diagnostic Testing: Radiology Impression Chest X-Ray 01/06/21 11:11 IMPRESSION: Mild increased markings at the lung bases suggestive of scarring. Electronically Signed: Jessee Farmer MD at 12:28 EDT , Service support , Discharge Plan Triage Chief Complaint: Chest Pain ED Provider: Ladarius Martinez Dx/Rx/DC Orders Clinical Impression: Acute confusion, Upper respiratory infection with cough and congestion Instructions: ED ALOC, ED URI, Viral, No Abx (Adult) Prescriptions: No Action furosemide [Lasix] 40 mg tablet 20 mg PO DAILY PRN (Reason: edema, SOB) RF: 0 albuterol sulfate 90 mcg/actuation HFA aerosol inhaler 2 puff INHALATION Q4H PRN PRN (Reason: Sob &/Or Wheezing) Qty: 18 RF: 11 ipratropium-albuterol 0.5 mg-3 mg(2.5 mg base)/3 mL solution for nebulization 3 ml INHALATION Q6H Qty: 180 RF: 6 meclizine 12.5 mg tablet 12.5 mg PO DAILY PRN (Reason: Fatigue) RF: 0 hydrocodone-acetaminophen 5-325 mg tablet 1 tablet PO QHS PRNRF: 0 metoprolol tartrate 100 mg tablet 50 mg PO DAILY RF: 0 hydrocodone-acetaminophen 1 TABLET tablet 1 - 2 tab PO Q4H PRN PRN (Reason: Pain) RF: 0 cholecalciferol (vitamin D3) 5,000 UNIT capsule 5,000 unit PO DAILY RF: 0 melatonin 5 MG tablet 10 - 15 mg PO QHS PRN PRN (Reason: Sleep) RF: 0 gabapentin 600 mg tablet 400 mg PO TIDCM RF: 0 pantoprazole 40 mg tablet,delayed release (DR/EC) 40 mg PO BID PRN (Reason: reflux) RF: 0 amiodarone 200 mg tablet See Rx Instructions .ROUTE .COMPLEX Qty: 45 RF: 3 potassium chloride 20 mEq tablet extended release 20 meq PO DAILY PRN (Reason: when she takes lasix) Qty: 90 RF: 3 Primary Care Provider: Shila Mckinnon Referrals: Shila Mckinnon, [Primary Care Provider] - 3-5 Days if not improving Disposition Disposition: Home, self care
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
[2021-01-06 13:41] VITALS: BP 141/56; PULSE 106; RESP 16; O2SAT 99
--- NOTE | 2021-01-06 13:45 | NURSING ---
[facility] WAS CALLED FOR A RIDE AT 1345. ETA OF 30 MINUTES.
== END 2021-01-06 14:34 | disposition home or self-care (01) ==
PROVIDERS: Emergency Provider Emergency Medicine; PCP Family Medicine
DX: R41.0 Disorientation, unspecified (principal); J06.9 Acute upper respiratory infection, unspecified; Z79.01 Long term (current) use of anticoagulants; Z79.899 Other long term (current) drug therapy
CPT/HCPCS: 51702; 71045; 80053; 81001; 83605; 83880; 84484; 85025; 87426; 93005; 99285; A4216

== ENCOUNTER → 2021-04-28 14:36 | Outpatient (CLI) | payer MEDICARE, SELFPAY ==
[2021-04-28 17:05] LABS: Hematocrit 34.3 % (37-47); Hemoglobin 10.4 g/dL (12.0-15.0); Mean Corp Hgb Conc 30.3 g/dL (32-36); Mean Corpuscular Hgb 31.5 pg (27.0-32.0); Mean Corpuscular Volume 103.9 fL (81-99); Platelet Count 279 K/mm3 (150-450); RBC Distribution Width CV 15.2 % (11.6-14.6); RBC Distribution Width SD 58.3 fl (35.1-43.9); White Blood Count 7.6 K/mm3 (4.4-11.0)
[2021-04-28 17:46] LABS: Anion Gap 6 (5-15); BUN 21 mg/dL (7-18); BUN/Creat Ratio 17.6 RATIO (10-20); Calcium,Total 9.1 mg/dL (8.5-10.1); Chloride 101 mmol/L (98-107); Cholesterol 153 mg/dL (200); Creatinine, Serum 1.19 mg/dL (0.55-1.02); EST Glomerular Filtration Rate 47 mL/min (>60); Est Glom Filt Rate - Afr Amer 56 mL/min (>60); Glucose 70 mg/dL (74-106); High Density Lipoprotein 61 mg/dL; Iron 68 ug/dL (50-170); Potassium 4.2 mmol/L (3.5-5.1); Sodium Level 141 mmol/L (136-145); T4 Free Direct 1.72 ng/dL (0.76-1.46); Thyroid Stim Hormone (TSH) 0.34 uIU/mL (0.358-3.74); Triglycerides 114 mg/dL; Very Low Density Lipoprotein 23 mg/dL (5-40)
[2021-04-28 17:49] LABS: Vitamin B12 288 pg/mL (211-911); Vitamin D,25 Hydroxy 113.5 ng/mL
== END ==
DX: E55.9 Vitamin D deficiency, unspecified (principal); R94.6 Abnormal results of thyroid function studies; R53.81 Other malaise; D50.9 Iron deficiency anemia, unspecified; I48.0 Paroxysmal atrial fibrillation; F41.9 Anxiety disorder, unspecified; E78.5 Hyperlipidemia, unspecified
CPT/HCPCS: 36415; 80048; 80061; 82306; 82607; 83540; 84439; 84443; 84481; 85027

== ENCOUNTER 2021-08-07 06:57 | Inpatient (IN) | payer MEDICARE, SELFPAY ==
[2021-08-07] VITALS (15 sets, daily range): BP systolic 68–120; BP diastolic 32–73; PULSE 63–83; RESP 17–22; TEMP 36.2–37.3; O2SAT 93–98; BMI 26.1; BMI 26.2
--- NOTE | 2021-08-07 07:17 | EKG12_ITS ---
Test Reason : NAUSEA/VOMITING Blood Pressure : / mmHG Vent. Rate : 080 BPM Atrial Rate : 080 BPM P-R Int : 168 ms QRS Dur : 068 ms QT Int : 406 ms P-R-T Axes : 060 025 051 degrees QTc Int : 468 ms Normal sinus rhythm Nonspecific ST and T wave abnormality Abnormal ECG Confirmed by ALYSSIA XIE, STORM ([id number]), development editor DENISE LEON ([id number]) on 08/08/2021 1:23:42 PM Referred By: LISA Confirmed By:STORM CADE MD
--- NOTE | 2021-08-07 07:17 | CT_ITS ---
STUDY: CT ABDOMEN AND PELVIS WITH CONTRAST REASON FOR EXAM: Female, 81 years old. Lower abdominal pain. Elevated white count. GI bleed. RADIATION DOSAGE (If Supplied By Facility): CTDIvol = ( 18.65 ) mGy, DLP = ( 589.76 ) mGycm TECHNIQUE: Transaxial images were obtained from the dome of the diaphragm to the symphysis pubis with oral contrast. Oral and amp; IV Gastrografin and amp; 75mL Isovue-300 was administered. Sagittal and coronal images were reconstructed. Individualized dose optimization techniques were used for this CT. COMPARISON: None. FINDINGS: Increased linear markings at the right lung base suggestive of scarring. Coronary artery calcification. A dual chamber maker is seen. There is a mild degree of dilated central intrahepatic biliary ducts. Multiple small gallstones are seen in the dependent wall of the gallbladder. Normal spleen. Normal pancreas. Normal bilateral adrenal glands. Normal right kidney. Normal left kidney. There is a moderate-sized hiatal hernia. Fluid-filled slightly dilated small bowel loops. Multiple layering gallstones. Mild degree of intrahepatic biliary ductal dilatation. There is diffuse thickening of the wall of the cecum with fluid filled and distended right hemicolon. There is evidence of fluid filled and fecal material seen in the left hemicolon. A large amount of fecal material is seen in the sigmoid colon. The patient is status post appendectomy. There is diffuse atherosclerotic calcification of the abdominal aorta and its major visceral branches, without a demonstrated aneurysm. Normal inferior vena cava. Normal retroperitoneum. Normal urinary bladder. There is absence of the uterus consistent with a prior hysterectomy. Normal abdominal wall. There are diffuse degenerative changes of the visualized lumbar spine. CT/Abdomen/Pelvis WITH Contrast IMPRESSION: Diffusely thickened wall of the cecum and proximal ascending colon with fluid distention of the right hemicolon. Gas and fecal material are seen in the left hemicolon was in the sigmoid colon. Electronically Signed: Jessee Farmer MD at 11:06 EST , Service support ,
--- NOTE | 2021-08-07 07:18 | ED.VIS.GI ---
HPI HPI - GI History of Present Illness Chief Complaint: GI Bleed Informant: patient and family Abdominal Pain/Flank Pain Onset: Yesterday Context: Gradual Onset Timing: Continuous Location: Diffuse Worsened by: Nothing Relieved by: Nothing Nausea/Vomiting/Emesis GI Symptom: Positive for Nausea and Vomiting Onset: Yesterday Quality: Positive for Coffee ground and Hematemesis Diarrhea/Melena/Hematochezia GI Symptom: Negative for Diarrhea, Melena and Hematochezia Associated Symptoms Associated Symptoms: Negative for Dysuria and Hematuria Narrative Narrative: Presents with abdominal pain that began yesterday. Patient started having some dry heaves then started vomiting up stomach contents. Later, patient started having some hematemesis of dark red blood and coffee grounds. Granddaughter states that patient has had similar episodes in the past that did not require surgery. Granddaughter states patient has not had any melena or hematochezia. Patient states her pain is diffuse across her abdomen. Patient states it is constant. Granddaughter denies any fevers or chills. PFSH PFS Medical History Body mass index 34.0-34.9, adult CVA (cerebral vascular accident) Essential hypertension GI bleed half-way current use of anticoagulant therapy Long-term use of high-risk medication Lung nodule Nonrheumatic aortic (valve) insufficiency Nonrheumatic tricuspid (valve) insufficiency Paroxysmal atrial fibrillation Pure hypercholesterolemia Sick sinus syndrome Stage 1 mild COPD by GOLD classification Tobacco dependence in remission Home Medications cholecalciferol (vitamin D3) 5,000 unit PO DAILY 03/17/17 [History Last Taken 09/26/19] hydrocodone-acetaminophen 1 - 2 tab PO Q4H PRN PRN 03/17/17 [History Last Taken 09/25/19] melatonin 10 - 15 mg PO QHS PRN PRN 03/17/17 [History Last Taken 09/25/19] albuterol sulfate 90 mcg/actuation aerosol inhaler 2 puff INHALATION Q4H PRN PRN #18 g 07/10/19 [Rx Last Taken Unknown] meclizine 12.5 mg tablet 12.5 mg PO DAILY PRN 05/17/20 [History Last Taken Unknown] pantoprazole 40 mg tablet,delayed release 40 mg PO BID PRN 05/17/20 [History Last Taken Unknown] ipratropium 0.5 mg-albuterol 3 mg (2.5 mg base)/3 mL nebulization soln 3 ml INHALATION Q6H #180 vial 06/24/20 [Rx Last Taken Unknown] furosemide 40 mg tablet 20 mg PO DAILY tablet 12/23/20 [History Last Taken Unknown] gabapentin 600 mg tablet 400 mg PO TIDCM tablet 12/23/20 [History Last Taken Unknown] albuterol sulfate 2.5 mg INHALATION Q4H PRN #180 ml 04/28/21 [Rx Last Taken Unknown] tiotropium 2.5 mcg-olodaterol 2.5 mcg/actuation mist for inhalation 2 inh INHALATION DAILY #4 g 04/28/21 [Rx Last Taken Unknown] amiodarone 200 mg tablet See Rx Instructions .ROUTE .COMPLEX #45 tab 08/04/21 [Rx Last Taken Unknown] calcium acetate 667 mg tablet 667 mg PO DAILY 08/05/21 [History Last Taken Unknown] metoprolol tartrate 50 mg PO BID 08/07/21 [History Last Taken Unknown] potassium chloride 20 meq PO DAILY 08/07/21 [History Last Taken Unknown] Allergy/AdvReac Type Severity Reaction Status Date / Time ferrous sulfate AdvReac Severe Diarrhea Verified 08/07/21 07:02 codeine AdvReac makes me Verified 08/07/21 07:02 sick iron AdvReac Nausea/Vom/ Verified 08/07/21 07:02 Diarrhea pregabalin [From Lyrica] AdvReac makes me Verified 08/07/21 07:02 deathly ill tramadol AdvReac Nausea and Verified 08/07/21 07:02 dizziness Family History (Reviewed 04/28/21 @ 14:02 by Emy Cabrera [facility], [facility]) Mother CVA (cerebral vascular accident) Atrial fibrillation Brother Atrial fibrillation History of PTCA Surgical History History of back surgery Presence of permanent cardiac pacemaker (03/13/19) Social History Smoking Status: Former smoker how long ago did patient quit smokin alcohol intake: never what type of physical activity do you participate in: none seatbelt use: always do you feel safe at home: Yes ROS ROS ED Constitutional Constitutional ED: Denies chills or fever(s) Eyes Eyes: Denies blurry vision or change in vision ENT ENT ED: Denies rhinorrhea or sore throat Cardiovascular Cardiovascular: Denies chest pain or palpitations Respiratory/Chest Respiratory/Chest: Denies cough or dyspnea Gastrointestinal Gastrointestinal: Reports abdominal pain, nausea and vomiting; Denies diarrhea Genitourinary Genitourinary ED: Denies dysuria or hematuria Musculoskeletal Musculoskeletal: Denies back pain or neck pain Integumentary Denies abscess or rash Neurologic Neurologic: Denies headache(s) or weakness Allergic/Immunologic Allergic/Immunologic ED: Denies mouth swelling or urticaria EXAM Physical Exam Const Vital Signs: 08/07/21 06:58 08/07/21 10:52 08/07/21 12:00 Temperature 97.9 F Temperature Source Temporal Pulse Rate 83 63 64 Respiratory Rate 18 17 18 Blood Pressure 120/56 L 100/73 Blood Pressure Mean 77 82 Pulse Ox 97 94 94 Oxygen Delivery Method Room Air Room Air Nasal Cannula Oxygen Flow Rate (L/min) 4 Positive well nourished and well developed General Appearance ED: well developed HEENT Reports moist mucous membranes Eyes PERRL General Eye ED: Yes pale conjunctiva Neck supple and no JVD Resp normal respiratory effort and clear to auscultation bilaterally Cardio regular rate and regular rhythm GI Auscultation: hypoactive bowel sounds Palpation: soft and tender epigastric, LLQ, RLQ, LUQ, RUQ, periumbilical and suprapubic Extremity full ROM General Extremety ED: Negative for edema General Extremity: Negative for edema Neuro CN's II-XII intact bilaterally, moves all extremities and no sensory deficits noted Sensorium / Orientation: alert MDM MDM MDM Narrative Medical decision making narrative: Patient was given IV fluids, morphine, and Zofran. CBC shows a leukocytosis of 21.1. Hemoglobin was stable at 11.8 and hematocrit was 38.3. Platelets were 434. Comprehensive metabolic profile shows a elevated creatinine of 1.52 and a BUN of 41. Lipase was less than 10. CT scan of the abdomen pelvis was obtained. There is diffusely thickened wall of the cecum and proximal ascending colon with fluid distention of the right hemicolon. There is gas and fecal material seen in the left hemicolon as well as in the sigmoid colon. This was interpreted by the radiologist and reviewed by myself. Urinalysis was obtained. Leukocyte esterase was 100. Patient was started on Cipro and Flagyl. Case was discussed with the hospitalist. She will admit the patient to her service. Patient and granddaughter understood and were agreeable with the plan. All questions were answered. Lab Data Attestation: I reviewed the patient's lab results. Labs: Laboratory Results - last 24 hr 08/07/21 08/07/21 08/07/21 07:40 07:40 08:30 WBC 21.1 H RBC 3.84 L Hgb 11.8 L Hct 38.3 MCV 99.7 H MCH 30.7 MCHC 30.8 L RDW Std Deviation 53.1 H RDW Coeff of Valorie 15.7 H Plt Count 434 MPV 11.4 Immature Gran % (Auto) 0.800 Neut % (Auto) 91.6 H Lymph % (Auto) 2.6 L [place] % (Auto) 4.2 Eos % (Auto) 0.0 Baso % (Auto) 0.8 Absolute Neuts (auto) 19.4 H Absolute Lymphs (auto) 0.55 L Nucleated RBC % 0 Differential Comment COMMENT Sodium Cancelled 144 Potassium Cancelled 4.3 Chloride Cancelled 106 Carbon Dioxide Cancelled 26.0 Anion Gap Cancelled 12 BUN Cancelled 41 H Creatinine Cancelled 1.52 H Estim Creat Clear Calc Cancelled 27.76 Est GFR (MDRD) Af Amer Cancelled 42 L Est GFR (MDRD) Non-Af Cancelled 35 L BUN/Creatinine Ratio Cancelled 27.0 H Glucose Cancelled 164 H Calcium Cancelled 8.4 L Total Bilirubin Cancelled 0.90 AST Cancelled 27 ALT Cancelled 16 Alkaline Phosphatase Cancelled 127 H Troponin I High Sens Cancelled 13 Total Protein Cancelled 5.6 L Albumin Cancelled 2.1 L Globulin Cancelled 3.5 Albumin/Globulin Ratio Cancelled 0.6 L Lipase Cancelled < 10 L Urine Color Urine Clarity Urine pH Ur Specific [place] Urine Protein Urine Glucose (UA) Urine Ketones Urine Occult Blood Urine Nitrite Urine Bilirubin Urine Urobilinogen Ur Leukocyte Esterase 08/07/21 11:50 WBC RBC Hgb Hct MCV MCH MCHC RDW Std Deviation RDW Coeff of Valorie Plt Count MPV Immature Gran % (Auto) Neut % (Auto) Lymph % (Auto) [place] % (Auto) Eos % (Auto) Baso % (Auto) Absolute Neuts (auto) Absolute Lymphs (auto) Nucleated RBC % Differential Comment Sodium Potassium Chloride Carbon Dioxide Anion Gap BUN Creatinine Estim Creat Clear Calc Est GFR (MDRD) Af Amer Est GFR (MDRD) Non-Af BUN/Creatinine Ratio Glucose Calcium Total Bilirubin AST ALT Alkaline Phosphatase Troponin I High Sens Total Protein Albumin Globulin Albumin/Globulin Ratio Lipase Urine Color Yellow Urine Clarity Turbid Urine pH 8.0 Ur Specific [place] 1.010 Urine Protein 30 H Urine Glucose (UA) Normal Urine Ketones 5 H Urine Occult Blood 10 H Urine Nitrite Negative Urine Bilirubin 3 H Urine Urobilinogen 4 H Ur Leukocyte Esterase 100 H Radiography Diagnostic Testing: Clinical Impression(s) from Imaging Studies Abdomen/Pelvis CT 08/07/21 07:17 IMPRESSION: Diffusely thickened wall of the cecum and proximal ascending colon with fluid distention of the right hemicolon. Gas and fecal material are seen in the left hemicolon was in the sigmoid colon. Electronically Signed: Jessee Farmer MD at 11:06 EST , Service support , Treatment and Re-Evaluation Vital Sign Attestation:: Vital signs were reviewed prior to admission. They are stable. Discharge Plan Triage Chief Complaint: GI Bleed ED Provider: Usman Delcid Dx/Rx/DC Orders Clinical Impression: Colitis, Upper gastrointestinal bleeding Prescriptions: No Action furosemide [Lasix] 40 mg tablet 20 mg PO DAILY RF: 0 albuterol sulfate 90 mcg/actuation HFA aerosol inhaler 2 puff INHALATION Q4H PRN PRN (Reason: Sob &/Or Wheezing) Qty: 18 RF: 11 ipratropium-albuterol 0.5 mg-3 mg(2.5 mg base)/3 mL solution for nebulization 3 ml INHALATION Q6H Qty: 180 RF: 6 meclizine 12.5 mg tablet 12.5 mg PO DAILY PRN (Reason: Fatigue) RF: 0 Stiolto Respimat 2.5-2.5 mcg/actuation mist 2 inh inhalation DAILY Qty: 4 RF: 2 albuterol sulfate 2.5 mg /3 mL (0.083 %) solution for nebulization 2.5 mg inhalation Q4H PRN (Reason: Sob &/Or Wheezing) Qty: 180 RF: 3 calcium acetate 667 mg tablet 667 mg PO DAILY RF: 0 hydrocodone-acetaminophen 1 TABLET tablet 1 - 2 tab PO Q4H PRN PRN (Reason: Pain) RF: 0 cholecalciferol (vitamin D3) 5,000 UNIT capsule 5,000 unit PO DAILY RF: 0 melatonin 5 MG tablet 10 - 15 mg PO QHS PRN PRN (Reason: Sleep) RF: 0 gabapentin 600 mg tablet 400 mg PO TIDCM RF: 0 pantoprazole 40 mg tablet,delayed release (DR/EC) 40 mg PO BID PRN (Reason: reflux) RF: 0 metoprolol tartrate 100 mg tablet 50 mg PO BID RF: 0 potassium chloride 20 mEq tablet extended release 20 meq PO DAILY RF: 0 amiodarone 200 mg tablet See Rx Instructions .ROUTE .COMPLEX Qty: 45 RF: 3 Referrals: JUAN CARLOS FRANCO [Other] Disposition Disposition: Acute Care Hospital [facility]
[2021-08-07] MEDS: 0.9% Normal Saline 1,000 ML 1000 ML IV (07:44)
[2021-08-07] MEDS: Ondansetron 4 MG/2 ML Vial IV ×3 (07:44→17:51)
[2021-08-07] MEDS: Morphine 4 MG/ML Syringe IV (07:44)
[2021-08-07 07:46] LABS: Absolute Lymphocyte Count 0.55 X10^3/uL (0.83-4.51); Absolute Neutrophil Count 19.4 X10^3/uL (2.0-7.7); Basophil# 0.16 X10^3/uL; Basophil% 0.8 % (0-1); Hematocrit 38.3 % (37-47); Hemoglobin 11.8 g/dL (12.0-15.0); Lymphocyte # 0.55 X10^3/ul (0.83-4.51); Lymphocyte % 2.6 % (19-41); Mean Corp Hgb Conc 30.8 g/dL (32-36); Mean Corpuscular Hgb 30.7 pg (27.0-32.0); Mean Corpuscular Volume 99.7 fL (81-99); Mean Platelet Vol. 11.4 fl (6.2-12.0); Monocyte# 0.88 X10^3/uL; Monocyte% 4.2 % (0-10); NRBC Flagged by Analyzer 0 % (0-5); Neutrophil # 19.38 X10^3/uL (2.7-7.7); Neutrophil % 91.6 % (47-70); POSITIVE DIFFERENTIAL YES; Platelet Count 434 K/mm3 (150-450); RBC Distribution Width CV 15.7 % (11.6-14.6); RBC Distribution Width SD 53.1 fl (35.1-43.9); Red Blood Count 3.84 M/mm3 (4.2-5.4); White Blood Count 21.1 K/mm3 (4.4-11.0)
[2021-08-07 07:50] LABS: Differential Indicated SCAN CRITERIA MET
[2021-08-07 10:24] LABS: ALB/GLOB Ratio 0.6 RATIO (0.9-2.4); AST(SGOT) 27 U/L (15-37); Alanine Aminotransfer ALT/SGPT 16 U/L (13-56); Albumin, Serum 2.1 g/dL (3.2-5.0); Alkaline Phosphatase 127 U/L (45-117); Anion Gap 12 (5-15); BUN 41 mg/dL (7-18); Calcium,Total 8.4 mg/dL (8.5-10.1); Chloride 106 mmol/L (98-107); Creatinine, Serum 1.52 mg/dL (0.55-1.02); EST Glomerular Filtration Rate 35 mL/min (>60); Est Glom Filt Rate - Afr Amer 42 mL/min (>60); Estimated Creatinine Clearance 27.76 ml/min; Globulin 3.5 g/dL (2.2-4.2); Glucose 164 mg/dL (74-106); Lipase < 10 U/L (73-393); Potassium 4.3 mmol/L (3.5-5.1); Protein, Total 5.6 g/dL (6.4-8.2); Sodium Level 144 mmol/L (136-145); Troponin-I HS 13 pg/mL (3.0-54.0)
[2021-08-07 11:58] LABS: Mucous, Urine 0 SEEN /hpf (<or=2+); Red Blood Cells-Urine 0 SEEN /hpf (0-5); Squamous Epithelial Cells - UA 0 SEEN /hpf (5-10)
[2021-08-07 12:01] LABS: Color, Urine Yellow (Yellow); Glucose, Dipstick Normal (Normal); Ketone-Dipstick 5 mg/dl (Negative); Leukocyte Esterase-Dipstick 100 /ul (Negative); Nitrite-Dipstick Negative (Negative); Occult Blood-Urine 10 /ul (Negative); Protein-Dipstick 30 mg/dl (Negative); Urine Clarity Turbid (Clear); Urine Urobilinogen 4 mg/dl (Normal)
[2021-08-07 12:02] LABS: Urine Bilirubin Dipstick 3 mg/dL (Negative)
[2021-08-07 12:20] LABS: Bacteria 3+ /hpf (None Seen); White Blood Cells 0-5 SEEN /hpf (0-5)
[2021-08-07] MEDS: metroNIDAZOLE 500 MG/100 ML BAG 100 MG IV (13:04)
--- NOTE | 2021-08-07 14:16 | PCS.PANDOC ---
PANDEMIC DOCUMENTATION INITIATED: Date: 04/14/2021 Time: 190
[2021-08-07] MEDS: 0.9% Normal Saline 1,000 ML 50 ML IV (15:36)
[2021-08-07 16:24] LABS: Hemoglobin 10.6 g/dL (12.0-15.0)
--- NOTE | 2021-08-07 16:24 | HP.PCM.HOS_ITS ---
[facility] - General General Date of Admission: 08/07/21 HPI Narrative IMELDA LEWIS, is a 81 F who presented to the emergency department was [facility] on 08/07/2021 with a chief complaint of hematemesis. She presents with her granddaughter with whom she lives. Her granddaughter supplies most of the history. She states she has been her normal self up until last evening when she developed nausea. She then started having some emesis which initially was not very voluminous but at 5:00 this morning she had a fairly large emesis that was dark brown to black in nature. Her granddaughter states that she has had similar episodes in the past but at those. She was on anticoagulation for at rial fibrillation. Her anticoagulation has since been discontinued secondary to her ongoing anemic issues. It has been recommended previously that she follow- up as an outpatient with gastroenterology but she has failed to do so up until this point as she has been reluctant. Her granddaughter states that recently she agreed to follow-up and that she was in the process of making appointment but just not had the opportunity to call yet. She has had no fever or chills, no constipation or diarrhea, no chest pain or shortness of breath, she is complaining of some diffuse abdominal pain across her abdomen that has been intermittent and as noted above having hematemesis. She denies melena or he matochezia. Her vital signs in the emergency department were fairly unremarkable. She was afebrile with a pulse of 83 blood pressure 120/56 respiratory rate of 18 and she was satting 97% on room air. Her CBC shows a leukocytosis at 21.1 with a marked left shift. A relatively chronic stable anemia with a hemoglobin of 11.8 previous hemoglobin was 10.4 in March. Her platelet count is normal. Her electrolytes are normal. Her BUN and serum creatinine are mildly elevated from baseline at 41 and 1.52 respectively but not out of proportion suggestive of a severe upper GI bleed. Her serum glucose is mildly elevated at 164. Her liver enzymes are normal. Her initial troponin was 13 and her lipase was less than 10. Her UA is suggestive of dehydration but not infection. Given her abdominal pain a CT of her abdomen to follow-up with us were was performed and showed diffusely thickened wall of the cecum and proximal ascending colon with fluid distention of the right hemicolon. She had gas and fecal material in the left hemicolon and sigmoid colon. She is also noted to have a moderate size hiatal hernia. She had multiple layering gallstones and a mild degree of intrahepatic biliary duct dilation. In the emergency department she was given Cipro and Flagyl given for concern for colitis and IV fluids. [facility] Medical History (Updated 08/07/21 @ 16:[address] 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 Long-term use of high-risk medication Lung nodule Nonrheumatic aortic (valve) insufficiency Nonrheumatic tricuspid (valve) insufficiency Paroxysmal atrial fibrillation Pure hypercholesterolemia Sick sinus syndrome Stage 1 mild COPD by GOLD classification Tobacco dependence in remission Home Medications cholecalciferol (vitamin D3) 5,000 unit PO DAILY 03/17/17 [History Last Taken 08/06/21] hydrocodone-acetaminophen 1 - 2 tab PO Q4H PRN PRN 03/17/17 [History Last Taken 09/25/19] melatonin 10 - 15 mg PO QHS PRN PRN 03/17/17 [History Last Taken 08/05/21] albuterol sulfate 90 mcg/actuation aerosol inhaler 2 puff INHALATION Q4H PRN PRN #18 g 07/10/19 [Rx Last Taken Unknown] meclizine 12.5 mg tablet 12.5 mg PO DAILY PRN 05/17/20 [History Last Taken Unknown] pantoprazole 40 mg tablet,delayed release 40 mg PO BID PRN 05/17/20 [History Last Taken 08/06/21] ipratropium 0.5 mg-albuterol 3 mg (2.5 mg base)/3 mL nebulization soln 3 ml INHALATION Q6H #180 vial 06/24/20 [Rx Last Taken Unknown] furosemide 40 mg tablet 20 mg PO DAILY tablet 12/23/20 [History Last Taken 08/06/21] gabapentin 600 mg tablet 400 mg PO QHS PRN PRN tablet 12/23/20 [History Last Taken 08/05/21] albuterol sulfate 2.5 mg INHALATION Q4H PRN #180 ml 04/28/21 [Rx Last Taken Unknown] tiotropium 2.5 mcg-olodaterol 2.5 mcg/actuation mist for inhalation 2 inh INHALATION DAILY #4 g 04/28/21 [Rx Last Taken Unknown] amiodarone 200 mg tablet See Rx Instructions .ROUTE .COMPLEX #45 tab 08/04/21 [Rx Last Taken 08/06/21] calcium acetate 667 mg tablet 667 mg PO DAILY 08/05/21 [History Last Taken 08/06/21] aspirin [Aspirin Low Dose] PO DAILY 08/07/21 [History Last Taken 08/06/21] lorazepam [Ativan] PRN 08/07/21 [History Last Taken Unknown] metoprolol tartrate 50 mg PO BID 08/07/21 [History Last Taken 08/06/21] ondansetron HCl [Zofran] 4 mg PO Q6H PRN 08/07/21 [History Last Taken Unknown] potassium chloride 20 meq PO DAILY 08/07/21 [History Last Taken 08/06/21] Allergy/AdvReac Type Severity Reaction Status Date / Time ferrous sulfate AdvReac Severe Diarrhea Verified 08/07/21 07:02 codeine AdvReac makes me Verified 08/07/21 07:02 sick iron AdvReac Nausea/Vom/ Verified 08/07/21 07:02 Diarrhea pregabalin [From Lyrica] AdvReac makes me Verified 08/07/21 07:02 deathly ill tramadol AdvReac Nausea and Verified 08/07/21 07:02 dizziness Family History Mother CVA (cerebral vascular accident) Atrial fibrillation Brother Atrial fibrillation History of PTCA Surgical History History of back surgery Presence of permanent cardiac pacemaker (03/13/19) Social History housing: condominium Smoking Status: Former smoker how long ago did patient quit smokin alcohol intake: never what type of physical activity do you participate in: none seatbelt use: always do you feel safe at home: Yes ROS Constitutional Constitutional: Reports weakness; Denies anorexia, change in weight, chills, fatigue, fever(s), malaise, night sweats or other Eyes Eyes: Denies blurry vision, change in eye color, change in vision, discharge from eye(s), double vision, erythema, eye pain, loss of vision or other ENT HEENT: Reports abnormal hearing and hearing loss; Denies dysphagia, ear pain, epistaxis, headache(s), nasal congestion, nasal discharge, post nasal drip, sinus pressure, sore throat or other Cardiovascular Cardiovascular: Denies chest pain, claudication, dyspnea on exertion, edema, lightheadedness, orthopnea, palpitations, paroxysmal nocturnal dyspnea, rapid heart rate, syncope or other Respiratory/Chest Respiratory/Chest: Denies cough, dyspnea, excessive phlegm production, hemoptysis, productive cough, shortness of breath at rest, shortness of breath with exertion, wheezing or other Gastrointestinal Gastrointestinal: Reports abdominal pain, coffee ground emesis, dyspepsia, n ausea and vomiting; Denies constipation, diarrhea, hematemesis, hematochezia, loose stools, melena or other Genitourinary Genitourinary: Reports urinary incontinence; Denies burning urination, difficulty urinating, dysuria, hematuria, nocturia, urinary frequency, urinary hesitancy, urinary urgency or other Musculoskeletal Musculoskeletal: Denies arthralgias, back pain, joint pain, joint stiffness, joint swelling, myalgias, neck pain or other Neurologic Neurologic: Denies abnormal gait, abnormal speech, confusion, disequilibrium, dizziness, focal weakness, headache(s), numbness, paresthesias, seizure-like activity, seizures, syncope, tingling, tremor(s) or other Psychiatric Psychiatric: Denies anxiety, depression, homicidal ideation, suicidal ideation or other Hematologic/Lymphatic Hematologic/Lymphatic: Reports anemia; Denies easy bleeding, easy bruising, lymphadenopathy or other Allergic/Immunologic Allergic/Immunologic: Denies rhinitis, hives, eczemia, asthma or other Vital Signs Vital Signs Vital Signs: 08/07/21 06:58 08/07/21 10:52 08/07/21 12:00 Temperature 97.9 F Temperature Source Temporal Pulse Rate 83 63 64 Respiratory Rate 18 17 18 Blood Pressure 120/56 L 100/73 Blood Pressure Mean 77 82 Blood Pressure Source Blood Pressure Position Blood Pressure Location Pulse Ox 97 94 94 Oxygen Delivery Method Room Air Room Air Nasal Cannula Oxygen Flow Rate (L/min) 4 08/07/21 12:27 08/07/21 14:49 Temperature 97.1 F L 97.3 F L Temperature Source Temporal Temporal Pulse Rate 64 66 Respiratory Rate 22 H 20 H Blood Pressure 96/71 92/51 L Blood Pressure Mean 79 64 Blood Pressure Source Monitor Blood Pressure Position Semi-Fowlers Blood Pressure Location Left Arm Pulse Ox 98 98 Oxygen Delivery Method Nasal Cannula Nasal Cannula Oxygen Flow Rate (L/min) 4 2 Weight Weight: 59 kg Body Mass Index (BMI) 26.2 Physical Exam Const alert, oriented x3 and no apparent distress Constitutional Narrative: Elderly, extremely hard of hearing white female sitting up in bed with her granddaughter at the bedside, appears as if she does not feel well but nontoxic. No current distress General Appearance: cooperative HEENT normocephalic, head/scalp atraumatic, hearing grossly normal bilaterally and moist oral mucous membranes HEENT Narrative: Edentulous, Mallampati 2, no thrush Eyes PERRL, EOMs intact bilaterally and conjunctivae normal Eyes Narrative: No scleral icterus Neck no lymphadenopathy, supple, no JVD and no carotid bruits Neck Narrative: Trachea midline with no thyroid enlargement Resp normal respiratory effort, no retractions, no use of accessory muscles and clear to auscultation bilaterally Resp Narrative: Diffusely diminished but clear Auscultation: Negative for crackles, rales, rhonchi or wheezes Cardio regular rate, regular rhythm, S1 normal heart sound, S2 normal heart sound, no murmurs, no rub, no gallops, no clicks and no JVD GI GI Narrative: Mild diffuse tenderness with increased tenderness right lower quadrant, mild distention, bowel sounds are slightly hypoactive Palpation: tender Extremity no clubbing, cyanosis or edema Peripheral Pulses: Yes pulses 2+ throughout Neuro oriented x3, CN's II-XII intact bilaterally, moves all extremities and no focal motor deficits Neuro Narrative: Significant generalized weakness, extremely hard of hearing Sensorium / Orientation: awake and alert Speech: speech normal Psych affect normal Results Lab / Micro Data Attestation: I reviewed the patient's lab results. Result Diagrams: 08/07/21 07:40 08/07/21 08:30 Labs: Laboratory Results - last 24 hr 08/07/21 07:40: WBC 21.1 H, RBC 3.84 L, Hgb 11.8 L, Hct 38.3, MCV 99.7 H, MCH 30.7, MCHC 30.8 L, RDW Std Deviation 53.1 H, RDW Coeff of Valorie 15.7 H, Plt Count 434, MPV 11.4, Immature Gran % (Auto) 0.800, Neut % (Auto) 91.6 H, Lymph % (Auto) 2.6 L, [place] % (Auto) 4.2, Eos % (Auto) 0.0, Baso % (Auto) 0.8, Absolute Neuts (auto) 19.4 H, Absolute Lymphs (auto) 0.55 L, Nucleated RBC % 0, Different ial Comment COMMENT 08/07/21 07:40: Sodium Cancelled, Potassium Cancelled, Chloride Cancelled, Carbon Dioxide Cancelled, Anion Gap Cancelled, BUN Cancelled, Creatinine Cancelled, Estim Creat Clear Calc Cancelled, Est GFR (MDRD) Af Amer Cancelled, Est GFR (MDRD) Non-Af Cancelled, BUN/Creatinine Ratio Cancelled, Glucose Cancelled, Calcium Cancelled, Total Bilirubin Cancelled, AST Cancelled, ALT Cancelled, Alkaline Phosphatase Cancelled, Troponin I High Sens Cancelled, Total Protein Cancelled, Albumin Cancelled, Globulin Cancelled, Albumin/Globulin Ratio Cancelled, Lipase Cancelled 08/07/21 08:30: Sodium 144, Potassium 4.3, Chloride 106, Carbon Dioxide 26.0, Anion Gap 12, BUN 41 H, Creatinine 1.52 H, Estim Creat Clear Calc 27.76, Est GFR (MDRD) Af Amer 42 L, Est GFR (MDRD) Non-Af 35 L, BUN/Creatinine Ratio 27.0 H, Glucose 164 H, Calcium 8.4 L, Total Bilirubin 0.90, AST 27, ALT 16, Alkaline Phosphatase 127 H, Troponin I High Sens 13, Total Protein 5.6 L, Albumin 2.1 L, Globulin 3.5, Albumin/Globulin Ratio 0.6 L, Lipase < 10 L 08/07/21 11:50: Urine Color Yellow, Urine Clarity Turbid, Urine pH 8.0, Ur Specific Flasher 1.010, Urine Protein 30 H, Urine Glucose (UA) Normal, Urine Ketones 5 H, Urine Occult Blood 10 H, Urine Nitrite Negative, Urine Bilirubin 3 H, Urine Urobilinogen 4 H, Ur Leukocyte Esterase 100 H, Urine RBC 0 SEEN, Urine WBC 0-5 SEEN, Ur Squamous Epith Cells 0 SEEN, Urine Bacteria 3+, Urine Mucus 0 SEEN Radiology Impression Abdomen/Pelvis CT 08/07/21 07:17 IMPRESSION: Diffusely thickened wall of the cecum and proximal ascending colon with fluid distention of the right hemicolon. Gas and fecal material are seen in the left hemicolon was in the sigmoid colon. Electronically Signed: Jessee Farmer MD at 11:06 EST , Service support , Assessment & Plan Assessment/Plan (1) Hematemesis: (2) Abdominal pain: (3) Colitis: (4) Upper gastrointestinal bleeding: (5) Dilated bile duct: (6) Leukocytosis: PLAN: Hematemesis/upper GI bleed -Hemoglobin is currently stable -Antiemetics -No current need for NG tube however will monitor closely for recurrent emesis -Protonix drip -N.p.o. -Every 4 hour H&H -Patient is hemodynamically stable -Consult gastroenterology Colitis -CT scan shows diffusely thickened wall of the cecum and proximal ascending colon with fluid distention of the right hemicolon, gas and fecal material are seen in the left hemicolon in the sigmoid colon -Cipro and Flagyl given in the emergency department -Continue on the floor with Zosyn -Monitor white count -N.p.o. -Antiemetics and pain medication as needed -Depending on progress may need to consider surgical involvement -Check lactoferrin and calprotectin -Check lactate -Gastroenterology is consulted and case has been discussed Dilated biliary duct -This was reported on CAT scan -We will check right upper quadrant ultrasound -LFTs are within normal limits. -Patient does had moderate documented cholelithiasis with layering gallstones on her CT ROCIO on CKD stage IIIb -Mild serum creatinine and BUN elevation -We will give gentle hydration and monitor -Hold home Lasix -Nephrotoxins as able COPD -Continue home inhalers Vitamin D deficiency -Hold cholecalciferol and restart on discharge GERD/hiatal hernia -Hold home oral Protonix -We will utilize Protonix drip at this time Hyperglycemia -No history of diabetes -May be stress response -If remains elevated consider hemoglobin A1c Chronic pain -Hold gabapentin -IV Dilaudid for pain -We will start home regimen once able to take p.o. 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
--- NOTE | 2021-08-07 16:33 | US_ITS ---
STUDY: ABDOMINAL ULTRASOUND - RIGHT UPPER QUADRANT REASON FOR VISIT: Female, 81 years old. ABDOMEN PAIN biliary duct dilation on CT TECHNIQUE: Ultrasound evaluation of the right upper quadrant was performed with real-time and static cunningham-scale imaging. TECHNICAL QUALITY: Adequate. COMPARISON: None. FINDINGS: Liver: There is normal echogenicity of the liver. The bile ducts are within normal limits. There is hepatic color flow. The direction of portal flow is hepatopetal. There is no demonstrated mass lesion. Gallbladder: Normal distended gallbladder. The gallbladder wall measures 1.1 mm. There is a negative sonographic Burden''s sign. There is no pericholecystic fluid. There is biliary sludge dependent within the gallbladder vs small gallstones. Common Bile Duct (C.B.D.): The common bile duct measures ( in mm): 9 Pancreas: Normal size of the head, body of the pancreas. There is normal echogenicity of the pancreas. There is no demonstrated pancreatic mass or cyst. Right Kidney: No image. The patient refused. Aorta: It is not visualized. There is too much overlying bowel gas. . US/Abdomen Limited IMPRESSION: There is biliary sludge dependent within the gallbladder vs small gallstones. Note: Renal size measurements and size measurements of other organs etc may vary depending on modality and tube sizer and cutter operator dependent variations in measurements. (i.e. Measuring a kidney on an US does not correlate with an exact same measurement on a CT.) Electronically Signed: Nick Guillermo MD at 18:54 EST , Service support ,
[2021-08-07 18:00] LABS: Hematocrit 32.5 % (37-47); Hemoglobin 10.3 g/dL (12.0-15.0)
[2021-08-07 18:27] LABS: Lactic Acid 4.1 mmol/L (0.4-1.9)
[2021-08-07] MEDS: 0.9% Normal Saline 1,000 ML 500 ML IV (18:50)
--- NOTE | 2021-08-07 19:01 | NURSING ---
Addendum entered by Jailyn See 08/07/21 19:30: Granddaughter Elisabet aware of transfer. Pt handed off to nightshift charge account authorizer who was made aware that ICU bed not clean yet and they will be calling when ready. Original Note: Report called to ICU Lexi BARKER
--- NOTE | 2021-08-07 19:27 | EX.PCM.CON.G ---
HPI Consult Data Date of Consult: 08/07/21 HPI Narrative HPI Narrative: IMELDA LEWIS, is a 81 F who presents with a chief complaint of hematemesis. She has a history of atrial fibrillation and is on anticoagulation. Her anticoagulation has been stopped due to some bleeding issues.a CT of her abdomen to follow-up with us were was performed and showed diffusely thickened wall of the cecum and proximal ascending colon with fluid distention of the right hemicolon. She had gas and fecal material in the left hemicolon and sigmoid colon. She is also noted to have a moderate size hiatal hernia. She had multiple layering gallstones and a mild degree of intrahepatic biliary duct dilation. In the emergency department she was given Cipro and Flagyl given for concern for colitis and IV fluids. At this time she is being sent to the ICU due to persistent hypotension and abdominal pain. Her lactate was drawn and is also elevated at 4. PFSH Medical History (Updated 08/07/21 @ 19:[address] Brito Friend, DO) Body mass index 34.0-34.9, adult Cholelithiasis Chronic anemia CVA (cerebral vascular accident) Essential hypertension GI bleed [facility] current use of anticoagulant therapy Long-term use of high-risk medication Lung nodule Nonrheumatic aortic (valve) insufficiency Nonrheumatic tricuspid (valve) insufficiency Paroxysmal atrial fibrillation Pure hypercholesterolemia Sick sinus syndrome Stage 1 mild COPD by GOLD classification Tobacco dependence in remission Home Medications cholecalciferol (vitamin D3) 5,000 unit PO DAILY 03/17/17 [History Last Taken 08/06/21] hydrocodone-acetaminophen 1 - 2 tab PO Q4H PRN PRN 03/17/17 [History Last Taken 09/25/19] melatonin 10 - 15 mg PO QHS PRN PRN 03/17/17 [History Last Taken 08/05/21] albuterol sulfate 90 mcg/actuation aerosol inhaler 2 puff INHALATION Q4H PRN PRN #18 g 07/10/19 [Rx Last Taken Unknown] meclizine 12.5 mg tablet 12.5 mg PO DAILY PRN 05/17/20 [History Last Taken Unknown] pantoprazole 40 mg tablet,delayed release 40 mg PO BID PRN 05/17/20 [History Last Taken 08/06/21] ipratropium 0.5 mg-albuterol 3 mg (2.5 mg base)/3 mL nebulization soln 3 ml INHALATION Q6H #180 vial 06/24/20 [Rx Last Taken Unknown] furosemide 40 mg tablet 20 mg PO DAILY tablet 12/23/20 [History Last Taken 08/06/21] gabapentin 600 mg tablet 400 mg PO QHS PRN PRN tablet 12/23/20 [History Last Taken 08/05/21] albuterol sulfate 2.5 mg INHALATION Q4H PRN #180 ml 04/28/21 [Rx Last Taken Unknown] tiotropium 2.5 mcg-olodaterol 2.5 mcg/actuation mist for inhalation 2 inh INHALATION DAILY #4 g 04/28/21 [Rx Last Taken Unknown] amiodarone 200 mg tablet See Rx Instructions .ROUTE .COMPLEX #45 tab 08/04/21 [Rx Last Taken 08/06/21] calcium acetate 667 mg tablet 667 mg PO DAILY 08/05/21 [History Last Taken 08/06/21] aspirin [Aspirin Low Dose] PO DAILY 08/07/21 [History Last Taken 08/06/21] lorazepam [Ativan] PRN 08/07/21 [History Last Taken Unknown] metoprolol tartrate 50 mg PO BID 08/07/21 [History Last Taken 08/06/21] ondansetron HCl [Zofran] 4 mg PO Q6H PRN 08/07/21 [History Last Taken Unknown] potassium chloride 20 meq PO DAILY 08/07/21 [History Last Taken 08/06/21] Allergy/AdvReac Type Severity Reaction Status Date / Time ferrous sulfate AdvReac Severe Diarrhea Verified 08/07/21 07:02 codeine AdvReac makes me Verified 08/07/21 07:02 sick iron AdvReac Nausea/Vom/ Verified 08/07/21 07:02 Diarrhea pregabalin [From Lyrica] AdvReac makes me Verified 08/07/21 07:02 deathly ill tramadol AdvReac Nausea and Verified 08/07/21 07:02 dizziness Family History Mother CVA (cerebral vascular accident) Atrial fibrillation Brother Atrial fibrillation History of PTCA Surgical History History of back surgery Presence of permanent cardiac pacemaker (03/13/19) Social History housing: condominium Smoking Status: Former smoker how long ago did patient quit smokin alcohol intake: never what type of physical activity do you participate in: none seatbelt use: always do you feel safe at home: Yes ROS Gastrointestinal Gastrointestinal: Reports abdominal pain, bloating and hematemesis Physical Exam HEENT hearing grossly normal bilaterally Head and Scalp: normal to inspection Face and Sinus: face symmetric Nose: external nose normal Mouth: oral and palatal mucosa normal Eyes conjunctivae normal Neck full ROM General: normal visual inspection Lymph Lymphatic: no lymphadenopathy noted Chest inspection of chest normal and palpation of chest normal Chest: symmetrical chest wall rise Resp normal respiratory effort Effort and Inspection: able to speak in complete sentences Cardio regular rate GI non-distended Percussion: normal to percussion Rectal Exam: deferred Lab / Micro Data Result Diagrams: 08/07/21 18:00 08/07/21 08:30 Labs: Laboratory Results - last 24 hr 08/07/21 07:40: WBC 21.1 H, RBC 3.84 L, Hgb 11.8 L, Hct 38.3, MCV 99.7 H, MCH 30.7, MCHC 30.8 L, RDW Std Deviation 53.1 H, RDW Coeff of Valorie 15.7 H, Plt Count 434, MPV 11.4, Immature Gran % (Auto) 0.800, Neut % (Auto) 91.6 H, Lymph % (Auto) 2.6 L, [place] % (Auto) 4.2, Eos % (Auto) 0.0, Baso % (Auto) 0.8, Absolute Neuts (auto) 19.4 H, Absolute Lymphs (auto) 0.55 L, Nucleated RBC % 0, Differential Comment COMMENT 08/07/21 07:40: Sodium Cancelled, Potassium Cancelled, Chloride Cancelled, Carbon Dioxide Cancelled, Anion Gap Cancelled, BUN Cancelled, Creatinine Cancelled, Estim Creat Clear Calc Cancelled, Est GFR (MDRD) Af Amer Cancelled, Est GFR (MDRD) Non-Af Cancelled, BUN/Creatinine Ratio Cancelled, Glucose Cancelled, Calcium Cancelled, Total Bilirubin Cancelled, AST Cancelled, ALT Cancelled, Alkaline Phosphatase Cancelled, Troponin I High Sens Cancelled, Total Protein Cancelled, Albumin Cancelled, Globulin Cancelled, Albumin/Globulin Ratio Cancelled, Lipase Cancelled 08/07/21 08:30: Sodium 144, Potassium 4.3, Chloride 106, Carbon Dioxide 26.0, Anion Gap 12, BUN 41 H, Creatinine 1.52 H, Estim Creat Clear Calc 27.76, Est GFR (MDRD) Af Amer 42 L, Est GFR (MDRD) Non-Af 35 L, BUN/Creatinine Ratio 27.0 H, Glucose 164 H, Calcium 8.4 L, Total Bilirubin 0.90, AST 27, ALT 16, Alkaline Phosphatase 127 H, Troponin I High Sens 13, Total Protein 5.6 L, Albumin 2.1 L, Globulin 3.5, Albumin/Globulin Ratio 0.6 L, Lipase < 10 L 08/07/21 11:50: Urine Color Yellow, Urine Clarity Turbid, Urine pH 8.0, Ur Specific [place] 1.010, Urine Protein 30 H, Urine Glucose (UA) Normal, Urine Ketones 5 H, Urine Occult Blood 10 H, Urine Nitrite Negative, Urine Bilirubin 3 H, Urine Urobilinogen 4 H, Ur Leukocyte Esterase 100 H, Urine RBC 0 SEEN, Urine WBC 0-5 SEEN, Ur Squamous Epith Cells 0 SEEN, Urine Bacteria 3+, Urine Mucus 0 SEEN 08/07/21 16:11: Hgb 10.6 L, Hct 35.0 L 08/07/21 17:49: Lactic Acid 4.1 H* 08/07/21 18:00: Hgb 10.3 L, Hct 32.5 L Radiology Impression Abdomen/Pelvis CT 08/07/21 07:17 IMPRESSION: Diffusely thickened wall of the cecum and proximal ascending colon with fluid distention of the right hemicolon. Gas and fecal material are seen in the left hemicolon was in the sigmoid colon. Electronically Signed: Jessee Farmer MD at 11:06 EST , Service support , Abdomen Ultrasound 08/07/21 16:33 IMPRESSION: There is biliary sludge dependent within the gallbladder vs small gallstones. 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 (i.e. Measuring a kidney on an US does not correlate with an exact same measurement on a CT.) Electronically Signed: Nick Guillermo MD at 18:54 EST , Service support , Assessment & Plan Assessment/Plan (1) Ischemic colitis: PLAN: I suspect that she has ischemic colitis which has caused a insult to the colonic wall resulting from diminished blood flow. This can range from superficial injury of the mucosa and submucosal layer to full thickness necrosis of the colonic wall . Most attacks are transient and resolve spontaneously, whereas others may result to gangrene and necrosis of the colon with resultant perforation and feculent peritonitis. I am hoping this is only transient ischemia it mostly occurs in old patients (80%) and mainly occurs among debilitated elderly women; its clinical presentation includes abdominal pain, diarrhea and rectal bleeding. She has not had any rectal bleeding. However that may develop overnight. I agree with putting her in ICU given her IV antibiotics along with IV fluids and bowel rest. She should have an NG tube for decompression and bowel rest. She may need a surgical consultation. I will repeat her KUB tonight. Along with repeat her lactic acid. She should not get any pressor therapy as it can worsen ischemic colitis. (2) Leukocytosis: PLAN: I suspect that this is a reactive leukocytosis however I am not sure. Regularly check blood cultures, stool cultures, C. difficile and continue antibiotic therapy. (3) Dilated bile duct: PLAN: Her dilated common bile duct is abnormal however in the setting I believe that intestinal ischemia is the more pressing subject right now. (4) Hematemesis: PLAN: She should get an upper endoscopy and possible a flexible sigmoidoscopy to see the extent of damage in her colon. We would do this if she is medically stable. However she continues to decline she may need a surgical consultation sooner than later. Recommend a PPI drip without octreotide as that can cause worsening intestinal ischemia.
[2021-08-07] MEDS: Ipratropium/Albuterol Sulfate 3 ML AMPUL.NEB INHALATION (20:15)
[2021-08-07 21:55] LABS: Reflex Lactate? Y
[2021-08-07 23:09] LABS: Absolute Lymphocyte Count 0.45 X10^3/uL (0.83-4.51); Absolute Neutrophil Count 9.4 X10^3/uL (2.0-7.7); Basophil# 0.05 X10^3/uL; Basophil% 0.5 % (0-1); Hematocrit 26.1 % (37-47); Hemoglobin 7.9 g/dL (12.0-15.0); Lymphocyte # 0.45 X10^3/ul (0.83-4.51); Lymphocyte % 4.1 % (19-41); Mean Corp Hgb Conc 30.3 g/dL (32-36); Mean Corpuscular Hgb 31.7 pg (27.0-32.0); Mean Corpuscular Volume 104.8 fL (81-99); Mean Platelet Vol. 11.5 fl (6.2-12.0); Monocyte# 1.05 X10^3/uL; Monocyte% 9.5 % (0-10); NRBC Flagged by Analyzer 0 % (0-5); Neutrophil # 9.42 X10^3/uL (2.7-7.7); Neutrophil % 85.4 % (47-70); POSITIVE DIFFERENTIAL YES; POSITIVE MORPHOLOGY YES; Platelet Count 277 K/mm3 (150-450); RBC Distribution Width CV 14.8 % (11.6-14.6); RBC Distribution Width SD 57.3 fl (35.1-43.9); Red Blood Count 2.49 M/mm3 (4.2-5.4)
[2021-08-07 23:11] LABS: Differential Indicated SCAN CRITERIA MET
[2021-08-07 23:15] LABS: Anion Gap 12 (5-15); BUN 41 mg/dL (7-18); BUN/Creat Ratio 30.4 RATIO (10-20); Calcium,Total 6.3 mg/dL (8.5-10.1); Chloride 118 mmol/L (98-107); Creatinine, Serum 1.35 mg/dL (0.55-1.02); EST Glomerular Filtration Rate 40 mL/min (>60); Est Glom Filt Rate - Afr Amer 49 mL/min (>60); Estimated Creatinine Clearance 31.47 ml/min; Glucose 102 mg/dL (74-106); Potassium 2.9 mmol/L (3.5-5.1); Sodium Level 148 mmol/L (136-145)
[2021-08-08] VITALS (75 sets, daily range): BP systolic 67–151; BP diastolic 33–111; PULSE 72–129; RESP 15–29; TEMP 36.2–37.1; O2SAT 90–100
[2021-08-08] LABS: Lactic Acid 4.4 mmol/L (0.4-1.9)
--- NOTE | 2021-08-08 00:02 | RAD_ITS ---
STUDY: X-RAY - ABDOMEN/PELVIS REASON FOR EXAM: Female, 81 years old. colitis -- KUB with both diaphragms for NG/OG Verification TECHNIQUE: AP supine and decubitus views of the abdomen. COMPARISON: 01/06/2021. CT abdomen 08/07/2021 lung bases FINDINGS: The enteric tube tip in distal sidehole project over the gastric body/antrum. Stable elevation right hemidiaphragm. Aortic calcification and tortuosity, borderline cardiac size, osteopenia, degenerative changes, scoliosis, pacemaker are stable findings. Insufficient visualization of bowel gas pattern. Colonic changes along the ascending and descending colon on CT are not appreciated. Obesity. There are diffuse degenerative changes of the visualized lumbar spine. RAD/Abdomen Single View (Portable) IMPRESSION: Enteric tube in good position. Limited bowel gas assessment. Other findings as above. Electronically Signed: Shauna Levi MD at 4:07 EST , Service support ,
[2021-08-08 00:07] LABS: Differential Comment SCANNED
[2021-08-08] MEDS: Phenylephrine 10 MG/ML Vial 5 MG IV (00:37)
--- NOTE | 2021-08-08 00:50 | PCM.PN.BLA ---
Progress Note Attempted right IJ without success. Gave phenylephrine 5 mg and normal saline 500 mL bolus with some improvement. Discussed and consulted general surgery for central line access.
[2021-08-08] MEDS: 0.9% Saline Lock 10 ML Syringe IV ×2 (01:22→09:50)
[2021-08-08 01:34] LABS: Absolute Lymphocyte Count 0.61 X10^3/uL (0.83-4.51); Absolute Neutrophil Count 10.7 X10^3/uL (2.0-7.7); Basophil# 0.06 X10^3/uL; Basophil% 0.5 % (0-1); Eosinophil# 0.03 X10^3/uL; Eosinophils% 0.2 % (0-5); Hematocrit 25.8 % (37-47); Hemoglobin 7.9 g/dL (12.0-15.0); Lymphocyte # 0.61 X10^3/ul (0.83-4.51); Lymphocyte % 4.9 % (19-41); Mean Corp Hgb Conc 30.6 g/dL (32-36); Mean Corpuscular Hgb 31.3 pg (27.0-32.0); Mean Corpuscular Volume 102.4 fL (81-99); Mean Platelet Vol. 11.9 fl (6.2-12.0); Monocyte# 0.96 X10^3/uL; Monocyte% 7.7 % (0-10); NRBC Flagged by Analyzer 0 % (0-5); Neutrophil # 10.73 X10^3/uL (2.7-7.7); POSITIVE MORPHOLOGY YES; Platelet Count 322 K/mm3 (150-450); RBC Distribution Width CV 14.9 % (11.6-14.6); RBC Distribution Width SD 55.8 fl (35.1-43.9); Red Blood Count 2.52 M/mm3 (4.2-5.4); White Blood Count 12.5 K/mm3 (4.4-11.0)
[2021-08-08 01:36] LABS: Differential Indicated SCAN CRITERIA MET
[2021-08-08] MEDS: Midodrine HCl 5 MG Tablet 10 MG PO (01:44)
[2021-08-08 01:48] LABS: Anion Gap 10 (5-15); BUN 51 mg/dL (7-18); BUN/Creat Ratio 32.3 RATIO (10-20); Calcium,Total 6.9 mg/dL (8.5-10.1); Chloride 115 mmol/L (98-107); Creatinine, Serum 1.58 mg/dL (0.55-1.02); EST Glomerular Filtration Rate 34 mL/min (>60); Est Glom Filt Rate - Afr Amer 41 mL/min (>60); Estimated Creatinine Clearance 26.89 ml/min; Glucose 113 mg/dL (74-106); Potassium 3.4 mmol/L (3.5-5.1); Sodium Level 146 mmol/L (136-145)
--- NOTE | 2021-08-08 01:59 | PCM.HP.STD ---
HPI - General General Date of Admission: 08/07/21 HPI Narrative IMELDA LEWIS, is a 81 F who presents to the ER due to abdominal pain/hemoptysis. Patient also admits to dark stool for months when asked. Patient has also been confused tonight per nursing. Patient's hemoglobin on admit was 11 recheck was 7.9, patient systolic blood pressure was 72 on Levophed. Patient is on Levophed through peripheral IV. Multiple attempts were made at a right IJ which were unsuccessful. Consulted for central line placement. Dr. Dai has been consulted. CT abdomen pelvis shows some wall thickening of the cecum and right colon questionable ischemic colitis. Patient's lactic acid is 4 recheck was 4.4 patient was given antibiotics in the ER and is currently on antibiotics in ICU. Talking to granddaughter, JERE Go--pt has hx of n/v and abd pain on and off but states yesterday she got report from the aid that she eats well however at 6 PM she was having the nausea and vomiting but was refusing to see her GI?patient finally agreed in her granddaughter did have her set up for Wednesday. Patient had a history of a GI bleed in the past was may be seen at [place] or [facility]. Patient has changed POA this year to her granddaughter from her daughter. Currently she does live with her granddaughter and has been for about the last 10 months when she got out of the shelter. Patient has been on palliative care this year was just discharged in June unsure exact reasoning Patient possibly pain management/chronic Telles and she did get PT OT as well. Patient states that her mother is usually A&O x3. Greater granddaughter also states they have been having to try to work pretty hard to get her to drink as she does does not drink much throughout the day even when she is not complaining of nausea or abdominal pain. Currently she is having bouts of confusion, ICU nurse states that earlier she was more alert/oriented. Granddaughter does not believe that patient would want any major surgery but she will confirm with the other granddaughter as well. [facility] Medical History (Updated 08/08/21 @ 02:[address] 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 current use of anticoagulant therapy Long-term use of high-risk medication Lung nodule Nonrheumatic aortic (valve) insufficiency Nonrheumatic tricuspid (valve) insufficiency Paroxysmal atrial fibrillation Pure hypercholesterolemia Sick sinus syndrome Stage 1 mild COPD by GOLD classification Tobacco dependence in remission Home Medications cholecalciferol (vitamin D3) 5,000 unit PO DAILY 03/17/17 [History Last Taken 08/06/21] hydrocodone-acetaminophen 1 - 2 tab PO Q4H PRN PRN 03/17/17 [History Last Taken 09/25/19] melatonin 10 - 15 mg PO QHS PRN PRN 03/17/17 [History Last Taken 08/05/21] albuterol sulfate 90 mcg/actuation aerosol inhaler 2 puff INHALATION Q4H PRN PRN #18 g 07/10/19 [Rx Last Taken Unknown] meclizine 12.5 mg tablet 12.5 mg PO DAILY PRN 05/17/20 [History Last Taken Unknown] pantoprazole 40 mg tablet,delayed release 40 mg PO BID PRN 05/17/20 [History Last Taken 08/06/21] ipratropium 0.5 mg-albuterol 3 mg (2.5 mg base)/3 mL nebulization soln 3 ml INHALATION Q6H #180 vial 06/24/20 [Rx Last Taken Unknown] furosemide 40 mg tablet 20 mg PO DAILY tablet 12/23/20 [History Last Taken 08/06/21] gabapentin 600 mg tablet 400 mg PO QHS PRN PRN tablet 12/23/20 [History Last Taken 08/05/21] albuterol sulfate 2.5 mg INHALATION Q4H PRN #180 ml 04/28/21 [Rx Last Taken Unknown] tiotropium 2.5 mcg-olodaterol 2.5 mcg/actuation mist for inhalation 2 inh INHALATION DAILY #4 g 04/28/21 [Rx Last Taken Unknown] amiodarone 200 mg tablet See Rx Instructions .ROUTE .COMPLEX #45 tab 08/04/21 [Rx Last Taken 08/06/21] calcium acetate 667 mg tablet 667 mg PO DAILY 08/05/21 [History Last Taken 08/06/21] aspirin [Aspirin Low Dose] PO DAILY 08/07/21 [History Last Taken 08/06/21] lorazepam [Ativan] PRN 08/07/21 [History Last Taken Unknown] metoprolol tartrate 50 mg PO BID 08/07/21 [History Last Taken 08/06/21] ondansetron HCl [Zofran] 4 mg PO Q6H PRN 08/07/21 [History Last Taken Unknown] potassium chloride 20 meq PO DAILY 08/07/21 [History Last Taken 08/06/21] Allergy/AdvReac Type Severity Reaction Status Date / Time ferrous sulfate AdvReac Severe Diarrhea Verified 08/07/21 07:02 codeine AdvReac makes me Verified 08/07/21 07:02 sick iron AdvReac Nausea/Vom/ Verified 08/07/21 07:02 Diarrhea pregabalin [From Lyrica] AdvReac makes me Verified 08/07/21 07:02 deathly ill tramadol AdvReac Nausea and Verified 08/07/21 07:02 dizziness Family History Mother CVA (cerebral vascular accident) Atrial fibrillation Brother Atrial fibrillation History of PTCA Surgical History History of back surgery Presence of permanent cardiac pacemaker (03/13/19) Social History housing: condominium Smoking Status: Former smoker how long ago did patient quit smokin alcohol intake: never what type of physical activity do you participate in: none seatbelt use: always do you feel safe at home: Yes ROS Constitutional Constitutional: Reports anorexia; Denies fever(s) Cardiovascular Cardiovascular: Denies chest pain Respiratory/Chest Respiratory/Chest: Denies wheezing Gastrointestinal Gastrointestinal: Reports abdominal pain, hematemesis, melena, nausea and vomiting Integumentary Integumentary: Denies rash Psychiatric Psychiatric: Reports confusion Vital Signs Vital Signs Vital Signs: 08/07/21 06:58 08/07/21 10:52 08/07/21 12:00 Temperature 97.9 F Temperature Source Temporal Pulse Rate 83 63 64 Respiratory Rate 18 17 18 Respiratory Effort Respiratory Depth Respiratory Pattern Blood Pressure 120/56 L 100/73 Blood Pressure [BP] Blood Pressure Mean 77 82 Blood Pressure Mean [BP] Blood Pressure Source Blood Pressure Source [BP] Blood Pressure Position Blood Pressure Position [BP] Blood Pressure Location Blood Pressure Location [BP] Pulse Ox 97 94 94 Oxygen Delivery Method Room Air Room Air Nasal Cannula Oxygen Flow Rate (L/min) 4 08/07/21 12:27 08/07/21 14:10 08/07/21 14:49 Temperature 97.1 F L 97.3 F L Temperature Source Temporal Temporal Pulse Rate 64 66 Respiratory Rate 22 H 20 H Respiratory Effort Normal Non-Labored Respiratory Depth Normal Respiratory Pattern Normal Blood Pressure 96/71 92/51 L Blood Pressure [BP] Blood Pressure Mean 79 64 Blood Pressure Mean [BP] Blood Pressure Source Monitor Blood Pressure Source [BP] Blood Pressure Position Semi-Fowlers Blood Pressure Position [BP] Blood Pressure Location Left Arm Blood Pressure Location [BP] Pulse Ox 98 98 Oxygen Delivery Method Nasal Cannula Nasal Cannula Nasal Cannula Oxygen Flow Rate (L/min) 4 2 2 08/07/21 14:57 08/07/21 18:34 08/07/21 19:03 Temperature 99.1 F Temperature Source Oral Pulse Rate 66 75 71 Respiratory Rate 20 H Respiratory Effort Respiratory Depth Respiratory Pattern Blood Pressure Blood Pressure [BP] 84/45 L Blood Pressure Mean Blood Pressure Mean [BP] 58 Blood Pressure Source Blood Pressure Source [BP] Monitor Blood Pressure Position Blood Pressure Position [BP] Semi-Fowlers Blood Pressure Location Blood Pressure Location [BP] Left Arm Pulse Ox 93 Oxygen Delivery Method Nasal Cannula Oxygen Flow Rate (L/min) 3 08/07/21 19:08 08/07/21 20:00 08/07/21 20:16 Temperature Temperature Source Pulse Rate 74 79 Respiratory Rate 18 Respiratory Effort Short of Breath Respiratory Depth Normal Respiratory Pattern Blood Pressure Blood Pressure [BP] Blood Pressure Mean Blood Pressure Mean [BP] Blood Pressure Source Blood Pressure Source [BP] Blood Pressure Position Blood Pressure Position [BP] Blood Pressure Location Blood Pressure Location [BP] Pulse Ox 96 97 Oxygen Delivery Method Nasal Cannula Nasal Cannula Oxygen Flow Rate (L/min) 3 3 08/07/21 23:09 08/07/21 23:20 08/07/21 23:35 Temperature Temperature Source Pulse Rate Respiratory Rate Respiratory Effort Respiratory Depth Respiratory Pattern Blood Pressure 80/39 L 68/35 L 72/32 L Blood Pressure [BP] Blood Pressure Mean 46 45 Blood Pressure Mean [BP] Blood Pressure Source Monitor Blood Pressure Source [BP] Blood Pressure Position Semi-Fowlers Blood Pressure Position [BP] Blood Pressure Location Right Arm Blood Pressure Location [BP] Pulse Ox Oxygen Delivery Method Oxygen Flow Rate (L/min) Weight Weight: 130 lb 1.164 oz Body Mass Index (BMI) 26.2 Physical Exam Const alert and no apparent distress HEENT normocephalic and head/scalp atraumatic Resp normal respiratory effort Cardio regular rate GI soft to palpation; Negative for non-distended Palpation: tender other (Diffuse, no guarding, equivocal rebound); Negative for guarding Rectal Exam: other Other Details: brown stool, normal sphincter tone Extremity no clubbing, cyanosis or edema Neuro CN's II-XII intact bilaterally Psych mental status grossly normal Results Lab / Micro Data Result Diagrams: 08/08/21 00:10 08/08/21 00:10 Labs: Laboratory Results - last 24 hr 08/07/21 07:40: WBC 21.1 H, RBC 3.84 L, Hgb 11.8 L, Hct 38.3, MCV 99.7 H, MCH 30.7, MCHC 30.8 L, RDW Std Deviation 53.1 H, RDW Coeff of Valorie 15.7 H, Plt Count 434, MPV 11.4, Immature Gran % (Auto) 0.800, Neut % (Auto) 91.6 H, Lymph % (Auto) 2.6 L, Lyman % (Auto) 4.2, Eos % (Auto) 0.0, Baso % (Auto) 0.8, Absolute Neuts (auto) 19.4 H, Absolute Lymphs (auto) 0.55 L, Nucleated RBC % 0, Differential Comment COMMENT 08/07/21 07:40: Sodium Cancelled, Potassium Cancelled, Chloride Cancelled, Carbon Dioxide Cancelled, Anion Gap Cancelled, BUN Cancelled, Creatinine Cancelled, Estim Creat Clear Calc Cancelled, Est GFR (MDRD) Af Amer Cancelled, Est GFR (MDRD) Non-Af Cancelled, BUN/Creatinine Ratio Cancelled, Glucose Cancelled, Calcium Cancelled, Total Bilirubin Cancelled, AST Cancelled, ALT Cancelled, Alkaline Phosphatase Cancelled, Troponin I High Sens Cancelled, Total Protein Cancelled, Albumin Cancelled, Globulin Cancelled, Albumin/Globulin Ratio Cancelled, Lipase Cancelled 08/07/21 08:30: Sodium 144, Potassium 4.3, Chloride 106, Carbon Dioxide 26.0, Anion Gap 12, BUN 41 H, Creatinine 1.52 H, Estim Creat Clear Calc 27.76, Est GFR (MDRD) Af Amer 42 L, Est GFR (MDRD) Non-Af 35 L, BUN/Creatinine Ratio 27.0 H, Glucose 164 H, Calcium 8.4 L, Total Bilirubin 0.90, AST 27, ALT 16, Alkaline Phosphatase 127 H, Troponin I High Sens 13, Total Protein 5.6 L, Albumin 2.1 L, Globulin 3.5, Albumin/Globulin Ratio 0.6 L, Lipase < 10 L 08/07/21 11:50: Urine Color Yellow, Urine Clarity Turbid, Urine pH 8.0, Ur Specific [place] 1.010, Urine Protein 30 H, Urine Glucose (UA) Normal, Urine Ketones 5 H, Urine Occult Blood 10 H, Urine Nitrite Negative, Urine Bilirubin 3 H, Urine Urobilinogen 4 H, Ur Leukocyte Esterase 100 H, Urine RBC 0 SEEN, Urine WBC 0-5 SEEN, Ur Squamous Epith Cells 0 SEEN, Urine Bacteria 3+, Urine Mucus 0 SEEN 08/07/21 16:11: Hgb 10.6 L, Hct 35.0 L 08/07/21 17:49: Lactic Acid 4.1 H* 08/07/21 18:00: Hgb 10.3 L, Hct 32.5 L 08/07/21 22:45: WBC 11.0, RBC 2.49 L, Hgb 7.9 L, Hct 26.1 L, MCV 104.8 H D, MCH 31.7, MCHC 30.3 L, RDW Std Deviation 57.3 H, RDW Coeff of Valorie 14.8 H, Plt Count 277, MPV 11.5, Immature Gran % (Auto) 0.500, Neut % (Auto) 85.4 H, Lymph % (Auto) 4.1 L, Lyman % (Auto) 9.5, Eos % (Auto) 0.0, Baso % (Auto) 0.5, Absolute Neuts (auto) 9.4 H, Absolute Lymphs (auto) 0.45 L, Nucleated RBC % 0, Differential Comment SCANNED 08/07/21 22:45: Sodium 148 H, Potassium 2.9 L, Chloride 118 H, Carbon Dioxide 18.0 L, Anion Gap 12, BUN 41 H, Creatinine 1.35 H, Estim Creat Clear Calc 31.47, Est GFR (MDRD) Af Amer 49 L, Est GFR (MDRD) Non-Af 40 L, BUN/Creatinine Ratio 30.4 H, Glucose 102, Calcium 6.3 L* 08/07/21 22:45: Lactic Acid 4.4 H* 08/08/21 00:10: WBC 12.5 H, RBC 2.52 L, Hgb 7.9 L, Hct 25.8 L, MCV 102.4 H, MCH 31.3, MCHC 30.6 L, RDW Std Deviation 55.8 H, RDW Coeff of Valorie 14.9 H, Plt Count 322, MPV 11.9, Immature Gran % (Auto) 0.700, Neut % (Auto) 86.0 H, Lymph % (Auto) 4.9 L, Lyman % (Auto) 7.7, Eos % (Auto) 0.2, Baso % (Auto) 0.5, Absolute Neuts (auto) 10.7 H, Absolute Lymphs (auto) 0.61 L, Nucleated RBC % 0 08/08/21 00:10: Sodium 146 H, Potassium 3.4 L, Chloride 115 H, Carbon Dioxide 21.0, Anion Gap 10, BUN 51 H, Creatinine 1.58 H, Estim Creat Clear Calc 26.89, Est GFR (MDRD) Af Amer 41 L, Est GFR (MDRD) Non-Af 34 L, BUN/Creatinine Ratio 32.3 H, Glucose 113 H, Calcium 6.9 L Radiology Impression Abdomen/Pelvis CT 08/07/21 07:17 IMPRESSION: Diffusely thickened wall of the cecum and proximal ascending colon with fluid distention of the right hemicolon. Gas and fecal material are seen in the left hemicolon was in the sigmoid colon. Electronically Signed: Jessee Farmer MD at 11:06 EST , Service support , Abdomen Ultrasound 08/07/21 16:33 IMPRESSION: There is biliary sludge dependent within the gallbladder vs small gallstones. 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 (i.e. Measuring a kidney on an US does not correlate with an exact same measurement on a CT.) Electronically Signed: Nick Guillermo MD at 18:54 EST , Service support , Assessment & Plan Assessment/Plan (1) Hypotension: (2) Upper gastrointestinal bleeding: (3) Ischemic colitis: (4) Abdominal pain: PLAN: Will place triple-lumen catheter consent was obtained per POA. Reviewed CT abdomen pelvis patient does have wall thickening in the cecum and right colon but agree with possible ischemic colitis. Patient also appears to have some constipation the sigmoid and rectum. We will plan to type and cross for 2 units of packed red blood cells due to patient's hypotension hopefully we will get her off the Levophed. Patient has got 4 L of IV fluids per ER. CT abdomen pelvis also showed a very collapsed IVC so patient is quite dehydrated. We will continue to monitor closely. And also plan to give tap water enema to see if we can improve the constipation thus relieve some the distension of the right colon. Talking to granddaughter, Abbi- JERE- pt was on palliative care due to pain management hx of back surgery and w chronic telles from earlier this year till June, pt is DNR CCA no intubation/no CPR. Patient's POA does not believe that she would want any major surgery but will confirm with the other granddaughter as well. Did discuss CT abdomen pelvis with her also the fact that if her blood pressure continues to decrease would possibly necessary to take her surgery to take a look at her colon and possibly remove part of her colon. Abbi will call and let the nurse know what she finds out from the patient's other granddaughter. Discussed further plan for tapwater enemas see if we can help relieve some of the distention of the right colon which is the area of thickening. However upon measurements only about 7 cm. Addendum: Did confirm with granddaughters that patient would not want any aggressive treatment such as surgery. Please call with any other concerns. Tayla Chacko M.D. Pager: [phone] [facility] [address] [place] [address], [facility], [address] [place] [address] Office: [phone] Charges/Coding Visit Charges Inpatient E&M: 35739 Init Hosp L3
[2021-08-08 02:26] LABS: Differential Comment SCANNED
--- NOTE | 2021-08-08 02:30 | RAD_ITS ---
STUDY: X-RAY CHEST REASON FOR EXAM: Female, 81 years old. central line placement TECHNIQUE: Single AP portable view of the chest. COMPARISON: 01/06/2021 FINDINGS: There is a multilead permanent pacemaker. Interval placement of a right internal jugular approached central line with catheter tip over the superior vena cava. There is no demonstrated pneumothorax. Enteric tube tip over the gastric fundus. Advancement by 10 to 15 cm may be advantageous. Stable elevation right hemidiaphragm. Mild interstitial lung disease and areas of hyperinflation, possibly scarring or atelectasis in the right base. There is no demonstrated pleural abnormality. Normal size heart. Normal mediastinum and lydia. Normal visualized pulmonary arteries. Uncoiled calcified aorta. There is demineralization of the osseous structures. Stable scoliosis. There is degenerative osteoarthritis of the bilateral shoulders. There is no demonstrated abnormality of the visualized soft tissue structures of the upper abdomen. RAD/CXR for Line Placement IMPRESSION: Central line appears in good position. The enteric tube tip projects over the gastroesophageal junction level, further advancement by 10 cm may be advantageous. Stable underlying emphysema, arteriosclerosis, tortuosity, scarring, osteoporosis, degenerative changes, scoliosis Electronically Signed: Shauna Levi MD at 4:09 EST , Service support ,
--- NOTE | 2021-08-08 02:36 | PCM.OPRPT ---
Report of Operation Date of Procedure: 08/08/21 Pre-Operative Diagnosis: Hypotension, need for IV access Post-Operative Diagnosis: Same Surgery/Procedure Performed:: Placement of right IJ triple-lumen catheter Surgeon: Tayla Chacko Type of Anesthesia: Local Estimated Blood Loss (mL): < 10 cc Description of Procedure: Procedure: A time-out was completed to verify correct patient, indication, medication allergies, procedure, coagulation studies, informed consent signed, and equipment needed. The patient was placed in the supine position for a central line placement to the right IJ vein. The patients right neck was prepped using chlorhexidine and a full body sterile drape was applied. 1% lidocaine was used. An Arrow triple-lumen lumen catheter introduced into the internal jugular vein using the modified Seldinger technique with the assistance of ultrasound. Ultrasound was used to locate the right IJ. Once blood was aspirated the guidewire was placed and threaded easily. The catheter was threaded smoothly over the guidewire, the guidewire was removed easily, nonpulsatile blood returned. All ports were aspirated of air and flushed with sterile saline. The catheter was sutured in place at 15 cm at the right neck incision and covered with an occlusive dressing impregnated with chlorhexidine. Patient well. Chest x-ray was ordered. --addendum--line in place, no PTX Complications none
[2021-08-08] MEDS: Lactated Ringers 1,000 ML 999 ML IV (04:15)
[2021-08-08] MEDS: TITRATION PARAMETER CHANGE 1 EACH IV (04:26)
[2021-08-08] MEDS: Lactated Ringers 1,000 ML 150 ML IV (05:08)
[2021-08-08] MEDS: Ipratropium/Albuterol Sulfate 3 ML AMPUL.NEB INHALATION ×2 (06:42→12:12)
[2021-08-08] MEDS: Amiodarone 200 MG Tablet 100 MG PO (09:50)
[2021-08-08] MEDS: Potassium Chloride 20mEq/100mL 20 MEQ/100 ML IV.SOLN. 100 MEQ IV BOLUS ×2 (10:03→11:15)
--- NOTE | 2021-08-08 10:05 | EX.PCM.CONCC ---
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 Continue pressors and wean to a map of 65 2. Await results of EGD 3. Continue empiric antibiotics for ischemic colitis 4. Confirmed DNR Comfort Care arrest without intubation 5. Wean oxygen as tolerated 6. Potassium supplementation IMPRESSIONS: 1. Septic shock secondary to probable ischemic colitis This is complicated by acute blood loss anemia, but given blood counts, amount of Levophed is disproportionate. Patient likely has an element of translocation in the cecal area secondary to ischemia. Patient has received adequate fluid resuscitation. Continue with blood, but would hold with further fluid boluses. Levophed should be titrated to a map of 65. Family is open to conservative therapy, but does not want to have any procedures such as colectomy. Surgery was involved to place central line. Endorgan damage indicated by elevation of creatinine 2. Acute blood loss anemia secondary to upper GI bleed Patient currently on a Protonix drip. EGD scheduled for today. Patient is receiving packed red blood cells. Patient does have some risk factors for gastric ulcers. Possible therapeutic and diagnostic procedure later today with EGD. Patient does have some biliary dilatation also. GI is following. 3. Acute kidney injury on CKD stage IIIb Patient's creatinine is up compared to previous. This is likely secondary to problems 1 and 2. We will continue to support renal function with pressors. Hold Lasix therapy. No indication for renal replacement therapy at this time. 4. COPD/vitamin D deficiency/GERD/hiatal hernia/chronic pain/advanced age/sick sinus Complicates care, management, recovery and prognosis. Okay to use therapeutic substitution for Stiolto therapy. Do not believe patient is in acute exacerbation of COPD at this time. Patient does have a pacemaker. CODE STATUS has been confirmed TIME: 32 minutes critical care time spent addressing patient's septic shock, acute blood loss anemia, acute kidney injury, review of all data and collaboration with care team HPI Consult Data Date of Consult: 08/08/21 HPI Narrative HPI Narrative: IMELDA LEWIS is a 81 F, with past medical history listed below, who presents to [facility] on 08/07/2021 secondary to hematemesis and coffee-ground emesis following onset of nausea and vomiting yesterday. Patient reportedly is not reporting diarrhea, melena or hematochezia. Patient stated that her abdominal pain started on the day before presentation and she had some dry heaves. Patient reportedly has had previously similar symptoms that did not require surgery. The patient had reported diffuse abdominal pain and described this as constant without fevers or chills. In the ER, patient was afebrile and initially normotensive on room air. However, over the course of her ER stay patient became more hypoxic requiring 4 L nasal cannula to maintain saturations. Laboratory work-up showed a white blood cell count of 21.1, hemoglobin of 11.8 and platelet count of 434. Patient's creatinine was elevated at 1.52, glucose of 164 and alkaline phosphatase of 127. Total bilirubin was normal at 0.9 and lipase was low. Urinalysis did show leukocyte esterase and urinary bilirubin. A CT of the abdomen and pelvis was suggestive of possible cecal ischemic colitis. Over the course of patient's hospitalization she has become more hypotensive. Patient has had a central line placed overnight by surgery and was initiated on pressors. Patient has received a total of 5 L of IV fluids and 1 unit of packed red blood cells. Patient is very clear that she is a DNR Comfort Care arrest without intubation, but is willing to have an EGD. Patient is not open to any surgical interventions. Patient reportedly was supposed to be followed by GI in the past and has deferred. On my evaluation, patient was appropriate. Patient felt subjectively improved compared to previous. Patient was not reporting any chest pain, nausea or vomiting. Patient was tolerating her NG well. Nursing had reported some concerns for some dark cola colored urine. No additional symptoms were reported by the patient this morning. Also discussed with patient's granddaughter to verify story. Patient was recently enrolled in palliative care, but discharged 3 weeks ago secondary to doing so well. Review of systems otherwise negative from a constitutional, HEENT, respiratory, cardiovascular, GI, genitourinary, musculoskeletal, skin, neurologic, psychiatric and hematologic system unless stated above. [facility] Medical History Body mass index 34.0-34.9, adult Cholelithiasis Chronic anemia CVA (cerebral vascular accident) Essential hypertension GI bleed residential current use of anticoagulant therapy Long-term use of high-risk medication Lung nodule Nonrheumatic aortic (valve) insufficiency Nonrheumatic tricuspid (valve) insufficiency Paroxysmal atrial fibrillation Pure hypercholesterolemia Sick sinus syndrome Stage 1 mild COPD by GOLD classification Tobacco dependence in remission Home Medications cholecalciferol (vitamin D3) 5,000 unit PO DAILY 03/17/17 [History Last Taken 08/06/21] hydrocodone-acetaminophen 1 - 2 tab PO Q4H PRN PRN 03/17/17 [History Last Taken 09/25/19] melatonin 10 - 15 mg PO QHS PRN PRN 03/17/17 [History Last Taken 08/05/21] albuterol sulfate 90 mcg/actuation aerosol inhaler 2 puff INHALATION Q4H PRN PRN #18 g 07/10/19 [Rx Last Taken Unknown] meclizine 12.5 mg tablet 12.5 mg PO DAILY PRN 05/17/20 [History Last Taken Unknown] pantoprazole 40 mg tablet,delayed release 40 mg PO BID PRN 05/17/20 [History Last Taken 08/06/21] ipratropium 0.5 mg-albuterol 3 mg (2.5 mg base)/3 mL nebulization soln 3 ml INHALATION Q6H #180 vial 06/24/20 [Rx Last Taken Unknown] furosemide 40 mg tablet 20 mg PO DAILY tablet 12/23/20 [History Last Taken 08/06/21] gabapentin 600 mg tablet 400 mg PO QHS PRN PRN tablet 12/23/20 [History Last Taken 08/05/21] albuterol sulfate 2.5 mg INHALATION Q4H PRN #180 ml 04/28/21 [Rx Last Taken Unknown] tiotropium 2.5 mcg-olodaterol 2.5 mcg/actuation mist for inhalation 2 inh INHALATION DAILY #4 g 04/28/21 [Rx Last Taken Unknown] amiodarone 200 mg tablet See Rx Instructions .ROUTE .COMPLEX #45 tab 08/04/21 [Rx Last Taken 08/06/21] calcium acetate 667 mg tablet 667 mg PO DAILY 08/05/21 [History Last Taken 08/06/21] aspirin [Aspirin Low Dose] PO DAILY 08/07/21 [History Last Taken 08/06/21] lorazepam [Ativan] PRN 08/07/21 [History Last Taken Unknown] metoprolol tartrate 50 mg PO BID 08/07/21 [History Last Taken 08/06/21] ondansetron HCl [Zofran] 4 mg PO Q6H PRN 08/07/21 [History Last Taken Unknown] potassium chloride 20 meq PO DAILY 08/07/21 [History Last Taken 08/06/21] Allergy/AdvReac Type Severity Reaction Status Date / Time ferrous sulfate AdvReac Severe Diarrhea Verified 08/07/21 07:02 codeine AdvReac makes me Verified 08/07/21 07:02 sick iron AdvReac Nausea/Vom/ Verified 08/07/21 07:02 Diarrhea pregabalin [From Lyrica] AdvReac makes me Verified 08/07/21 07:02 deathly ill tramadol AdvReac Nausea and Verified 08/07/21 07:02 dizziness Family History Mother CVA (cerebral vascular accident) Atrial fibrillation Brother Atrial fibrillation History of PTCA Surgical History History of back surgery Presence of permanent cardiac pacemaker (03/13/19) Social History housing: condominium Smoking Status: Former smoker how long ago did patient quit smokin alcohol intake: never what type of physical activity do you participate in: none seatbelt use: always do you feel safe at home: Yes ROS ROS Narrative See HPI Physical Exam Const alert, oriented x3 and no apparent distress General Appearance: cooperative HEENT normocephalic, head/scalp atraumatic and hearing grossly normal bilaterally HEENT Narrative: Dry mucous membrane. NG in place. General Ear: hearing grossly impaired diffuse Eyes PERRL, EOMs intact bilaterally and conjunctivae normal Neck no lymphadenopathy, supple, no JVD and no carotid bruits Neck Narrative: Trachea midline with no thyroid enlargement Chest inspection of chest normal Chest: symmetrical chest wall rise; Negative for crepitus Resp normal respiratory effort, no retractions and no use of accessory muscles Auscultation: diminished lung sounds; Negative for crackles, rales, rhonchi or wheezes Cardio regular rate, regular rhythm, S1 normal heart sound, S2 normal heart sound, no murmurs, no rub, no gallops, no clicks and no JVD GI GI Narrative: Mild diffuse tenderness with increased tenderness right lower quadrant, mild distention, bowel sounds are slightly hypoactive Palpation: tender Extremity no clubbing, cyanosis or edema Peripheral Pulses: Yes pulses 2+ throughout Neuro oriented x3, CN's II-XII intact bilaterally, moves all extremities and no focal motor deficits Neuro Narrative: Significant generalized weakness, extremely hard of hearing Sensorium / Orientation: awake and alert Speech: speech normal Psych affect normal Lab / Micro Data Result Diagrams: 08/08/21 00:10 08/08/21 00:10 Labs: Laboratory Results - last 24 hr 08/07/21 08:30: Sodium 144, Potassium 4.3, Chloride 106, Carbon Dioxide 26.0, Anion Gap 12, BUN 41 H, Creatinine 1.52 H, Estim Creat Clear Calc 27.76, Est GFR (MDRD) Af Amer 42 L, Est GFR (MDRD) Non-Af 35 L, BUN/Creatinine Ratio 27.0 H, Glucose 164 H, Calcium 8.4 L, Total Bilirubin 0.90, AST 27, ALT 16, Alkaline Phosphatase 127 H, Troponin I High Sens 13, Total Protein 5.6 L, Albumin 2.1 L, Globulin 3.5, Albumin/Globulin Ratio 0.6 L, Lipase < 10 L 08/07/21 11:50: Urine Color Yellow, Urine Clarity Turbid, Urine pH 8.0, Ur Specific [place] 1.010, Urine Protein 30 H, Urine Glucose (UA) Normal, Urine Ketones 5 H, Urine Occult Blood 10 H, Urine Nitrite Negative, Urine Bilirubin 3 H, Urine Urobilinogen 4 H, Ur Leukocyte Esterase 100 H, Urine RBC 0 SEEN, Urine WBC 0-5 SEEN, Ur Squamous Epith Cells 0 SEEN, Urine Bacteria 3+, Urine Mucus 0 SEEN 08/07/21 16:11: Hgb 10.6 L, Hct 35.0 L 08/07/21 17:49: Lactic Acid 4.1 H* 08/07/21 18:00: Hgb 10.3 L, Hct 32.5 L 08/07/21 22:45: WBC 11.0, RBC 2.49 L, Hgb 7.9 L, Hct 26.1 L, MCV 104.8 H D, MCH 31.7, MCHC 30.3 L, RDW Std Deviation 57.3 H, RDW Coeff of Valorie 14.8 H, Plt Count 277, MPV 11.5, Immature Gran % (Auto) 0.500, Neut % (Auto) 85.4 H, Lymph % (Auto) 4.1 L, [place] % (Auto) 9.5, Eos % (Auto) 0.0, Baso % (Auto) 0.5, Absolute Neuts (auto) 9.4 H, Absolute Lymphs (auto) 0.45 L, Nucleated RBC % 0, Differential Comment SCANNED 08/07/21 22:45: Sodium 148 H, Potassium 2.9 L, Chloride 118 H, Carbon Dioxide 18.0 L, Anion Gap 12, BUN 41 H, Creatinine 1.35 H, Estim Creat Clear Calc 31.47, Est GFR (MDRD) Af Amer 49 L, Est GFR (MDRD) Non-Af 40 L, BUN/Creatinine Ratio 30.4 H, Glucose 102, Calcium 6.3 L* 08/07/21 22:45: Lactic Acid 4.4 H* 08/08/21 00:10: WBC 12.5 H, RBC 2.52 L, Hgb 7.9 L, Hct 25.8 L, MCV 102.4 H, MCH 31.3, MCHC 30.6 L, RDW Std Deviation 55.8 H, RDW Coeff of Valorie 14.9 H, Plt Count 322, MPV 11.9, Immature Gran % (Auto) 0.700, Neut % (Auto) 86.0 H, Lymph % (Auto) 4.9 L, [place] % (Auto) 7.7, Eos % (Auto) 0.2, Baso % (Auto) 0.5, Absolute Neuts (auto) 10.7 H, Absolute Lymphs (auto) 0.61 L, Nucleated RBC % 0, Differential Comment SCANNED 08/08/21 00:10: Sodium 146 H, Potassium 3.4 L, Chloride 115 H, Carbon Dioxide 21.0, Anion Gap 10, BUN 51 H, Creatinine 1.58 H, Estim Creat Clear Calc 26.89, Est GFR (MDRD) Af Amer 41 L, Est GFR (MDRD) Non-Af 34 L, BUN/Creatinine Ratio 32.3 H, Glucose 113 H, Calcium 6.9 L 08/08/21 04:00: Blood Type A POSITIVE, Antibody Screen NEGATIVE, Crossmatch See Detail Radiology Impression Abdomen/Pelvis CT 08/07/21 07:17 IMPRESSION: Diffusely thickened wall of the cecum and proximal ascending colon with fluid distention of the right hemicolon. Gas and fecal material are seen in the left hemicolon was in the sigmoid colon. Electronically Signed: Jessee Farmer MD at 11:06 EST , Service support , Abdomen Ultrasound 08/07/21 16:33 IMPRESSION: There is biliary sludge dependent within the gallbladder vs small gallstones. 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 (i.e. Measuring a kidney on an US does not correlate with an exact same measurement on a CT.) Electronically Signed: Nick Guillermo MD at 18:54 EST , Service support , KUB X-Ray 08/08/21 00:02 IMPRESSION: Enteric tube in good position. Limited bowel gas assessment. Other findings as above. Electronically Signed: Shauna Levi MD at 4:07 EST , Service support , Chest X-Ray 08/08/21 02:30 IMPRESSION: Central line appears in good position. The enteric tube tip projects over the gastroesophageal junction level, further advancement by 10 cm may be advantageous. Stable underlying emphysema, arteriosclerosis, tortuosity, scarring, osteoporosis, degenerative changes, scoliosis Electronically Signed: Shauna Levi MD at 4:09 EST , Service support , Charges/Coding Procedures Hospitalists Procedures: [id number] [facility] Care 1st Hr
[2021-08-08 10:26] LABS: Absolute Lymphocyte Count 0.58 X10^3/uL (0.83-4.51); Absolute Neutrophil Count 10.8 X10^3/uL (2.0-7.7); Basophil# 0.06 X10^3/uL; Basophil% 0.5 % (0-1); Hematocrit 38.1 % (37-47); Hemoglobin 12.3 g/dL (12.0-15.0); Lymphocyte # 0.58 X10^3/ul (0.83-4.51); Lymphocyte % 4.7 % (19-41); Mean Corp Hgb Conc 32.3 g/dL (32-36); Mean Platelet Vol. 11.2 fl (6.2-12.0); Monocyte# 0.87 X10^3/uL; NRBC Flagged by Analyzer 0 % (0-5); Neutrophil # 10.78 X10^3/uL (2.7-7.7); POSITIVE DIFFERENTIAL YES; POSITIVE MORPHOLOGY YES; Platelet Count 327 K/mm3 (150-450); RBC Distribution Width CV 14.9 % (11.6-14.6); RBC Distribution Width SD 52.3 fl (35.1-43.9); Red Blood Count 3.97 M/mm3 (4.2-5.4); White Blood Count 12.4 K/mm3 (4.4-11.0)
[2021-08-08 10:28] LABS: Differential Indicated SCAN CRITERIA MET
[2021-08-08 10:45] LABS: ALB/GLOB Ratio 0.5 RATIO (0.9-2.4); AST(SGOT) 108 U/L (15-37); Alanine Aminotransfer ALT/SGPT 55 U/L (13-56); Albumin, Serum 1.7 g/dL (3.2-5.0); Alkaline Phosphatase 68 U/L (45-117); Anion Gap 11 (5-15); BUN 46 mg/dL (7-18); BUN/Creat Ratio 30.7 RATIO (10-20); Bilirubin, Direct 0.36 mg/dL (0.00-0.30); Calcium,Total 6.9 mg/dL (8.5-10.1); Chloride 115 mmol/L (98-107); EST Glomerular Filtration Rate 36 mL/min (>60); Est Glom Filt Rate - Afr Amer 43 mL/min (>60); Globulin 3.2 g/dL (2.2-4.2); Glucose 100 mg/dL (74-106); Magnesium 1.9 mg/dL (1.6-2.6); Phosphorus 4.3 mg/dL (2.5-4.9); Potassium 3.1 mmol/L (3.5-5.1); Protein, Total 4.9 g/dL (6.4-8.2); Sodium Level 146 mmol/L (136-145)
[2021-08-08 10:51] LABS: Lactic Acid 1.4 mmol/L (0.4-1.9)
--- NOTE | 2021-08-08 12:45 | CASEMGMT ---
MJ CEVALLOS Face to Face with patient for initial transition planning/care coordination assessment. MJ CEVALLOS introduced self and role at [facility]. Patient lying in bed, alert and oriented. Patient willing to participate in assessment and is able to answer all questions appropriately. Care providers, pharmacy, and demographics verified. Patient wishes to discharge home with possible HHC. Patient states she has no further needs or concerns at this time. CM to follow for discharge planning needs that may arise. PCP: Carlo Specialists: Nakul, certified pathology assistant; Trav chenille machine operator Preferred Pharmacy: [facility] Insurance: [facility] Prescription Benefit: yes Living Will/HPOA: yes, granddaughter Abbi Renteria LNOK: granddaughters Living Arrangements: Patient lives with granddaughter in a condo with ramp. Granddaughter assists with care. Transportation: Granddaughter DME/HHC: patient states she has shower chair, BSC, hospital bed, brigid, walker, wheelchair, nebulizer, and home oxygen at 4 lpm with portability through [facility]. Patient has previously had HHC with [facility] and would like them again at discharge. Patient has previously been to SNF. MJ CEVALLOS made referral to [facility] for care home, PT/OT to eval and treat. Awaiting call back with acceptance. Palliative screening tool completed at this time. Patient qualifies for palliative consult. Hospitalist updated and order received for palliative consult. Referral made to [facility] palliative. Disposition Plan: Patient to discharge home with HHC, family support, and follow-up plans in place. Payton CASTELLANOS, RN, CM
--- NOTE | 2021-08-08 13:13 | PN.HOSP_ITS ---
Subjective Subjective Late last evening patient developed some hypotension her lactic acid that I got shortly after admission was noted to be elevated at 4.1. At that time she was transferred to the ICU and IV fluid boluses were given. Her maps remained in the 50s and therefore she was started on Levophed last evening. She maintains that she is not interested in surgical intervention but is okay to proceed with EGD this afternoon. Currently complaining of ongoing abdominal pain. Levophed is at 11. Patient is currently receiving blood transfusion. Objective Data Objective Data Vital Signs: Vital Signs Temp Pulse Resp BP Pulse Ox 97.2 F L 109 H 20 H 117/63 99 08/08/21 12:00 08/08/21 12:12 08/08/21 12:12 08/08/21 12:45 08/08/21 12:00 Oxygen Flow Rate (L/min) 2 Oxygen Delivery Method Nasal Cannula Weight: 60.4 kg Body Mass Index (BMI) 26.2 Intake & Output: Intake and Output for Last 24 Hours 08/06/21 08/07/21 08/08/21 23:59 23:59 23:59 Intake Total 2305.47 / 2310.17 3035.56 / 3035.56 Output Total 200 / 200 Balance 2305.47 / 2310.17 2835.56 / 2835.56 Lab / Micro Data Result Diagrams: 08/08/21 10:10 08/08/21 10:10 Labs: Laboratory Results - last 24 hr 08/07/21 16:11: Hgb 10.6 L, Hct 35.0 L 08/07/21 17:49: Lactic Acid 4.1 H* 08/07/21 18:00: Hgb 10.3 L, Hct 32.5 L 08/07/21 22:45: WBC 11.0, RBC 2.49 L, Hgb 7.9 L, Hct 26.1 L, MCV 104.8 H D, MCH 31.7, MCHC 30.3 L, RDW Std Deviation 57.3 H, RDW Coeff of Valorie 14.8 H, Plt Count 277, MPV 11.5, Immature Gran % (Auto) 0.500, Neut % (Auto) 85.4 H, Lymph % (Auto) 4.1 L, [place] % (Auto) 9.5, Eos % (Auto) 0.0, Baso % (Auto) 0.5, Absolute Neuts (auto) 9.4 H, Absolute Lymphs (auto) 0.45 L, Nucleated RBC % 0, Differe ntial Comment SCANNED 08/07/21 22:45: Sodium 148 H, Potassium 2.9 L, Chloride 118 H, Carbon Dioxide 18.0 L, Anion Gap 12, BUN 41 H, Creatinine 1.35 H, Estim Creat Clear Calc 31.47, Est GFR (MDRD) Af Amer 49 L, Est GFR (MDRD) Non-Af 40 L, BUN/Creatinine Ratio 30.4 H, Glucose 102, Calcium 6.3 L* 08/07/21 22:45: Lactic Acid 4.4 H* 08/08/21 00:10: WBC 12.5 H, RBC 2.52 L, Hgb 7.9 L, Hct 25.8 L, MCV 102.4 H, MCH 31.3, MCHC 30.6 L, RDW Std Deviation 55.8 H, RDW Coeff of Valorie 14.9 H, Plt Count 322, MPV 11.9, Immature Gran % (Auto) 0.700, Neut % (Auto) 86.0 H, Lymph % (Auto) 4.9 L, [place] % (Auto) 7.7, Eos % (Auto) 0.2, Baso % (Auto) 0.5, Absolute Neuts (auto) 10.7 H, Absolute Lymphs (auto) 0.61 L, Nucleated RBC % 0, Differential Comment SCANNED 08/08/21 00:10: Sodium 146 H, Potassium 3.4 L, Chloride 115 H, Carbon Dioxide 21.0, Anion Gap 10, BUN 51 H, Creatinine 1.58 H, Estim Creat Clear Calc 26.89, Est GFR (MDRD) Af Amer 41 L, Est GFR (MDRD) Non-Af 34 L, BUN/Creatinine Ratio 32.3 H, Glucose 113 H, Calcium 6.9 L 08/08/21 04:00: Blood Type A POSITIVE, Antibody Screen NEGATIVE, Crossmatch See Detail 08/08/21 10:10: WBC 12.4 H, RBC 3.97 L, Hgb 12.3, Hct 38.1, MCV 96.0 D, MCH 31.0, MCHC 32.3 D, RDW Std Deviation 52.3 H, RDW Coeff of Valorie 14.9 H, Plt Count 327, MPV 11.2, Immature Gran % (Auto) 0.800, Neut % (Auto) 87.0 H, Lymph % (Auto) 4.7 L, [place] % (Auto) 7.0, Eos % (Auto) 0.0, Baso % (Auto) 0.5, Absolute Neuts (auto) 10.8 H, Absolute Lymphs (auto) 0.58 L, Nucleated RBC % 0 08/08/21 10:10: Sodium 146 H, Potassium 3.1 L, Chloride 115 H, Carbon Dioxide 20.0 L, Anion Gap 11, BUN 46 H, Creatinine 1.50 H, Estim Creat Clear Calc 29.00, Est GFR (MDRD) Af Amer 43 L, Est GFR (MDRD) Non-Af 36 L, BUN/Creatinine Ratio 30.7 H, Glucose 100, Calcium 6.9 L, Phosphorus 4.3, Magnesium 1.9, Total Bilirubin 0.90, Direct Bilirubin 0.36 H, AST 108 H, ALT 55, Alkaline Phosphatase 68, Total Protein 4.9 L, Albumin 1.7 L, Globulin 3.2, Albumin/Globulin Ratio 0.5 L 08/08/21 10:10: Lactic Acid 1.4 08/08/21 10:10: Total Bilirubin Cancelled, Direct Bilirubin Cancelled, AST Cancelled, ALT Cancelled, Alkaline Phosphatase Cancelled, Total Protein Cancelled, Albumin Cancelled, Globulin Cancelled Radiography Diagnostic Testing: Radiology Impression Abdomen Ultrasound 08/07/21 16:33 IMPRESSION: There is biliary sludge dependent within the gallbladder vs small gallstones. 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 (i.e. Measuring a kidney on an US does not correlate with an exact same measurement on a CT.) Electronically Signed: Nick Guillermo MD at 18:54 EST , Service support , KUB X-Ray 08/08/21 00:02 IMPRESSION: Enteric tube in good position. Limited bowel gas assessment. Other findings as above. Electronically Signed: Shauna Levi MD at 4:07 EST , Service support , Chest X-Ray 08/08/21 02:30 IMPRESSION: Central line appears in good position. The enteric tube tip projects over the gastroesophageal junction level, further advancement by 10 cm may be advantageous. Stable underlying emphysema, arteriosclerosis, tortuosity, scarring, osteoporosis, degenerative changes, scoliosis Electronically Signed: Shauna Levi MD at 4:09 EST , Service support , Physical Exam Const alert, oriented x3 and no apparent distress Constitutional Narrative: Elderly, extremely hard of hearing white female lying in bed, nursing at the bedside, appears that she is feeling better today but still toxic appearing, No current distress General Appearance: cooperative Exam Limitations: other limitations Nutritional Appearance: overweight HEENT normocephalic, head/scalp atraumatic, hearing grossly normal bilaterally and moist oral mucous membranes Head and Scalp: normocephalic Resp normal respiratory effort, no retractions, no use of accessory muscles and clear to auscultation bilaterally Resp Narrative: Diffusely diminished but clear Auscultation: Negative for crackles, rales, rhonchi or wheezes Cardio regular rate, regular rhythm, S1 normal heart sound, S2 normal heart sound, no m urmurs, no rub, no gallops, no clicks and no JVD GI GI Narrative: Diffuse tenderness, moderate distention, decreased bowel sounds Auscultation: hypoactive bowel sounds Palpation: tender and guarding Extremity no clubbing, cyanosis or edema Peripheral Pulses: Yes pulses 2+ throughout Neuro oriented x3, moves all extremities and no focal motor deficits Neuro Narrative: Significant generalized weakness, extremely hard of hearing, mild confusion but remains A&O x3 Sensorium / Orientation: awake and alert Speech: speech normal Psych Psych Narrative: Few overnight hallucinations Assessment & Plan Assessment/Plan (1) Hematemesis: (2) Abdominal pain: (3) Upper gastrointestinal bleeding: (4) Dilated bile duct: (5) Leukocytosis: (6) Ischemic colitis: (7) Septic shock: PLAN: Septic shock -Suspect this is related to ischemic colitis -Continue current antibiotics -Leukocytosis has improved -Continue pressors--> currently on Levophed at 11 -Continue IV fluids -Wean pressors as able--> map goal is 65 -Critical care medicine is following Hematemesis/upper GI bleed -Hemoglobin is currently stable -Antiemetics -No current need for NG tube however will monitor closely for recurrent emesis -Protonix drip -N.p.o. -Patient has been transfuse as hemoglobin dropped from 11.8-7.9 -4 units given -Patient corrected to 12.3 -Location of bleed is unknown at this time -EGD today -Gastroenterology is following Ischemic colitis -CT scan shows diffusely thickened wall of the cecum and proximal ascending colon with fluid distention of the right hemicolon, gas and fecal material are seen in the left hemicolon in the sigmoid colon -Cipro and Flagyl given in the emergency department -Continue Zosyn -White count has improved -N.p.o. -Antiemetics and pain medication as needed -Patient not desiring any surgical intervention but open to conservative medical therapy -Check lactoferrin and calprotectin-->pending -Suspect patient will have a ileus -Gastroenterology and general surgery are following Hypokalemia -IV bolus -Repeat lab in a.m. -Magnesium is within normal limits Hyperchloremia/hypernatremia -Iatrogenic -We will need to continue IV fluids at this time -Mild -Continue to monitor Hypocalcemia -Calcium bolus given -Peak calcium in a.m. Dilated biliary duct -This was reported on CAT scan -Right upper quadrant ultrasound was performed bile duct was 9 mm and ultrasound showed biliary sludge versus small gallstones -LFTs are within normal limits. -Patient does had moderate documented cholelithiasis with layering gallstones on her CT ROCIO on CKD stage IIIb -Baseline serum creatinine appears to be 1-1.2 -Current serum creatinine 1.5--> only slightly worsened compared to baseline -Continue pressors and IV fluids -Continue to hold home Lasix -Avoid nephrotoxins as able COPD -Continue home inhalers Vitamin D deficiency -Hold cholecalciferol and restart on discharge GERD/hiatal hernia -Hold home oral Protonix -We will utilize Protonix drip at this time Chronic pain -Hold gabapentin -IV Dilaudid for pain -We will start home regimen once able to take p.o. 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
--- NOTE | 2021-08-08 14:49 | CON.PCM.PA_ITS ---
Assessment & Plan Assessment/Plan (1) Nausea and vomiting: QUALIFIERS: Vomiting type: hematemesis Qualified Code(s): K92.0 - Hematemesis (2) Abdominal pain: QUALIFIERS: Abdominal location: generalized Qualified Code(s): R10.84 - Generalized abdominal pain (3) Paroxysmal atrial fibrillation: (4) Hypotension: QUALIFIERS: Hypotension type: unspecified hypotension type Qualified Code(s): I95.9 - Hypotension, unspecified (5) Upper gastrointestinal bleeding: (6) Ischemic colitis: (7) Chronic back pain: QUALIFIERS: Back pain location: low back pain Back pain laterality: right Sciatica presence: with sciatica Sciatica laterality: sciatica of right side Qualified Code(s): M54.41 - Lumbago with sciatica, right side PLAN: 81-year-old female with multiple complex acute issues, including ischemic colitis, abdominal pain, hypotension requiring pressors, septic shock. Seen today for palliative consultation. Recently discharged from [facility] due to nothing else we can do for you. 1. Abdominal pain/nausea and vomiting: As above, colitis, received blood transfusions. Chronic nausea and vomiting, did have follow-up with GI as outpatient scheduled but ended up in the hospital. Defer management to GI. It is controlled with Dilaudid at the current time. Zofran has been effective for the nausea. 2. Paroxysmal A. 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 3. Chronic back pain: Follows with pain management in [place]. Has been on [place] for over 20 years. She takes it routinely at home. Chronic back pain is not appropriate for palliative care, I would continue with pain management when she is discharged home. 4. Hypotension/upper GI bleed/ischemic colitis: Complicates overall care, management, recovery, and prognosis. Patient would be hospice appropriate as she does not want any aggressive treatment. She does not want surgical intervention if she would need so due to ischemic bowel. She was agreeable to the EGD. It is unclear what her course will entail at this point, however if she continues to decline, would recommend hospice admission. Still on pressors. Possibly even still bleeding. She may even qualify for the IPU if her symptoms are not well managed. Granddaughter tells me that they have had discussions on hospice versus palliative, patient would need another one-on-one conversation due to preferring to understand things completely. She is too sedated at this point to have that discussion. I would be happy to revisit that conversation with the patient and her family, other option is to send a liaison for further explanation. Thank you for the opportunity to participate in this patient's care, please do not hesitate to contact [facility] with any further questions or concerns. Palliative direct line is [phone]. I did have a discussion with patient's 2 granddaughters, who were present during my visit. The patient was part of the conversation as well, however again she was sedated. They have indicated interest in palliative care, if not hospice depending upon how things go during her hospitalization. Greater than 50% of F2F visit dedicated to education and counseling of palliative care services, medications, comorbid conditions and potential assistance with management, and plan of care moving forward. Start time: 1449 End time: 1557 HPI Consult Data Date of Consult: 08/08/21 HPI Narrative HPI Narrative: IMELDA LEWIS, is a 81 F, PMH as below, who presented to [facility] 08/07[facility]2021 with complaints of abdominal pain, nausea and vomiting, and hematemesis coffee-ground and dark red blood. She does have a history of GI bleed. She has been reluctant in the past to follow-up with GI as previously recommended. He did have a presenting leukocytosis. Patient was hypotensive and had ongoing abdominal pain, so she was admitted for further evaluation and management and started on IV antibiotics for possible colitis. GI was consulted. Patient does have a history of paroxysmal A. fib but not currently anticoagulated secondary to prior bleeding issues. She required transfer to the ICU 08/07 later on in the evening. Abdominal and pelvis CT showed diffusely thickened wall of cecum and proximal ascending colon with fluid distention of the right hemicolon, gas and fecal material seen in the left hemicolon and a large amount of fecal material in sigmoid. There are multiple layering gallstones and moderate sized hiatal hernia, as well as mild degree of intrahepatic biliary duct dilation.. She also had an abdominal ultrasound which revealed biliary sludge dependent within the gallbladder versus small gallstones. GI saw 08/07, ischemic colitis suspected. Advised IV fluids, bowel rest, and NG tube for decompression. Also recommended upper endoscopy and possible flexible sigmoidoscopy to evaluate extent of damage in her colon when she is medically stable, however also may need surgical consult if continues to decline. To patient did require initiation on Levophed. There is indication of end organ damage kidneys. Patient received a total of 4 units of PRBCs for hemoglobin dropped from 11.8-7.9. Palliative care was consulted due to significant COPD and her multiple comorbidities for supportive management. Apparently, patient was enrolled in palliative through [facility] but was discharged approximately 3 weeks ago. Granddaughter tells me the or following her to make sure she got to the proper pain management doctor and for her chronic [place]. Patient's granddaughter, Abbi is her HC POA and takes care of the patient in her home. POA has indicated to other providers that patient would not want any aggressive tr eatment such as surgery, if required. I did confirm that with her as she was in patient's room. She did have to go to the OR for placement of a central line. Granddaughter confirmed with me that patient has opted for DNR CCA without intubation. Patient takes hydrocodone/APAP at home for chronic back pain. She has been on this for over 20 years. Takes at least 3 a day. Patient denies any current nausea or vomiting. She is somewhat short of breath. Has an NG tube in and wants it removed. She is very sleepy since she had some anesthesia for EGD. Report is not yet available. She is having some generalized pain. I did palpate her abdomen, which was acutely painful. Denies chest pain. Denies dizziness or syncope. Reports insomnia, however her granddaughter states she has been sleeping. She is tachycardic in the 120's- 140s. It is unclear if she is in A. fib as the rhythm is too fast to tell on the monitor, she does take amiodarone. Blood pressure is currently stable but remains on norepinephrine. She is getting IV Protonix and LR. She also has IV Dilaudid 0.5 mg every 3 hours as needed for pain. 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 Long-term use of high-risk medication Lung nodule Nonrheumatic aortic (valve) insufficiency Nonrheumatic tricuspid (valve) insufficiency Paroxysmal atrial fibrillation Pure hypercholesterolemia Sick sinus syndrome Stage 1 mild COPD by GOLD classification Tobacco dependence in remission Home Medications cholecalciferol (vitamin D3) 5,000 unit PO DAILY 03/17/17 [History Last Taken 08/06/21] hydrocodone-acetaminophen 1 - 2 tab PO Q4H PRN PRN 03/17/17 [History Last Taken 09/25/19] melatonin 10 - 15 mg PO QHS PRN PRN 03/17/17 [History Last Taken 08/05/21] albuterol sulfate 90 mcg/actuation aerosol inhaler 2 puff INHALATION Q4H PRN PRN #18 g 07/10/19 [Rx Last Taken Unknown] meclizine 12.5 mg tablet 12.5 mg PO DAILY PRN 05/17/20 [History Last Taken Unknown] pantoprazole 40 mg tablet,delayed release 40 mg PO BID PRN 05/17/20 [History Last Taken 08/06/21] ipratropium 0.5 mg-albuterol 3 mg (2.5 mg base)/3 mL nebulization soln 3 ml INHALATION Q6H #180 vial 06/24/20 [Rx Last Taken Unknown] furosemide 40 mg tablet 20 mg PO DAILY tablet 12/23/20 [History Last Taken 08/06/21] gabapentin 600 mg tablet 400 mg PO QHS PRN PRN tablet 12/23/20 [History Last Taken 08/05/21] albuterol sulfate 2.5 mg INHALATION Q4H PRN #180 ml 04/28/21 [Rx Last Taken Unknown] tiotropium 2.5 mcg-olodaterol 2.5 mcg/actuation mist for inhalation 2 inh INHALATION DAILY #4 g 04/28/21 [Rx Last Taken Unknown] amiodarone 200 mg tablet See Rx Instructions .ROUTE .COMPLEX #45 tab 08/04/21 [Rx Last Taken 08/06/21] calcium acetate 667 mg tablet 667 mg PO DAILY 08/05/21 [History Last Taken 08/06/21] aspirin [Aspirin Low Dose] PO DAILY 08/07/21 [History Last Taken 08/06/21] lorazepam [Ativan] PRN 08/07/21 [History Last Taken Unknown] metoprolol tartrate 50 mg PO BID 08/07/21 [History Last Taken 08/06/21] ondansetron HCl [Zofran] 4 mg PO Q6H PRN 08/07/21 [History Last Taken Unknown] potassium chloride 20 meq PO DAILY 08/07/21 [History Last Taken 08/06/21] Allergy/AdvReac Type Severity Reaction Status Date / Time ferrous sulfate AdvReac Severe Diarrhea Verified 08/07/21 07:02 codeine AdvReac makes me Verified 08/07/21 07:02 sick iron AdvReac Nausea/Vom/ Verified 08/07/21 07:02 Diarrhea pregabalin [From Lyrica] AdvReac makes me Verified 08/07/21 07:02 deathly ill tramadol AdvReac Nausea and Verified 08/07/21 07:02 dizziness Family History Mother CVA (cerebral vascular accident) Atrial fibrillation Brother Atrial fibrillation History of PTCA Surgical History History of back surgery Presence of permanent cardiac pacemaker (03/13/19) Social History housing: condominium Smoking Status: Former smoker how long ago did patient quit smokin alcohol intake: never what type of physical activity do you participate in: none seatbelt use: always do you feel safe at home: Yes ROS ROS Narrative Review of systems otherwise negative from a constitutional, HEENT, respiratory, cardiovascular, GI, genitourinary, musculoskeletal, skin, neurologic, psychiatric and hematologic system unless stated above. Physical Exam Const no apparent distress Constitutional Narrative: Just had anesthesia for EGD. S[place] but responding to questions General Appearance: lethargic HEENT normocephalic and head/scalp atraumatic Neck supple General: trachea midline Resp Effort and Inspection: symmetric chest movement Auscultation: diminished lung sounds Cardio S1 normal heart sound and S2 normal heart sound Rate: tachycardic Rhythm: abnormal rhythm GI Inspection: abdominal distention Auscultation: hyperactive bowel sounds Palpation: soft, tender and guarding Extremity no clubbing, cyanosis or edema Skin no rashes or lesions noted Neuro moves all extremities and no focal motor deficits Psych Psych Narrative: Lethargic from procedure, does not appear to be in any distress.
--- NOTE | 2021-08-08 15:11 | CASEMGMT ---
RN CM received call back from Axel at [facility] and they are able to accept the patient. Granddaughter, Abbi, at bedside. Patient and granddaughter updated regarding acceptance with [facility] and palliative consult. No further questions or concerns at this time. CM will continue to follow this patient and plan for a safe discharge.
[2021-08-08] MEDS: Ondansetron 4 MG/2 ML Vial IV (20:37)
[2021-08-08] MEDS: HYDROmorphone 0.5 MG/0.5 ML SYRINGE IV (20:38)
[2021-08-09] VITALS (37 sets, daily range): BP systolic 92–139; BP diastolic 44–87; PULSE 116–140; RESP 16–25; TEMP 36.4–37.2; O2SAT 86–100
[2021-08-09 04:22] LABS: Absolute Lymphocyte Count 0.44 X10^3/uL (0.83-4.51); Absolute Neutrophil Count 9.5 X10^3/uL (2.0-7.7); Basophil# 0.02 X10^3/uL; Basophil% 0.2 % (0-1); Eosinophil# 0.05 X10^3/uL; Eosinophils% 0.5 % (0-5); Hematocrit 38.5 % (37-47); Hemoglobin 12.7 g/dL (12.0-15.0); Lymphocyte # 0.44 X10^3/ul (0.83-4.51); Mean Corpuscular Hgb 30.9 pg (27.0-32.0); Mean Corpuscular Volume 93.7 fL (81-99); Mean Platelet Vol. 11.5 fl (6.2-12.0); Monocyte# 0.85 X10^3/uL; Monocyte% 7.8 % (0-10); NRBC Flagged by Analyzer 0 % (0-5); Neutrophil # 9.53 X10^3/uL (2.7-7.7); Neutrophil % 87.2 % (47-70); POSITIVE DIFFERENTIAL YES; POSITIVE MORPHOLOGY YES; Platelet Count 290 K/mm3 (150-450); RBC Distribution Width CV 15.9 % (11.6-14.6); RBC Distribution Width SD 54.4 fl (35.1-43.9); Red Blood Count 4.11 M/mm3 (4.2-5.4); White Blood Count 10.9 K/mm3 (4.4-11.0)
[2021-08-09 05:00] LABS: Differential Indicated SCAN CRITERIA MET
[2021-08-09 05:01] LABS: ALB/GLOB Ratio 0.5 RATIO (0.9-2.4); AST(SGOT) 102 U/L (15-37); Alanine Aminotransfer ALT/SGPT 65 U/L (13-56); Albumin, Serum 1.6 g/dL (3.2-5.0); Alkaline Phosphatase 60 U/L (45-117); Anion Gap 10 (5-15); BUN 42 mg/dL (7-18); BUN/Creat Ratio 34.1 RATIO (10-20); Calcium,Total 7.7 mg/dL (8.5-10.1); Chloride 118 mmol/L (98-107); Creatinine, Serum 1.23 mg/dL (0.55-1.02); EST Glomerular Filtration Rate 45 mL/min (>60); Est Glom Filt Rate - Afr Amer 54 mL/min (>60); Estimated Creatinine Clearance 35.36 ml/min; Glucose 69 mg/dL (74-106); Potassium 3.2 mmol/L (3.5-5.1); Protein, Total 4.6 g/dL (6.4-8.2); Sodium Level 148 mmol/L (136-145)
[2021-08-09 06:36] LABS: Differential Comment SCANNED
[2021-08-09] MEDS: Potassium Chloride 20mEq/100mL 20 MEQ/100 ML IV.SOLN. 100 MEQ IV BOLUS ×2 (08:01→09:38)
[2021-08-09] MEDS: Amiodarone 200 MG Tablet 100 MG PO (08:12)
--- NOTE | 2021-08-09 08:15 | PN.CC_ITS ---
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 Continue pressors and wean to a map of 65 2. Initiation of p.o. diet per GI 3. Continue empiric antibiotics for ischemic colitis 4. Confirmed DNR Comfort Care arrest without intubation 5. Wean oxygen as tolerated 6. Potassium supplementation IMPRESSIONS: 1. Septic shock secondary to probable ischemic colitis This is complicated by acute blood loss anemia, but given blood counts, amount of Levophed is disproportionate. Patient likely has an element of translocation in the cecal area secondary to ischemia. Patient has received adequate fluid resuscitation. Continue with blood, but would hold with further fluid boluses. Levophed should be titrated to a map of 65. Family is open to c onservative therapy, but does not want to have any procedures such as colectomy. Surgery was involved to place central line. Endorgan damage indicated by elevation of creatinine. Anticipate continued improvement with further antibiotics. 2. Acute blood loss anemia secondary to upper GI bleed H&H has remained stable. Patient currently on a Protonix drip. EGD sche duled for today. Patient has received packed red blood cells. Patient does have some risk factors for gastric ulcers. GI with intervention yesterday. Defer to GI on initiation of diet and removal of NG tube 3. Acute kidney injury on CKD stage IIIb Improving. Patient's initial creatinine was up compared to previous. This is likely secondary to problems 1 and 2. We will continue to support renal function with pressors. Hold Lasix therapy. No indication for renal replacement therapy at this time. 4. COPD/vitamin D deficiency/GERD/hiatal hernia/chronic pain/advanced age/sick sinus Complicates care, management, recovery and prognosis. Okay to use therapeutic substitution for Stiolto therapy. Do not believe patient is in ac maxim exacerbation of COPD at this time. Patient does have a pacemaker. CODE STATUS has been confirmed TIME: 31 minutes critical care time spent addressing patient's septic shock, acute blood loss anemia, acute kidney injury, review of all data and collaboration with care team Subjective Subjective Patient did well overnight. Patient still requiring pressors to maintain saturations. Patient is also had some A. fib with RVR. Patient's biggest complaint at this time is sore throat and the request of water. Patient denies any current abdominal pain. Objective Data Objective Data Vital Signs: Vital Signs Temp Pulse Resp BP Pulse Ox 37.2 C 140 H 21 H 121/87 H 93 08/09/21 05:05 08/09/21 06:00 08/09/21 06:00 08/09/21 06:00 08/09/21 06:00 Oxygen Flow Rate (L/min) 1 Oxygen Delivery Method Nasal Cannula Weight: 60.4 kg Body Mass Index (BMI) 26.2 Intake & Output: Intake and Output for Last 24 Hours 08/07/21 08/08/21 08/09/21 23:59 23:59 23:59 Intake Total 2305.47 / 2310.17 4179.46 / 4181.36 173.76 / 173.76 Output Total 325 / 575 450 / 450 Balance 2305.47 / 2310.17 3854.46 / 3606.36 -276.24 / -276.24 Lab / Micro Data Result Diagrams: 08/09/21 04:00 08/09/21 04:00 Labs: Laboratory Results - last 24 hr 08/08/21 10:10: WBC 12.4 H, RBC 3.97 L, Hgb 12.3, Hct 38.1, MCV 96.0 D, MCH 3 1.0, MCHC 32.3 D, RDW Std Deviation 52.3 H, RDW Coeff of Valorie 14.9 H, Plt Count 327, MPV 11.2, Immature Gran % (Auto) 0.800, Neut % (Auto) 87.0 H, Lymph % (Auto) 4.7 L, [place] % (Auto) 7.0, Eos % (Auto) 0.0, Baso % (Auto) 0.5, Absolute Neuts (auto) 10.8 H, Absolute Lymphs (auto) 0.58 L, Nucleated RBC % 0 08/08/21 10:10: Sodium 146 H, Potassium 3.1 L, Chloride 115 H, Carbon Dioxide 20.0 L, Anion Gap 11, BUN 46 H, Creatinine 1.50 H, Estim Creat Clear Calc 29.00, Est GFR (MDRD) Af Amer 43 L, Est GFR (MDRD) Non-Af 36 L, BUN/Creatinine Ratio 30.7 H, Glucose 100, Calcium 6.9 L, Phosphorus 4.3, Magnesium 1.9, Total Bilirubin 0.90, Direct Bilirubin 0.36 H, AST 108 H, ALT 55, Alkaline Phosphatase 68, Total Protein 4.9 L, Albumin 1.7 L, Globulin 3.2, Albumin/Globulin Ratio 0.5 L 08/08/21 10:10: Lactic Acid 1.4 08/08/21 10:10: Total Bilirubin Cancelled, Direct Bilirubin Cancelled, AST Cancelled, ALT Cancelled, Alkaline Phosphatase Cancelled, Total Protein Cancelled, Albumin Cancelled, Globulin Cancelled 08/09/21 04:00: WBC 10.9, RBC 4.11 L, Hgb 12.7, Hct 38.5, MCV 93.7, MCH 30.9, MCHC 33.0, RDW Std Deviation 54.4 H, RDW Coeff of Valorie 15.9 H, Plt Count 290, MPV 11.5, Immature Gran % (Auto) 0.300, Neut % (Auto) 87.2 H, Lymph % (Auto) 4.0 L, [place] % (Auto) 7.8, Eos % (Auto) 0.5, Baso % (Auto) 0.2, Absolute Neuts (auto) 9.5 H, Absolute Lymphs (auto) 0.44 L, Nucleated RBC % 0, Differential Comment SCANNED 08/09/21 04:00: Sodium 148 H, Potassium 3.2 L, Chloride 118 H, Carbon Dioxide 20.0 L, Anion Gap 10, BUN 42 H, Creatinine 1.23 H, Estim Creat Clear Calc 35.36, Est GFR (MDRD) Af Amer 54 L, Est GFR (MDRD) Non-Af 45 L, BUN/Creatinine Ratio 34.1 H, Glucose 69 L, Calcium 7.7 L, Total Bilirubin 0.90, AST 102 H, ALT 65 H, Alkaline Phosphatase 60, Total Protein 4.6 L, Albumin 1.6 L, Globulin 3.0, Albumin/Globulin Ratio 0.5 L Physical Exam Const alert, oriented x3 and no apparent distress General Appearance: cooperative HEENT normocephalic, head/scalp atraumatic and hearing grossly normal bilaterally HEENT Narrative: Dry mucous membrane. NG in place. General Ear: hearing grossly impaired diffuse Eyes PERRL, EOMs intact bilaterally and conjunctivae normal Neck no lymphadenopathy, supple, no JVD and no carotid bruits Neck Narrative: Trachea midline with no thyroid enlargement Chest inspection of chest normal Chest: symmetrical chest wall rise; Negative for crepitus Resp normal respiratory effort, no retractions and no use of accessory muscles Auscultation: diminished lung sounds; Negative for crackles, rales, rhonchi or wheezes Cardio S1 normal heart sound, S2 normal heart sound, no murmurs, no rub, no gallops, no clicks and no JVD Rate: tachycardic Rhythm: abnormal rhythm irregularly irregular GI GI Narrative: Improved diffuse tenderness with increased tenderness right lower quadrant, mild distention, bowel sounds are slightly hypoactive Palpation: tender Extremity no clubbing, cyanosis or edema Peripheral Pulses: Yes pulses 2+ throughout Neuro oriented x3, CN's II-XII intact bilaterally, moves all extremities and no focal motor deficits Neuro Narrative: Significant generalized weakness, extremely hard of hearing Sensorium / Orientation: awake and alert Speech: speech normal Psych affect normal Charges/Coding Procedures Hospitalists Procedures: 90854 Critial Care 1st Hr
[2021-08-09] MEDS: HYDROmorphone 0.5 MG/0.5 ML SYRINGE IV ×2 (13:48→19:51)
--- NOTE | 2021-08-09 15:49 | PCM.PN.HOSP ---
Subjective Subjective Patient was seen and examined today in ICU, her hemoglobin has remained stable since yesterday. Patient is currently off pressors at this time, I briefly discussed her care with gastroenterology and critical care. Objective Data Objective Data Vital Signs: Vital Signs Temp Pulse Resp BP Pulse Ox 97.5 F L 123 H 16 117/77 92 08/09/21 13:00 08/09/21 15:00 08/09/21 15:00 08/09/21 15:00 08/09/21 15:00 Oxygen Flow Rate (L/min) 1 Oxygen Delivery Method Nasal Cannula Weight: 60.4 kg Body Mass Index (BMI) 26.2 Intake & Output: Intake and Output for Last 24 Hours 08/07/21 08/08/21 08/09/21 23:59 23:59 23:59 Intake Total 2305.47 / 2310.17 4179.46 / 4181.36 548.04 / 548.04 Output Total 325 / 575 1050 / 1050 Balance 2305.47 / 2310.17 3854.46 / 3606.36 -501.96 / -501.96 Lab / Micro Data Result Diagrams: 08/09/21 04:00 08/09/21 04:00 Labs: Laboratory Results - last 24 hr 08/09/21 04:00: WBC 10.9, RBC 4.11 L, Hgb 12.7, Hct 38.5, MCV 93.7, MCH 30.9, MCHC 33.0, RDW Std Deviation 54.4 H, RDW Coeff of Valorie 15.9 H, Plt Count 290, MPV 11.5, Immature Gran % (Auto) 0.300, Neut % (Auto) 87.2 H, Lymph % (Auto) 4.0 L, [place] % (Auto) 7.8, Eos % (Auto) 0.5, Baso % (Auto) 0.2, Absolute Neuts (auto) 9.5 H, Absolute Lymphs (auto) 0.44 L, Nucleated RBC % 0, Differential Comment SCANNED 08/09/21 04:00: Sodium 148 H, Potassium 3.2 L, Chloride 118 H, Carbon Dioxide 20.0 L, Anion Gap 10, BUN 42 H, Creatinine 1.23 H, Estim Creat Clear Calc 35.36, Est GFR (MDRD) Af Amer 54 L, Est GFR (MDRD) Non-Af 45 L, BUN/Creatinine Ratio 34.1 H, Glucose 69 L, Calcium 7.7 L, Total Bilirubin 0.90, AST 102 H, ALT 65 H, Alkaline Phosphatase 60, Total Protein 4.6 L, Albumin 1.6 L, Globulin 3.0, Albumin/Globulin Ratio 0.5 L Micro: Microbiology 08/09/21 13:25 Stool Stool Lactoferrin - Final Physical Exam Const alert and no apparent distress Constitutional Narrative: Patient is lethargic, she appears frail and older than her stated age General Appearance: cooperative, well kempt and well developed Orientation / Consciousness: awake, oriented to person, oriented to place and oriented to time HEENT normocephalic, head/scalp atraumatic and moist oral mucous membranes Head and Scalp: normocephalic Eyes PERRL, EOMs intact bilaterally and conjunctivae normal Neck nuchal rigidity, supple, no JVD, thyroid normal and no carotid bruits General: trachea midline Resp normal respiratory effort, no retractions, no use of accessory muscles and clear to auscultation bilaterally Auscultation: Negative for rales, rhonchi or wheezes Cardio regular rate, regular rhythm, S1 normal heart sound, S2 normal heart sound, no murmurs, no rub and no gallops GI normal to inspection, nondistended, normoactive bowel sounds, soft to palpation, non-tender and non-distended Extremity no clubbing, cyanosis or edema Skin no rashes or lesions noted General Skin Exam: no breakdown Neuro CN's II-XII intact bilaterally, no focal motor deficits and no sensory deficits noted Sensorium / Orientation: awake and alert Speech: speech normal Psych thought process normal and affect normal Assessment & Plan Assessment/Plan (1) COPD (chronic obstructive pulmonary disease): QUALIFIERS: COPD type: unspecified COPD Qualified Code(s): J44.9 - Chronic obstructive pulmonary disease, unspecified PLAN: 1. Septic shock secondary to ischemic colitis-patient's pressors were weaned off today, she remained on IV antibiotics #2 acute blood loss anemia secondary to upper GI bleeding from gastric ulcer requiring blood transfusion-patient's hemoglobin today is stable #3 gastric ulcers-DrVivian Dai is participating in her care, she is on a PPI #4 ischemic colitis #5 hypoxic respiratory failure-patient currently cannot be weaned off oxygen completely, I have requested that nursing keep the patient on 2 L of oxygen via nasal cannula rather than reduce it to 1 L. #6 chronic obstructive pulmonary disease #7 chronic kidney disease stage III a #8 paroxysmal atrial fibrillation #9 hyperlipidemia #10 essential hypertension Charges/Coding Visit Charges Inpatient E&M: 77103 Subs Hosp L2
[2021-08-09] MEDS: Ondansetron 4 MG/2 ML Vial IV (19:51)
[2021-08-10] VITALS (17 sets, daily range): BP systolic 110–145; BP diastolic 57–91; PULSE 90–125; RESP 15–24; TEMP 36.3–36.9; O2SAT 94–98
[2021-08-10 02:42] LABS: Absolute Neutrophil Count 11.7 X10^3/uL (2.0-7.7); Basophil# 0.07 X10^3/uL; Basophil% 0.5 % (0-1); Eosinophil# 0.01 X10^3/uL; Eosinophils% 0.1 % (0-5); Hematocrit 34.3 % (37-47); Hemoglobin 11.1 g/dL (12.0-15.0); Lymphocyte % 3.8 % (19-41); Mean Corp Hgb Conc 32.4 g/dL (32-36); Mean Corpuscular Hgb 31.1 pg (27.0-32.0); Mean Corpuscular Volume 96.1 fL (81-99); Mean Platelet Vol. 11.3 fl (6.2-12.0); Monocyte# 0.91 X10^3/uL; Monocyte% 6.8 % (0-10); NRBC Flagged by Analyzer 0 % (0-5); Neutrophil # 11.73 X10^3/uL (2.7-7.7); Neutrophil % 88.3 % (47-70); POSITIVE DIFFERENTIAL YES; POSITIVE MORPHOLOGY YES; Platelet Count 231 K/mm3 (150-450); RBC Distribution Width CV 15.9 % (11.6-14.6); RBC Distribution Width SD 56.6 fl (35.1-43.9); Red Blood Count 3.57 M/mm3 (4.2-5.4); White Blood Count 13.3 K/mm3 (4.4-11.0)
[2021-08-10 02:43] LABS: Differential Indicated SCAN CRITERIA MET
[2021-08-10 02:57] LABS: ALB/GLOB Ratio 0.5 RATIO (0.9-2.4); AST(SGOT) 60 U/L (15-37); Alanine Aminotransfer ALT/SGPT 50 U/L (13-56); Albumin, Serum 1.5 g/dL (3.2-5.0); Alkaline Phosphatase 66 U/L (45-117); Anion Gap 9 (5-15); BUN 36 mg/dL (7-18); BUN/Creat Ratio 33.6 RATIO (10-20); Chloride 119 mmol/L (98-107); Creatinine, Serum 1.07 mg/dL (0.55-1.02); EST Glomerular Filtration Rate 53 mL/min (>60); Est Glom Filt Rate - Afr Amer 64 mL/min (>60); Estimated Creatinine Clearance 40.65 ml/min; Globulin 3.1 g/dL (2.2-4.2); Glucose 65 mg/dL (74-106); Potassium 3.2 mmol/L (3.5-5.1); Protein, Total 4.6 g/dL (6.4-8.2); Sodium Level 149 mmol/L (136-145)
[2021-08-10] MEDS: HYDROmorphone 0.5 MG/0.5 ML SYRINGE IV ×4 (03:29→21:07)
[2021-08-10] MEDS: Potassium Chloride 20mEq/100mL 20 MEQ/100 ML IV.SOLN. 100 MEQ IV BOLUS ×2 (05:03→06:08)
[2021-08-10] MEDS: 0.9% Saline Lock 10 ML Syringe IV ×2 (05:03→21:07)
--- NOTE | 2021-08-10 06:07 | PN.CC_ITS ---
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 Reinitiate baseline beta-manuel at half dose 2. Advancement of p.o. diet per GI 3. Continue empiric antibiotics for ischemic colitis. Anticipate 7 to 10 da ys of antibiotics 4. Confirmed DNR Comfort Care arrest without intubation 5. Wean oxygen as tolerated 6. Potassium supplementation IMPRESSIONS: 1. Septic shock secondary to probable ischemic colitis This is complicated by acute blood loss anemia, but given blood counts, amount of Levophed is disproportionate. Patient likely has an element of translocation in the cecal area secondary to ischemia. Patient has received adequate fluid resuscitation. Continue with blood, but would hold with further fluid boluses. Levophed has been discontinued. Family is open to conservative therapy, but does not want to have any procedures such as colectomy. Surgery was involved to place central line. Endorgan damage indicated by elevation of creatinine. Patient slowly improving. Anticipate 7 to 10 days of total antibiotics. 2. Acute blood loss anemia secondary to upper GI bleed H&H has remained stable. Patient currently on a Protonix drip. EGD scheduled for today. Patient has received packed red blood cells. Patient does have some risk factors for gastric ulcers. GI with intervention yesterday. D efer to GI on initiation of diet and removal of NG tube 3. Acute kidney injury on CKD stage IIIb Improving. Patient's initial creatinine was up compared to previous. T his is likely secondary to problems 1 and 2. Hold Lasix therapy. No indication for renal replacement therapy at this time. 4. COPD/vitamin D deficiency/GERD/hiatal hernia/chronic pain/advanced age/sick sinus/A. fib with RVR Complicates care, management, recovery and prognosis. Bronchodilators have been made as needed secondary to A. fib with RVR. Will reinitiate patient's beta-manuel. Do not believe patient is in acute exacerbation of COPD at this time. Patient does have a pacemaker. CODE STATUS has been confirmed Subjective Subjective Patient did okay overnight. Patient is reporting some left upper quadrant pain. Patient states that this has intensified slightly since she has stopped passing gas. Patient has been tolerating clears. Patient has been off of pressors since yesterday. Objective Data Objective Data Vital Signs: Vital Signs Temp Pulse Resp BP Pulse Ox 36.6 C 117 H 19 H 129/78 H 96 08/10/21 00:00 08/10/21 05:00 08/10/21 05:00 08/10/21 05:00 08/10/21 05:00 Oxygen Flow Rate (L/min) 2 Oxygen Delivery Method Nasal Cannula Weight: 60.4 kg Body Mass Index (BMI) 26.2 Intake & Output: Intake and Output for Last 24 Hours 08/08/21 08/09/21 08/10/21 23:59 23:59 23:59 Intake Total 4179.46 / 4181.36 747.37 / 797.37 200 / 200 Output Total 325 / 575 1050 / 1250 200 / 200 Balance 3854.46 / 3606.36 -302.63 / -452.63 0 / 0 Lab / Micro Data Result Diagrams: 08/10/21 02:20 08/10/21 02:20 Labs: Laboratory Results - last 24 hr 08/09/21 04:00: Differential Comment SCANNED 08/10/21 02:20: WBC 13.3 H, RBC 3.57 L, Hgb 11.1 L, Hct 34.3 L, MCV 96.1, MCH 31.1, MCHC 32.4, RDW Std Deviation 56.6 H, RDW Coeff of Valorie 15.9 H, Plt Count 231, MPV 11.3, Immature Gran % (Auto) 0.500, Neut % (Auto) 88.3 H, Lymph % (Auto) 3.8 L, [place] % (Auto) 6.8, Eos % (Auto) 0.1, Baso % (Auto) 0.5, Absolute Neuts (auto) 11.7 H, Absolute Lymphs (auto) 0.50 L, Nucleated RBC % 0 08/10/21 02:20: Sodium 149 H, Potassium 3.2 L, Chloride 119 H, Carbon Dioxide 21.0, Anion Gap 9, BUN 36 H, Creatinine 1.07 H, Estim Creat Clear Calc 40.65, Est GFR (MDRD) Af Amer 64, Est GFR (MDRD) Non-Af 53 L, BUN/Creatinine Ratio 33.6 H, Glucose 65 L, Calcium 8.0 L, Total Bilirubin 0.70, AST 60 H, ALT 50, Alkaline Phosphatase 66, Total Protein 4.6 L, Albumin 1.5 L, Globulin 3.1, Albumin/Globulin Ratio 0.5 L Micro: Microbiology 08/09/21 13:25 Stool Stool Lactoferrin - Final Physical Exam Const alert, oriented x3 and no apparent distress General Appearance: cooperative HEENT normocephalic, head/scalp atraumatic and hearing grossly normal bilaterally HEENT Narrative: Dry mucous membrane. NG has been removed General Ear: hearing grossly impaired diffuse Eyes PERRL, EOMs intact bilaterally and conjunctivae normal Neck no lymphadenopathy, supple, no JVD and no carotid bruits Neck Narrative: Trachea midline with no thyroid enlargement Chest inspection of chest normal Chest: symmetrical chest wall rise; Negative for crepitus Resp normal respiratory effort, no retractions and no use of accessory muscles Auscultation: diminished lung sounds; Negative for crackles, rales, rhonchi or wheezes Cardio S1 normal heart sound, S2 normal heart sound, no murmurs, no rub, no gallops, no clicks and no JVD Rate: tachycardic Rhythm: abnormal rhythm irregularly irregular GI GI Narrative: Improved diffuse tenderness with increased tenderness left upper quadrant, mild distention, bowel sounds are slightly hypoactive Palpation: tender Extremity no clubbing, cyanosis or edema Peripheral Pulses: Yes pulses 2+ throughout Neuro oriented x3, CN's II-XII intact bilaterally, moves all extremities and no focal motor deficits Neuro Narrative: Significant generalized weakness, extremely hard of hearing Sensorium / Orientation: awake and alert Speech: speech normal Psych affect normal Charges/Coding Visit Charges Inpatient E&M: 77596 Subs Hosp L3
[2021-08-10] MEDS: Amiodarone 200 MG Tablet 100 MG PO (08:59)
[2021-08-10] MEDS: Metoprolol Tartrate 25 MG Tablet PO ×2 (09:04→21:07)
--- NOTE | 2021-08-10 14:00 | EX.PCM.PN.GI ---
Subjective Subjective Patient says that she is doing a lot better. She is not having any nausea or abdominal pain at this time. She is tolerating a diet. She has been off of pressors. Objective Data Objective Data Vital Signs: Vital Signs Temp Pulse Resp BP Pulse Ox 98 F 95 18 127/86 H 96 08/10/21 08:00 08/10/21 12:00 08/10/21 08:00 08/10/21 09:04 08/10/21 08:00 Oxygen Flow Rate (L/min) 2 Oxygen Delivery Method Nasal Cannula Weight: 141 lb 8.588 oz Body Mass Index (BMI) 26.2 Intake & Output: Intake and Output for Last 24 Hours 08/08/21 08/09/21 08/10/21 23:59 23:59 23:59 Intake Total 4179.46 / 4181.36 747.37 / 797.37 587.67 / 587.67 Output Total 325 / 575 1050 / 1250 400 / 400 Balance 3854.46 / 3606.36 -302.63 / -452.63 187.67 / 187.67 Lab / Micro Data Result Diagrams: 08/10/21 02:20 08/10/21 02:20 Labs: Laboratory Results - last 24 hr 08/10/21 02:20: WBC 13.3 H, RBC 3.57 L, Hgb 11.1 L, Hct 34.3 L, MCV 96.1, MCH 31.1, MCHC 32.4, RDW Std Deviation 56.6 H, RDW Coeff of Valorie 15.9 H, Plt Count 231, MPV 11.3, Immature Gran % (Auto) 0.500, Neut % (Auto) 88.3 H, Lymph % (Auto) 3.8 L, [place] % (Auto) 6.8, Eos % (Auto) 0.1, Baso % (Auto) 0.5, Absolute Neuts (auto) 11.7 H, Absolute Lymphs (auto) 0.50 L, Nucleated RBC % 0 08/10/21 02:20: Sodium 149 H, Potassium 3.2 L, Chloride 119 H, Carbon Dioxide 21.0, Anion Gap 9, BUN 36 H, Creatinine 1.07 H, Estim Creat Clear Calc 40.65, Est GFR (MDRD) Af Amer 64, Est GFR (MDRD) Non-Af 53 L, BUN/Creatinine Ratio 33.6 H, Glucose 65 L, Calcium 8.0 L, Total Bilirubin 0.70, AST 60 H, ALT 50, Alkaline Phosphatase 66, Total Protein 4.6 L, Albumin 1.5 L, Globulin 3.1, Albumin/Globulin Ratio 0.5 L Micro: Microbiology 08/09/21 13:25 Stool Stool Lactoferrin - Final Physical Exam Const alert General Appearance: cooperative Orientation / Consciousness: oriented to person HEENT hearing grossly normal bilaterally Head and Scalp: normal to inspection Face and Sinus: face symmetric Nose: external nose normal Mouth: oral and palatal mucosa normal Eyes conjunctivae normal General Eye: normal appearance of both eyes Neck full ROM General: normal visual inspection Lymph Lymphatic: no lymphadenopathy noted Chest inspection of chest normal and palpation of chest normal Chest: symmetrical chest wall rise Resp normal respiratory effort Effort and Inspection: able to speak in complete sentences Cardio regular rate GI non-distended Percussion: normal to percussion Rectal Exam: deferred Neuro Speech: speech normal Gait (Neuro): normal gait Assessment & Plan Assessment/Plan (1) Nausea and vomiting: QUALIFIERS: Vomiting type: hematemesis Qualified Code(s): K92.0 - Hematemesis PLAN: He was evaluated likely secondary to ileus associated with ischemic colitis and possibly mesenteric ischemia. She is doing very well off of pressors. Continue to advance diet as tolerated. Continue PPI therapy. (2) Dilated bile duct: PLAN: No signs of liver function abnormalities at this time. She can get an MRCP as an outpatient. (3) Ischemic colitis: PLAN: Bleeding or abdominal pain at this time. Clinically she is doing very well. No intervention is needed at this time Charges/Coding Visit Charges Inpatient E&M: 25774 Subs Hosp L2
--- NOTE | 2021-08-10 14:14 | OP.CCLET_ITS ---
05/06/2022 Lady Bentley Re : Upper GI endoscopy procedure for Tiffany Bentley This procedure was performed on Sunday, August 08, 2021. My impressions and recommendations are as follows: Impressions : - Normal esophagus. - Oozing gastric ulcers with a visible vessel. Treated with a monopolar probe. Clips were placed. - Normal second portion of the duodenum. - No specimens collected. Recommendations : - [facility]. - Advance diet as tolerated. - Use Protonix (pantoprazole) 40 mg PO BID. - Continue present medications. My findings are described in the full procedure note, which is enclosed. If I can be of further assistance, please feel free to contact me at . Sincerely, Daryl Friend, 08/10/2021 2:13:54 PM This report has been signed electronically.
--- NOTE | 2021-08-10 14:14 | OP.EGD_ITS ---
Patient Name: Tiffany Castillo Procedure Date: 08/08/2021 1:18 PM Date of : 1940 Age: 81 Procedure: Upper GI endoscopy Indications: Coffee-ground emesis Providers: Daryl Dai DO Medicines: See the Anesthesia note for documentation of the administered medications Patient Profile: This is a 81 year old female. Refer to note in patient chart for documentation of history and physical. Patient has symptoms. Complications: No immediate complications. Procedure: Pre-Anesthesia Assessment: - Prior to the procedure, a History and Physical was performed, and patient medications and allergies were reviewed. The patient is competent. The risks and benefits of the procedure and the sedation options and risks were discussed with the patient. All questions were answered and informed consent was obtained. Patient identification and proposed procedure were verified by the physician in the pre-procedure area. Mental Status Examination: alert and oriented. Airway Examination: normal oropharyngeal airway and neck mobility. Respiratory Examination: clear to auscultation. CV Examination: normal. Prophylactic Antibiotics: The patient does not require prophylactic antibiotics. Prior Anticoagulants: The patient has taken no previous anticoagulant or antiplatelet agents. ASA Grade Assessment: II - A patient with mild systemic disease. After reviewing the risks and benefits, the patient was deemed in satisfactory condition to undergo the procedure. The anesthesia plan was to use moderate sedation / analgesia (conscious sedation). Immediately prior to administration of medications, the patient was re-assessed for adequacy to receive sedatives. The heart rate, respiratory rate, oxygen saturations, blood pressure, adequacy of pulmonary ventilation, and response to care were monitored throughout the procedure. The physical status of the patient was re-assessed after the procedure. After obtaining informed consent, the endoscope was passed under direct vision. Throughout the procedure, the patient's blood pressure, pulse, and oxygen saturations were monitored continuously. The gastroscope was introduced through the mouth, and advanced to the second part of duodenum. The upper GI endoscopy was accomplished without difficulty. The patient tolerated the procedure well. Moderate Sedation: Moderate (conscious) sedation was administered by the endoscopy nurse and supervised by the endoscopist. The patient's oxygen saturation, heart rate, blood pressure and response to care were monitored. Total physician intraservice time was 15 minutes. Scope In: 1:37:46 PM Scope Out: 1:45:22 PM Total Procedure Duration Time 0 hours 7 minutes 36 seconds Findings: The examined esophagus was normal. Two oozing cratered gastric ulcers with a visible vessel were found in the gastric body. The largest lesion was 6 mm in largest dimension. Coagulation for hemostasis using monopolar probe was successful. To prevent bleeding after the biopsy, two hemostatic clips were successfully placed. There was no bleeding at the end of the procedure. The second portion of the duodenum was normal. Impression: - Normal esophagus. - Oozing gastric ulcers with a visible vessel. Treated with a monopolar probe. Clips were placed. - Normal second portion of the duodenum. - No specimens collected. Recommendation: - [facility]. - Advance diet as tolerated. - Use Protonix (pantoprazole) 40 mg PO BID. - Continue present medications. Procedure Code(s): --- Professional --- 97001, Esophagogastroduodenoscopy, flexible, transoral; with control of bleeding, any method G0500, Moderate sedation services provided by the same physician or other qualified health critical care educator performing a gastrointestinal endoscopic service that sedation supports, requiring the presence of an independent trained observer to assist in the monitoring of the patient's level of consciousness and physiological status; initial 15 minutes of intra-service time; patient age 5 years or older (additional time may be reported with 28488, as appropriate) CPT copyright 2017 [employer] [place] [employer]. All rights reserved. The codes documented in this report are preliminary and upon manager vehicle review may be revised to meet current compliance requirements. Daryl Dai DO 08/10/2021 2:13:54 PM This report has been signed electronically. Number of Addenda: 1 Note Initiated On: 08/08/2021 1:18 PM Addendum Number: 1 Addendum Date: 05/06/2022 7:06:24 AM MAC was used instead of moderate sedation for the patient. Dayrl Dai DO 05/06/2022 7:06:28 AM This report has been signed electronically.
--- NOTE | 2021-08-10 16:37 | PN.HOSP_ITS ---
Subjective Subjective Patient was seen and examined today, she has no complaints of any abdominal pain to this examiner, her hemoglobin remained stable at this time, she does not complain of any shortness of breath. Objective Data Objective Data Vital Signs: Vital Signs Temp Pulse Resp BP Pulse Ox 98.5 F 90 18 145/77 H 96 08/10/21 13:00 08/10/21 16:00 08/10/21 13:00 08/10/21 13:00 08/10/21 13:00 Oxygen Flow Rate (L/min) 2 Oxygen Delivery Method Nasal Cannula Weight: 64.2 kg Body Mass Index (BMI) 26.2 Intake & Output: Intake and Output for Last 24 Hours 08/08/21 08/09/21 08/10/21 23:59 23:59 23:59 Intake Total 4179.46 / 4181.36 747.37 / 797.37 587.67 / 587.67 Output Total 325 / 575 1050 / 1250 400 / 400 Balance 3854.46 / 3606.36 -302.63 / -452.63 187.67 / 187.67 Lab / Micro Data Result Diagrams: 08/10/21 02:20 08/10/21 02:20 Labs: Laboratory Results - last 24 hr 08/10/21 02:20: WBC 13.3 H, RBC 3.57 L, Hgb 11.1 L, Hct 34.3 L, MCV 96.1, MCH 31.1, MCHC 32.4, RDW Std Deviation 56.6 H, RDW Coeff of Valorie 15.9 H, Plt Count 231, MPV 11.3, Immature Gran % (Auto) 0.500, Neut % (Auto) 88.3 H, Lymph % (Auto) 3.8 L, [place] % (Auto) 6.8, Eos % (Auto) 0.1, Baso % (Auto) 0.5, Absolute Neuts (auto) 11.7 H, Absolute Lymphs (auto) 0.50 L, Nucleated RBC % 0 08/10/21 02:20: Sodium 149 H, Potassium 3.2 L, Chloride 119 H, Carbon Dioxide 21.0, Anion Gap 9, BUN 36 H, Creatinine 1.07 H, Estim Creat Clear Calc 40.65, Est GFR (MDRD) Af Amer 64, Est GFR (MDRD) Non-Af 53 L, BUN/Creatinine Ratio 33.6 H, Glucose 65 L, Calcium 8.0 L, Total Bilirubin 0.70, AST 60 H, ALT 50, Alkaline Phosphatase 66, Total Protein 4.6 L, Albumin 1.5 L, Globulin 3.1, Albumin/Globulin Ratio 0.5 L Micro: Microbiology 08/09/21 13:25 Stool Stool Lactoferrin - Final Physical Exam Narrative alert and no apparent distress Constitutional Narrative: Patient is lethargic, she appears frail and older than her stated age General Appearance: cooperative, well kempt and well developed Orientation / Consciousness: awake, oriented to person, oriented to place and oriented to time HEENT normocephalic, head/scalp atraumatic and moist oral mucous membranes Head and Scalp: normocephalic Eyes PERRL, EOMs intact bilaterally and conjunctivae normal Neck nuchal rigidity, supple, no JVD, thyroid normal and no carotid bruits General: trachea midline Resp normal respiratory effort, no retractions, no use of accessory muscles and clear to auscultation bilaterally Auscultation: Negative for rales, rhonchi or wheezes Cardio regular rate, regular rhythm, S1 normal heart sound, S2 normal heart sound, no murmurs, no rub and no gallops GI normal to inspection, nondistended, normoactive bowel sounds, soft to palpation, non-tender and non-distended Extremity no clubbing, cyanosis or edema Skin no rashes or lesions noted General Skin Exam: no breakdown Neuro CN's II-XII intact bilaterally, no focal motor deficits and no sensory deficits noted Sensorium / Orientation: awake and alert Speech: speech normal Psych thought process normal and affect normal Assessment & Plan Assessment/Plan (1) Nausea and vomiting: QUALIFIERS: Vomiting type: hematemesis Qualified Code(s): K92.0 - Hematemesis (2) COPD (chronic obstructive pulmonary disease): QUALIFIERS: COPD type: unspecified COPD Qualified Code(s): J44.9 - Chronic obstructive pulmonary disease, unspecified PLAN: 1. Septic shock secondary to ischemic colitis-patient's pressors were weaned off yesterday, she remains on IV antibiotics, she will be moved to PCU when a bed is available #2 acute blood loss anemia secondary to upper GI bleeding from gastric ulcer requiring blood transfusion-patient's hemoglobin today is stable #3 gastric ulcers-Dr. Dai is participating in her care, she is on a PPI #4 ischemic colitis #5 hypoxic respiratory failure-patient remains on 2 L of oxygen via nasal cannula #6 chronic obstructive pulmonary disease #7 chronic kidney disease stage III a #8 paroxysmal atrial fibrillation #9 hyperlipidemia #10 essential hypertension Charges/Coding Visit Charges Inpatient E&M: 01575 Subs Hosp L2
[2021-08-11] VITALS (12 sets, daily range): BP systolic 141–174; BP diastolic 83–100; PULSE 89–99; RESP 16–22; TEMP 36.4–37; O2SAT 91–96
[2021-08-11] MEDS: HYDROmorphone 0.5 MG/0.5 ML SYRINGE IV ×5 (02:22→23:17)
[2021-08-11] MEDS: 0.9% Saline Lock 10 ML Syringe IV ×4 (06:32→21:00)
[2021-08-11] MEDS: Metoprolol Tartrate 25 MG Tablet PO ×2 (08:32→21:02)
[2021-08-11] MEDS: Amiodarone 200 MG Tablet 100 MG PO (08:32)
--- NOTE | 2021-08-11 14:41 | PCM.PN.HOSP ---
Subjective Subjective Patient is a 81-year-old lady admitted with abdominal pain with associated bleeding. An assessment of septic shock secondary to ischemic colitis made admitted to the intensive care unit for further management Objective Data Objective Data Vital Signs: Vital Signs Temp Pulse Resp BP Pulse Ox 98.4 F 92 19 H 146/100 H 96 08/11/21 14:36 08/11/21 14:36 08/11/21 14:36 08/11/21 14:36 08/11/21 14:36 Oxygen Flow Rate (L/min) 2 Oxygen Delivery Method Nasal Cannula Weight: 64.2 kg Body Mass Index (BMI) 26.2 Intake & Output: Intake and Output for Last 24 Hours 08/09/21 08/10/21 08/11/21 23:59 23:59 23:59 Intake Total 747.37 / 797.37 1258.92 / 1258.92 706.75 / 706.75 Output Total 1050 / 1250 700 / 700 Balance -302.63 / -452.63 558.92 / 558.92 706.75 / 706.75 Lab / Micro Data Result Diagrams: 08/10/21 02:20 08/10/21 02:20 Micro: Microbiology 08/09/21 13:25 Stool Stool Lactoferrin - Final Physical Exam Narrative GENERAL: cooperative HEENT: Atraumatic; EYES; Anicteric, Normal Conjunctiva NECK; supple, normal thyroid, RESPIRATORY: Diminished to auscultation CARDIOVASCULAR: Regular S1 S2, GI: soft, normoactive bowel sounds, left lower quadrant tenderness : No Renal angle tenderness; EXTREMITIES: No edema, no clubbing, MUSCULOSKELETAL: no muscle waisting NEURO: Awake; no lateralizing signs. SKIN: No Rash PSYCH; Flat affect Assessment & Plan Assessment/Plan (1) Nausea and vomiting: QUALIFIERS: Vomiting type: hematemesis Qualified Code(s): K92.0 - Hematemesis (2) COPD (chronic obstructive pulmonary disease): QUALIFIERS: COPD type: unspecified COPD Qualified Code(s): J44.9 - Chronic obstructive pulmonary disease, unspecified PLAN: Patient is a 81-year-old lady admitted with abdominal pain with associated bleeding. An assessment of septic shock secondary to ischemic colitis made admitted to the intensive care unit for further management 1. Septic shock (resolved) Secondary to ischemic colitis patient was initially managed in intensive care unit transferred to PCU following stabilization 2. Ischemic colitis -CT of the abdomen obtained on admission demonstrated Diffusely thickened wall of the cecum and proximal ascending colon with fluid distention of the right hemicolon ?Patient managed with IV fluid as well as antibiotics 3. Gastric ulcers ?Diagnosis on EGD performed on 08/10/[address] Dai 4. Hypokalemia ?Corrected per protocol 5. Chronic hypoxic respiratory failure ?Secondary to COPD patient is on 2 L oxygen at baseline 6. Paroxysmal A. fib ?Not on systemic anticoagulation due to above. Rate controlled with amiodarone 7. Essential hypertension ?Patient blood pressure stable 8. Hyperchloremic hypernatremia ?Patient is on D5W with monitoring of electrolytes 9. Physical deconditioning - Requested for PT OT eval and social organization professor to assist with discharge planning. Consult was also placed to palliative care in view of patient and family considering possible hospice 10. Hypokalemia ?Corrected per protocol 11. DVT prophylaxis ?SCDs Charges/Coding Visit Charges Inpatient E&M: 45176 Subs Hosp L3
--- NOTE | 2021-08-11 16:24 | CHAPLAIN ---
Type of Pastoral Visit _x__ Initial Visit ___ Follow-up Visit ___ On-call Visit ___ General Patient Visit ___ Spiritual Assessment ___ Family Conference ___ Bereavement ___ Rapid Response ___ Code Blue ___ Other (describe below) Pastoral Care Referral From _x__ Patient _x__ Family ___ Nurse ___ Physician ___ Strainer Mill Operator ___ Slot Ambassador ___ Other (describe below) Sacrament/Intervention _x__ Active listening ___ Anointing ___ Worship ___ Bereavement ___ Communion _x__ Gerri exploration ___ _x__ Life review _x__ Prayer ___ Reconciliation ___ Sacrament of Sick _x__ Supportive presence ___ Wedding _x__ Other (describe below) Pastoral Comments patient and granddaughter are together in room; pt is [place] but talks easily about her situation and needs; pt wants to discuss some of her options for treatment and follow up care; listened to pt and offered her ways to evaluate what she would want done; pt was expressive about the help that she found in the conversation and asked for a follow up visit; pt welcomed prayer and presence; pt went to [facility] for the first 25 years of my life for every Wednesday and thanks God for every day
[2021-08-11] MEDS: Potassium Chloride 10mEq/100mL 10 MEQ/100 ML IV.SOLN. 100 MEQ IV BOLUS ×4 (16:29→19:47)
[2021-08-12] VITALS (11 sets, daily range): BP systolic 103–156; BP diastolic 72–105; PULSE 97–115; RESP 20–28; TEMP 36.5–37.2; O2SAT 91–97
[2021-08-12] MEDS: HYDROmorphone 0.5 MG/0.5 ML SYRINGE IV ×7 (02:23→23:53)
[2021-08-12] MEDS: 0.9% Saline Lock 10 ML Syringe IV ×3 (06:09→19:54)
[2021-08-12 09:10] LABS: Absolute Lymphocyte Count 1.04 X10^3/uL (0.83-4.51); Absolute Neutrophil Count 6.8 X10^3/uL (2.0-7.7); Basophil# 0.04 X10^3/uL; Basophil% 0.4 % (0-1); Eosinophil# 0.11 X10^3/uL; Eosinophils% 1.2 % (0-5); Hematocrit 40.1 % (37-47); Hemoglobin 12.2 g/dL (12.0-15.0); Lymphocyte # 1.04 X10^3/ul (0.83-4.51); Lymphocyte % 11.3 % (19-41); Mean Corp Hgb Conc 30.4 g/dL (32-36); Mean Corpuscular Hgb 30.7 pg (27.0-32.0); Mean Corpuscular Volume 100.8 fL (81-99); Monocyte# 1.22 X10^3/uL; Monocyte% 13.2 % (0-10); NRBC Flagged by Analyzer 0 % (0-5); Neutrophil # 6.75 X10^3/uL (2.7-7.7); POSITIVE MORPHOLOGY YES; Platelet Count 277 K/mm3 (150-450); RBC Distribution Width CV 15.8 % (11.6-14.6); RBC Distribution Width SD 59.4 fl (35.1-43.9); Red Blood Count 3.98 M/mm3 (4.2-5.4); White Blood Count 9.2 K/mm3 (4.4-11.0)
[2021-08-12 09:17] LABS: Differential Indicated SCAN CRITERIA MET
[2021-08-12] MEDS: Furosemide 40 MG/4 ML Vial IV (09:22)
[2021-08-12 09:34] LABS: Anion Gap 5 (5-15); BUN 18 mg/dL (7-18); BUN/Creat Ratio 20.6 RATIO (10-20); Chloride 114 mmol/L (98-107); Creatinine, Serum 0.87 mg/dL (0.55-1.02); EST Glomerular Filtration Rate 67 mL/min (>60); Est Glom Filt Rate - Afr Amer 81 mL/min (>60); Estimated Creatinine Clearance 53.56 ml/min; Glucose 109 mg/dL (74-106); Magnesium 2.1 mg/dL (1.6-2.6); Potassium 3.6 mmol/L (3.5-5.1); Sodium Level 141 mmol/L (136-145)
[2021-08-12 09:49] LABS: Reactive Lymphocyte RARE
[2021-08-12] MEDS: Metoprolol Tartrate 25 MG Tablet PO ×2 (10:13→23:10)
[2021-08-12] MEDS: Amiodarone 200 MG Tablet 100 MG PO (10:14)
--- NOTE | 2021-08-12 11:45 | PN.HOSP_ITS ---
Documented by User: Adiel WATSON 08/12/21 11:56 Subjective Subjective Patient is a 81-year-old female lying in bed, alert and oriented to self. Unclear how much patient is actually comprehending about her current condition as her speech can be tangential. Does not appear in acute distress. Objective Data Objective Data Vital Signs: Vital Signs Temp Pulse Resp BP Pulse Ox 97.7 F L 115 H 20 H 156/87 H 94 08/12/21 09:04 08/12/21 10:13 08/12/21 09:04 08/12/21 09:04 08/12/21 09:04 Oxygen Flow Rate (L/min) 5 Oxygen Delivery Method Nasal Cannula Weight: 142 lb 10.225 oz Body Mass Index (BMI) 26.2 Intake & Output: Intake and Output for Last 24 Hours 08/10/21 08/11/21 08/12/21 23:59 23:59 23:59 Intake Total 1258.92 / 1258.92 1325.08 / 1325.08 1640.25 / 1640.25 Output Total 700 / 700 Balance 558.92 / 558.92 1325.08 / 1325.08 1640.25 / 1640.25 Lab / Micro Data Result Diagrams: 08/12/21 08:48 08/12/21 08:48 Labs: Laboratory Results - last 24 hr 08/12/21 08:48: WBC 9.2, RBC 3.98 L, Hgb 12.2, Hct 40.1, MCV 100.8 H, MCH 30.7, MCHC 30.4 L D, RDW Std Deviation 59.4 H, RDW Coeff of Valorie 15.8 H, Plt Count 277, MPV 11.0, Immature Gran % (Auto) 0.900, Neut % (Auto) 73.0 H, Lymph % (Auto) 11.3 L, [place] % (Auto) 13.2 H, Eos % (Auto) 1.2, Baso % (Auto) 0.4, Absolute Neuts (auto) 6.8, Absolute Lymphs (auto) 1.04, Nucleated RBC % 0, Reactive Lymphocytes RARE 08/12/21 08:48: Sodium 141, Potassium 3.6, Chloride 114 H, Carbon Dioxide 22.0, Anion Gap 5, BUN 18, Creatinine 0.87, Estim Creat Clear Calc 53.56, Est GFR (MDRD) Af Amer 81, Est GFR (MDRD) Non-Af 67, BUN/Creatinine Ratio 20.6 H, Glucose 109 H, Calcium 8.0 L, Magnesium 2.1 Micro: Microbiology 08/09/21 13:25 Stool Stool Lactoferrin - Final Physical Exam Const alert HEENT head/scalp atraumatic and moist oral mucous membranes Head and Scalp: normocephalic Eyes PERRL, EOMs intact bilaterally and conjunctivae normal Neck no lymphadenopathy, supple and no JVD Resp normal respiratory effort, no retractions, no use of accessory muscles and clear to auscultation bilaterally Resp Narrative: Satting 94% on 5 L. Cardio regular rhythm, no murmurs and no JVD Rate: tachycardic GI normal to inspection, nondistended, normoactive bowel sounds, soft to palpation and non-tender Extremity normal to inspection, full ROM and no clubbing, cyanosis or edema Skin no rashes or lesions noted, no wounds, skin turgor normal and no jaundice Neuro CN's II-XII intact bilaterally Psych affect normal Assessment & Plan Assessment/Plan (1) Nausea and vomiting: QUALIFIERS: Vomiting type: hematemesis Qualified Code(s): K92.0 - Hematemesis (2) Septic shock: PLAN: Day 5 Discharge planning: To be determined. 1) septic shock secondary to ischemic colitis Sepsis have resolved from admission, patient has been stepdown from ICU to PCU for stabilization. CT of the abdomen obtained on admission demonstrated Diffusely thickened wall of the cecum and proximal ascending colon with fluid distention of the right hemicolon. Patient's vital signs are still elevated with a tachycardia and tachypnea, and patient is still requiring 5 L of oxygen to sat at 94%. CBC does not demonstrate a leukocytosis. Patient will be deescalated from Zosyn and transition to Augmentin for 5 more days, to complete a 10-day course. 2) gastric ulcers Seen on EGD on 08/10/2021, continue PPI infusion. Dr. Dai following. 4) hypokalemia Resolved, potassium currently 3.6. 5) chronic hypoxic respiratory failure Patient is still above baseline oxygen requirements requiring 5 L to sat at 94%, patient's baseline oxygen requirement is 2 L due to COPD. 6) Paroxysmal A. fib Patient heart rate is controlled on metoprolol and amiodarone. Patient is not on anticoagulation at home and has not been started on anticoagulation due to #2. 7) HTN Stable, continue metoprolol, hold Lasix. 8) physical debility Consult was also placed to palliative care in view of patient and family considering possible hospice DVT prophylaxis - SCDs Patient seen by Adiel Winters PA-C, under the supervision of Dr. Dc. Documented by User: Dr. Stef Dc MD 08/12/21 13:42 Objective Data Lab / Micro Data Result Diagrams: 08/12/21 08:48 08/12/21 08:48 Assessment & Plan Addt'l Comments This patient was seen in conjunction with Adiel Winters PA-C. I have independently interviewed and examined the patient and reviewed pertinent historical, laboratory, and other data. Please refer to Adiel Winters PA-C's note for details of this patient's presentation, findings, and recommendations. I have reviewed Adiel Winters PA-C's note and concur with documented findings. In brief, Patient is a 81-year-old lady admitted with abdominal pain with associated bleeding. An assessment of septic shock secondary to ischemic colitis made admitted to the intensive care unit for further management Physical Examination: GENERAL: cooperative HEENT: Atraumatic; EYES; Anicteric, Normal Conjunctiva NECK; supple, normal thyroid, RESPIRATORY: Diminished to auscultation with bibasilar crackles CARDIOVASCULAR: Regular S1 S2, GI: soft, normoactive bowel sounds, left lower quadrant tenderness : No Renal angle tenderness; EXTREMITIES: No edema, no clubbing, MUSCULOSKELETAL: no muscle waisting NEURO: Awake; no lateralizing signs. SKIN: No Rash PSYCH; Flat affect Assessment: 1. Septic shock (resolved) 2. Ischemic colitis 3. Gastric ulcers 4. Hypokalemia 5. Chronic hypoxic respiratory failure 6. Paroxysmal A. fib 7. Essential hypertension 8. Hyperchloremic hypernatremia 9. Physical deconditioning 10. Acute on chronic congestive heart failure with preserved ejection fraction EF 65% 11. DVT prophylaxis Recommendations: 1. I have discussed the results of my overview and impressions with the patient 2. Options for management were reviewed Charges/Coding Visit Charges Inpatient E&M: 21497 Subs Hosp L2
[2021-08-12] MEDS: Amox/Clavulanate 875 MG Tablet PO ×2 (13:24→23:11)
--- NOTE | 2021-08-12 14:43 | CASEMGMT ---
Hospice liasion here to see pt d/t referral from palliative. CM to follow. Krista BARKER CM
[2021-08-12 16:16] LABS: Bedside Glucose 91 mg/dL (70-110)
[2021-08-12] MEDS: Acetaminophen 325 MG Tablet 650 MG PO (16:23)
--- NOTE | 2021-08-12 17:30 | CASEMGMT ---
Per Isidra with Hospice patient and granddaughter signed Hospice papers. Plan is discharge home tomorrow on Hospice. Physician notified by MJ Charles PHYSICIAN CREDENTIALING SPECIALIST BRIANA
[2021-08-12] MEDS: LORazepam 0.5 MG Tablet PO (23:11)
[2021-08-12] MEDS: Ipratropium/Albuterol Sulfate 3 ML AMPUL.NEB INHALATION (23:53)
--- NOTE | 2021-08-13 00:19 | NURSING ---
entered pt's room around 2300 to check vs. spo2 was 82% on 6L. increased incrementally to 12L and obtained spo2 of 88%. RT notified and presented in room. duoneb, anti-anxiety, and pain meds given. pt maintained spo2 of 88-90%. non-rebreather applied and pt was able to maintain spo2 of >90%. will monitor.
[2021-08-13 00:23] VITALS: PULSE 120; RESP 20
[2021-08-13] MEDS: HYDROmorphone 0.5 MG/0.5 ML SYRINGE IV ×2 (01:25→07:56)
[2021-08-13] MEDS: LORazepam 2 MG/ML Syringe 0.5 MG IV (01:25)
[2021-08-13] MEDS: 0.9% Saline Lock 10 ML Syringe IV (01:26)
[2021-08-13 03:00] VITALS: PULSE 111
--- NOTE | 2021-08-13 03:15 | NURSING ---
AT 0030, PT WAS UNABLE TO MAINTAIN O2 SAT >88 WITHOUT SUPPLEMENTAL O2. SHE WAS RESISTENT TO CARE AND UNWILLING TO KEEP O2 ON. I NOTIFIED THE POAIVY THAT PT WAS ANXIOUS AND WOULD NOT KEEP O2 ON IN ORDER TO MAINTAIN SATS. IVY WAS COMFORTABLE WITH ALLOWING THE PT TO REMOVE THE NC IF THAT WAS WHAT THE PT WANTED. IVY STATED SHE WANTED PT TO BE CALM AND COMFORTABLE. INFORMED IVY SHE WOULD BE ABLE TO COME IN TO BE WITH THE PT TO HELP THE PT WITH HER COMFORT. IVY CAME AND SAT AT BEDSIDE TO KEEP PT CALM UNTIL SHE FELL ASLEEP. PT IS CURRENTLY ASLEEP IN THE ROOM WITH NC IN PLACE.
[2021-08-13] MEDS: LORazepam 0.5 MG Tablet PO (05:27)
[2021-08-13 06:02] LABS: Absolute Lymphocyte Count 0.93 X10^3/uL (0.83-4.51); Absolute Neutrophil Count 8.3 X10^3/uL (2.0-7.7); Basophil# 0.02 X10^3/uL; Basophil% 0.2 % (0-1); Hematocrit 39.4 % (37-47); Hemoglobin 12.1 g/dL (12.0-15.0); Lymphocyte # 0.93 X10^3/ul (0.83-4.51); Mean Corp Hgb Conc 30.7 g/dL (32-36); Mean Corpuscular Hgb 30.6 pg (27.0-32.0); Mean Corpuscular Volume 99.5 fL (81-99); Mean Platelet Vol. 11.1 fl (6.2-12.0); Monocyte# 0.98 X10^3/uL; Monocyte% 9.4 % (0-10); NRBC Flagged by Analyzer 0 % (0-5); Neutrophil # 8.29 X10^3/uL (2.7-7.7); Neutrophil % 79.9 % (47-70); Platelet Count 277 K/mm3 (150-450); RBC Distribution Width CV 15.7 % (11.6-14.6); RBC Distribution Width SD 58.3 fl (35.1-43.9); Red Blood Count 3.96 M/mm3 (4.2-5.4); White Blood Count 10.4 K/mm3 (4.4-11.0)
[2021-08-13 06:25] LABS: Anion Gap 11 (5-15); BUN 20 mg/dL (7-18); BUN/Creat Ratio 22.7 RATIO (10-20); Calcium,Total 8.3 mg/dL (8.5-10.1); Chloride 116 mmol/L (98-107); Creatinine, Serum 0.88 mg/dL (0.55-1.02); EST Glomerular Filtration Rate 66 mL/min (>60); Est Glom Filt Rate - Afr Amer 79 mL/min (>60); Estimated Creatinine Clearance 53.19 ml/min; Glucose 72 mg/dL (74-106); Potassium 3.6 mmol/L (3.5-5.1); Sodium Level 143 mmol/L (136-145)
[2021-08-13 07:00] VITALS: PULSE 105
[2021-08-13] MEDS: Acetaminophen 325 MG Tablet 650 MG PO (07:56)
--- NOTE | 2021-08-13 09:14 | CASEMGMT ---
Message left with Axel at [facility] to notify that pt is going home with hospice today and to cancel HHC referral. Krista BARKER CM
--- NOTE | 2021-08-13 10:23 | PCM.DC ---
Discharge Instructions Diet Discharge Diet: No restrictions Activity Discharge Activity: Return to Normal Activity Weight Bearing Status: Weight bearing as tolerated Dressing / Incision Call your doctor if you observe: Fever of 101 or Higher, Numbness or Tingling, Shortness of breath, Dizziness, Chest pain, Increased palpitations (irregular heartbeat) and Calf discomfort Follow Up Care Please Follow Up With: Primary care provider When: Within the next two weeks. Test Results: Test results from this visit will be discussed in further detail at your follow-up appointment, if applicable. Discharge Plan Admission Admit Date/Time: 08/07/21 12:11 Primary Reason for Your Visit: Hematemesis Attending Provider: Stef Dc Consulting Providers: Tayla Chacko ; Bharat Stanford ; Mumtaz Ravi ; Emy Cabrera CLOTH EXAMINER MACHINE Discharge Orders/Prescriptions Prescriptions: New amoxicillin-pot clavulanate [Augmentin] 875-125 mg tablet 1 tab PO BID Qty: 8 RF: 0 Continued furosemide [Lasix] 40 mg tablet 20 mg PO DAILY RF: 0 albuterol sulfate 90 mcg/actuation HFA aerosol inhaler 2 puff INHALATION Q4H PRN PRN (Reason: Sob &/Or Wheezing) Qty: 18 RF: 11 ipratropium-albuterol 0.5 mg-3 mg(2.5 mg base)/3 mL solution for nebulization 3 ml INHALATION Q6H Qty: 180 RF: 6 meclizine 12.5 mg tablet 12.5 mg PO DAILY PRN (Reason: Vertigo) RF: 0 Stiolto Respimat 2.5-2.5 mcg/actuation mist 2 inh inhalation DAILY Qty: 4 RF: 2 albuterol sulfate 2.5 mg /3 mL (0.083 %) solution for nebulization 2.5 mg inhalation Q4H PRN (Reason: Sob &/Or Wheezing) Qty: 180 RF: 3 calcium acetate 667 mg tablet 667 mg PO DAILY RF: 0 hydrocodone-acetaminophen 1 TABLET tablet 1 - 2 tab PO Q4H PRN PRN (Reason: Pain) RF: 0 cholecalciferol (vitamin D3) 5,000 UNIT capsule 5,000 unit PO DAILY RF: 0 melatonin 5 MG tablet 10 - 15 mg PO QHS PRN PRN (Reason: Sleep) RF: 0 gabapentin 600 mg tablet 400 mg PO QHS PRN PRN (Reason: Pain) RF: 0 pantoprazole 40 mg tablet,delayed release (DR/EC) 40 mg PO BID PRN (Reason: reflux) RF: 0 metoprolol tartrate 100 mg tablet 50 mg PO BID RF: 0 potassium chloride 20 mEq tablet extended release 20 meq PO DAILY RF: 0 aspirin [Aspirin Low Dose] 81 mg Tablet,Delayed Release (Dr/Ec) PO DAILY RF: 0 ondansetron HCl [Zofran] 4 mg Tablet 4 mg PO Q6H PRN (Reason: Nausea) RF: 0 lorazepam [Ativan] 0.5 mg Tablet 0.5 mg PO BID PRN (Reason: Anxiety) RF: 0 amiodarone 200 mg tablet See Rx Instructions .ROUTE .COMPLEX Qty: 45 RF: 3 Referrals / Follow Up: [facility] CARLOS FRANCO [Other] - Within 2 Weeks Disposition Disposition (needs filled in before D/C Order can be placed): Hospice in Home
--- NOTE | 2021-08-13 10:24 | NURSING ---
granddaughter sitting in with pt now. pt resting quietly in bed. family wanting to wait to do vitals since resting well
[2021-08-13 10:55] VITALS: BP 138/100; PULSE 116
[2021-08-13] MEDS: Amox/Clavulanate 875 MG Tablet PO (10:55)
[2021-08-13] MEDS: Metoprolol Tartrate 25 MG Tablet PO (10:55)
[2021-08-13] MEDS: Amiodarone 200 MG Tablet 100 MG PO (10:57)
--- NOTE | 2021-08-13 10:57 | NURSING ---
Two sutures removed, pressure applied. Vaseline guaze with 2x2 and secured with tegaderm over top. Instructed to lie flat x 30min.
--- NOTE | 2021-08-13 11:03 | CASEMGMT ---
SW received d/c orders. LENNIE spoke with patient's granddaughter Elisabet and family will need transportation set up for patient. LENNIE spoke with patient's other granddaughter, Abbi who will be staying with patient. Abbi said that equipment has been delivered already. SW confirmed the address of where patient will be going. LENNIE told Abbi SW will try for a noon machine pecan picker. SW will let her now as soon as SW has a time. SW asked for a noon machine pecan picker but Physicians could not do noon, but 1p instead. LENNIE notified RN, dental secretary, patient's granddaughter Abbi, granddaughter Elisabet, and Is[facility]ra at [facility]ospice. All in agreement with discharge plan. Plan: Home with [facility] Alesha WARREN
--- NOTE | 2021-08-13 11:26 | PHA.DC.MR ---
Pharmacy Service has performed discharge medication reconciliation for this patient. The patient's discharge medication list was reviewed for discrepancies and discrepancies were resolved. Home Medications cholecalciferol (vitamin D3) 5,000 unit PO DAILY 03/17/17 hydrocodone-acetaminophen 1 - 2 tab PO Q4H PRN PRN 03/17/17 melatonin 10 - 15 mg PO QHS PRN PRN 03/17/17 albuterol sulfate 90 mcg/actuation aerosol inhaler 2 puff INHALATION Q4H PRN PRN #18 g 07/10/19 meclizine 12.5 mg tablet 12.5 mg PO DAILY PRN 05/17/20 pantoprazole 40 mg tablet,delayed release 40 mg PO BID PRN 05/17/20 ipratropium 0.5 mg-albuterol 3 mg (2.5 mg base)/3 mL nebulization soln 3 ml INHALATION Q6H #180 vial 06/24/20 furosemide 40 mg tablet 20 mg PO DAILY tablet 12/23/20 gabapentin 600 mg tablet 400 mg PO QHS PRN PRN tablet 12/23/20 albuterol sulfate 2.5 mg INHALATION Q4H PRN #180 ml 04/28/21 tiotropium 2.5 mcg-olodaterol 2.5 mcg/actuation mist for inhalation 2 inh INHALATION DAILY #4 g 04/28/21 amiodarone 200 mg tablet See Rx Instructions .ROUTE .COMPLEX #45 tab 08/04/21 calcium acetate 667 mg tablet 667 mg PO DAILY 08/05/21 aspirin [Aspirin Low Dose] PO DAILY 08/07/21 lorazepam [Ativan] 0.5 mg PO BID PRN 08/07/21 metoprolol tartrate 50 mg PO BID 08/07/21 ondansetron HCl [Zofran] 4 mg PO Q6H PRN 08/07/21 potassium chloride 20 meq PO DAILY 08/07/21 amoxicillin-pot clavulanate [Augmentin] 1 tab PO BID #8 tab 08/13/21
[2021-08-13] MEDS: oxyCODONE 5 MG Tablet PO (12:10)
--- NOTE | 2021-08-13 12:18 | CHAPLAIN ---
Type of Pastoral Visit ___ Initial Visit _x__ Follow-up Visit ___ On-call Visit ___ General Patient Visit ___ Spiritual Assessment ___ Family Conference ___ Bereavement ___ Rapid Response ___ Code Blue ___ Other (describe below) Pastoral Care Referral From ___ Patient ___ Family _x__ Nurse ___ Physician ___ Weed Sprayer ___ Reception Clerk ___ Other (describe below) Sacrament/Intervention _x__ Active listening ___ Anointing ___ Hoahaoism ___ Bereavement ___ Communion ___ Gerri exploration ___ ___ Life review _x__ Prayer ___ Reconciliation ___ Sacrament of Sick _x__ Supportive presence ___ Wedding ___ Other (describe below) Pastoral Comments RN requested visit to this patient; met with this pt on Wednesday; today the pt is confused, demanding to leave; granddaughter is sitting at bedside with pt; offered comforting words/assurance and prayer; pt still talking loudly and wanting to leave; pt will be admitted to hospice with home today; support offered to family
--- NOTE | 2021-08-13 14:38 | DS.PCM_ITS ---
Documented by User: Adiel WATSON 08/13/21 14:43 Providers Date of Admission: 08/07/21 Primary Care Physician: JUAN CARLOS FRANCO Consultations 08/07/21 13:53 Consult: Gastroenterology Routine Consulting Provider: [facility] Reason for Consult: Hematemesis/abnormal CT abdomen pelvis EMERGENT Consult: No Notified: Yes Date Notified: 08/07/21 Time Notified: 12:14 Method of Notification: Text 08/07/21 19:50 Consult: Cold Rolling Supervisor / Pulmonary Medicine Routine Consulting Provider: Pulmonary Medicine [facility] Reason for Consult: Ischemic colitis EMERGENT Consult: No Notified: Yes Date Notified: 08/07/21 Time Notified: 18:39 Method of Notification: Text 08/08/21 01:38 Consult: General Surgery Routine Consulting Provider: Tayla Chacko Reason for Consult: Central line placement EMERGENT Consult: Yes MD Notified: Yes Date Notified: 08/08/21 Time Notified: 01:38 Method of Notification: Text Reason For Visit: HEMATEMESIS Diagnosis Discharge Diagnosis (1) Nausea and vomiting: Status: Acute Code(s): R11.2 - Nausea with vomiting, unspecified Qualifiers: Vomiting type: hematemesis Qualified Code(s): K92.0 - Hematemesis (2) Septic shock: Status: Acute Code(s): A41.9 - Sepsis, unspecified organism; R65.21 - Severe sepsis with septic shock Medications at Discharge Home Medications cholecalciferol (vitamin D3) 5,000 unit PO DAILY 03/17/17 hydrocodone-acetaminophen 1 - 2 tab PO Q4H PRN PRN 03/17/17 melatonin 10 - 15 mg PO QHS PRN PRN 03/17/17 albuterol sulfate 90 mcg/actuation aerosol inhaler 2 puff INHALATION Q4H PRN PRN #18 g 07/10/19 meclizine 12.5 mg tablet 12.5 mg PO DAILY PRN 05/17/20 pantoprazole 40 mg tablet,delayed release 40 mg PO BID PRN 05/17/20 ipratropium 0.5 mg-albuterol 3 mg (2.5 mg base)/3 mL nebulization soln 3 ml INHALATION Q6H #180 vial 06/24/20 furosemide 40 mg tablet 20 mg PO DAILY tablet 12/23/20 gabapentin 600 mg tablet 400 mg PO QHS PRN PRN tablet 12/23/20 albuterol sulfate 2.5 mg INHALATION Q4H PRN #180 ml 04/28/21 tiotropium 2.5 mcg-olodaterol 2.5 mcg/actuation mist for inhalation 2 inh INHALATION DAILY #4 g 04/28/21 amiodarone 200 mg tablet See Rx Instructions .ROUTE .COMPLEX #45 tab 08/04/21 calcium acetate 667 mg tablet 667 mg PO DAILY 08/05/21 aspirin [Aspirin Low Dose] PO DAILY 08/07/21 lorazepam [Ativan] 0.5 mg PO BID PRN 08/07/21 metoprolol tartrate 50 mg PO BID 08/07/21 ondansetron HCl [Zofran] 4 mg PO Q6H PRN 08/07/21 potassium chloride 20 meq PO DAILY 08/07/21 amoxicillin-pot clavulanate [Augmentin] 1 tab PO BID #8 tab 08/13/21 Hospital Course Summary of Care Provided Minutes Spent on Discharge: 35 Hospital Course: Disposition: Patient to be discharged home with hospice. 1) septic shock secondary to ischemic colitis Sepsis have resolved from admission, patient has been stepdown from ICU to PCU for stabilization. CT of the abdomen obtained on admission demonstrated Diffusely thickened wall of the cecum and proximal ascending colon with fluid distention of the right hemicolon. Patient's vital signs are still elevated with a tachycardia and tachypnea, and patient is still requiring 5 L of oxygen to sat at 94%. CBC does not demonstrate a leukocytosis. Patient expressed desire to be discharged home with hospice and did not want to remain being treated in the hospital. Hospice consult obtained and patient was accepted. Patient to discharge home on Augmentin for 4 more days to complete a 10-day course. 2) gastric ulcers Ulcers were appropriately clipped and patient was given PPI infusion while admitted. Patient to be discharged home on Protonix 40 mg p.o. twice daily. Patient to discharge home with hospice as above. 4) hypokalemia Resolved, potassium currently 3.6. 5) chronic hypoxic respiratory failure Patient to discharge home with hospice. 6) Paroxysmal A. fib Patient heart rate is controlled on metoprolol and amiodarone. Patient is not on anticoagulation at home and has not been started on anticoagulation due to #2. 7) HTN Stable, continue metoprolol, hold Lasix. 8) physical debility Patient to discharge home with hospice as above. Patient seen by Adiel Winters PA-C, under the supervision of Dr. Dc. Physical Exam Narrative Patient is a 81-year-old female comfortably resting in bed, alert and orient x3. Patient denies development of any new symptoms overnight. Does not appear in acute distress. Const alert, oriented x3 and no apparent distress HEENT normocephalic, head/scalp atraumatic and hearing grossly normal bilaterally Eyes PERRL, EOMs intact bilaterally and conjunctivae normal Neck no lymphadenopathy, supple and no JVD Resp normal respiratory effort, no retractions, no use of accessory muscles and clear to auscultation bilaterally Cardio regular rhythm, no murmurs and no JVD Rate: tachycardic GI normal to inspection, nondistended, normoactive bowel sounds, soft to palpation and non-tender Extremity normal to inspection, full ROM and no clubbing, cyanosis or edema Skin no rashes or lesions noted, no wounds and skin turgor normal Neuro CN's II-XII intact bilaterally Psych affect normal Weight / BMI Weight Weight: 143 lb 4.807 oz Body Mass Index (BMI) 26.2 ABG / Lab / Microbiology Data Result Diagrams: 08/13/21 05:30 08/13/21 05:30 Laboratory: Laboratory Results - last 24 hr 08/12/21 16:04: POC Glucose 91 08/13/21 05:30: WBC 10.4, RBC 3.96 L, Hgb 12.1, Hct 39.4, MCV 99.5 H, MCH 30.6, MCHC 30.7 L, RDW Std Deviation 58.3 H, RDW Coeff of Valorie 15.7 H, Plt Count 277, MPV 11.1, Immature Gran % (Auto) 1.500 H, Neut % (Auto) 79.9 H, Lymph % (Auto) 9.0 L, [place] % (Auto) 9.4, Eos % (Auto) 0.0, Baso % (Auto) 0.2, Absolute Neuts (auto) 8.3 H, Absolute Lymphs (auto) 0.93, Nucleated RBC % 0 08/13/21 05:30: Sodium 143, Potassium 3.6, Chloride 116 H, Carbon Dioxide 16.0 L , Anion Gap 11, BUN 20 H, Creatinine 0.88, Estim Creat Clear Calc 53.19, Est GFR (MDRD) Af Amer 79, Est GFR (MDRD) Non-Af 66, BUN/Creatinine Ratio 22.7 H, Glucose 72 L, Calcium 8.3 L Microbiology: Microbiology 08/09/21 13:25 Stool Stool Lactoferrin - Final D/C Instructions Discharge Diet: No restrictions Weight Bearing Status: Weight bearing as tolerated Call your doctor if you observe: Fever of 101 or Higher, Numbness or Tingling, Shortness of breath, Dizziness, Chest pain, Increased palpitations (irregular heartbeat) and Calf discomfort Please Follow Up With: Primary care provider When: Within the next two weeks. Meaningful Use Info Meaningful Use Diagnoses (Choose all that apply): None applicable Discharge Plan Admission Admit Date/Time: 08/07/21 12:11 Primary Reason for Your Visit: Hematemesis Attending Provider: Stef Dc Consulting Providers: Tayla Chacko ; Bharat Stanford ; Mumtaz Ravi ; Emy Cabrera MANUFACTURING TEAM MEMBER Discharge Orders/Prescriptions Prescriptions: New amoxicillin-pot clavulanate [Augmentin] 875-125 mg tablet 1 tab PO BID Qty: 8 RF: 0 Continued furosemide [Lasix] 40 mg tablet 20 mg PO DAILY RF: 0 albuterol sulfate 90 mcg/actuation HFA aerosol inhaler 2 puff INHALATION Q4H PRN PRN (Reason: Sob &/Or Wheezing) Qty: 18 RF: 11 ipratropium-albuterol 0.5 mg-3 mg(2.5 mg base)/3 mL solution for nebulization 3 ml INHALATION Q6H Qty: 180 RF: 6 meclizine 12.5 mg tablet 12.5 mg PO DAILY PRN (Reason: Vertigo) RF: 0 Stiolto Respimat 2.5-2.5 mcg/actuation mist 2 inh inhalation DAILY Qty: 4 RF: 2 albuterol sulfate 2.5 mg /3 mL (0.083 %) solution for nebulization 2.5 mg inhalation Q4H PRN (Reason: Sob &/Or Wheezing) Qty: 180 RF: 3 calcium acetate 667 mg tablet 667 mg PO DAILY RF: 0 hydrocodone-acetaminophen 1 TABLET tablet 1 - 2 tab PO Q4H PRN PRN (Reason: Pain) RF: 0 cholecalciferol (vitamin D3) 5,000 UNIT capsule 5,000 unit PO DAILY RF: 0 melatonin 5 MG tablet 10 - 15 mg PO QHS PRN PRN (Reason: Sleep) RF: 0 gabapentin 600 mg tablet 400 mg PO QHS PRN PRN (Reason: Pain) RF: 0 pantoprazole 40 mg tablet,delayed release (DR/EC) 40 mg PO BID PRN (Reason: reflux) RF: 0 metoprolol tartrate 100 mg tablet 50 mg PO BID RF: 0 potassium chloride 20 mEq tablet extended release 20 meq PO DAILY RF: 0 aspirin [Aspirin Low Dose] 81 mg Tablet,Delayed Release (Dr/Ec) PO DAILY RF: 0 ondansetron HCl [Zofran] 4 mg Tablet 4 mg PO Q6H PRN (Reason: Nausea) RF: 0 lorazepam [Ativan] 0.5 mg Tablet 0.5 mg PO BID PRN (Reason: Anxiety) RF: 0 amiodarone 200 mg tablet See Rx Instructions .ROUTE .COMPLEX Qty: 45 RF: 3 Referrals / Follow Up: JUAN CARLOS FRANCO [Other] - Within 2 Weeks Disposition Disposition (needs filled in before D/C Order can be placed): Hospice in Home Documented by User: Dr. Stef Dc MD 08/13/21 14:47 Providers Date of Admission: 08/07/21 Reason For Visit: HEMATEMESIS Medications at Discharge Home Medications cholecalciferol (vitamin D3) 5,000 unit PO DAILY 03/17/17 hydrocodone-acetaminophen 1 - 2 tab PO Q4H PRN PRN 03/17/17 melatonin 10 - 15 mg PO QHS PRN PRN 03/17/17 albuterol sulfate 90 mcg/actuation aerosol inhaler 2 puff INHALATION Q4H PRN PRN #18 g 07/10/19 meclizine 12.5 mg tablet 12.5 mg PO DAILY PRN 05/17/20 pantoprazole 40 mg tablet,delayed release 40 mg PO BID PRN 05/17/20 ipratropium 0.5 mg-albuterol 3 mg (2.5 mg base)/3 mL nebulization soln 3 ml INHALATION Q6H #180 vial 06/24/20 furosemide 40 mg tablet 20 mg PO DAILY tablet 12/23/20 gabapentin 600 mg tablet 400 mg PO QHS PRN PRN tablet 12/23/20 albuterol sulfate 2.5 mg INHALATION Q4H PRN #180 ml 04/28/21 tiotropium 2.5 mcg-olodaterol 2.5 mcg/actuation mist for inhalation 2 inh INHALATION DAILY #4 g 04/28/21 amiodarone 200 mg tablet See Rx Instructions .ROUTE .COMPLEX #45 tab 08/04/21 calcium acetate 667 mg tablet 667 mg PO DAILY 08/05/21 aspirin [Aspirin Low Dose] PO DAILY 08/07/21 lorazepam [Ativan] 0.5 mg PO BID PRN 08/07/21 metoprolol tartrate 50 mg PO BID 08/07/21 ondansetron HCl [Zofran] 4 mg PO Q6H PRN 08/07/21 potassium chloride 20 meq PO DAILY 08/07/21 amoxicillin-pot clavulanate [Augmentin] 1 tab PO BID #8 tab 08/13/21 Hospital Course Operations None Summary of Care Provided Hospital Course: This patient was seen in conjunction with Adiel Winters PA-C. I have independently interviewed and examined the patient and reviewed pertinent historical, laboratory, and other data. Please refer to Adiel Winters PA-C's note for details of this patient's presentation, findings, and recommendations. I have reviewed Adiel Winters PA-C's note and concur with documented findings. In brief, Patient is a 81-year-old lady admitted with abdominal pain with associated bleeding. An assessment of septic shock secondary to ischemic colitis made admitted to the intensive care unit for further management Assessment: 1. Septic shock (resolved) 2. Ischemic colitis 3. Gastric ulcers 4. Hypokalemia 5. Chronic hypoxic respiratory failure 6. Paroxysmal A. fib 7. Essential hypertension 8. Hyperchloremic hypernatremia 9. Physical deconditioning 10. Acute on chronic congestive heart failure with preserved ejection fraction EF 65% 11. DVT prophylaxis Hospital course: As documented above. ABG / Lab / Microbiology Data Result Diagrams: 08/13/21 05:30 08/13/21 05:30 Discharge Plan Admission Admit Date/Time: 08/07/21 12:11 Primary Reason for Your Visit: Hematemesis Attending Provider: Stef Dc Consulting Providers: Tayla Chacko ; Bharat Stanford ; Mumtaz Ravi ; Emy Cabrera MANUFACTURING TEAM MEMBER Discharge Orders/Prescriptions Prescriptions: New amoxicillin-pot clavulanate [Augmentin] 875-125 mg tablet 1 tab PO BID Qty: 8 RF: 0 Continued furosemide [Lasix] 40 mg tablet 20 mg PO DAILY RF: 0 albuterol sulfate 90 mcg/actuation HFA aerosol inhaler 2 puff INHALATION Q4H PRN PRN (Reason: Sob &/Or Wheezing) Qty: 18 RF: 11 ipratropium-albuterol 0.5 mg-3 mg(2.5 mg base)/3 mL solution for nebulization 3 ml INHALATION Q6H Qty: 180 RF: 6 meclizine 12.5 mg tablet 12.5 mg PO DAILY PRN (Reason: Vertigo) RF: 0 Stiolto Respimat 2.5-2.5 mcg/actuation mist 2 inh inhalation DAILY Qty: 4 RF: 2 albuterol sulfate 2.5 mg /3 mL (0.083 %) solution for nebulization 2.5 mg inhalation Q4H PRN (Reason: Sob &/Or Wheezing) Qty: 180 RF: 3 calcium acetate 667 mg tablet 667 mg PO DAILY RF: 0 hydrocodone-acetaminophen 1 TABLET tablet 1 - 2 tab PO Q4H PRN PRN (Reason: Pain) RF: 0 cholecalciferol (vitamin D3) 5,000 UNIT capsule 5,000 unit PO DAILY RF: 0 melatonin 5 MG tablet 10 - 15 mg PO QHS PRN PRN (Reason: Sleep) RF: 0 gabapentin 600 mg tablet 400 mg PO QHS PRN PRN (Reason: Pain) RF: 0 pantoprazole 40 mg tablet,delayed release (DR/EC) 40 mg PO BID PRN (Reason: reflux) RF: 0 metoprolol tartrate 100 mg tablet 50 mg PO BID RF: 0 potassium chloride 20 mEq tablet extended release 20 meq PO DAILY RF: 0 aspirin [Aspirin Low Dose] 81 mg Tablet,Delayed Release (Dr/Ec) PO DAILY RF: 0 ondansetron HCl [Zofran] 4 mg Tablet 4 mg PO Q6H PRN (Reason: Nausea) RF: 0 lorazepam [Ativan] 0.5 mg Tablet 0.5 mg PO BID PRN (Reason: Anxiety) RF: 0 amiodarone 200 mg tablet See Rx Instructions .ROUTE .COMPLEX Qty: 45 RF: 3 Referrals / Follow Up: JUAN CARLOS FRANCO [Other] - Within 2 Weeks Disposition Disposition (needs filled in before D/C Order can be placed): Hospice in Home Charges/Coding Visit Charges Inpatient E&M: 80905 Disch Hosp Hospital Course Consultations Consultations: Consultations 08/07/21 13:53 Consult: Gastroenterology Routine Consulting Provider: [facility] Reason for Consult: Hematemesis/abnormal CT abdomen pelvis EMERGENT Consult: No MD Notified: Yes Date Notified: 08/07/21 Time Notified: 12:14 Method of Notification: Text 08/07/21 19:50 Consult: Cold Rolling Supervisor / Pulmonary Medicine Routine Consulting Provider: Pulmonary Medicine [facility] Reason for Consult: Ischemic colitis EMERGENT Consult: No Notified: Yes Date Notified: 08/07/21 Time Notified: 18:39 Method of Notification: Text 08/08/21 01:38 Consult: General Surgery Routine Consulting Provider: Tayla Chacko Reason for Consult: Central line placement EMERGENT Consult: Yes Notified: Yes Date Notified: 08/08/21 Time Notified: 01:38 Method of Notification: Text Operations None
== END 2021-08-13 13:23 | disposition hospice, home (50) | DRG 871 ==
LOC: ED 12:20 → PCU 12:37 → ICU 19:19 → PCU 08-11 01:59
PROVIDERS: Hospitalist; Internal Medicine Critical Care Medicine; Internal Medicine Gastroenterology; Admitting Provider Internal Medicine; Emergency Provider Emergency Medicine; Visit Provider Internal Medicine
PROC: 0DJ08ZZ Inspection of Upper Intestinal Tract, Via Natural or Artificial Opening Endoscopic (ICD-10-PCS; CPT 43235; principal; 2021-08-08 11:55)
DX: A41.9 Sepsis, unspecified organism (principal); R65.21 Severe sepsis with septic shock; K25.4 Chronic or unspecified gastric ulcer with hemorrhage; I50.33 Acute on chronic diastolic (congestive) heart failure; K55.9 Vascular disorder of intestine, unspecified; N17.9 Acute kidney failure, unspecified; D62 Acute posthemorrhagic anemia; J96.11 Chronic respiratory failure with hypoxia; E87.0 Hyperosmolality and hypernatremia; I13.0 Hypertensive heart and chronic kidney disease with heart failure and stage 1 through stage 4 chronic kidney disease, or unspecified chronic kidney disease; D64.9 Anemia, unspecified; I48.0 Paroxysmal atrial fibrillation; K80.20 Calculus of gallbladder without cholecystitis without obstruction; E78.00 Pure hypercholesterolemia, unspecified; Z66 Do not resuscitate; E87.6 Hypokalemia; E83.51 Hypocalcemia; J44.9 Chronic obstructive pulmonary disease, unspecified; K21.9 Gastro-esophageal reflux disease without esophagitis; N18.32 Chronic kidney disease, stage 3b; Z79.01 Long term (current) use of anticoagulants; Z95.0 Presence of cardiac pacemaker; E78.5 Hyperlipidemia, unspecified; K44.9 Diaphragmatic hernia without obstruction or gangrene; E87.8 Other disorders of electrolyte and fluid balance, not elsewhere classified; M54.41 Lumbago with sciatica, right side; F17.201 Nicotine dependence, unspecified, in remission; H91.90 Unspecified hearing loss, unspecified ear; H54.7 Unspecified visual loss; G89.29 Other chronic pain; Z51.5 Encounter for palliative care; Z82.3 Family history of stroke; Z98.61 Coronary angioplasty status; Z86.73 Personal history of transient ischemic attack (TIA), and cerebral infarction without residual deficits
CPT/HCPCS: 36415; 71045; 74018; 74177; 76705; 80048; 80053; 81001; 82248; 82962; 83605; 83630; 83690; 83735; 84100; 84484; 85014; 85018; 85025; 86850; 86900; 86901; 86920; 93005; 94640; 97802; 99251; 99285; J7030; J7040; J7050; J7120; P9016; Q9967; A4216; G0463; J1940; J2405